=== PATIENT | female | born 1945 | race Caucasian/White ===

== ENCOUNTER → 2018-07-04 14:00 | Outpatient (CLI) | payer MEDICARE, OTHER, SELFPAY | PROVIDERS: PCP General Practice; Visit Provider Urology | DX: N20.0 Calculus of kidney (principal); N13.30 Unspecified hydronephrosis | CPT/HCPCS: 99213 ==

== ENCOUNTER → 2018-07-09 00:58 | Outpatient (CLI) | payer MEDICARE, OTHER, SELFPAY ==
--- NOTE | 2018-07-09 08:26 | DI.RPTCT_ITS ---
SYMPTOM/DIAGNOSIS: BILAT KIDNEY STONES, N20.0, HYDRO ON US, ? STONE OR URETERAL STRICTURE RENAL COLIC CT: The study was carried out according to the usual protocol without contrast enhancement. There is severe left hydronephrosis and hydroureter down to the level of the distal ureter where a 5.4 mm. calculus is identified. The bladder is decompressed but contains a large irregular bladder calculus. Non obstructing right renal calculi are demonstrated. There is no evidence of right ureteral calculi or ureterectasis. SUMMARY: Severe left hydronephrosis and left hydroureter is demonstrated. A 5.4 mm. calculus is noted in the distal left ureter. Also there is a sizable irregular bladder stone. Non obstructing right nephrolithiasis is identified.
== END ==
PROVIDERS: PCP General Practice; Visit Provider Urology
DX: N20.0 Calculus of kidney (principal); N13.39 Other hydronephrosis; N13.4 Hydroureter; N21.0 Calculus in bladder
CPT/HCPCS: 74176

== ENCOUNTER → 2018-07-10 10:00 | Outpatient (CLI) | payer MEDICARE, OTHER, SELFPAY | PROVIDERS: PCP General Practice; Visit Provider Urology | DX: N21.0 Calculus in bladder (principal); N20.1 Calculus of ureter | CPT/HCPCS: 99213 ==

== ENCOUNTER 2018-07-15 22:05 | Emergency (ER) | payer MEDICARE, OTHER, SELFPAY ==
[2018-07-15 22:09] VITALS: BP 213/87; PULSE 125; RESP 22; TEMP 36.2; O2SAT 98
--- NOTE | 2018-07-15 22:42 | ED.GENADUL ---
Disposition Clinical Impression: Urinary retention Disposition: HOME Condition: Good Instructions: Acute Urinary Retention in Women (ED), Urinary Leg Bag (GEN) Additional Instructions: Please take your home tramadol and Cipro as directed. Please maintain your leg Crane bag as directed. Please empty it and the ways that we have shown you here in the emergency department. Please follow-up with Dr. San on . If you notice any significant blood in your urine, worsening pain, fever chills, please return immediately. If you notice any worsening of your symptoms, or any new symptoms such as vomiting, diarrhea, fever, chills, shortness of breath, chest pain, numbness, weakness, or fainting , please return immediately to the emergency department for reevaluation. As always, it was a pleasure participating in your medical care today. Referrals: Kevin San MD [ [facility] STAFF PHYSICIAN] - Medical Decision Making - Lab Data Laboratory Tests 07/15/18 07/15/18 22:26 22:26 WBC Cancelled RBC Cancelled Hgb Cancelled Hct Cancelled MCV Cancelled MCH Cancelled MCHC Cancelled RDW Cancelled Plt Count Cancelled MPV Cancelled Abs Immat Gran (auto) Cancelled Immature Gran % Cancelled Neutrophils % Cancelled Lymphocytes % Cancelled Monocytes % Cancelled Eosinophils % Cancelled Basophils % Cancelled Absolute Neutrophils Cancelled Band Neutrophils Cancelled Absolute Lymphocytes Cancelled Absolute Monocytes Cancelled Absolute Eosinophils Cancelled Absolute Basophils Cancelled Metamyelocytes Cancelled Myelocytes Cancelled Promyelocytes Cancelled Nucleated RBCs Cancelled Differential Comment Cancelled Atypical Lymphocytes Cancelled Other Cell Type Cancelled RBC Morphology Cancelled Polychromasia Cancelled Hypochromasia Cancelled Poikilocytosis Cancelled Basophilic Stippling Cancelled Anisocytosis Cancelled Microcytosis Cancelled Macrocytosis Cancelled Spherocytes Cancelled Target Cells Cancelled Tear Drop Cells Cancelled Ovalocytes Cancelled Stomatocytes Cancelled Stephens-[place] Tak Bodies Cancelled William Cells Cancelled Acanthocytes (Spur) Cancelled Schistocytes Cancelled Sodium Cancelled Potassium Cancelled Chloride Cancelled Carbon Dioxide Cancelled Anion Gap Cancelled BUN Cancelled Creatinine Cancelled Estimated GFR/1.73 m2 Cancelled Glucose Cancelled Calcium Cancelled Total Bilirubin Cancelled AST Cancelled ALT Cancelled Alkaline Phosphatase Cancelled Total Protein Cancelled Albumin Cancelled Lipase Cancelled - Medical Decision Making This is a 72-year-old female who had a bladder stone today, which was surgically washed out and obliterated by Dr. San. She was doing well after the procedure, however this evening she began to develop some urinary retention, and a sensation of bladder pressure and was unable to urinate a notable amount. The patient came to the ER for evaluation. Bladder scan revealed 300 cc, however she was only able to urinate roughly 5-7 cc. Because of this we did place a Crane catheter, the patient's heart rate went from 122 to 70, and her pain went from 10 out of 10 to a 2 out of 10. She is feeling much better. I did contact Dr. San, and discussed the case with him, he feels that she may have some particulate matter still in there causing the bladder spasm, and the retention. He recommends leaving in the Crane catheter with a leg bag the next 48 hours and having her follow-up on which is in 48 hours. Urinalysis shows no signs of severe infection. With the patient significant improvement of her symptoms, we will recommend continued Cipro, as well as her continued home tramadol and Tylenol and Motrin as needed. We discussed red flags which to return the patient understands. I have extensively reviewed the treatment plan and discharge instructions with the patient. I have addressed all patient concerns at this time. The patient was made aware of what symptoms to monitor for that would warrant a return to the emergency department. Discussed the plan with the patient, they demonstrate verbal understanding and agreement with our assessment and plan at this time. History of Present Illness - General Chief complaint: Urinary Stated complaint: PAIN,NAUSEA Time Seen by Provider: 07/15/18 22:26 - History of Present Illness Initial comments: 2-year-old female with a past medical history of a bladder stone who presents today for evaluation of pelvic pain. Today Dr. San performed a notable washout on her bladder and obliterated a large bladder stone, after prolonged washout she was having continued clear urine with no abnormalities. She is discharged home with no complications and was feeling very well, however this evening she began to have notable suprapubic pressure, and a feeling of urinary frequency. She is unable to get out a significant amount at home, and came in for evaluation. She denies any radiation of the pain, any hematuria, vomiting, diarrhea, chest pain shortness of breath. She has been taking Cipro at home as directed from Dr. San. She denies any other complaints at this time. She states that this does feel differently than her previous kidney stones. She denies any pertinent family history. She denies any recent pertinent surgical history. She has no other complaints at this time - Related Data Aspirin [Aspir 81] 81 mg PO DAILY tab-cap 03/21/15 Calcium Carbonate/Vitamin D3 [Caltrate 600 + D Soft Chew Tab] 1 each PO DIRECTED tab.chew 03/21/15 Glucosamine/Chond 2 tab PO DAILY 03/21/15 Multivitamin [Multi-Vitamin Daily] 1 each PO DAILY 03/21/15 Vitamin C 500 tab.chew PO DAILY 03/21/15 Cholecalciferol (Vitamin D3) [Vitamin D3] 1,000 unit PO DAILY 12/25/17 Triamcinolone Acetonide 15 gm TP BID 07/11/18 Ciprofloxacin [Cipro] 500 mg PO BID #6 tab 07/15/18 TraMADol [Ultram] 50 mg PO Q6H PRN PRN tab 07/15/18 Allergies Allergy/AdvReac Type Severity Reaction Status Date / Time Sulfa (Sulfonamide Allergy Unknown unknown Unverified 07/14/18 12:57 Antibiotics) lisinopril Allergy skin Unverified 07/14/18 12:58 reactions amoxicillin [From Augmentin] AdvReac Intermediate diarrhea/severe Unverified 07/14/18 12:58 muscle spasms clavulanic acid AdvReac Intermediate diarrhea/severe Unverified 07/14/18 12:58 [From Augmentin] muscle spasms alendronate sodium AdvReac Mild muscle Unverified 07/14/18 12:58 [From Fosamax] spasms hydrochlorothiazide AdvReac Mild nausea Unverified 07/14/18 12:58 Review of Systems Other: 10 point review of systems was performed, pertinent positives and negatives are noted in the history of present illness. Past Medical History - Past Medical History Medical history: hypertension kidney stones, osteopenia, frequent UTIs Surgical history: hysterectomy - Social History Alcohol use: none Drug use: none General Exam - Other Other exam information: 1.Const: Well-nourished, Well-developed, appearing stated age 2.Eyes: PERRL, no conjunctival injection, and symmetrical lids. 3.ENT: Atraumatic external nose and ears. Moist MM. Neck: Symmetric, trachea midline, No thyromegaly. 4.CVS: +S1/S2, No murmurs or gallops. Peripheral pulses 2+ and equal in all extremities. Brisk capillary refill in all extremities. 5.RESP: Unlabored respiratory effort. Clear to auscultation bilaterally. No wheezes rales or rhonchi 6.GI: Soft, Nontender/Nondistended, No hepatosplenomegaly. No guarding or rebound. Mild suprapubic pressure. No CVA or flank tenderness. 7.MSK: Normocephalic/Atraumatic, Extremities w/o deformity or ttp No cyanosis or clubbing, Normal movement of all extremities 8.Skin: Warm, Dry. No rashes or lesions. 9.Neuro: adapted physical education aide II-XII grossly intact. Sensation grossly intact, no focal neurologic deficits. 10.Psych: (AAO) x3. Appropriate mood and affect Course Vital Signs - 24 hr 07/15/18 22:09 Temperature 36.2 C L Pulse 125 H Respiratory 22 Rate Blood Pressure 213/87 Pulse Oximetry 98
[2018-07-15 22:45] LABS: Bilirubin Negative (Negative); Blood Large (Negative); Clarity Clear; Glucose Negative (Negative); Ketones Negative (Negative); Leukocyte Esterase Moderate (Negative); Nitrite Negative (Negative); Specific Gravity 1.025 (1.005-1.025); Urobilinogen 0.2 EU/dL (Up TO 0.2); pH 6.5 (5-8)
--- NOTE | 2018-07-15 22:45 | ED.GENADUL_ITS ---
Disposition Clinical Impression: Urinary retention Disposition: HOME Condition: Good Instructions: Acute Urinary Retention in Women (ED), Urinary Leg Bag (GEN) Additional Instructions: Please take your home tramadol and Cipro as directed. Please maintain your leg Crane bag as directed. Please empty it and the ways that we have shown you here in the emergency department. Please follow-up with Dr. San on . If you notice any significant blood in your urine, worsening pain, fever chills, please return immediately. If you notice any worsening of your symptoms , or any new symptoms such as vomiting, diarrhea, fever, chills, shortness of breath, chest pain, numbness, weakness, or fainting , please return immediately to the emergency department for reevaluation. As always, it was a pleasure participating in your medical care today. Referrals: Kevin San MD [ [facility] STAFF PHYSICIAN] - Medical Decision Making - Lab Data Laboratory Tests 07/15/18 07/15/18 22:26 22:26 WBC Cancelled RBC Cancelled Hgb Cancelled Hct Cancelled MCV Cancelled MCH Cancelled MCHC Cancelled RDW Cancelled Plt Count Cancelled MPV Cancelled Abs Immat Gran (auto) Cancelled Immature Gran % Cancelled Neutrophils % Cancelled Lymphocytes % Cancelled Monocytes % Cancelled Eosinophils % Cancelled Basophils % Cancelled Absolute Neutrophils Cancelled Band Neutrophils Cancelled Absolute Lymphocytes Cancelled Absolute Monocytes Cancelled Absolute Eosinophils Cancelled Absolute Basophils Cancelled Metamyelocytes Cancelled Myelocytes Cancelled Promyelocytes Cancelled Nucleated RBCs Cancelled Differential Comment Cancelled Atypical Lymphocytes Cancelled Other Cell Type Cancelled RBC Morphology Cancelled Polychromasia Cancelled Hypochromasia Cancelled Poikilocytosis Cancelled Basophilic Stippling Cancelled Anisocytosis Cancelled Microcytosis Cancelled Macrocytosis Cancelled Spherocytes Cancelled Target Cells Cancelled Tear Drop Cells Cancelled Ovalocytes Cancelled Stomatocytes Cancelled [place] Bodies Cancelled [place]enton Cells Cancelled Acanthocytes (Spur) Cancelled Schistocytes Cancelled Sodium Cancelled Potassium Cancelled Chloride Cancelled Carbon Dioxide Cancelled Anion Gap Cancelled BUN Cancelled Creatinine Cancelled Estimated GFR/1.73 m2 Cancelled Glucose Cancelled Calcium Cancelled Total Bilirubin Cancelled AST Cancelled ALT Cancelled Alkaline Phosphatase Cancelled Total Protein Cancelled Albumin Cancelled Lipase Cancelled - Medical Decision Making This is a 72-year-old female who had a bladder stone today, which was surgically washed out and obliterated by Dr. San. She was doing well after the procedure, however this evening she began to develop some urinary retention , and a sensation of bladder pressure and was unable to urinate a notable amount. The patient came to the ER for evaluation. Bladder scan revealed 300 cc, however she was only able to urinate roughly 5-7 cc. Because of this we did place a Crane catheter, the patient's heart rate went from 122 to 70, and her pain went from 10 out of 10 to a 2 out of 10. She is feeling much better. I did contact Dr. San, and discussed the case with him, he feels that she may have some particulate matter still in there causing the bladder spasm, and the retention. He recommends leaving in the Crane catheter with a leg bag the next 48 hours and having her follow-up on which is in 48 hours. Urinalysis shows no signs of severe infection. With the patient significant improvement of her symptoms, we will recommend continued Cipro, as well as her continued home tramadol and Tylenol and Motrin as needed. We discussed red flags which to return the patient understands. I have extensively reviewed the treatment plan and discharge instructions with the patient. I have addressed all patient concerns at this time. The patient was made aware of what symptoms to monitor for that would warrant a return to the emergency department. Discussed the plan with the patient, they demonstrate verbal understanding and agreement with our assessment and plan at this time. History of Present Illness - General Chief complaint: Urinary Stated complaint: PAIN,NAUSEA Time Seen by Provider: 07/15/18 22:26 - History of Present Illness Initial comments: 2-year-old female with a past medical history of a bladder stone who presents today for evaluation of pelvic pain. Today Dr. San performed a notable washout on her bladder and obliterated a large bladder stone, after prolonged washout she was having continued clear urine with no abnormalities. She is discharged home with no complications and was feeling very well, however this evening she began to have notable suprapubic pressure, and a feeling of urinary frequency. She is unable to get out a significant amount at home, and came in for evaluation. She denies any radiation of the pain, any hematuria, vomiting, diarrhea, chest pain shortness of breath. She has been taking Cipro at home as directed from Dr. San. She denies any other complaints at this time. She states that this does feel differently than her previous kidney stones. She denies any pertinent family history. She denies any recent pertinent surgical history. She has no other complaints at this time - Related Data Aspirin [Aspir 81] 81 mg PO DAILY tab-cap 03/21/15 Calcium Carbonate/Vitamin D3 [Caltrate 600 + D Soft Chew Tab] 1 each PO DIRECTED tab.chew 03/21/15 Glucosamine/Chond 2 tab PO DAILY 03/21/15 Multivitamin [Multi-Vitamin Daily] 1 each PO DAILY 03/21/15 Vitamin C 500 tab.chew PO DAILY 03/21/15 Cholecalciferol (Vitamin D3) [Vitamin D3] 1,000 unit PO DAILY 12/25/17 Triamcinolone Acetonide 15 gm TP BID 07/11/18 Ciprofloxacin [Cipro] 500 mg PO BID #6 tab 07/15/18 TraMADol [Ultram] 50 mg PO Q6H PRN PRN tab 07/15/18 Allergies Allergy/AdvReac Type Severity Reaction Status Date / Time Sulfa (Sulfonamide Allergy Unknown unknown Unverified 07/14/18 12:57 Antibiotics) lisinopril Allergy skin Unverified 07/14/18 12:58 reactions amoxicillin [From Augmentin] AdvReac Intermediate diarrhea/severe Unverified 12:58 muscle spasms clavulanic acid AdvReac Intermediate diarrhea/severe Unverified 07/14/18 12:58 [From Augmentin] muscle spasms alendronate sodium AdvReac Mild muscle Unverified 07/14/18 12:58 [From Fosamax] spasms hydrochlorothiazide AdvReac Mild nausea Unverified 07/14/18 12:58 Review of Systems Other: 10 point review of systems was performed, pertinent positives and negatives are noted in the history of present illness. Past Medical History - Past Medical History Medical history: hypertension kidney stones, osteopenia, frequent UTIs Surgical history: hysterectomy - Social History Alcohol use: none Drug use: none General Exam - Other Other exam information: 1.Const: Well-nourished, Well-developed, appearing stated age 2.Eyes: PERRL, no conjunctival injection, and symmetrical lids. 3.ENT: Atraumatic external nose and ears. Moist MM. Neck: Symmetric, trachea midline, No thyromegaly. 4.CVS: +S1/S2, No murmurs or gallops. Peripheral pulses 2+ and equal in all extremities. Brisk capillary refill in all extremities. 5.RESP: Unlabored respiratory effort. Clear to auscultation bilaterally. No wheezes rales or rhonchi 6.GI: Soft, Nontender/Nondistended, No hepatosplenomegaly. No guarding or rebound. Mild suprapubic pressure. No CVA or flank tenderness. 7.MSK: Normocephalic/Atraumatic, Extremities w/o deformity or ttp No cyanosis or clubbing, Normal movement of all extremities 8.Skin: Warm, Dry. No rashes or lesions. 9.Neuro: records management director II-XII grossly intact. Sensation grossly intact, no focal neurologic deficits. 10.Psych: (AAO) x3. Appropriate mood and affect Course Vital Signs - 24 hr 07/15/18 22:09 Temperature 36.2 C L Pulse 125 H Respiratory 22 Rate Blood Pressure 213/87 Pulse Oximetry 98
[2018-07-15 22:50] VITALS: BP 162/76; PULSE 78; RESP 16; TEMP 36.6; O2SAT 93
[2018-07-15 22:55] LABS: C & S Indicated? C&S Done As Ordered; RBC >50 (0-2)
[2018-07-15] MEDS: Acetaminophen 500 MG TAB 1000 MG PO (23:04)
--- NOTE | 2018-07-16 08:06 | PDOC.ERCMPRO ---
Care Management Progress Note 07/16-Dr. Medley requested assistance with a urology f/u in 48 hours (, 07/17) for post op retention, indwelling ramsey catheter. Referral faxed to Urology this am.
--- NOTE | 2018-07-16 08:07 | CMPROGNOTE_ITS ---
Care Management Progress Note 07/16-Dr. Medley requested assistance with a urology f/u in 48 hours (, ) for post op retention, indwelling ramsey catheter. Referral faxed to Urology this am.
== END 2018-07-15 23:16 | disposition home or self-care (01) ==
PROVIDERS: Emergency Provider Student in an Organized Health Care Education/Training Program; PCP General Practice
DX: R33.9 Retention of urine, unspecified (principal); N99.89 Other postprocedural complications and disorders of genitourinary system; Y84.8 Other medical procedures as the cause of abnormal reaction of the patient, or of later complication, without mention of misadventure at the time of the procedure; I10 Essential (primary) hypertension; Z87.442 Personal history of urinary calculi; Z87.440 Personal history of urinary (tract) infections
CPT/HCPCS: 51702 ×2; 99283 ×2; 80053; 83690; 81003; 81015; 85025; 87086

== ENCOUNTER → 2018-07-17 08:30 | Outpatient (CLI) | payer MEDICARE, OTHER, SELFPAY | PROVIDERS: PCP General Practice; Visit Provider Nurse Practitioner Gerontology | DX: N99.89 Other postprocedural complications and disorders of genitourinary system (principal); R33.8 Other retention of urine | CPT/HCPCS: 52001; 99213 ==

== ENCOUNTER → 2018-07-22 01:42 | Outpatient (CLI) | payer MEDICARE, OTHER, SELFPAY ==
--- NOTE | 2018-07-22 10:14 | DI.REPORT_ITS ---
SYMPTOM/DIAGNOSIS: CHECK RENAL FUNCTION LT KIDNEY, N13.30, LT HYDRONEPHROSIS DUE TO STRICTURE DTPA RENOGRAM WITH LASIX: 11.5 millicuries of Technetium 99 M DTPA were administered IV. The split function is 22% on the left and 78% on the right. There is some prominence of the right renal pelvis and mildly delayed excretion before Lasix administration. IMPRESSION: Poorly functioning left kidney with split function of 22%.
[2018-07-22] MEDS: Furosemide 20 MG/2 ML VIAL 19 MG IVP (11:15)
== END ==
PROVIDERS: PCP General Practice; Visit Provider Urology
DX: N13.30 Unspecified hydronephrosis (principal); N28.89 Other specified disorders of kidney and ureter
CPT/HCPCS: 78708; J1940; 78707; J1941

== ENCOUNTER → 2018-07-29 10:08 | Outpatient (CLI) | payer MEDICARE, OTHER, SELFPAY | PROVIDERS: PCP General Practice; Visit Provider Surgery | DX: K80.20 Calculus of gallbladder without cholecystitis without obstruction (principal); N20.0 Calculus of kidney | CPT/HCPCS: 99214 ==

== ENCOUNTER → 2018-08-01 09:30 | Outpatient (BNVA) | payer MEDICARE, OTHER, SELFPAY | PROVIDERS: Visit Provider Urology | DX: Z48.89 Encounter for other specified surgical aftercare (principal); N20.0 Calculus of kidney | CPT/HCPCS: 99212 ==

== ENCOUNTER 2018-08-11 09:06 | Outpatient (CLI) | payer MEDICARE, OTHER, SELFPAY ==
--- NOTE | 2018-08-11 10:00 | SATEXT_ITS ---
Assessment: Ms. Peterson presents for nutritional counseling for unintentional weight loss. She has been having trouble with gallstones and pancreatitis since October of 2018. She has lost 43 lbs. She is currently 59 and 104 lbs/ 47.2 kg. Her BMI is 21.9 kg/m2 which is WNL. However, she has sustained a 29% weight loss and on appearance, she has loss of subcutaneous fat and also muscle wasting. Her dietary recall shows that she eats cereal with milk, fruit, occasional toast in the morning. Soup and half a sandwich or a salad at lunch. She has some type of meat and vegetables for supper. She may snack on gram crackers and peanut butter. She drinks water, cranberry juice. Every other day , she has an 8 oz. protein shake. Estimated energy needs are 1400 kcal/day (30 kcal/kg/day) to help regain some lean body mass. Estimated protein needs are 70g/day (1.5g/kg/day) Nutritional Diagnosis: Moderate malnutrition in the setting of chronic illness as evidenced by 29% weight loss in a 6 month period and muscle and fat loss. Intervention: Acknowledged that Ms. Peterson eats healthfully. Suggested that in order to improve her nutritional status and restore her lean body mass, she will need to increase her calorie intake especially in the form of good sources of proteins. We reviewed what her eating pattern would look like based on how she already eats. Provided some recipes for high calorie, high protein homemade supplements. Suggested that drink 2% or whole milk if she can tolerate the fat the content. Ms. Peterson verbalized an excellent understanding of the information. Monitoring and Evaluation: Ms. Peterson will self monitor her progress on her action plans which include increasing calories and protein in her diet. She will evaluate her nutrition care plan and check in with me as needed for adjustments. Thank you for the referral.
== END 2018-08-11 09:26 ==
PROVIDERS: PCP General Practice; Visit Provider Dietitian, Registered
DX: R63.4 Abnormal weight loss (principal); Z71.3 Dietary counseling and surveillance; K85.90 Acute pancreatitis without necrosis or infection, unspecified
CPT/HCPCS: 97802

== ENCOUNTER → 2018-10-31 09:48 | Outpatient (BNVA) | payer MEDICARE, OTHER, SELFPAY | PROVIDERS: PCP General Practice; Visit Provider Urology | DX: N20.0 Calculus of kidney (principal) | CPT/HCPCS: 81003; 99213 ==

== ENCOUNTER → 2019-03-06 09:49 | Outpatient (BNVA) | payer MEDICARE, OTHER, SELFPAY | PROVIDERS: PCP General Practice; Visit Provider Urology | DX: N20.0 Calculus of kidney (principal); N13.30 Unspecified hydronephrosis | CPT/HCPCS: 99213 ==

== ENCOUNTER 2019-04-06 01:22 | Outpatient (RCR) | payer MEDICARE, OTHER, SELFPAY ==
[2019-04-06] MEDS: Denosumab 60 MG/ML SYR SC (10:19)
== END 2019-05-01 23:59 | disposition home or self-care (01) ==
LOC: INF 01:22
PROVIDERS: PCP General Practice; Visit Provider Internal Medicine
DX: M81.0 Age-related osteoporosis without current pathological fracture (principal)
CPT/HCPCS: 96372; J0897

== ENCOUNTER 2019-05-06 07:20 | Outpatient (CLI) | payer MEDICARE, OTHER, SELFPAY ==
[2019-05-06 09:41] LABS: Calculated LDL 119; Cholesterol 201 mg/dL (50-200); Glucose 86 mg/dL (70-100); HDL Cholesterol 67 mg/dL (40-60); Triglyceride 79 mg/dL (30-150)
== END 2019-05-06 07:40 ==
PROVIDERS: PCP General Practice; Visit Provider General Practice
DX: I10 Essential (primary) hypertension (principal); R63.4 Abnormal weight loss; Z13.6 Encounter for screening for cardiovascular disorders; Z13.1 Encounter for screening for diabetes mellitus
CPT/HCPCS: 36415; 80061; 82947; 83721

== ENCOUNTER 2019-09-01 16:56 | Outpatient (CLI) | payer MEDICARE, OTHER, SELFPAY ==
[2019-09-01 18:22] LABS: BUN 35 mg/dL (7-18); CREATININE 1.33 mg/dL (0.55-1.02); Estimated GFR 39.22 (mL/min/1.73m2)
== END 2019-09-01 17:16 ==
PROVIDERS: PCP General Practice; Visit Provider Urology
DX: N13.30 Unspecified hydronephrosis (principal)
CPT/HCPCS: 36415; 84520; 82565

== ENCOUNTER → 2019-09-08 12:45 | Outpatient (BNVA) | payer MEDICARE, OTHER, SELFPAY | PROVIDERS: PCP General Practice; Referring Provider General Practice; Visit Provider Urology | DX: N13.30 Unspecified hydronephrosis (principal); Z87.442 Personal history of urinary calculi | CPT/HCPCS: 99213 ==

== ENCOUNTER 2019-10-07 02:20 | Outpatient (RCR) | payer MEDICARE, OTHER, SELFPAY ==
[2019-10-07] MEDS: Denosumab 60 MG/ML SYR SC (09:58)
== END 2019-10-31 23:59 | disposition home or self-care (01) ==
LOC: INF 02:20
PROVIDERS: PCP Nurse Practitioner Family; Visit Provider Internal Medicine
DX: M81.0 Age-related osteoporosis without current pathological fracture (principal)
CPT/HCPCS: 96372; J0897

== ENCOUNTER 2020-04-06 01:35 | Outpatient (RCR) | payer MEDICARE, OTHER, SELFPAY ==
[2020-04-06] MEDS: Denosumab 60 MG/ML SYR SC (10:11)
== END 2020-05-01 23:59 | disposition home or self-care (01) ==
LOC: INF 01:35
PROVIDERS: PCP Nurse Practitioner Family; Visit Provider Internal Medicine
DX: M81.8 Other osteoporosis without current pathological fracture (principal)
CPT/HCPCS: 96372; J0897

== ENCOUNTER 2020-04-18 02:26 | Outpatient (CLI) | payer MEDICARE, OTHER, SELFPAY ==
[2020-04-18 16:27] LABS: BUN 42 mg/dL (7-18); CREATININE 1.29 mg/dL (0.55-1.02); Estimated GFR 40.51 (mL/min/1.73m2)
== END 2020-04-18 02:46 ==
PROVIDERS: PCP Nurse Practitioner Family; Visit Provider Urology
DX: N13.30 Unspecified hydronephrosis (principal)
CPT/HCPCS: 36415; 84520; 82565

== ENCOUNTER → 2020-04-26 15:53 | Outpatient (BNVA) | payer MEDICARE, OTHER, SELFPAY | PROVIDERS: PCP Nurse Practitioner Family; Referring Provider General Practice; Visit Provider Urology | DX: N13.30 Unspecified hydronephrosis (principal) | CPT/HCPCS: 99213; 99442 ==

== ENCOUNTER 2020-10-05 01:34 | Outpatient (RCR) | payer MEDICARE, OTHER, SELFPAY ==
[2020-10-05] MEDS: Denosumab 60 MG/ML SYR SC (10:28)
== END 2020-10-31 23:59 | disposition home or self-care (01) ==
LOC: INF 01:34
PROVIDERS: PCP Nurse Practitioner Family; Visit Provider Internal Medicine
DX: M81.0 Age-related osteoporosis without current pathological fracture (principal)
CPT/HCPCS: 96372; J0897

== ENCOUNTER 2020-10-31 03:50 | Outpatient (CLI) | payer MEDICARE, OTHER, SELFPAY ==
[2020-10-31 16:53] LABS: BUN 34 mg/dL (7-18); CREATININE 1.27 mg/dL (0.55-1.02); Estimated GFR 41.25 (mL/min/1.73m2)
== END 2020-10-31 04:10 ==
PROVIDERS: PCP Nurse Practitioner Family; Visit Provider Urology
DX: N13.30 Unspecified hydronephrosis (principal)
CPT/HCPCS: 36415; 84520; 82565

== ENCOUNTER 2020-11-01 12:13 | Outpatient (RCR) | payer MEDICARE, OTHER, SELFPAY | END 2020-12-01 23:59 | disposition home or self-care (01) | LOC: INF 12:13 | PROVIDERS: PCP Nurse Practitioner Family; Visit Provider Internal Medicine | DX: N13.30 Unspecified hydronephrosis (principal); Z98.890 Other specified postprocedural states | CPT/HCPCS: 99213 ==

== ENCOUNTER 2021-04-05 02:50 | Outpatient (RCR) | payer MEDICARE, OTHER, SELFPAY ==
[2021-04-05] MEDS: Denosumab 60 MG/ML SYR SC (10:04)
== END 2021-05-01 23:59 | disposition home or self-care (01) ==
LOC: INF 02:50
PROVIDERS: PCP Nurse Practitioner Family; Visit Provider Internal Medicine
DX: M81.6 Localized osteoporosis [Lequesne] (principal)
CPT/HCPCS: 96372; J0897

== ENCOUNTER 2021-04-13 14:21 | Outpatient (REF) | payer MEDICARE, OTHER, SELFPAY ==
--- NOTE | 2021-04-13 13:55 | SKI_PTH ---
PATIENT: Sarah Peterson LOC: [facility] U#:[id number] AGE/SX: 75/F ROOM: RE04/13/[address]: Warren Ho MD : [id number] BED: DIS: 04/13/2021 SPEC #: [id number] RECD: 04/13/21 17:46 STATUS: LEONOR REKaroline #: [id number] SEEAM: 04/13/21 13:[address]: Warren Ho DEPT: Surgical Specimen RECD BY: Phuong Galindo ENTERED: 04/13/21 17:47 SP TYPE: HARPAL SNYDER DR: Lorena Meneses Tissues: 1 - SKIN BIOPSY(SHAVE/PUNCH) Procedures: GROSS AND MICRO LEVEL 3 Comments: [id number]
== END 2021-04-13 14:22 | disposition home or self-care (01) ==
LOC: LBN 14:21
PROVIDERS: PCP Nurse Practitioner Family; Visit Provider Otolaryngology
DX: D23.4 Other benign neoplasm of skin of scalp and neck (principal)
CPT/HCPCS: 88304; 88305

== ENCOUNTER 2021-05-04 03:13 | Outpatient (CLI) | payer MEDICARE, OTHER, SELFPAY ==
[2021-05-04 16:25] LABS: BUN 29 mg/dL (7-18); CREATININE 1.1 mg/dL (0.55-1.02); Estimated GFR 48.55 (mL/min/1.73m2)
== END 2021-05-04 03:14 | disposition home or self-care (01) ==
LOC: LBO 03:14
PROVIDERS: PCP Nurse Practitioner Family; Visit Provider Urology
DX: N13.30 Unspecified hydronephrosis (principal)
CPT/HCPCS: 36415; 84520; 82565

== ENCOUNTER → 2021-05-08 14:21 | Outpatient (BNVA) | payer MEDICARE, OTHER, SELFPAY | PROVIDERS: PCP Nurse Practitioner Family; Referring Provider Nurse Practitioner Family; Visit Provider Nurse Practitioner Gerontology | DX: N13.30 Unspecified hydronephrosis (principal) | CPT/HCPCS: 99213 ==

== ENCOUNTER 2021-10-05 02:29 | Outpatient (RCR) | payer MEDICARE, SELFPAY ==
[2021-10-05] MEDS: Denosumab 60 MG/ML SYR SC (09:58)
== END 2021-10-31 23:59 | disposition home or self-care (01) ==
LOC: INF 02:29
PROVIDERS: PCP Nurse Practitioner Family; Visit Provider Internal Medicine
DX: M81.8 Other osteoporosis without current pathological fracture (principal)
CPT/HCPCS: 96372; J0897

== ENCOUNTER 2021-11-06 03:05 | Outpatient (CLI) | payer MEDICARE, OTHER, SELFPAY ==
[2021-11-06 09:46] LABS: BUN 28 mg/dL (7-18); CREATININE 1.1 mg/dL (0.55-1.02); Estimated GFR 48.55 (mL/min/1.73m2)
== END 2021-11-06 03:06 | disposition home or self-care (01) ==
PROVIDERS: PCP Nurse Practitioner Family; Visit Provider Nurse Practitioner Gerontology
DX: N13.39 Other hydronephrosis (principal)
CPT/HCPCS: 84520; 82565

== ENCOUNTER → 2021-11-08 15:30 | Outpatient (BNVA) | payer MEDICARE, OTHER, SELFPAY | PROVIDERS: PCP Nurse Practitioner Family; Referring Provider Nurse Practitioner Family; Visit Provider Nurse Practitioner Gerontology | DX: N13.30 Unspecified hydronephrosis (principal) | CPT/HCPCS: 99213 ==

== ENCOUNTER 2022-04-04 01:05 | Outpatient (RCR) | payer MEDICARE, SELFPAY ==
[2022-04-04] MEDS: Denosumab 60 MG/ML SYR SC (09:54)
== END 2022-05-01 23:59 | disposition home or self-care (01) ==
LOC: INF 01:05
PROVIDERS: PCP Nurse Practitioner Family; Visit Provider Nurse Practitioner Family
DX: M81.6 Localized osteoporosis [Lequesne] (principal)
CPT/HCPCS: 96372; J0897

== ENCOUNTER 2022-05-02 04:06 | Outpatient (CLI) | payer MEDICARE, SELFPAY ==
[2022-05-02 12:03] LABS: BUN 21 mg/dL (7-18); Estimated GFR 54.05 (mL/min/1.73m2)
== END 2022-05-02 04:07 | disposition home or self-care (01) ==
LOC: LBO 04:07
PROVIDERS: PCP Nurse Practitioner Family; Visit Provider Nurse Practitioner Gerontology
DX: N13.30 Unspecified hydronephrosis (principal)
CPT/HCPCS: 36415; 84520; 82565

== ENCOUNTER → 2022-05-21 15:14 | Outpatient (BNVA) | payer MEDICARE, SELFPAY | PROVIDERS: PCP Nurse Practitioner Family; Referring Provider Nurse Practitioner Family; Visit Provider Nurse Practitioner Gerontology | DX: N13.30 Unspecified hydronephrosis (principal) | CPT/HCPCS: 99213 ==

== ENCOUNTER 2022-10-18 12:14 | Outpatient (REF) | payer MEDICARE, SELFPAY ==
[2022-10-19 10:25] LABS: Calcium Urine 27.9 mg/dL (See Note); Calcium Urine 24 hr 209 mg/24hrs (100-300); Timed Urine Volume 750 mL
== END 2022-10-18 12:15 | disposition home or self-care (01) ==
LOC: LBN 12:14
PROVIDERS: PCP Nurse Practitioner Family; Visit Provider Internal Medicine Endocrinology, Diabetes & Metabolism
DX: M81.0 Age-related osteoporosis without current pathological fracture (principal)
CPT/HCPCS: 81050; 82340

== ENCOUNTER → 2022-11-07 02:27 | Outpatient (CLI) | payer MEDICARE, SELFPAY ==
--- NOTE | 2022-11-07 | DI.DEXA_ITS ---
Exam(s) XR DEXA BONE DENSITY W/WO ANTONY EXAM: XR DEXA BONE DENSITY W/WO ANTONY CLINICAL HISTORY: F/U POSTMENOPAUSAL OSTEOPOROSIS, M81.0 TECHNIQUE: COMPARISON: No exams were available for comparison FINDINGS: DEXA scan was performed according to the usual protocol. Please see the accompanying data sheets. Findings for left hip scanning are T-score -2.1 with left femoral neck T-score -2.2. Findings for lumbar spine scanning are T-score -1.1. IMPRESSION: The measurements are consistent with osteopenia according to the WHO criteria. The lateral vertebral scanogram shows compression fractures of what appear to be T12 and L1 vertebral bodies. RADIATION DOSE DELIVERED: Total DLP
== END ==
PROVIDERS: PCP Nurse Practitioner Family; Visit Provider Internal Medicine Endocrinology, Diabetes & Metabolism
DX: M85.88 Other specified disorders of bone density and structure, other site (principal); M48.55XD Collapsed vertebra, not elsewhere classified, thoracolumbar region, subsequent encounter for fracture with routine healing; Z78.0 Asymptomatic menopausal state
CPT/HCPCS: 77080

== ENCOUNTER 2022-11-12 03:16 | Outpatient (CLI) | payer MEDICARE, SELFPAY ==
[2022-11-12 16:20] LABS: BUN 31 mg/dL (7-18); CREATININE 1.3 mg/dL (0.55-1.02); Estimated GFR 42.88 (mL/min/1.73m2)
== END 2022-11-12 03:17 | disposition home or self-care (01) ==
LOC: LBO 03:16
PROVIDERS: PCP Nurse Practitioner Family; Visit Provider Nurse Practitioner Gerontology
DX: N13.30 Unspecified hydronephrosis (principal)
CPT/HCPCS: 36415; 84520; 82565

== ENCOUNTER → 2022-11-20 15:12 | Outpatient (BNVA) | payer MEDICARE, SELFPAY | PROVIDERS: PCP Nurse Practitioner Family; Referring Provider Nurse Practitioner Family; Visit Provider Nurse Practitioner Gerontology | DX: Z87.442 Personal history of urinary calculi (principal); N13.30 Unspecified hydronephrosis | CPT/HCPCS: 99213 ==

== ENCOUNTER 2022-11-23 00:50 | Outpatient (RCR) | payer MEDICARE, SELFPAY ==
[2022-11-23] MEDS: Denosumab 60 MG/ML SYR SC (09:46)
== END 2022-12-01 23:59 | disposition home or self-care (01) ==
LOC: INF 00:50
PROVIDERS: PCP Nurse Practitioner Family; Visit Provider Nurse Practitioner Acute Care
DX: M81.6 Localized osteoporosis [Lequesne] (principal)
CPT/HCPCS: 96372; J0897

== ENCOUNTER 2022-12-11 16:32 | Outpatient (REF) | payer MEDICARE, SELFPAY ==
[2022-12-11 18:02] LABS: HCT 41.1 % (36.0-46.0); HGB 13.3 g/dL (11.2-15.7); MCH 30.9 pg (27.0-33.0); MCHC 32.4 % (32.0-36.0); MCV 96 fL (80-95); MPV 9.3 fL (8.0-11.0); Platelet Count 296 10^3/uL (130-400); RDW 12.7 % (11.7-14.6); RDW-SD 44.5 fL; WBC 4.88 10^3/uL (4.4-10.8)
[2022-12-11 18:14] LABS: ALT 18 U/L (14-59); AST 21 U/L (15-37); Albumin 4.6 g/dL (3.4-5.0); Alkaline Phosphatase 76 U/L (46-116); BUN 27 mg/dL (7-18); Bilirubin, Total 1.2 mg/dL (0.2-1.0); CREATININE 1.2 mg/dL (0.55-1.02); Calcium 9.9 mg/dL (8.5-10.1); Chloride 102 mmol/L (98-107); Estimated GFR 47.21 (mL/min/1.73m2); Glucose 105 mg/dL (74-106); Sodium 139 mmol/L (136-145); TSH (W/Ref FT4) 0.86 uIU/mL (0.36-3.74); Total Protein 8.1 g/dL (6.4-8.2)
== END 2022-12-11 16:33 | disposition home or self-care (01) ==
LOC: NCHCN 16:32
PROVIDERS: PCP Nurse Practitioner Family; Visit Provider Nurse Practitioner Family
DX: I10 Essential (primary) hypertension (principal); M81.0 Age-related osteoporosis without current pathological fracture; R63.4 Abnormal weight loss; Z00.00 Encounter for general adult medical examination without abnormal findings
CPT/HCPCS: 80053; 85027; 84443

== ENCOUNTER 2023-02-13 02:26 | Outpatient (CLI) | payer MEDICARE, SELFPAY ==
[2023-02-13 10:18] LABS: BUN 33 mg/dL (7-18); CREATININE 1.2 mg/dL (0.55-1.02); Estimated GFR 46.91 (mL/min/1.73m2)
== END 2023-02-13 02:27 | disposition home or self-care (01) ==
LOC: LBO 02:26
PROVIDERS: PCP Nurse Practitioner Family; Visit Provider Nurse Practitioner Gerontology
DX: N13.30 Unspecified hydronephrosis (principal); Z87.442 Personal history of urinary calculi
CPT/HCPCS: 36415; 84520; 82565

== ENCOUNTER → 2023-02-20 09:56 | Outpatient (BNVA) | payer MEDICARE, SELFPAY | PROVIDERS: PCP Nurse Practitioner Family; Referring Provider Nurse Practitioner Family; Visit Provider Nurse Practitioner Gerontology | DX: N13.30 Unspecified hydronephrosis (principal) | CPT/HCPCS: 99213 ==

== ENCOUNTER 2023-03-22 00:37 | Outpatient (CLI) | payer MEDICARE, SELFPAY ==
--- NOTE | 2023-03-22 08:00 | DI.US_ITS ---
Exam(s) US RENAL EXAM: US RENAL CLINICAL HISTORY: monitoring lt hydro and rise in renal functions,n13.30 TECHNIQUE: Ultrasound of both kidneys performed using standard protocol. COMPARISON: US ABDOMEN ULTRASOUND (P) from 06/27/2018 CT RENAL COLIC WO CONTRAST from 07/09/2018 FINDINGS: KIDNEYS: Both kidneys measure approximately 8.5 cm length. There is severe hydronephrosis of the lef t kidney (as seen on CT scan July 2018) and mild hydronephrosis the right kidney. There are small echogenic foci in the right kidney measuring up to 3 millimeters, probably calculi. There are no solid renal masses. No significant cysts. URINARY BLADDER: Prevoid volume is 111 cc Postvoid volume is 4 cc No evidence of bladder mass nor diverticuli. Ureterovesical jets: Right ureterovesical jet was identified. The left was not identified. IMPRESSION: 1. Severe hydronephrosis of the left kidney and absence of left ureterovesical jet. These findings are consistent with probable obstructing calculus or lesion on the left side. Left hydronephrosis bl ood is evident on CT scan of 2018. 2. Small intrarenal calculi in the right kidney. Mild right-sided hydronephrosis. Right ureteroves ical jet identified. 3. No obvious mass in the urinary bladder DATA REPOSITORY:
== END 2023-03-22 00:57 ==
LOC: DI 00:37
PROVIDERS: PCP Nurse Practitioner Family; Visit Provider Nurse Practitioner Gerontology
DX: N13.30 Unspecified hydronephrosis (principal)
CPT/HCPCS: 76770

== ENCOUNTER → 2023-04-08 07:51 | Outpatient (BNVA) | payer MEDICARE, SELFPAY | PROVIDERS: PCP Nurse Practitioner Family; Referring Provider Nurse Practitioner Family; Visit Provider Nurse Practitioner Gerontology | DX: N13.30 Unspecified hydronephrosis (principal); N20.0 Calculus of kidney | CPT/HCPCS: 99442 ==

== ENCOUNTER 2023-06-12 02:27 | Outpatient (RCR) | payer MEDICARE, SELFPAY ==
[2023-06-12] MEDS: Denosumab 60 MG/ML SYR SC (10:13)
== END 2023-07-01 23:59 | disposition home or self-care (01) ==
LOC: INF 02:27
PROVIDERS: PCP Nurse Practitioner Family; Visit Provider Nurse Practitioner Acute Care
DX: M81.0 Age-related osteoporosis without current pathological fracture (principal)
CPT/HCPCS: 96372; J0897

== ENCOUNTER 2023-08-16 14:13 | Outpatient (REF) | payer MEDICARE, SELFPAY ==
[2023-08-16 15:05] LABS: Anion Gap 6.4 mmol/L (3-11); BUN 21 mg/dL (7-18); CO2 29.6 mmol/L (21.0-32.0); CREATININE 1.2 mg/dL (0.55-1.02); Chloride 103 mmol/L (98-107); Estimated GFR 46.91 (mL/min/1.73m2); Glucose 102 mg/dL (74-106); Potassium 4.3 mmol/L (3.5-5.1); Sodium 139 mmol/L (136-145)
== END 2023-08-16 14:14 | disposition home or self-care (01) ==
LOC: NCHCN 14:13
PROVIDERS: PCP Nurse Practitioner Family; Visit Provider Nurse Practitioner Family
DX: I10 Essential (primary) hypertension (principal); N18.31 Chronic kidney disease, stage 3a
CPT/HCPCS: 80048

== ENCOUNTER 2023-10-08 00:59 | Outpatient (CLI) | payer MEDICARE, SELFPAY ==
[2023-10-08 11:08] LABS: BUN 22 mg/dL (7-18); CREATININE 1.1 mg/dL (0.55-1.02); Estimated GFR 52.08 (mL/min/1.73m2)
== END 2023-10-08 01:00 | disposition home or self-care (01) ==
PROVIDERS: PCP Nurse Practitioner Family; Visit Provider Nurse Practitioner Gerontology
DX: N13.30 Unspecified hydronephrosis (principal)
CPT/HCPCS: 36415; 84520; 82565

== ENCOUNTER → 2023-10-16 01:26 | Outpatient (CLI) | payer MEDICARE, SELFPAY ==
--- NOTE | 2023-10-16 07:45 | DI.US_ITS ---
Exam(s) US RENAL EXAM: US RENAL CLINICAL HISTORY: monitoring hydronephrosis, lt, n13.30. TECHNIQUE: Brandon scale, color and spectral Doppler were used. COMPARISON: CT RENAL COLIC WO CONTRAST from 07/09/2018 US US RENAL from 03/22/2023 FINDINGS: Renal size in cm: Right: 9.6 left: 10.6 Echogenicity: Normal Hydronephrosis: Stable mild right hydronephrosis. Stable severe left hydronephrosis. Cyst or mass: No Nephrolithiasis: 4 millimeter stone lower pole right kidney. 3 millimeter stone mid right kidney. Bladder: Empty IMPRESSION: Stable severe left hydronephrosis. Stable mild right hydronephrosis. DATA REPOSITORY:
== END ==
PROVIDERS: PCP Nurse Practitioner Family; Visit Provider Nurse Practitioner Gerontology
DX: N13.30 Unspecified hydronephrosis (principal)
CPT/HCPCS: 76770

== ENCOUNTER → 2023-10-23 13:54 | Outpatient (BNVA) | payer MEDICARE, SELFPAY | PROVIDERS: PCP Nurse Practitioner Family; Referring Provider Nurse Practitioner Family; Visit Provider Nurse Practitioner Gerontology | DX: N20.1 Calculus of ureter (principal) | CPT/HCPCS: 99213 ==

== ENCOUNTER 2023-12-16 04:56 | Outpatient (RCR) | payer MEDICARE, SELFPAY ==
[2023-12-16] MEDS: Denosumab 60 MG/ML SYR SC (10:22)
== END 2024-01-01 23:59 | disposition home or self-care (01) ==
LOC: INF 04:56
PROVIDERS: PCP Nurse Practitioner Family; Visit Provider Nurse Practitioner Acute Care
DX: M81.0 Age-related osteoporosis without current pathological fracture
CPT/HCPCS: 96372; J0897

== ENCOUNTER 2024-01-27 12:09 | Inpatient (IN) | payer MEDICARE, SELFPAY ==
[2024-01-27] VITALS (17 sets, daily range): BP systolic 143–188; BP diastolic 56–85; PULSE 58–84; RESP 9–28; TEMP 36.3–37.2; O2SAT 92–99
--- NOTE | 2024-01-27 13:15 | RT.EKG_ITS ---
APPROVED REPORT Exam: Resting ECG Reason for Exam: weakness Patient Location: E HR:73 bpm ECG Measurements Heart Rate 73 AXIS NH 154 P 62 QRSd 73 QRS 1 QT 395 T 48 QTc 436 Conclusion Sinus rhythm 73 normal axis no stemi
[2024-01-27 13:37] LABS: Abs Immature Grans 0.03 10^3/uL (0.0-0.06); Absolute Basophil Count 0.09 10^3/uL (0.0-0.2); Absolute Eosinophil Count 0.13 10^3/uL (0.0-0.7); Absolute Lymphocyte Count 1.01 10^3/uL (1.2-3.4); Absolute Monocyte Count 0.58 10^3/uL (0.1-0.8); Absolute Neutrophil Count 6.65 10^3/uL (1.2-6.7); Basophils % 1.1; Eosinophils % 1.5; HCT 41.6 % (36.0-46.0); HGB 13.6 g/dL (11.2-15.7); Immature Grans % 0.4; Lymphocytes % 11.9; MCH 30.7 pg (27.0-33.0); MCHC 32.7 % (32.0-36.0); MCV 94 fL (80-95); MPV 8.5 fL (8.0-11.0); Monocytes % 6.8; Neutrophils % 78.3; Platelet Count 302 10^3/uL (130-400); RBC 4.43 10^6/uL (3.93-5.22); RDW 13.4 % (11.7-14.6); RDW-SD 45.9 fL; WBC 8.49 10^3/uL (4.4-10.8)
[2024-01-27 13:50] LABS: Bilirubin Negative (Negative); Blood Negative (Negative); Clarity Clear (Clear); Glucose Negative (Negative); Ketones Negative (Negative); Leukocyte Esterase Small (Negative); Nitrite Negative (Negative); Specific Gravity 1.015 (1.005-1.025); Urobilinogen 0.2 mg/dL (Up to 0.2); pH 5.5 (5-8)
[2024-01-27 13:51] LABS: ALT 25 U/L (14-59); AST 26 U/L (15-37); Albumin 4.4 g/dL (3.4-5.0); Alkaline Phosphatase 80 U/L (46-116); Anion Gap 9.4 mmol/L (3-11); BUN 24 mg/dL (7-18); Bilirubin, Total 0.7 mg/dL (0.2-1.0); CO2 29.6 mmol/L (21.0-32.0); CREATININE 1.1 mg/dL (0.55-1.02); Chloride 102 mmol/L (98-107); Estimated GFR 51.75 (mL/min/1.73m2); Glucose 114 mg/dL (74-106); Sodium 141 mmol/L (136-145); Total Protein 8.2 g/dL (6.4-8.2)
[2024-01-27 13:56] LABS: Bacteria Few HPF (Negative); C & S Indicated? Yes; Casts Negative LPF (Negative); Crystals Negative HPF (Negative); Epithelial Cells Few HPF (Negative); Mucus Negative (Negative); RBC 0-2 HPF (0-2)
--- NOTE | 2024-01-27 15:30 | DI.MRI_ITS ---
Exam(s) MR BRAIN WO EXAM: MR BRAIN WO CLINICAL HISTORY: subacute stroke TECHNIQUE: Multiplanar multisequence MRI of the brain was performed. COMPARISON: No exams were available for comparison FINDINGS: CEREBRAL PARENCHYMA: There is no evidence of intracranial hemorrhage, mass effect, or shift of midline structures. There are no extra-axial fluid collections. Ventricles are not enlarged or shifted. There is no significant focal signal abnormality in the cerebellar hemispheres nor within the ambrose, m idbrain, and thalami. There are multiple FLAIR bright foci of Clarke and supra ventricular signal abnormality consistent with chronic small vessel disease. However, there is also an area exhibiting significant restricted diff usion in the upper right basal ganglia/right periventricular white matter consistent with acute nonhe morrhagic infarct. PITUITARY GLAND: No mass nor parasellar abnormality. No obvious abnormality in the cavernous sinuses. FLOW VOIDS: The expected flow void are noted. No evidence of obvious aneurysm nor obvious vascular ma lformation. PARANASAL SINUSES: No past maxillary sinus. Milder circumferential mucosal thickening is noted in th e right maxillary sinus without a fluid level. There is also opacification of both frontal sinuses a s well as ethmoidal air cells. Sphenoid sinuses are clear. ORBITS: No obvious findings. IMPRESSION: Findings are consistent with acute nonhemorrhagic infarct in the upper right basal ganglia/right clarke ventricular white matter. The above finding is superimposed upon abundant bilateral periventricular signal abnormality consiste nt with chronic small vessel disease. Complete opacification of left maxillary sinus and frontal sinuses/diffuse sinusitis. Called by myself to ER physician. DATA REPOSITORY:
--- NOTE | 2024-01-27 15:30 | DI.CT_ITS ---
Exam(s) CT BRAIN NECK CTA EXAM: CT BRAIN NECK CTA CLINICAL HISTORY: STROKE. TECHNIQUE: Imaging Protocol: Axial CT angiography was performed with multi-slice acquisition and mu lti-planar and MIP reconstructions. CONTRAST MATERIAL: Intravenous: Omnipaque 350 Contrast volume:100 ml COMPARISON: CT RENAL COLIC WO CONTRAST from 07/09/2018 MR MR BRAIN WO from 01/27/2024 FINDINGS: CT Head W/O and W contrast: Ventricles and Extra axial spaces: Normal in size and morphology for the patient's age. Hemorrhage: None. Cerebral parenchyma: Area of low attenuation in the white matter adjacent to the right lateral ventri poornima consistent with the area of restricted diffusion on MRI. Midline shift: None. Brainstem/Cerebellum: No acute findings.. Calvarium: Normal. Visualized Paranasal sinuses/Mastoids: Opacification of the left maxillary sinus, multiple ethmoid si nuses as well as left frontal sinus. Soft Tissues: Unremarkable. Enhancement: Normal. CTA Brain W: Internal Carotid Arteries: Petrous: Normal. Cavernous: Mild calcification. No significant stenosis. Cerebral: Normal. Middle Cerebral Arteries: Right: No aneurysm, occlusion or significant stenosis. Left: No aneurysm, occlusion or significant stenosis. Anterior Cerebral Arteries: Right: No aneurysm, occlusion or significant stenosis. Left: No aneurysm, occlusion or significant stenosis. Posterior cerebral Arteries: Right: No aneurysm, occlusion or significant stenosis. Left: No aneurysm, occlusion or significant stenosis. Vertebral Arteries: Right: No aneurysm, occlusion or significant stenosis. Left: No aneurysm, occlusion or significant stenosis. Basilar Artery: No aneurysm, occlusion or significant stenosis. CTA Neck W: Common Carotid: Right: Calcific plaque at the bulb. No dissection, occlusion or significant stenosis. Left: Plaque at the bulb. No dissection, occlusion or significant stenosis. External Carotid: Right: No dissection, occlusion or significant stenosis. Left: No dissection, occlusion or significant stenosis. Internal Carotid: Right: Calcific plaque, less than 50 percent stenosis. No dissection.. Left: Calcific plaque, less than 50 percent stenosis. No dissection, occlusion or significant stenos is. Vertebral Artery: Right: No dissection, occlusion or significant stenosis. Left: No dissection, occlusion or significant stenosis. Lung Apices: Normal. Bones: No acute abnormality. Soft Tissues: Normal. IMPRESSION: 1. CTA brain: No evidence of significant vascular stenosis or occlusion. 2. Head CT: Small area of low attenuation adjacent to the right lateral ventricle consistent with an acute to subacute lacunar infarct which was seen on MRI performed earlier. 3. CTA neck: Calcific plaque at the proximal internal carotid arteries and common carotid bulbs witho ut significant stenosis. RADIATION DOSE DELIVERED: 1,691.61mGy.cm Total DLP DATA REPOSITORY: All CT scans at this facility are submitted to the National Radiology Data Registry (NRDR) Dose Index Registry (DIR) with the [employer] ([employer]). RADIATION OPTIMIZATION: All CT scans at this facility use at least one of these dose optimization te chniques: automated exposure control; mA and/or kV adjustment per patient size (includes targeted exa ms where dose is matched to clinical indication); or iterative reconstruction.
--- NOTE | 2024-01-27 15:43 | ED.GENADUL_ITS ---
Discharge Plan Discharge Details Chief Complaint: CVA/TIA Primary Care Provider: MYCHAL BEE ED Provider: Iliana Hoff Home Meds and New Rx's Prescriptions: No Action amlodipine 2.5 mg tablet 2.5 mg PO DAILY losartan 25 mg tablet 25 mg PO DAILY Prolia 60 mg/mL syringe 60 mg subcut [id number] mometasone 0.1 % cream 1 applic topical DAILY 10 Days Qty: 15 2RF metoprolol succinate 25 mg tablet extended release 24 hr 25 mg PO DAILY multivitamin [Daily Multi-Vitamin] 1 EACH tablet 1 ea PO DAILY Caltrate 600 plus D 1 EACH tablet,chewable 1 ea PO DIRECTED glucosamine/chond 2 tab PO DAILY vitamin C 500 tab.chew PO DAILY cholecalciferol (vitamin D3) [Vitamin D3] 1,000 UNIT capsule 1,000 unit PO DAILY triamcinolone acetonide 15 GM cream 15 gm Topical BID HPI General Date/Time Provider Initiated Documentation: 01/27/24 13:17 . Limitations to Documentation: no limitations . Information obtained by: patient . HPI Narrative: 78-year-old female with past medical history of hypertension presents for evaluation of left-sided weakness. She reports that symptoms started 2 days ago, they significantly worsened yesterday. She just felt generally unwell and foggy. She states that she she felt some difficulty with speech. She had some difficulty walking because her left leg felt weak. She states that she saw her primary care provider today who sent her to the emergency department for evaluation. Related Data Home Medications Medication Instructions Recorded Confirmed Glucosamine/Chond 2 tab PO DAILY 03/21/15 01/27/24 Vitamin C 500 tab.chew PO DAILY 03/21/15 01/27/24 calcium carbonate 600 mg-vitamin 1 ea PO DIRECTED 03/21/15 01/27/24 D3 20 mcg (800 unit) chewable tablet (Caltrate 600 plus D) multivitamin (Daily Multi-Vitamin 1 ea PO DAILY 03/21/15 01/27/24 tablet) cholecalciferol (vitamin D3) 25 1,000 unit PO DAILY 12/25/17 01/27/24 mcg (1,000 unit) capsule (Vitamin D3) triamcinolone acetonide 0.1 % 15 gm topical BID 07/11/18 01/27/24 topical cream amlodipine 2.5 mg tablet 2.5 mg PO DAILY 03/06/19 01/27/24 denosumab 60 mg/mL subcutaneous 60 mg subcut [id number] 11/01/20 01/27/24 syringe (LoftyVistasia) mometasone 0.1 % topical cream 1 applic topical DAILY 10 days #15 10/02/21 01/27/24 grams metoprolol succinate 25 mg 25 mg PO DAILY 02/20/23 01/27/24 tablet,extended release 24 hr losartan 25 mg tablet 25 mg PO DAILY 10/23/23 01/27/24 Previous Rx's Medication Instructions Recorded mometasone 0.1 % topical cream 1 applic topical DAILY 10 days #15 10/02/21 grams Allergies Allergy/AdvReac Type Severity Reaction Status Date / Time Sulfa (Sulfonamide Allergy Unknown unknown Verified 01/27/24 13:39 Antibiotics) lisinopril Allergy skin Verified 01/27/24 13:39 reactions amoxicillin [From Augmentin] AdvReac Intermediate diarrhea/severe Verified 01/27/24 13:39 muscle spasms clavulanic acid AdvReac Intermediate diarrhea/severe Verified 01/27/24 13:39 [From Augmentin] muscle spasms alendronate sodium AdvReac Mild muscle Verified 01/27/24 13:39 [From Fosamax] spasms hydrochlorothiazide AdvReac Mild nausea Verified 01/27/24 13:39 General Stated Complaint: CVA/TIA ARDEN: 3 Exam Narrative Exam Narrative: Review of Systems: All systems reviewed & are unremarkable except as noted in HPI and below Well-developed, no acute distress NCAT PERRL, normal conjunctiva RRR, no murmur Unlabored respiratory effort, clear to auscultation bilaterally Nondistended abdomen, nontender Extremities w/o deformity, no cyanosis, no edema No rashes or lesions. + left sided facial droop, mild left upper extremity weakness, no pronator drift, 3+ left lower extremity weakness, sensation grossly intact Appropriate mood and affect Course Vital Signs Vital signs: Vital Signs Temperature 37.2 C 01/27/24 12:17 Pulse 84 01/27/24 12:17 Respiratory Rate 18 01/27/24 12:17 Blood Pressure 188/59 H 01/27/24 12:17 Pulse Oximetry 99 01/27/24 12:17 Temperature 37.2 C 01/27/24 12:17 Temperature Source Tympanic 01/27/24 12:17 Pulse 84 01/27/24 12:17 Respiratory Rate 18 01/27/24 13:21 Respiratory Effort Normal, Non-Labored 01/27/24 13:21 Respiratory Depth Normal 01/27/24 13:21 Blood Pressure 188/59 H 01/27/24 12:17 Blood Pressure Position Sitting 01/27/24 12:17 Pulse Oximetry 99 01/27/24 12:17 Oxygen Delivery Method Room Air 01/27/24 12:17 Oxygen Flow Rate 0 01/27/24 12:17 Lab/Test Results Lab/Test Results: 01/27/24 13:40 Urine - Reflex from Ua Urine Culture - Pending Laboratory Tests Range/Units 01/27/24 01/27/24 13:25 13:40 WBC (4.4-10.8) 10^3/uL 8.49 RBC (3.93-5.22) 10^6/uL 4.43 Hgb (11.2-15.7) g/dL 13.6 Hct (36.0-46.0) % 41.6 MCV (80-95) fL 94 MCH (27.0-33.0) pg 30.7 MCHC (32.0-36.0) % 32.7 RDW (11.7-14.6) % 13.4 Plt Count (130-400) 10^3/uL 302 MPV (8.0-11.0) fL 8.5 Immature Gran % 0.4 Neutrophils % 78.3 Lymphocytes % 11.9 Monocytes % 6.8 Eosinophils % 1.5 Basophils % 1.1 Nucleated RBC % (0.0-0.3) % 0.0 Absolute Neutrophils (1.2-6.7) 10^3/uL 6.65 Absolute Lymphocytes (1.2-3.4) 10^3/uL 1.01 L Absolute Monocytes (0.1-0.8) 10^3/uL 0.58 Absolute Eosinophils (0.0-0.7) 10^3/uL 0.13 Absolute Basophils (0.0-0.2) 10^3/uL 0.09 Sodium (136-145) mmol/L 141 Potassium (3.5-5.1) mmol/L 4.0 Chloride (98-107) mmol/L 102 Carbon Dioxide (21.0-32.0) mmol/L 29.6 Anion Gap (3-11) mmol/L 9.4 BUN (7-18) mg/dL 24 H Creatinine (0.55-1.02) mg/dL 1.1 H Est GFR (CKD-EPI 2020) (mL/min/1.73m2) 51.75 Glucose (74-106) mg/dL 114 H Calcium (8.5-10.1) mg/dL 10.0 Total Bilirubin (0.2-1.0) mg/dL 0.7 AST (15-37) U/L 26 ALT (14-59) U/L 25 Alkaline Phosphatase (46-116) U/L 80 Total Protein (6.4-8.2) g/dL 8.2 Albumin (3.4-5.0) g/dL 4.4 Urine Color (Yellow) Yellow Urine Clarity (Clear) Clear Urine pH (5-8) 5.5 Ur Specific [place] (1.005-1.025) 1.015 Urine Protein (Neg-Trace) mg/dL Trace Urine Ketones (Negative) mg/dL Negative Urine Blood (Negative) Negative Urine Nitrite (Negative) Negative Urine Bilirubin (Negative) Negative Urine Urobilinogen (Up to 0.2) mg/dL 0.2 Ur Leukocyte Esterase (Negative) Small H Urine RBC (0-2) HPF 0-2 Urine WBC (0-5) HPF 5-10 Ur Epithelial Cells (Negative) HPF Few Urine Crystals (Negative) HPF Negative Urine Bacteria (Negative) HPF Few Urine Casts (Negative) LPF Negative Urine Mucus (Negative) Negative Ur Culture Indicated? Yes Urine Glucose (Negative) mg/dL Negative Medical Decision Making Emergent evaluation of left-sided weakness. Symptoms have been ongoing for 2 days and patient is therefore out of the window for acute stroke code or acute stroke treatment. I have high suspicion for stroke based on the patient's neurologic deficits. No evidence of trauma. Plan for labs, urinalysis to evaluate for other etiologies as well as getting an MRI of the brain. Lab work without significant abnormalities discussed MRI findings with radiologist, patient has an acute basal ganglia stroke. She is outside the window for acute treatment. Discussed with hospitalist who requests a full dose aspirin as well as a CTA head and neck. The patient will be admitted to their service for further management and stroke workup. Medical Records Medical records reviewed: Yes I reviewed the patient's medical records. Lab Data Lab results reviewed: Yes I reviewed the patient's lab results. Quality:SDOH Health Related Social Needs: No Data to Display PFSH All Active Problems Anterior epistaxis (Acute) Impacted cerumen, bilateral (Acute) Impacted cerumen, right ear (Acute) Eczema (Acute) 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 (Acute) Neck mass (Acute) Pelvic floor dysfunction (Acute 04/29/18) Conductive hearing loss, external ear (Acute 09/08/15) Chronic otitis externa (Acute 03/11/14) Chronic eczematous otitis externa (Acute 09/08/15) Bilateral ureteral calculi (Acute 12/24/17) Bilateral kidney stones (Acute 12/24/17) Hydronephrosis, left (Acute) Bladder stone (Acute) Medical History Conductive hearing loss Hydronephrosis, left with stricture Gallstones Bilateral ureteral calculi Bladder stone Chronic otitis externa of both ears Pelvic floor dysfunction Surgical History Ureteroscopy, EHL, or Laser Lithotripsy Lithotripsy Hysterectomy, Total Abdominal BSO w/ George Social History Smoking/Tobacco Use Status: Never Smoking risk assessment performed?: Yes Drug use: Never Housing: house Do you feel safe at home: Yes Do you feel safe in your relationship?: Yes Additional Social history: lives with , daughter and grandchildren. Feels like it is a very stressful situation. CHRISTIN,RN 01/27/24
--- NOTE | 2024-01-27 15:53 | W.PM.HP.N ---
Date of service: 01/27/24 Time of Service: 15:53 Assessment and Plan Assessment and plan (1) Non-hemorrhagic cerebrovascular accident (CVA): Status: Acute Assessment and plan: MRI: indings are consistent with acute nonhemorrhagic infarct in the upper right basal ganglia/right periventricular white matter. The above finding is superimposed upon abundant bilateral periventricular signal abnormality consistent with chronic small vessel disease. Complete opacification of left maxillary sinus and frontal sinuses/diffuse sinusitis. Neuro consult at [facility] CTA vessel neck and brain ASA Lipitor A1C Lipid panel echo w bubble permissive HTN Acetaminophen PRN for headache (2) Sinusitis: Status: Acute Assessment and plan: As per MRI results Saline spray QID flonase Daily (3) NIURKA (acute kidney injury): Status: Acute Assessment and plan: IVF then reevaluate in AM (4) Hypertension: Status: Chronic Assessment and plan: Permissive hypertension as per [facility] neuro consult in HPI hold BP meds and minitor (5) On deep vein thrombosis (DVT) prophylaxis: Status: Acute Assessment and plan: Lovenox (6) Discharge planning issues: Status: Acute Assessment and plan: Care management to follow-up on increased needs at discharge: Rehab versus home health services discussed with History of Present Illness History of Present Illness Chief Complaint: left sided weakness, headache Narrative: This 78-year-old female patient with a past medical history of hypertension, hydronephrosis, presented today in the ED at [facility] for evaluation of left-sided leg starting 2 days ago. Patient reported that symptoms worsened significantly today. She also reports feeling generally unwell and [place] and stating feeling some difficulty with speech. Patient reported difficulty walking as her left leg feels weak. She reporting seeing her primary care provider today at [facility] where she was sent to the emergency room for evaluation. The patient MRI revealed an acute nonhemorrhagic infarct in the right upper right basal ganglia right periventricular white matter other findings were abundant bilateral periventricular signal on multiple abnormal ETT consistent with chronic small vessel disease and complete opacification of the left maxillary sinus and frontal sinuses with diffuse sinusitis. Labs in the ED were unremarkable except for a BUN of 24 and a creatinine of 1.1.The hospitalist was consulted and admitted the patient for further evaluation and management of stroke and sinusitis. During the discussion with Dr. Boykin, the hospitalist recommended the administration of aspirin, a CTA of the brain and of the neck and mentioned that we will pursue neuroconsultation with [facility] neurology. The patient was accepted to the medical surgical floor with telemetry. Stroke workup was completed with hemoglobin A1c, lipid panel, echo with bubble study, orders.[facility] neurology was consulted regarding further management such as the use of Plavix and statin. Dr. Carrillo from [facility] neurology recommended not to start Plavix, but to initiate Lipitor 40 daily. Permissive hypertension was discussed and recommendation was made for systolic around 160 to be decreased to 140 over the next 48 to 72 hours further recommendation include 2 to 4 weeks surgical aide outpatient with discharge as well as endarterectomy or stenting depending on the degree of occlusion of the blood vessel of the neck. The patient denies dizziness, lightheadedness, change in vision, chills, fever, cough, shortness of breath, chest pain, vomiting diarrhea, abdominal pain, and dysuria. Review of Systems Constitutional Constitutional: Reports as per HPI, Denies chills, Denies daytime sleepiness and Reports headache(s) Eyes Eyes: Denies blurry vision, Reports exophthalmos and Denies loss of vision ENT Ears, Nose, Mouth, and Throat: Reports system reviewed and no additional complaints, except as documented, Denies change in voice, Denies dysphagia, Denies vertigo, Denies dizziness and Reports headache(s) Cardiovascular Cardiovascular: Reports as per HPI, Reports system reviewed and no additional complaints, except as documented, Denies chest pain at rest, Denies syncope and Denies irregular heart rhythm Respiratory Respiratory: Reports system reviewed and no additional complaints, except as documented, Denies cough and Denies hemoptysis Gastrointestinal Gastrointestinal: Denies dysphagia and Denies vomiting Musculoskeletal Musculoskeletal: Reports abnormal gait Neurologic Neurologic: Reports as per HPI, Denies abnormal speech, Reports abnormal gait, Denies behavioral changes, Denies confusion, Denies vertigo, Denies dizziness, Denies syncope, Reports headache(s), Reports lack of coordination, Reports localized weakness and Denies loss of vision Psychiatric Psychiatric: Denies behavioral changes and Denies confusion Endocrine Endocrine: Reports as per HPI Hematologic/Lymphatic Hematologic/Lymphatic: Reports system reviewed and no additional complaints, except as documented Allergic/Immunologic Allergic/Immunologic: Reports system reviewed and no additional complaints, except as documented PFSH All Active Problems Discharge planning issues (Acute) On deep vein thrombosis (DVT) prophylaxis (Acute) Hypertension (Chronic) NIURKA (acute kidney injury) (Acute) Sinusitis (Acute) Non-hemorrhagic cerebrovascular accident (CVA) (Acute) Anterior epistaxis (Acute) Impacted cerumen, bilateral (Acute) Impacted cerumen, right ear (Acute) Eczema (Acute) 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 (Acute) Neck mass (Acute) Pelvic floor dysfunction (Acute 04/29/18) Conductive hearing loss, external ear (Acute 09/08/15) Chronic otitis externa (Acute 03/11/14) Chronic eczematous otitis externa (Acute 09/08/15) Bilateral ureteral calculi (Acute 12/24/17) Bilateral kidney stones (Acute 12/24/17) Hydronephrosis, left (Acute) Bladder stone (Acute) Medical History Conductive hearing loss Hydronephrosis, left with stricture Gallstones Bilateral ureteral calculi Bladder stone Chronic otitis externa of both ears Pelvic floor dysfunction Surgical History Ureteroscopy, EHL, or Laser Lithotripsy Lithotripsy Hysterectomy, Total Abdominal BSO w/ George Family History (Updated 01/27/24 @ 19:46 by Joanne Juan APRN) Mother Stroke Social History Smoking/Tobacco Use Status: Never Smoking risk assessment performed?: Yes Drug use: Never Housing: house Do you feel safe at home: Yes Do you feel safe in your relationship?: Yes Additional Social history: lives with , daughter and grandchildren. Feels like it is a very stressful situation. CHRISTIN,RN 01/27/24 Meds Allergies and Home Medications Allergies Allergy/AdvReac Type Severity Reaction Status Date / Time Sulfa (Sulfonamide Allergy Unknown unknown Verified 01/27/24 13:39 Antibiotics) lisinopril Allergy skin Verified 01/27/24 13:39 reactions amoxicillin [From Augmentin] AdvReac Intermediate diarrhea/severe Verified 01/27/24 13:39 muscle spasms clavulanic acid AdvReac Intermediate diarrhea/severe Verified 01/27/24 13:39 [From Augmentin] muscle spasms alendronate sodium AdvReac Mild muscle Verified 01/27/24 13:39 [From Fosamax] spasms hydrochlorothiazide AdvReac Mild nausea Verified 01/27/24 13:39 Home Medications Medication Instructions Recorded Confirmed Type Glucosamine/Chond 2 tab PO DAILY 03/21/15 01/27/24 History Vitamin C 500 tab.chew PO DAILY 03/21/15 01/27/24 History calcium carbonate 600 mg-vitamin 1 ea PO DIRECTED 03/21/15 01/27/24 History D3 20 mcg (800 unit) chewable tablet (Caltrate 600 plus D) multivitamin (Daily Multi-Vitamin 1 ea PO DAILY 03/21/15 01/27/24 History tablet) cholecalciferol (vitamin D3) 25 1,000 unit PO DAILY 12/25/17 01/27/24 History mcg (1,000 unit) capsule (Vitamin D3) triamcinolone acetonide 0.1 % 15 gm topical BID 07/11/18 01/27/24 History topical cream amlodipine 2.5 mg tablet 2.5 mg PO DAILY 03/06/19 01/27/24 History denosumab 60 mg/mL subcutaneous 60 mg subcut [id number] 11/01/20 01/27/24 History syringe (Prolia) mometasone 0.1 % topical cream 1 applic topical DAILY 10 days #15 10/02/21 01/27/24 Rx grams metoprolol succinate 25 mg 25 mg PO DAILY 02/20/23 01/27/24 History tablet,extended release 24 hr losartan 25 mg tablet 25 mg PO DAILY 10/23/23 01/27/24 History Exam Narrative Exam Narrative: Constitutional The patient is sitting in bed comfortable and cooperative during the interview, ambulating with slight drag of left leg but ok with walker The patient is well groomed without acute, distress appears frail HENMT: Head is atraumatic, normocephalic, no lymphadenopathy. Facial structures with normal appearance Eyes: Well aligned, intact ROM Neck: Normal ROM, no meningeal signs Neuro:alert and oriented to self, person, place time and situation. No neurological focal deficit, PERRLA Chest:Chest is symmetrical and normal appearance Resp: Normal respiratory pattern, speaks in full sentences, unlabored breathing, clear lung bilaterally Cardio: regular rhythm, S1, S2, no murmur, capillary refill<3 sec., bilateral radial and dorsalis pedis pulses are positive, palpable GI: Abdomen is not distended, soft and non tender, bowel sounds are present : Negative Costovertebral angle tenderness, no bladder distension Back/spine/Pelvis: No back tenderness, normal alignment Integumentary: No skin lesions or rash Extremities: strength 5/5 to bilateral lower and upper extremities Psych: RASS 0, congruent mood and normal affect. Results Labs 01/27/24 13:25 01/27/24 13:25 Labs: Laboratory Results - last 24 hr 01/27/24 01/27/24 13:25 13:40 WBC 8.49 RBC 4.43 Hgb 13.6 Hct 41.6 MCV 94 MCH 30.7 MCHC 32.7 RDW 13.4 Plt Count 302 MPV 8.5 Immature Gran % 0.4 Neutrophils % 78.3 Lymphocytes % 11.9 Monocytes % 6.8 Eosinophils % 1.5 Basophils % 1.1 Nucleated RBC % 0.0 Absolute Neutrophils 6.65 Absolute Lymphocytes 1.01 L Absolute Monocytes 0.58 Absolute Eosinophils 0.13 Absolute Basophils 0.09 Sodium 141 Potassium 4.0 Chloride 102 Carbon Dioxide 29.6 Anion Gap 9.4 BUN 24 H Creatinine 1.1 H Est GFR (CKD-EPI 2020) 51.75 Glucose 114 H Calcium 10.0 Total Bilirubin 0.7 AST 26 ALT 25 Alkaline Phosphatase 80 Total Protein 8.2 Albumin 4.4 Urine Color Yellow Urine Clarity Clear Urine pH 5.5 Ur Specific [place] 1.015 Urine Protein Trace Urine Ketones Negative Urine Blood Negative Urine Nitrite Negative Urine Bilirubin Negative Urine Urobilinogen 0.2 Ur Leukocyte Esterase Small H Urine RBC 0-2 Urine WBC 5-10 Ur Epithelial Cells Few Urine Crystals Negative Urine Bacteria Few Urine Casts Negative Urine Mucus Negative Ur Culture Indicated? Yes Urine Glucose Negative Last Vital Signs Temp 37.2 C 01/27/24 12:17 Pulse 84 01/27/24 12:17 Resp 18 01/27/24 13:21 BP 188/59 H 01/27/24 12:17 Pulse Ox 99 01/27/24 12:17 Time Spent Time spent with Patient: >75 minutes Time was spent: preparing to see the patient(eg.review tests), obtaining and/or reviewing separately otained hiistory, ordering medications,tests, procedures, referring, communicating with other health neurocritical care physician, indepentently interpreting results, counseling the patient and care coordination
[2024-01-27] MEDS: Aspirin 325 MG TAB PO (15:59)
[2024-01-27] MEDS: Normal Saline - Diluent 50 ML VIAL IJ (16:04)
[2024-01-27] MEDS: Omnipaque 350 MG/ML 100 ML BTL IJ (16:05)
[2024-01-27 17:03] LABS: Prothrombin Time 10.1 sec (9.1-11.1)
[2024-01-27] MEDS: Normal Saline Flush 10 ML SYR IVP (17:38)
[2024-01-27] MEDS: Enoxaparin 40 MG/0.4 ML SYR SC (17:38)
[2024-01-27] MEDS: Lactated Ringers 1,000 ML 75 ML IV (17:45)
[2024-01-27] MEDS: Acetaminophen 325 MG TAB PO (19:24)
[2024-01-27] MEDS: Atorvastatin 40 MG TAB PO (20:41)
[2024-01-28 00:52] LABS: Calculated LDL 98 mg/dL (<100); Cholesterol 169 mg/dL (<200); HDL Cholesterol 56 mg/dL (40-60); Triglyceride 76 mg/dL (<150)
[2024-01-28 00:54] LABS: Hemoglobin A1C 5.7 % (<5.7)
[2024-01-28 03:40] VITALS: BP 150/66; PULSE 53; RESP 17; TEMP 36; O2SAT 98
[2024-01-28] MEDS: Lactated Ringers 1,000 ML 75 ML IV (06:46)
[2024-01-28 07:15] LABS: Abs Immature Grans 0.01 10^3/uL (0.0-0.06); Absolute Basophil Count 0.08 10^3/uL (0.0-0.2); Absolute Eosinophil Count 0.23 10^3/uL (0.0-0.7); Absolute Lymphocyte Count 0.71 10^3/uL (1.2-3.4); Absolute Monocyte Count 0.38 10^3/uL (0.1-0.8); Absolute Neutrophil Count 3.54 10^3/uL (1.2-6.7); Basophils % 1.6; Eosinophils % 4.6; HCT 36.1 % (36.0-46.0); HGB 12.1 g/dL (11.2-15.7); Immature Grans % 0.2; Lymphocytes % 14.3; MCH 31.3 pg (27.0-33.0); MCHC 33.5 % (32.0-36.0); MCV 94 fL (80-95); MPV 8.8 fL (8.0-11.0); Monocytes % 7.7; Neutrophils % 71.6; Platelet Count 234 10^3/uL (130-400); RBC 3.86 10^6/uL (3.93-5.22); RDW 13.3 % (11.7-14.6); RDW-SD 45.3 fL; WBC 4.95 10^3/uL (4.4-10.8)
[2024-01-28 07:33] LABS: BUN 15 mg/dL (7-18); CO2 27.3 mmol/L (21.0-32.0); CREATININE 0.9 mg/dL (0.55-1.02); Calcium 8.5 mg/dL (8.5-10.1); Chloride 104 mmol/L (98-107); Estimated GFR 65.84 (mL/min/1.73m2); Glucose 94 mg/dL (74-106); Potassium 4.1 mmol/L (3.5-5.1); Sodium 139 mmol/L (136-145)
[2024-01-28 07:34] LABS: Anion Gap 7.7 mmol/L (3-11)
[2024-01-28 07:36] VITALS: BP 158/65; PULSE 55; RESP 18; TEMP 36.4; O2SAT 96
--- NOTE | 2024-01-28 08:00 | DI.US_ITS ---
APPROVED REPORT EXAM: Comprehensive 2D, Doppler, and color-flow Echocardiogram Patient Location: In-Patient Room/Bed: [address] Proofreader: Mallory Rai RDCS (AE) Indications: Stroke, HTN Echo Enhancing Agent Indication: Rule out Shunt Agent(s) / Amount(s) Used: Agitated Saline 30.0 cc Comments: Contrast study was performed with 3 IV injections of 10ccs of agitated normal saline, at [facility], with cough and post valsalva maneuver. Negative contrast study for shunt flow. Other Information Study Quality: Good Conclusion Normal left ventricular wall thickness and chamber size. Ejection fraction is 5 9%. Wall motion is normal. Diastolic function is normal for age Normal right ventricular size and function Left atrium is mildly dilated. Right atrial size is normal No intracardiac shunting is identified with injection of agitated saline There is no structural or hemodynamically significant valvular disease Wall motion Left Ventricle The left ventricle is normal size. The left ventricular systolic function is normal. The left ventric ular ejection fraction is within the normal range. There is normal left ventricular wall thickness. T here is normal LV segmental wall motion. There is no ventricular septal defect visualized. LVEF is 59 %. Right Ventricle The right ventricle is normal size. The right ventricular systolic function is normal. Atria Left atrium is mildly dilated. Right atrium is normal The interatrial septum is intact with no eviden ce for an atrial septal defect. Saline bubble contrast intravenous injection does not demonstrate PFO . Aortic Valve Aortic valve is trileaflet. There is no aortic valvular stenosis. No aortic regurgitation is present. Mitral Valve The mitral valve is normal in structure. No evidence of mitral valve stenosis. Trace mitral regurgita tion. Tricuspid Valve The tricuspid valve is normal in structure. There is no tricuspid valve stenosis. Trace tricuspid reg urgitation. The RVSP is 18.9 mmHg. Pulmonic Valve The pulmonary valve is normal in structure. There is no pulmonic valvular stenosis. Trace pulmonic re gurgitation. Great Vessels The aortic root is normal in size. Ascending aorta is not well visualized. Aortic arch is normal in c aliber. IVC is normal in size and collapses >50% with inspiration. Pericardium There is no pericardial effusion. 2D Dimensions IVSD d PLAX 0.80 cm F: 0.6-1.0 Ao Root d 2.62 cm F: 2.7 - 3.3 LVPW d PLAX 0.84 cm F: 0.6 - 1.0 LVID d PLAX 4.00 cm F: 3.8 - 5.2 LVDs 2.66 cm F: 2.2 - 3.5 LV EF Teichholz 61.9 % FS 32.83 % LV EDV (Teich) 68.2 mL LV ESV (Teich) 26.0 mL M-Mode TAPSE 2.00 cm (M/F) >1.7 Auto EF LV EDV A4C 70.9 mL LV EDV A2C 81.5 mL LV EDV BP 76.7 mL LV ESV A4C 30.0 mL LV ESV A2C 34.3 mL LV ESV BP 31.4 mL LVEF(%) A4C 57.7 % LVEF(%) A2C 58.0 % LVEF(%) BP 59.0 % LV SV A4C 40.9 ml LV SV A2C 47.2 ml LV SV BP 45.2 ml LV CO A4C 2.3 L/min LV CO A2C 2.7 L/min LV CO BP 2.5 L/min HR A4C 55.56 BPM HR A2C 56.43 BPM LV EDV Index (BP) LV Strain Long Pk Overal Avg (s) 18.21 LA Volume LA Length A4C 4.6 cm LA Length A2C 4.5 cm LA Area A4C s 14.51 cm2 LA Area A2C s 12.62 cm2 LA Vol A4C A-L 38.85 mL LA Vol A2C A-L 30.07 mL LA Vol Biplane A-L 34.6 mL LA Vol/BSA A4C A-L LA Vol/BSA A2C A-L LA Vol/BSA BP A-L 47.4 mL/m2 LA Vol A4C MOD 35.4 mL LA Vol A2C MOD 27.9 mL LA Vol BP MOD 31.5 mL RA Volume RA Area A4C 9.9 cm2 RA ESV A4C (A-L) 21.2mL RA Vol/BSA A4C A-L RA Length A4C 4.0 cm RA ESV A4C (MOD) 20.1mL LV Diastology MV E' medial 0.061 (>0.07 m/s) MV E Vmax 0.69 (0.4-1.3 m/s) MV E/E' MED 11.29 (<14) MV A Vmax 0.95 (0.4-1.3 m/s) MV E' lateral 0.103 (>0.1 m/s) E/A Ratio 0.7 MV E/E' LAT 6.73 (<14) MV E' Average 0.082 m/s MV E/E'(average) 8.43 Aortic Valve AoV Vmax 1.31 m/s LVOT Vmax 1.17 m/s AoV Peak Grad 6.9 mmHg LVOT Peak Grad 5.5 mmHg AoV Area (Vmax) 2.78 cm2 LVOT VTI 0.276 m AoV VTI 0.315 m LVOT Mean Grad 2.7 mmHg AoV Mean Orestes. 0.88 m/s LVOT SV 85.86 mL AoV Mean Grad 3.6 mmHg LVOT Diam s 1.95 cm AoV Area (VTI) 2.73 cm2 Velocity Ratio 0.89 Mitral Valve MV DT 271 (160-240 msec) MV Vmax TIPS 0.87 m/s MV Mean Grad 1.1 (<2mmHg) MV VTI 0.369 m Pulmonary Valve PV Vmax 0.88 (0.5-1.5 m/s) RVOT Vmax 0.75 m/s PV Peak Grad 3.1 mmHg RVOT Peak Gr. 2.2 mmHg PV Mean Orestes 0.65 m/s RVOT VTI 0.163 m PV Mean Grad 1.9 mmHg RVOT Mean Gr. 1.3 mmHg Tricuspid Valve RA Pressure 3.00 mmHg TR Vmax 1.99 m/s TV S' 0.15 m/s TR Peak Grad 15.9 mmHg RVSP (TR) 18.9 mmHg
[2024-01-28] MEDS: Multivitamin TAB 1 TAB PO (08:20)
[2024-01-28] MEDS: Calcium 600mg/Vit D 200U TAB 1 TAB PO (08:20)
[2024-01-28] MEDS: Cholecalciferol (Vitamin D3) 1,000 UNIT TAB 1000 UNITS PO (08:21)
[2024-01-28] MEDS: Aspirin E.C. 81 MG TABEC PO (08:21)
[2024-01-28] MEDS: Ascorbic Acid 500 MG TAB PO (08:21)
--- NOTE | 2024-01-28 09:15 | W.SPSTE ---
Date of service: 01/28/24 Time of Service: 09:15 Subjective Clinical (Bedside) Cognitive-Communication Evaluation - Inpatient Speech Language Pathology Referred by: Joanne Juan Start time: :15 End time: :45 Total patient contact: 30 m Referral Type: Routine Cogn/Comm Consult Precautions: Fall, Standard, Full Code Reason for Referral/HPI: Marisa is a 78 y/o F who presented 01/27 to [facility] ED at the prompting of her PCP seen earlier that date. She had had several days of L-sided weakness, difficulty with speech and unsafe walking. Found with non-hemorrhagic CVA of R upper basal ganglia and periventricular white matter and diffuse sinusitis, NIURKA, and HTN. MRI also noting pre-existing small-vessel disease. DONOR RELATIONS ASSOCIATE IMPRESSIONS & RECOMMENDATIONS: Marisa presents with WFL speech and language this date without evidence of dysarthria, apraxia of speech, or aphasia on exam. Brief swallow screen also indicated low concern for dysphagia resulting from CVA. Provided education to Marisa and her regarding role of CVA, s/sx to watch for regarding speech/langauge and swallowing, and reasons to request referral as needed in the future. FURTHER INPATIENT DONOR RELATIONS ASSOCIATE SERVICES: No further DONOR RELATIONS ASSOCIATE services indicated at this time. DISCHARGE RECOMMENDATIONS: No further DONOR RELATIONS ASSOCIATE services indicated/Please re-refer as needed D/C per PT/OT needs. SUBJECTIVE: Patient received: alert/awake. Agreeable to evaluation. Pain Reported n/a Report of function: Patient and her report some mild speech changes over the weekend when stroke symptoms first presented, but since admit she feels much better. She also reports improving LLE strength/movement. She denies any dysphagia symptoms or word-finding difficulties, difficulty understanding questions, etc. OBJECTIVE Oral Mechanism Examination: Dentition: Natural dentition Good condition Oral mucosa: WFL ? Cranial Nerve Assessment: CN V ? Trigeminal Facial Sensation WNL Jaw Strength/ROM WNL ?WNL CN VII- Facial WNL labial ROM, strength, coordination. WNL lingual sensation WNL CN IX ? Glossopharyngeal WNL palatal elevation with phonation. No evidence of nasal emissions WNL CN X ? Vagus WNL Vocal quality and volume. Strong/sharp volitional cough WNL CX XII ? Hypoglossal WNL lingual ROM, strength, coordination WNL ? 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 Speech: WFL in conversation, 100% intelligible without over signs of discoordination or imprecise speech sound production Diadochokinesis: Speech AMR's WFL for precision, rate, rhythm, coordination Speech SMR's WFL for precision, rate, rhythm, coordination Language: WAB-R Bedside The Bedside Western Aphasia Battery-Revised?(Bedside Record Form), a shortened version of the Western Aphasia Battery Revised (WAB-R), was administered to sample overall language abilities; it is designed to evaluate a patient's language function following stroke, dementia, or other acquired neurological disorder. (Bonilla, 2006). WAB-R Bedside?Subtest Scores?are indicated below: Subtest?? Score SPONTANEOUS SPEECH ? Information Content ?10 Fluency / Grammatical Competence / Paraphasias ?10 Total? ?20 AUDITORY VERBAL COMPREHENSION ? Yes/No Questions ?10 Sequential Commands ?10 Total? ?20 REPETITION ? Total? ?10 NAMING & WORD FINDING ? Object Naming ?10 Total? ?10 READING ?DNT WRITING ?DNT APRAXIA ?DNT Bedside Aphasia Score: 100 (WNL) Education Provided to: Patient Family Topics Addressed: definition and impacts of aphasia, dysarthria impact of current diagnoses on swallow & communication function role of DONOR RELATIONS ASSOCIATE in management of speech and swallow disorders overt s/sx to monitor re: potential aspiration of food / liquids or word-finding or comprehension changes PLAN: No further DONOR RELATIONS ASSOCIATE services indicated at this time. Please re-refer as needed. DONOR RELATIONS ASSOCIATE CPT Code: 90302?Evaluation of speech sound production with evaluation of language comprehension and expression
--- NOTE | 2024-01-28 09:27 | PDOC.CMIN ---
Date of service: 01/28/24 Time of Service: 09:27 Care Management Initial Assmt Initial Assessment REASON FOR HOSPITALIZATION:: CVA PREVIOUS FUNCTIONAL STATUS/SOCIAL/FAMILY SUPPORTS:: Marisa lives in a single family home in [place] with her Yahir, their daughter Padmini and her 3 children. She is independent at baseline and does not receive any community services. CURRENT FUNCTIONAL STATUS:: Marisa was sitting up in bed visiting with her Yahir when CM met with her. She engaged easily with CM and was agreeable to conversation. Marisa has had a CVA with some residual left sided weakness, primarily in her LLE. Pat underwent a physical therapy evaluation today and it was recommended that she consider going to an acute rehab facility such as [facility]. After a bit of discussion, Marisa stated that she would prefer to go home and have outpatient PT. No referrals have been sent. ADVANCE DIRECTIVES:: Marisa does not have Advanced directives. provided with 2 copies at her request. Has patient been provided with info about the portal/API?: Yes Did the patient sign up for the portal?: Yes CODE STATUS:: Full Code INSURANCE COVERAGE / FINANCIAL ISSUES:: Medicare [facility] Medicare replacement CURRENT HOME/COMMUNITY SERVICES/EQUIPMENT:: none PRIMARY CARE PHYSICIAN:: Marry Cronin POTENTIAL DISCHARGE NEEDS:: possible SNF bed for rehab if indicated PATIENT/FAMILY EDUCATION NEEDS:: Review of discharge instructions, activity, limitations, follow up plan, discuss Ask Me Three TRANSPORTATION:: via private vehicle with PLAN:: Anticipate Marisa will be discharged home with no new services. She will follow up with Neurology, her PCP and plan of care and transport with her . Marisa would like to attend outpatient PT when she goes home, if appropriate. CM will follow and support discharge needs. PFSH All Active Problems Discharge planning issues (Acute) On deep vein thrombosis (DVT) prophylaxis (Acute) Hypertension (Chronic) NIURKA (acute kidney injury) (Acute) Sinusitis (Acute) Non-hemorrhagic cerebrovascular accident (CVA) (Acute) Anterior epistaxis (Acute) Impacted cerumen, bilateral (Acute) Impacted cerumen, right ear (Acute) Eczema (Acute) 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 (Acute) Neck mass (Acute) Pelvic floor dysfunction (Acute 04/29/18) Conductive hearing loss, external ear (Acute 09/08/15) Chronic otitis externa (Acute 03/11/14) Chronic eczematous otitis externa (Acute 09/08/15) Bilateral ureteral calculi (Acute 12/24/17) Bilateral kidney stones (Acute 12/24/17) Hydronephrosis, left (Acute) Bladder stone (Acute) Medical History Conductive hearing loss Hydronephrosis, left with stricture Gallstones Bilateral ureteral calculi Bladder stone Chronic otitis externa of both ears Pelvic floor dysfunction Surgical History Ureteroscopy, EHL, or Laser Lithotripsy Lithotripsy Hysterectomy, Total Abdominal BSO w/ George Family History (Updated 01/27/24 @ 19:46 by Joanne Juan APRN) Mother Stroke Social History Smoking/Tobacco Use Status: Never Smoking risk assessment performed?: Yes Drug use: Never Housing: house Do you feel safe at home: Yes Do you feel safe in your relationship?: Yes Additional Social history: lives with , daughter and grandchildren. Feels like it is a very stressful situation. CHRISTINRN 01/27/24 SDOH(Care Management) Screening Will the Patient Participate in the Screening?: Yes Do you worry about having a steady place to live?: no In the past 12 months, have you had to go without electric, gas, oil or water in your home?: no Have you or anyone in your house had to go without enough food to eat?: no Has lack of transportation kept you from medical appointments or from doing things needed for daily living?: no Has anyone in your support network made you feel unsafe for any reason?: no
--- NOTE | 2024-01-28 09:49 | PGE_ITS ---
Date of Service Date of service: 01/28/24 Time of Service: 09:49 Assessment and Plan Assessment and plan (1) Non-hemorrhagic cerebrovascular accident (CVA): Status: Acute Assessment and plan: MRI: Findings are consistent with acute nonhemorrhagic infarct in the upper right basal ganglia/right periventricular white matter. Complete opacification of left maxillary sinus and frontal sinuses/diffuse sinusitis. [place] consult [place] [facility] [place], see HPI, reconsult PRN CTA vessel neck and brain:Remarkable for 50% Continue ASA, Lipitor A1C is 5.7:Lifestyle modification and f/u with PCP Lipid panel: results not out of range Echo w bubble: LVEF 59%, no wall motion abnormality,no valve abnormality except for trace of triscupid regurgitation , RSVP 18.9 Continue permissive HTN until 01/29/24 then reintroduce meds as needed Acetaminophen PRN for headache (2) Sinusitis: Status: Acute Assessment and plan: As per MRI results, remains afebrile Continue Saline spray QID Continue flonase Daily (3) NIURKA (acute kidney injury): Status: Acute Assessment and plan: IVF stopped; resolving (4) Hypertension: Status: Chronic Assessment and plan: Permissive hypertension as per [facility] [place] in HPI Amlodipine for SBP> 160 hold other BP meds, monitor and might have to be manage as per PCP (5) On deep vein thrombosis (DVT) prophylaxis: Status: Acute Assessment and plan: Continue Lovenox (6) Discharge planning issues: Status: Acute Assessment and plan: Care management to follow-up on increased needs at discharge: Rehab refused would like home with OPT PT discussed with Subjective Subjective Patient reports: no new complaints, pain is less, tolerating liquids well, tolerating a regular diet, voiding w/o difficulty and flatus; denies diarrhea, nausea, vomiting, shortness of breath or fever Exam Narrative Exam Narrative: Constitutional The patient is without acute distress HENMT: Facial structures with normal appearance, minimal left facial droop. Eyes: Well aligned, intact ROM Neuro:alert and oriented to self, person, place, time and situation. left sided weakness toupper and lower ext, PERRLA on ambient light Resp: Normal respiratory pattern, speaks in full sentences, unlabored breathing, clear lung bilaterally Cardio: regular rhythm, S1, S2, no murmur, bilateral radial and dorsalis pedis pulses are positive GI: Abdomen is not distended, soft and non tender, bowel sounds are present : Negative Costovertebral angle tenderness, no bladder distension Back/spine/Pelvis: No back tenderness, normal alignment Integumentary: No skin lesions or rash Extremities: strength 4/5 to left ext.5/5 to right ext. Psych: RASS 0, congruent mood and normal affect. Objective Last Vital Signs Temp 36.4 C L 01/28/24 07:36 Pulse 55 L 01/28/24 07:36 Resp 18 01/28/24 07:36 BP 158/65 H 01/28/24 07:36 Pulse Ox 96 01/28/24 07:36 Laboratory Results - last 24 hr 01/27/24 01/27/24 01/27/24 13:25 13:40 16:40 WBC 8.49 RBC 4.43 Hgb 13.6 Hct 41.6 MCV 94 MCH 30.7 MCHC 32.7 RDW 13.4 Plt Count 302 MPV 8.5 Immature Gran % 0.4 Neutrophils % 78.3 Lymphocytes % 11.9 Monocytes % 6.8 Eosinophils % 1.5 Basophils % 1.1 Nucleated RBC % 0.0 Absolute Neutrophils 6.65 Absolute Lymphocytes 1.01 L Absolute Monocytes 0.58 Absolute Eosinophils 0.13 Absolute Basophils 0.09 PT 10.1 INR 1.0 Sodium 141 Potassium 4.0 Chloride 102 Carbon Dioxide 29.6 Anion Gap 9.4 BUN 24 H Creatinine 1.1 H Est GFR (CKD-EPI 2020) 51.75 Glucose 114 H Hemoglobin A1c Calcium 10.0 Total Bilirubin 0.7 AST 26 ALT 25 Alkaline Phosphatase 80 Total Protein 8.2 Albumin 4.4 Triglycerides Total Cholesterol LDL Cholesterol, Calc HDL Cholesterol Urine Color Yellow Urine Clarity Clear Urine pH 5.5 Ur Specific Keller 1.015 Urine Protein Trace Urine Ketones Negative Urine Blood Negative Urine Nitrite Negative Urine Bilirubin Negative Urine Urobilinogen 0.2 Ur Leukocyte Esterase Small H Urine RBC 0-2 Urine WBC 5-10 Ur Epithelial Cells Few Urine Crystals Negative Urine Bacteria Few Urine Casts Negative Urine Mucus Negative Ur Culture Indicated? Yes Urine Glucose Negative 01/28/24 01/28/24 00:20 06:53 WBC 4.95 RBC 3.86 L Hgb 12.1 Hct 36.1 MCV 94 MCH 31.3 MCHC 33.5 RDW 13.3 Plt Count 234 MPV 8.8 Immature Gran % 0.2 Neutrophils % 71.6 Lymphocytes % 14.3 Monocytes % 7.7 Eosinophils % 4.6 Basophils % 1.6 Nucleated RBC % 0.0 Absolute Neutrophils 3.54 Absolute Lymphocytes 0.71 L Absolute Monocytes 0.38 Absolute Eosinophils 0.23 Absolute Basophils 0.08 PT INR Sodium Cancelled 139 Potassium Cancelled 4.1 Chloride Cancelled 104 Carbon Dioxide Cancelled 27.3 Anion Gap Cancelled 7.7 BUN Cancelled 15 Creatinine Cancelled 0.9 Est GFR (CKD-EPI 2020) Cancelled 65.84 Glucose Cancelled 94 Hemoglobin A1c 5.7 Calcium Cancelled 8.5 Total Bilirubin AST ALT Alkaline Phosphatase Total Protein Albumin Triglycerides 76 Total Cholesterol 169 LDL Cholesterol, Calc 98 HDL Cholesterol 56 Urine Color Urine Clarity Urine pH Ur Specific Keller Urine Protein Urine Ketones Urine Blood Urine Nitrite Urine Bilirubin Urine Urobilinogen Ur Leukocyte Esterase Urine RBC Urine WBC Ur Epithelial Cells Urine Crystals Urine Bacteria Urine Casts Urine Mucus Ur Culture Indicated? Urine Glucose Time Spent with Patient Time Spent with Patient: >50 minutes Time was spent: preparing to see the patient(eg.review tests), obtaining and/or reviewing separately otained hiistory, ordering medications,tests, procedures, referring, communicating with other health primary care physician, indepentently interpreting results, counseling the patient and care coordination
--- NOTE | 2024-01-28 10:50 | IN_ITS ---
PT Notes Visit Reasons: Stroke Physical Therapy Inpatient Initial Evaluation Date: 01/28/2024 Referring Doctor: Joanne Juan NP PT Orders: PT CONSULT: Fall safety assessment Precautions: Fall. Standard. Activity as tolerated. Patient Profile/Admitting Diagnosis: Patient is a 78-year-old R hand-dominant female who presented to the ED on 01/27/2024 for L-sided weakness, difficulty with speech, and unsafe walking. Patient is admitted for management of non-hemorrhagic CVA, diffuse sinusitis, NIURKA, and HTN. MRI revealed non-hemorrhagic CVA in the upper R basal ganglia and periventricular white matter over pre-existent small vessel disease. PMHX: All Active Problems Discharge planning issues (Acute) On deep vein thrombosis (DVT) prophylaxis (Acute) Hypertension (Chronic) NIURKA (acute kidney injury) (Acute) Sinusitis (Acute) Non-hemorrhagic cerebrovascular accident (CVA) (Acute) Anterior epistaxis (Acute) Impacted cerumen, bilateral (Acute) Impacted cerumen, right ear (Acute) Eczema (Acute) 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 (Acute) Neck mass (Acute) Pelvic floor dysfunction (Acute 04/29/18) Conductive hearing loss, external ear (Acute 09/08/15) Chronic otitis externa (Acute 03/11/14) Chronic eczematous otitis externa (Acute 09/08/15) Bilateral ureteral calculi (Acute 12/24/17) Bilateral kidney stones (Acute 12/24/17) Hydronephrosis, left (Acute) Bladder stone (Acute) Medical History Conductive hearing loss Hydronephrosis, left with strictureGallstones Bilateral ureteral calculi Bladder stone Chronic otitis externa of both ears Pelvic floor dysfunction Physical Therapy Inpatient Discharge Summary Surgical History or status Ureteroscopy, EHL, or Laser Lithotripsy Lithotripsy Hysterectomy, Total Abdominal BSO w/ George Social History/Home Situation: Patient lives with in a private home with three steps to enter and rails on B sides. Independent with all aspects of ADLs prior to admission. Did not use an AD although stated that patient has been having issues with her L knee from arthritis. Equipment Owned/DME: None Subjective: Patient does not feel as heavy and stiff as she was yesterday in her L arm and leg. Denied headache, chest pain, and lightheadedness throughout session. Considering acute rehab placement. Objective: General Observation: Resting in bed. Some swelling in the L leg and foot. Telemetry monitoring in place. Mental Status: Alert and oriented as to person, place, time, and purpose. Able to pay attention, focus, and respond appropriately. Pain: None reported Vital Signs: Closely monitored by nursing staff, permissive HTN on ROM: Right Upper Extremity: Shoulder Flexion WFL. Shoulder abduction WFL. Elbow flexion WFL. Wrist flexion WFL. Functional opening and closing of hand WFL. Left Upper Extremity: Shoulder Flexion lacks the last 50% of AROM. Shoulder abduction lacks the last 50% of AROM. Elbow flexion WFL. Wrist flexion WFL. Functional opening and closing of hand WFL. Right Lower Extremity: Hip flexion WFL. Hip abduction WFL. Knee flexion WFL. Ankle dorsiflexion WFL. Ankle plantarflexion WFL. Left Lower Extremity: Hip flexion lacks the last 25% of AROM. Hip abduction WFL. Knee flexion 30 degrees to 90 degrees. Knee extension -30 degrees ankle dorsiflexion WFL. Ankle plantarflexion WFL. Strength: Right Upper Extremity: Shoulder flexors 4/5. Shoulder abductors 4/5. Elbow flexors 5/5. Elbow extensors 5/5. Mill Operator Helper strong. Left Upper Extremity: Shoulder flexors 3-/5. Shoulder abductors 3-/5. Elbow flexors 4-/5. Elbow extensors 4-/5. Mill Operator Helper weak but functional. Right Lower Extremity: Hip flexors 4/5. Hip abductors 4/5. Knee flexors 4/5. Knee extensors 4-/5. Ankle dorsiflexors 4-/5. Ankle plantarflexors 4-/5. Left Lower Extremity: Hip flexors 3-/5. Hip abductors 3-/5. Knee flexors 4-/5. Knee extensors 3-/5. Ankle dorsiflexors 4-/5. Ankle plantarflexors 4-/5. Bed Mobility/Transfers: Minimal cueing provided for use of B hands as needed for support, movement sequence, AD management, and posture to reduce fall risk and minimize pain report Supine to sit contact guard assist with HOB at 30 degrees Sit to stand minimal assist with FWW Stand to sit contact guard assist with FWW Bed to reclining contact guard assist with FWW Gait: Facilitated safe and correct performance of level surface ambulation covering a distance of 75 feet +100 feet using front-wheeled walker with contact-guard assist and minimal verbal cueing for AD management, posture, increased step height and length on the left LE to reduce fall risk. Knee flexion decreased during stance phase. Balance: Static Sitting: Normal Dynamic Sitting: Good Static Standing: Fair Dynamic Standing: Fair Special Tests: Mobility Limitations Standardized Measure [facility] AM-PAC 6 clicks Basic Mobility Inpatient Short Form: Raw Score: 19 CMS Score: 42% deficit Pronator Drift: Positive on L Romberg Sign: Positive 4-Stage Balance Test: Unable to maintain all 4 posisitons for 10 seconds indincating a fall risk and need for use of an AD. Rapid Alternating movement: Impaired on the L UE and LE Muscle tone: Mild hypotonia on the L UE/LE Informed Consent/Education: Patient was instructed in purpose of PT consult and plan of care. Agreeable to proceed with established PT POC to achieve personal goals. Assessment: L-sided hemiparesis limiting ability to efficiently use L UE as well as safely performing mobility ADL performance. Patient presents with clinical signs and symptoms consistent with current/admitting diagnoses that have resulted to mobility limitations, gait instability, generalized weakness, and overall ADL decline as demonstrated by the following impairment level findings: 1. Decreased strength to L UE/LE major muscle groups 2. Impaired sitting/standing balance 3. Impaired activity tolerance 4. Limitation of joint range of motion in L shoulder and L hip/knee 5. Swelling in L leg Impairments are contributing to the following functional limitations: 1. Decline in bed mobility skills 2. Decline in transfer skills 3. Difficulty with ambulation without assistive device and physical assistance 4. Increased completion time for mobility ADL performance 5. Increased risk for falls 6. Difficulty with managing steps alone safely Patient is assessed as a [id number] moderate complexity based on the following: History: 78-year-old female with past medical history as indicated above Examination: Demonstrable impairment in strength, balance, and mobility level with underlying impairments and functional limitations as exhibited above as well as deficit score of 42% utilizing the [facility] Mobility Inpatient Short Form Presentation: Evolving Decision Makin moderate complexity Goals: Goals X1 week 1. Supine-Sit independent 2. Sit-Supine independent 3. Sit-Stand independent 4. Stand-Sit independent with FWW 5. Bed-Chair independent with FWW 6. Chair-Bed independent with FWW 7. Independent gait on level surface with use of FWW for at least 300 feet without report of pain nor dyspnea 8. Independent stair negotiation while holding onto B rails for at least 3 steps without report of pain nor dyspnea 9. Good static and dynamic standing balance/tolerance Plan of Care/Treatment Plan: 1-2x/day, 7 days/week x 1 week. Plan of care has been reviewed with the CHILD PROTECTIVE INVESTIGATOR providing the service under Physical Therapy direction. Initiate Physical Therapy intervention for pain management as needed, neuromuscular re-education, strengthening, bed mobility, transfers, gait, stairs, balance training, and use of assistive device. DISCHARGE RECOMMENDATIONS: [] Home with no services [] [] Home with services [specify] [] Home with outpatient PT [] [] SNF for continued rehabilitation [] [] [employer] [] [] SNF versus LTC based on ability to participate and progress [] [X] Acute stroke rehab facility to facilitate L UE/LE motor recovery TREATMENT CODE/TIME: 89066 x 20 minutes for 1 unit, 19413 x 11 minutes for 1 unit (10:50-11:21). Thank you for the opportunity to participate in the care of this patient. Melody Fermin PT, DPT, CLT [facility] [place], [place]
[2024-01-28 11:15] VITALS: BP 161/67; PULSE 66; RESP 18; TEMP 36.6; O2SAT 97
[2024-01-28] MEDS: Sodium Chloride-Nasal SPRAY-ADULT 44 ML BTL NS ×3 (12:20→20:14)
[2024-01-28] MEDS: Normal Saline Flush 10 ML SYR IVP (12:26)
[2024-01-28 16:04] VITALS: BP 156/65; PULSE 61; RESP 18; TEMP 36.2; O2SAT 95
--- NOTE | 2024-01-28 16:32 | PT.INTREAT ---
Date of service: 01/28/24 Time of Service: 16:11 PT Notes Visit Reasons: Stroke Inpatient Physical Therapy Treatment Note [facility] Date: 01/28/24 PRECAUTIONS: Fall, standard, activity as tolerated SUBJECTIVE: Patient reports that she is feeling better. States that she typically takes 4 glucosamine/chondroitin tablets and a calcium or bone health chew, wonders aloud whether that may be why her knees feel stiff. S/o observes that patient is very active at home, rarely sits down, and likely it is the inactivity that is contributing to the stiffness. OBJECTIVE: sitting up in bedside chair. Agreeable to therapy. Stutsman alarm in place. S/o present in room. ? PAIN: stiff, sore knees. VITALS: monitored by nursing staff ? Sit-stand: SBA ? Stand-sit: SBA ? Therapeutic Exercises ([id number]): Direct one-on-one instruction in therapeutic exercises to develop strength, endurance, range of motion and flexibility. Ambulation ? Assistive Device: youth size FWW ? Weight bearing: full Assist: CGA? Distance:? 325 feet? Deviation: narrow hollie, short step length, decreased step height, knees lack full extension. ? Provided skilled instruction in proper exercise performance Provided skilled manual cues to facilitate proper muscle recruitment and/or form. ASSESSMENT:? Patient tolerates therapy well, states that youth walker does seem to fit better than the walker she was using previously. PLAN: Continue global strengthening per plan of care until patient is medically cleared for discharge. TREATMENT CODE/TIME: 20 minutes beginning at 16:11
[2024-01-28] MEDS: Enoxaparin 40 MG/0.4 ML SYR SC (17:15)
[2024-01-28 19:40] VITALS: BP 156/65; PULSE 68; RESP 20; TEMP 36.3; O2SAT 95
[2024-01-28] MEDS: Atorvastatin 40 MG TAB PO (20:12)
[2024-01-28] MEDS: Fluticasone NASAL SPRAY 16 GM BTL NS (20:13)
[2024-01-28] MEDS: Triamcinolone 0.1% CR 15 GM TUBE TP (20:14)
[2024-01-28 22:54] VITALS: BP 161/59; PULSE 61; RESP 20; TEMP 36.8; O2SAT 94
[2024-01-29 03:35] VITALS: BP 171/72; PULSE 61; RESP 19; TEMP 36.7; O2SAT 94
[2024-01-29 06:54] LABS: Abs Immature Grans 0.01 10^3/uL (0.0-0.06); Absolute Basophil Count 0.07 10^3/uL (0.0-0.2); Absolute Eosinophil Count 0.31 10^3/uL (0.0-0.7); Absolute Lymphocyte Count 0.77 10^3/uL (1.2-3.4); Absolute Monocyte Count 0.48 10^3/uL (0.1-0.8); Absolute Neutrophil Count 3.75 10^3/uL (1.2-6.7); Basophils % 1.3; Eosinophils % 5.8; HGB 12.6 g/dL (11.2-15.7); Immature Grans % 0.2; Lymphocytes % 14.3; MCH 30.8 pg (27.0-33.0); MCHC 33.2 % (32.0-36.0); MCV 93 fL (80-95); MPV 8.9 fL (8.0-11.0); Monocytes % 8.9; Neutrophils % 69.5; Platelet Count 251 10^3/uL (130-400); RBC 4.09 10^6/uL (3.93-5.22); RDW 13.2 % (11.7-14.6); RDW-SD 45.1 fL; WBC 5.39 10^3/uL (4.4-10.8)
[2024-01-29 07:06] LABS: Anion Gap 10.9 mmol/L (3-11); BUN 19 mg/dL (7-18); CO2 27.1 mmol/L (21.0-32.0); CREATININE 1.1 mg/dL (0.55-1.02); Calcium 8.8 mg/dL (8.5-10.1); Chloride 103 mmol/L (98-107); Estimated GFR 51.75 (mL/min/1.73m2); Glucose 102 mg/dL (74-106); Potassium 3.9 mmol/L (3.5-5.1); Sodium 141 mmol/L (136-145)
[2024-01-29] MEDS: Cholecalciferol (Vitamin D3) 1,000 UNIT TAB 1000 UNITS PO (08:33)
[2024-01-29] MEDS: Sodium Chloride-Nasal SPRAY-ADULT 44 ML BTL NS ×2 (08:33→12:01)
[2024-01-29] MEDS: Fluticasone NASAL SPRAY 16 GM BTL NS (08:33)
[2024-01-29] MEDS: Ascorbic Acid 500 MG TAB PO (08:33)
[2024-01-29] MEDS: Calcium 600mg/Vit D 200U TAB 1 TAB PO (08:33)
[2024-01-29] MEDS: Aspirin E.C. 81 MG TABEC PO (08:34)
[2024-01-29] MEDS: amLODIPine 2.5 MG TAB PO (08:34)
[2024-01-29] MEDS: Multivitamin TAB 1 TAB PO (08:34)
[2024-01-29] MEDS: Triamcinolone 0.1% CR 15 GM TUBE TP (08:35)
[2024-01-29 08:58] VITALS: BP 159/75; PULSE 60; RESP 16; TEMP 36.8; O2SAT 95
--- NOTE | 2024-01-29 09:04 | CMPROGNOTE_ITS ---
Date of service: 01/29/24 Time of Service: 09:04 Care Management Progress Note Progress Note Text Progress Note Text: S/O:Marisa was sitting up in bed visiting with her . Yesterday they had requested blank copies of the [place] forms. Today they asked that CM assist with their completion. CM facilitated the completion of advanced directives with both Marisa and Yahir. The documents were appropriately witnessed and faxed to [employer] as well as to the [facility] AD Registry. Each green party was provided with an original and 4 copies. Marisa informed CM that she is doing well. She had some concerns when she woke up this morning and felt like her left hand weakness had gotten worse, however the symptoms soon cleared. She worked with PT and still plans to follow up with outpatient PT at discharge. The plan will be to discharge her later today. A: Marisa is a 78 year old woman admitted onn 01/27/24 with a CVA P:Anticipate Marisa will be discharged home with no new services. She will follow up with Neurology, her PCP and plan of care and transport with her . Marisa would like to attend outpatient PT when she goes home, if appropriate. CM will follow and support discharge needs. SDOH(Care Management) Screening Will the Patient Participate in the Screening?: Yes Do you worry about having a steady place to live?: no In the past 12 months, have you had to go without electric, gas, oil or water in your home?: no Have you or anyone in your house had to go without enough food to eat?: no Has lack of transportation kept you from medical appointments or from doing things needed for daily living?: no Has anyone in your support network made you feel unsafe for any reason?: no
--- NOTE | 2024-01-29 10:41 | CHAPLAIN ---
Marisa was resting in bed when I visited. Her Yahir was with her. I explained my role and offered support.
--- NOTE | 2024-01-29 10:45 | PTTR_ITS ---
PT Notes Visit Reasons: Stroke Physical Therapy Inpatient Treatment Note Date: 01/29/2024 Precautions: Fall. Standard. Activity as tolerated. Subjective: Complained of headache early this morning, now resolved. Reported increased numbness in her L hand. Denied headache, chest pain, and lightheadedness. Objective: General Observation: Resting in bed. Some swelling in the L leg and foot. Telemetry monitoring in place. Mental Status: Alert and oriented as to person, place, time, and purpose. Able to pay attention, focus, and respond appropriately. Pain: None reported Vital Signs: Closely monitored by nursing staff, permissive HTN on Bed Mobility/Transfers: Minimal cueing provided for use of B hands as needed for support, movement sequence, AD management, and posture to reduce fall risk and minimize pain report Supine to sit stand by assist with HOB at 30 degrees Sit to stand stand by assist with FWW Stand to sit stand by assist with FWW Bed to reclining contact guard assist with FWW Gait: Facilitated safe and correct performance of level surface ambulation covering a distance of 150 feet + 200 feet using front-wheeled walker with contact-guard assist and minimal verbal cueing for AD management, posture, increased step height and length on the left LE to reduce fall risk. Knee flexion decreased during stance phase. Drags L foot with fatigue but able to correct with cueing. L lateral sway increased, no LOB. L UE iron handler on walker handle diminished. THERA EX: Facilitated safe and correct execution of exercises below. HEP provided. Access Code: [email or web address] URL: [email or web address] Date: 01/29/2024 Prepared by: Melody Fermin Exercises - Seated January - 1 x daily - 7 x weekly - 1 sets - 10 reps - 5 hold - Seated Long Arc Quad - 1 x daily - 7 x weekly - 1 sets - 10 reps - 5 hold - Seated Toe Raise - 1 x daily - 7 x weekly - 1 sets - 10 reps - 5 hold - Seated Heel Raise - 1 x daily - 7 x weekly - 1 sets - 10 reps - 5 hold - Heel raises - 1 x daily - 7 x weekly - 1 sets - 10 reps - 5 hold - Partial knee bends - 1 x daily - 7 x weekly - 1 sets - 10 reps Balance: Static Sitting: Normal Dynamic Sitting: Good Static Standing: Fair Dynamic Standing: Fair Assessment: L hemineglect noted this morning. Tone on L hand decreased. L-sided hemipa resis limiting ability to efficiently use L UE as well as safely performing mobility ADL performance. Patient presents with clinical signs and symptoms consistent with current/admitting diagnoses that have resulted to mobility limitations, gait instability, generalized weakness, and overall ADL decline as demonstrated by the following impairment level findings: 1. Decreased strength to L UE/LE major muscle groups 2. Impaired sitting/standing balance 3. Impaired activity tolerance 4. Limitation of joint range of motion in L shoulder and L hip/knee 5. Swelling in L leg Impairments are contributing to the following functional limitations: 1. Decline in bed mobility skills 2. Decline in transfer skills 3. Difficulty with ambulation without assistive device and physical assistance 4. Increased completion time for mobility ADL performance 5. Increased risk for falls 6. Difficulty with managing steps alone safely Plan of Care/Treatment Plan: 1-2x/day, 7 days/week x 1 week. Plan of care has been reviewed with the PROC TECH providing the service under Physical Therapy direction. Initiate Physical Therapy intervention for pain management as needed, neuromuscular re-education, strengthening, bed mobility, transfers, gait, stairs, balance training, and use of assistive device. DISCHARGE RECOMMENDATIONS: [] Home with no services [] [] Home with services [specify] [] Home with outpatient PT [] [] SNF for continued rehabilitation [] [] Custodial Care [] [] SNF versus LTC based on ability to participate and progress [] [X] Acute stroke rehab facility to facilitate L UE/LE motor recovery TREATMENT CODE/TIME: 87340 x 25 minutes for 2 units, 42719 x 14 minutes for 1 unit (10:45-11:44).
--- NOTE | 2024-01-29 13:55 | PHA.REVIEW2 ---
Pharmacy Admission Review Admission Clinical Review Admission Pharmacy Review: Discharge planning issues (Acute) On deep vein thrombosis (DVT) prophylaxis (Acute) NIURKA (acute kidney injury) (Acute) Sinusitis (Acute) Non-hemorrhagic cerebrovascular accident (CVA) (Acute) Sulfa (Sulfonamide Antibiotics) Allergy (Unknown, Verified 01/27/24 13:39) unknown lisinopril Allergy (Verified 01/27/24 13:39) skin reactions amoxicillin [From Augmentin] Adverse Reaction (Intermediate, Verified 01/27/24 13:39) diarrhea/severe muscle spasms clavulanic acid [From Augmentin] Adverse Reaction (Intermediate, Verified 01/27/24 13:39) diarrhea/severe muscle spasms alendronate sodium [From Fosamax] Adverse Reaction (Mild, Verified 01/27/24 13:39) muscle spasms hydrochlorothiazide Adverse Reaction (Mild, Verified 01/27/24 13:39) nausea Resuscitation Status Full Code Height 5 ft 1 in Weight 47.174 kg Pharmacy Admission Review Renal Dosing Renal Dosing: BUN 19 mg/dL (7-18) H 01/29/24 06:07 Creatinine 1.1 mg/dL (0.55-1.02) H 01/29/24 06:07 Medications needing adjustments: Reviewed (CrCl 31.9 mL/min) List of meds needing interventions: Current medications okay, watch enoxaparin if kidney function worsens Anticoagulation Anticoagulation: Hgb 12.6 g/dL (11.2-15.7) 01/29/24 06:07 Hct 38.0 % (36.0-46.0) 01/29/24 06:07 Plt Count 251 10^3/uL (130-400) 01/29/24 06:07 INR 1.0 (0.9-1.1) 01/27/24 16:40 Creatinine 1.1 mg/dL (0.55-1.02) H 01/29/24 06:07 DVT Prophylaxis: Reviewed Medications: Enoxaparin (40mg q24h) Relevant Labs Relevant Labs: Sodium 141 mmol/L (136-145) 01/29/24 06:07 Potassium 3.9 mmol/L (3.5-5.1) 01/29/24 06:07 Chloride 103 mmol/L (98-107) 01/29/24 06:07 Electrolytes, C-Reactive P, ESR: Reviewed (BUN decreased from 24 to 19, glucose 125 at 1128, A1C 5.7 on 01/28) Cardiac Review Cardiac Review: Blood Pressure 159/75 0858 Blood Pressure 171/72 0335 BP, HR, EF%: Reviewed (BP 159/75, HR WNL) QTc Review QTc: Reviewed (436 from 01/27/24) IV to PO Switch IV Medications: Reviewed Home Meds Home Med List reviewed: Intervened Relevent Home Meds Not ordered & why?: Prolia (every 6 month infusion) and mometasone Most recent amlodipine was filled on 12/25/23 for 10mg daily, it is listed as 2.5mg daily on home med list and current order is for 2.5mg daily. Called nursing to confirm with patient what dose she takes at home. Waiting semiconductor bonder back Current Meds Current Medication Order Review: Reviewed
--- NOTE | 2024-01-29 15:04 | PT.INTREAT ---
Date of service: 01/29/24 Time of Service: 14:30 PT Notes Visit Reasons: Stroke Inpatient Physical Therapy Treatment Note [facility] Date: 01/29/24 PRECAUTIONS: Fall, standard, activity as tolerated. SUBJECTIVE: Kaden reports feeling stronger, reports left leg moves more easily, easier to lift. Reports that the hospital gown she is wearing is too long, catches on her socks and shoes and feels detrimental to her balance. Replaced with youth gown, telemetry satchel. OBJECTIVE: Patient sitting up in bedside chair, Santos alarm in place. Agreeable to therapy. Noticeably manipulates objects in right hand, tends to ignore left hand (i.e. passes telemetry satchel waist tie to clinician with right hand, does not locate the other tie with the left hand. Delay in grasping walker with left hand.)? PAIN: none reported VITALS: monitored by nursing via telemetry. ? BED MOBILITY/TRANSFERS? Rolling L/R: not assessed Supine-sit: not assessed ? Sit-supine: not assessed ? Sit-stand: SBA ? Stand-sit: SBA ? Gait Training ([id number]): Direct one-on-one instruction and skilled instruction in: [x] employing an assistive device [] modified weight-bearing status [x] movement sequencing [x] turning and movement with proper form [x] Provided verbal cues for equipment management and technique [x] Provided instruction in gait pattern [] Patient education regarding pacing and breathing techniques to maximize activity tolerance? GAIT? Assistive Device: FWW ? Weight bearing: full Assist: SBA? Distance:? 200 feet, rest, 200 feet ? Deviation: reduced step length, reduced step height, tendency to step left foot to right foot rather than swing through, tendency to drag / scuff left foot. Able to correct gait pattern when prompted, but lapses after ~15-20 feet. ? ASSESSMENT:? Patient reports feeling better, stronger. Reports hoping to go home tomorrow. This clinician feels that her left-sided deficits are more pronounced today than yesterday. PLAN: Continue global strengthening per plan of care until patient is medically cleared for discharge. Ideally, patient would attend an acute stroke rehab to maximize return of function and minimize residual deficits. TREATMENT CODE/TIME: 26 minutes beginning at 14:30 (Seen in the a.m. by another clinician for 39 minutes: 65 minutes total for today.)
[2024-01-29 15:24] VITALS: BP 162/79; PULSE 63; RESP 18; TEMP 37; O2SAT 97
--- NOTE | 2024-01-29 15:34 | DSE_ITS ---
Date of service: 01/29/24 Time of Service: 15:34 DS: Diagnosis Discharge Diagnosis (1) Non-hemorrhagic cerebrovascular accident (CVA): Status: Acute (2) Sinusitis: Status: Acute (3) NIURKA (acute kidney injury): Status: Acute (4) Hypertension: Status: Chronic (5) On deep vein thrombosis (DVT) prophylaxis: Status: Acute (6) Discharge planning issues: Status: Acute Discharge Plan Disposition Patient Disposition: Home Condition: Improving Discharge Details Reason For Visit: Stroke Admit Date/Time: 01/27/24 16:25 Admit Provider: Serjio Rincon Attending Provider: Serjio Rincon Primary Care Provider: MYCHAL BEE Hospital Course Hospital Course: This 78-year-old female patient with a past medical history of hypertension and hydronephrosis, was seen at her PCP office and they sent her to the [facility] ED on 01/27/24 for evaluation of left-sided leg weakness for 2 days. MRI in the ED revealed an acute nonhemorrhagic infarct in the right upper right basal ganglia right periventricular white matter other findings were abundant bilateral periventricular signal on multiple abnormal ETT consistent with chronic small vessel disease and complete opacification of the left maxillary sinus and frontal sinuses with diffuse sinusitis. Labs in the ED were unremarkable except for a BUN of 24 and a creatinine of 1.1. Stroke workup was completed with hemoglobin A1c, lipid panel, echo with bubble study, orders.[facility] neurology was consulted - Dr. Carrillo from [facility] neurology recommended Lipitor 40 mg daily to be started and aspirin 81 mg daily. Permissive hypertension was discussed and recommendation was made for systolic around 160 to be decreased to 140 over the next 48 to 72 hours further recommendation include 2 to 4 weeks gambling monitor outpatient with discharge as well as endarterectomy or stenting depending on the degree of occlusion of the blood vessel of the neck. The patient denied dizziness, lightheadedness, change in vision, chills, fever, cough, shortness of breath, chest pain, vomiting diarrhea, abdominal pain, and dysuria. The patient was seen by PT. She does not want rehab or home health PT. Orders for PT in [place] (Patient request) were sent. Patient was discharged with a 30 day gambling monitor, to home with . Follow up with Neurology and PCP. Home Meds and New Rx's Prescriptions: New aspirin 81 mg Tablet,Delayed Release (Dr/Ec) 81 mg PO DAILY Qty: 30 0RF atorvastatin 40 mg Tablet 40 mg PO QPM Qty: 30 0RF Continued losartan 25 mg tablet 25 mg PO DAILY Prolia 60 mg/mL syringe 60 mg subcut [id number] mometasone 0.1 % cream 1 applic topical DAILY 10 Days Qty: 15 2RF metoprolol succinate 25 mg tablet extended release 24 hr 25 mg PO DAILY multivitamin [Daily Multi-Vitamin] 1 EACH tablet 1 ea PO DAILY Caltrate 600 plus D 1 EACH tablet,chewable 1 ea PO DIRECTED glucosamine/chond 2 tab PO DAILY vitamin C 500 tab.chew PO DAILY cholecalciferol (vitamin D3) [Vitamin D3] 1,000 UNIT capsule 1,000 unit PO DAILY amlodipine 10 mg tablet 10 mg PO DAILY Patient Comments: TAKE ONE TABLET BY MOUTH EVERY DAY triamcinolone acetonide 15 GM cream 15 gm Topical BID Discharge Instructions Instructions: Aspirin (By mouth), Atorvastatin (By mouth), Ischemic Stroke (DC), Holter Monitor (GEN) Additional Instructions: Start aspirin and atorvastatin Follow up with neurology and PCP. A referral has been sent to [facility] You have a cardiac event monitor that you will wear for 30 days. Stand Alone Forms: Nursing Discharge Form Referrals: [facility] [Provider Group] (Office will call you to make a follow up appointment if you do not hear from them tomorrow please call them. Left upper and lower extremity strengthening s/p CVA) MYCHAL BEE NP [Primary Care Provider] - 02/13/24 2:00 pm () Anaid Matos MD [ [facility] STAFF PHYSICIAN] - 03/19/24 9:15 am Activity:: Activity as Tolerated Equipment/Supplies:: Walker Diet:: heart healthy Discharge Orders Discharge Orders: Discharge Order (Routine); Ordered 01/29/24 Ordered By: Amelia Burton Other Ambulatory Orders: Cardiac Event Recorder (Routine) Timeframe: 20240129 Facility: [facility] - Location: Respiratory Therapy Ordered By: Amelia Burton Discharge Data Discharge Date/Time-TO BE ENTERED AT DEPARTURE: 01/29/24 17:47 DS: Summary Time Spent with Patient providing and/or coordinating discharge services: Greater than 30 minutes Status at Discharge Functional status at discharge: uses cane/walker Overall status at discharge: patient is progressing back to baseline Mental Status: mental status grossly normal Speech and Movement: speech and movement normal Mood: congruent mood Affect: normal affect Quality:SDOH Health Related Social Needs: No Data to Display Exam Narrative Exam Narrative: Constitutional The patient is without acute distress HENMT: Facial structures with normal appearance, minimal left facial droop. Eyes: Well aligned, intact ROM Neuro:alert and oriented to self, person, place, time and situation. left sided weakness to upper and lower ext, PERRLA Resp: Normal respiratory pattern, speaks in full sentences, unlabored breathing, clear lung bilaterally Cardio: regular rhythm, S1, S2, no murmur, bilateral radial and dorsalis pedis pulses are positive GI: Abdomen is not distended, soft and non tender, bowel sounds are present : Negative Costovertebral angle tenderness, no bladder distension Back/spine/Pelvis: No back tenderness, normal alignment Integumentary: No skin lesions or rash Extremities: strength 4/5 to left ext.5/5 to right ext. Psych: congruent mood and normal affect. Psych Mental Status: mental status grossly normal Speech and Movement: speech and movement normal Mood: congruent mood Affect: normal affect DS: Data Vitals/I&O Vitals and I&O: Vital Signs Temperature 37.0 C 01/29/24 15:24 Temperature Source Tympanic 01/29/24 15:24 Pulse 63 01/29/24 15:24 Pulse Rhythm Regular 01/29/24 08:30 Pulse 70 01/27/24 17:01 Respiratory Rate 18 01/29/24 15:24 Respiratory Effort Normal 01/29/24 08:30 Respiratory Depth Normal 01/29/24 08:30 Respiratory Pattern Normal 01/29/24 08:30 Blood Pressure 162/79 H 01/29/24 15:24 Blood Pressure Mean 111 01/27/24 17:01 Blood Pressure Position Sitting 01/27/24 12:17 Pulse Oximetry 97 01/29/24 15:24 Oxygen Delivery Method Room Air 01/29/24 15:24 Oxygen Flow Rate 0 01/29/24 15:24 Pain Level 0 01/29/24 15:24 Intake & Output 01/28/24 01/29/24 01/29/24 23:59 11:59 23:59 Intake Total 653.75 / 1640.00 250 / 250 Output Total 400 / 400 75 / 75 Balance 253.75 / 1240.00 175 / 175 Intake: IV 453.75 / 1440.00 10 Oral 200 / 200 240 / 240 Output: Urine 400 / 400 75 / 75 Other: Urine Color Yellow Pale Pale Yellow Urine Appearance Clear Clear Clear Urine Odor Normal None Comment unmeasured in toilet Voiding Methods Bedside Commode Diaper Incontinent Data Completed and Pending Labs on day of discharge: Labs from last 24 hours 01/29/24 06:07 WBC 5.39 RBC 4.09 Hgb 12.6 Hct 38.0 MCV 93 MCH 30.8 MCHC 33.2 RDW 13.2 Plt Count 251 MPV 8.9 Immature Gran % 0.2 Neutrophils % 69.5 Lymphocytes % 14.3 Monocytes % 8.9 Eosinophils % 5.8 Basophils % 1.3 Nucleated RBC % 0.0 Absolute Neutrophils 3.75 Absolute Lymphocytes 0.77 L Absolute Monocytes 0.48 Absolute Eosinophils 0.31 Absolute Basophils 0.07 Sodium 141 Potassium 3.9 Chloride 103 Carbon Dioxide 27.1 Anion Gap 10.9 BUN 19 H Creatinine 1.1 H Est GFR (CKD-EPI 2020) 51.75 Glucose 102 Calcium 8.8 PFSH All Active Problems (Updated 01/29/24 @ 16:00 by Amelia Burton NP) CVA (cerebral vascular accident) (Chronic) Discharge planning issues (Acute) On deep vein thrombosis (DVT) prophylaxis (Acute) Hypertension (Chronic) NIURKA (acute kidney injury) (Acute) Sinusitis (Acute) Non-hemorrhagic cerebrovascular accident (CVA) (Acute) Anterior epistaxis (Acute) Impacted cerumen, bilateral (Acute) Impacted cerumen, right ear (Acute) Eczema (Acute) 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 (Acute) Neck mass (Acute) Pelvic floor dysfunction (Acute 04/29/18) Conductive hearing loss, external ear (Acute 09/08/15) Chronic otitis externa (Acute 03/11/14) Chronic eczematous otitis externa (Acute 09/08/15) Bilateral ureteral calculi (Acute 12/24/17) Bilateral kidney stones (Acute 12/24/17) Hydronephrosis, left (Acute) Bladder stone (Acute) Medical History Conductive hearing loss Hydronephrosis, left with stricture Gallstones Bilateral ureteral calculi Bladder stone Chronic otitis externa of both ears Pelvic floor dysfunction Surgical History Ureteroscopy, EHL, or Laser Lithotripsy Lithotripsy Hysterectomy, Total Abdominal BSO w/ George Family History (Updated 01/27/24 @ 19:46 by Joanne Juan APRN) Mother Stroke Social History Smoking/Tobacco Use Status: Never Smoking risk assessment performed?: Yes Drug use: Never Housing: house Do you feel safe at home: Yes Do you feel safe in your relationship?: Yes Additional Social history: lives with , daughter and grandchildren. Feels like it is a very stressful situation. CHRISTINRN 01/27/24 Time Spent with Patient Time Spent with Patient: 45-69 minutes Time was spent: preparing to see the patient(eg.review tests), ordering medications,tests, procedures, referring, communicating with other health career technical supervisor, indepentently interpreting results, counseling the patient and care coordination
--- NOTE | 2024-01-29 17:04 | PDOC.CMDIS ---
Date of service: 01/29/24 Time of Service: 17:04 LACE Index Scoring Tool Questions: Length of Stay (in days): 2 Was the patient admitted via the E.D.?: Yes Comorbidities: Cerebrovascular Disease E.D. Visits: 1 Answers: Total Score: 7 Risk of Readmission: Low Risk Care Management Discharge Plan Reason for Hospitalization: CVA Discharge Plan: Marisa will be discharged home with no new services. She will follow up with Neurology, her PCP and plan of care and transport with her . Marisa would like to attend outpatient PT when she goes home, which will be ordered. Patient/Family Education Needs: Review of discharge instructions, activity, limitations, follow up plan, discuss Ask Me Three Services Needed at Discharge: Physical Therapy SDOH Health Related Social Needs: No Data to Display
--- NOTE | 2024-01-30 07:00 | OTIE_ITS ---
Occupational Therapy Notes Inpatient Occupational Therapy Evaluation Date: 01/30/24 Referring Doctor: Joanne Juan OT Orders: Urgent Precautions: Flal, Standard, Full PATIENT PROFILE/ADMITTING DIAGNOSIS: Pt is a 78 year old female who was admitted to [facility] with the dx of Hypertension, NIURKA, non-hemorrhagix CVA, anterior epistaxis. Past Medical History: All Active Problems Discharge planning issues (Acute) On deep vein thrombosis (DVT) prophylaxis (Acute) Hypertension (Chronic) NIURKA (acute kidney injury) (Acute) Sinusitis (Acute) Non-hemorrhagic cerebrovascular accident (CVA) (Acute) Anterior epistaxis (Acute) Impacted cerumen, bilateral (Acute) Impacted cerumen, right ear (Acute) Eczema (Acute) 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 (Acute) Neck mass (Acute) Pelvic floor dysfunction (Acute 04/29/18) Conductive hearing loss, external ear (Acute 09/08/15) Chronic otitis externa (Acute 03/11/14) Chronic eczematous otitis externa (Acute 09/08/15) Bilateral ureteral calculi (Acute 12/24/17) Bilateral kidney stones (Acute 12/24/17) Hydronephrosis, left (Acute) Bladder stone (Acute) Medical History Conductive hearing loss Hydronephrosis, left with strictureGallstones Bilateral ureteral calculi Bladder stone Chronic otitis externa of both ears Pelvic floor dysfunction Surgical History Ureteroscopy, EHL, or Laser Lithotripsy Lithotripsy Hysterectomy, Total Abdominal BSO w/ George Social History/Home Situation: Patient lives with in a private home with three steps to enter and rails on B sides. Independent with all aspects of ADLs prior to admission. Equipment owned/DME: FWW, grab bars SUBJECTIVE: Pt was sitting on side of bed when OT arrived. She is receptive to initial evaluation OBJECTIVE: General Observation: Pleasant, (R) UE IV Mental Status: A&Ox3 ROM: Right Upper Extremity: Shoulder Flexion WFL, elbow flexion/extension WFL. Wrist flexion WFL. Functional opening and closing of hand WFL. Left Upper Extremity: Shoulder Flexion lacks the last 50% of AROM with no pain but limited, Shoulder abduction lacks the last 50% of AROM. Elbow flexion WFL. Wrist flexion WFL. Functional opening and closing of hand WFL. STRENGTH: RUE 5/5 throughout LUE 4-/5 throughout FUNCTIONAL MOBILITY/ADLS: BATHING NT at todays session Bathing UE However AROM of (B) UE WFL pt will be able to perform with min (A) Bathing LE However AROM of (B) UE WFL pt will be able to perform with min-mod (A ) DRESSING seated on side of bed Dressing UE NT but AROM WFL for (i) Dressing LE Min (A) don and doffing (B) socks GROOMING AROM WFL for oral hygiene TOILETING NT EATING seated on side of bed (I) with hand to mouth with (R) UE, slight difficulty with (L) UE BALANCE: Static sitting Good Dynamic Sitting Good SPECIAL TESTS: Daily Activity Limitations Standardized Measure [facility] AM -PAC ?6 clicks? Daily Activity Inpatient Short Form: Raw score: 19 INFORMED CONSENT/EDUCATION: Pt instructed in purpose of OT Consult and plan of care. ASSESSMENT: Patient is a 78-year-old female referred to occupational therapy services with diagnosis of Non- hemorrhagic cerebrovascular accident (CVA). Patient presents with clinical signs and symptoms consistent with dx, as demonstrated by the following impairment level findings/functional limitations: Impairments in ADL/ IADL and leisure activities, Decreased strength in (L) UE, decreased functional activity tolerance, Decreased functional use of (L) UE, impairments in gross and fine motor control. AMPA score 19 Patient is assessed as a Moderate 68063 complexity based on the following: History:see above Examination: see functional limitations as noted Presentation: evolving Decision Making: Moderate complexity GOALS Goals x1 week 1. Transfers (S) 2. Dressing seated (I) UE/LE 3. Bathing standing at sink (I) UE, min (A) LE 4. Toileting (I) 5. Eating (I) PLAN OF CARE/TREATMENT PLAN: 1x/day, 5 days/ week x 1week Initiate Occupational Therapy Services for bathing, dressing, grooming, toileting, eating, transfer training. DISCHARGE RECOMMENDATIONS [facility]/stroke rehabilitation when medically cleared per MD. TREATMENT TIME/MINUTES/CODES [id number], 20 minutes [place], OTR/L [facility] [place], [place]
== END 2024-01-29 17:47 | disposition home or self-care (01) | DRG 65 ==
LOC: ER 16:56 → MS 17:18
PROVIDERS: Nurse Practitioner Acute Care; Admitting Provider Internal Medicine; Emergency Provider Emergency Medicine; PCP Nurse Practitioner Family; Visit Provider Internal Medicine
DX: I63.9 Cerebral infarction, unspecified (principal); G81.94 Hemiplegia, unspecified affecting left nondominant side; N17.9 Acute kidney failure, unspecified; I10 Essential (primary) hypertension; Z79.899 Other long term (current) drug therapy; I67.89 Other cerebrovascular disease; J01.80 Other acute sinusitis; L30.9 Dermatitis, unspecified; Z87.442 Personal history of urinary calculi; H60.63 Unspecified chronic otitis externa, bilateral
CPT/HCPCS: 00123; 36415; 70496; 70498; 80048; 80053; 80061; 93005; 93306; 97110; 97116; 97162; 97530; 99285; J1650; 70551; 81003; 81015; 83036; 85025; 85610; 87086; 92523; 93010; 99223; 99233; 99239; J3490

== ENCOUNTER 2024-01-27 12:40 | Outpatient (REF) | payer MEDICARE, SELFPAY ==
[2024-01-27 16:18] LABS: Bilirubin Negative (Negative); Blood Negative (Negative); Clarity Clear (Clear); Glucose Negative (Negative); Ketones Trace mg/dL (Negative); Leukocyte Esterase Trace (Negative); Nitrite Negative (Negative); Urobilinogen 0.2 mg/dL (Up to 0.2); pH 6.5 (5-8)
[2024-01-27 16:34] LABS: Bacteria Few HPF (Negative); C & S Indicated? Yes; Casts Negative LPF (Negative); Crystals Mod Calcium Oxalate HPF (Negative); Epithelial Cells Few HPF (Negative); Mucus Negative (Negative); RBC 0-2 HPF (0-2)
== END 2024-01-27 12:41 | disposition home or self-care (01) ==
LOC: NCHCN 12:40
PROVIDERS: PCP Nurse Practitioner Family; Visit Provider Nurse Practitioner Family
DX: R35.0 Frequency of micturition (principal); R82.998 Other abnormal findings in urine
CPT/HCPCS: 81003; 81015; 87086

== ENCOUNTER → 2024-01-30 15:00 | Outpatient (BNVA) | payer MEDICARE, SELFPAY | PROVIDERS: PCP Nurse Practitioner Family; Referring Provider Nurse Practitioner Family; Visit Provider Urology | DX: R32 Unspecified urinary incontinence (principal); I63.9 Cerebral infarction, unspecified | CPT/HCPCS: 51798; 99214 ==

== ENCOUNTER → 2024-02-24 10:03 | Outpatient (BNVA) | payer MEDICARE, SELFPAY | PROVIDERS: PCP Nurse Practitioner Family; Referring Provider Nurse Practitioner Family; Visit Provider Nurse Practitioner Gerontology | DX: R32 Unspecified urinary incontinence (principal) | CPT/HCPCS: 99442 ==

== ENCOUNTER → 2024-02-26 17:29 | Outpatient (CLI) | payer MEDICARE, SELFPAY ==
--- NOTE | 2024-02-26 11:27 | DI.RAD_ITS ---
Exam(s) XR KNEE LT 3V AP,LAT,MANAN EXAM: XR KNEE LT 3V AP,LAT,MANAN CLINICAL HISTORY: PAIN LT KNEE JOINT, M25.562. TECHNIQUE: 2D digital imaging was performed. Three views. COMPARISON: CR RIGHT KNEE COMPLETE from 07/06/2008 FINDINGS: BONES: No acute fracture is present. No bony destructive lesion is seen. JOINTS: There is severe narrowing of the medial femoral tibial joint space, with a [id number] appea rachelle. This causes some varus angulation. There is periarticular spurring. The lateral femoral tib ial joint space shows mild compensatory widening. There is mild spurring at the articular aspect of the patella. A small joint effusion is seen. SOFT TISSUE: Mild vascular calcifications. 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 DATA REPOSITORY: RADIATION DOSE DELIVERED:
== END ==
PROVIDERS: PCP Nurse Practitioner Family; Visit Provider Nurse Practitioner Family
DX: M25.562 Pain in left knee (principal); M25.462 Effusion, left knee; M17.12 Unilateral primary osteoarthritis, left knee
CPT/HCPCS: 73562

== ENCOUNTER 2024-03-01 16:14 | Emergency (ER) | payer MEDICARE, SELFPAY ==
--- NOTE | 2024-03-01 16:00 | RT.EKG_ITS ---
APPROVED REPORT Exam: Resting ECG Reason for Exam: [facility] Patient Location: E HR:68 bpm ECG Measurements Heart Rate 68 AXIS NV 135 P 61 QRSd 71 QRS 15 QT 388 T 61 QTc 413 Conclusion Sinus rhythm...normal P axis, V-rate 60- 99 Narrow complex normal sinus rhythm at a rate of 70. Normal axis. Intervals within normal limits. N o ST segment abnormalities. T wave inversions V2 and V3. No acute injury pattern. No prior for [employer].
[2024-03-01 16:11] VITALS: BP 188/52; PULSE 75; RESP 14; TEMP 37.9; O2SAT 98
[2024-03-01 16:40] LABS: Lactate 0.7 mmol/L (0.6-1.4)
[2024-03-01 16:41] LABS: Abs Immature Grans 0.02 10^3/uL (0.0-0.06); Absolute Basophil Count 0.07 10^3/uL (0.0-0.2); Absolute Eosinophil Count 0.26 10^3/uL (0.0-0.7); Absolute Lymphocyte Count 0.63 10^3/uL (1.2-3.4); Absolute Monocyte Count 0.64 10^3/uL (0.1-0.8); Absolute Neutrophil Count 5.42 10^3/uL (1.2-6.7); Eosinophils % 3.7; HGB 12.6 g/dL (11.2-15.7); Immature Grans % 0.3; Lymphocytes % 8.9; MCH 31.1 pg (27.0-33.0); MCHC 32.3 % (32.0-36.0); MCV 96 fL (80-95); MPV 8.3 fL (8.0-11.0); Monocytes % 9.1; Platelet Count 265 10^3/uL (130-400); RBC 4.05 10^6/uL (3.93-5.22); RDW 13.2 % (11.7-14.6); RDW-SD 47.3 fL; WBC 7.04 10^3/uL (4.4-10.8)
[2024-03-01] MEDS: Acetaminophen 500 MG TAB 1000 MG PO (16:44)
--- NOTE | 2024-03-01 16:53 | ED.GENADUL_ITS ---
Discharge Plan Disposition Patient Disposition: Home Condition: Stable Discharge Details Clinical Impression: Acute UTI, Fever Primary Care Provider: MYCHAL BEE ED Provider: Iliana Hoff Home Meds and New Rx's Prescriptions: New cephalexin 500 mg capsule 500 mg PO BID 5 Days Qty: 10 0RF No Action losartan 25 mg tablet 25 mg PO DAILY Prolia 60 mg/mL syringe 60 mg subcut [id number] mometasone 0.1 % cream 1 applic topical DAILY 10 Days Qty: 15 2RF metoprolol succinate 25 mg tablet extended release 24 hr 25 mg PO DAILY multivitamin [Daily Multi-Vitamin] 1 EACH tablet 1 ea PO DAILY Caltrate 600 plus D 1 EACH tablet,chewable 1 ea PO DIRECTED glucosamine/chond 2 tab PO DAILY vitamin C 500 tab.chew PO DAILY cholecalciferol (vitamin D3) [Vitamin D3] 1,000 UNIT capsule 1,000 unit PO DAILY amlodipine 10 mg tablet 10 mg PO DAILY Patient Comments: TAKE ONE TABLET BY MOUTH EVERY DAY aspirin 81 mg Tablet,Delayed Release (Dr/Ec) 81 mg PO DAILY Qty: 30 0RF atorvastatin 40 mg Tablet 40 mg PO QPM Qty: 30 0RF triamcinolone acetonide 15 GM cream 15 gm Topical BID Discharge Instructions Instructions: Urinary Tract Infection in Women (ED) Additional Instructions: please follow up with your PCP to address dementia concerns Keep appointment with neurology HPI General Date/Time Provider Initiated Documentation: 03/01/24 16:18 . Limitations to Documentation: no limitations . Information obtained by: patient, family and EMS . HPI Narrative: 74-year-old female with past medical history of CVA, presents for evaluation of confusion and weakness for the last week. She had a stroke a month ago with left-sided deficit. reports that the last week she has been having some worsening symptoms. Patient reports that she has been having some lightheadedness and feeling disoriented. Some of the other symptoms that the patient's reports like repetitive behaviors, constantly moving her shoes, getting up out of bed and opening and closing the door several times seem to be more likely dementia related. Related Data Home Medications Medication Instructions Recorded Confirmed Glucosamine/Chond 2 tab PO DAILY 03/21/15 03/01/24 Vitamin C 500 tab.chew PO DAILY 03/21/15 03/01/24 calcium carbonate 600 mg-vitamin 1 ea PO DIRECTED 03/21/15 03/01/24 D3 20 mcg (800 unit) chewable tablet (Caltrate 600 plus D) multivitamin (Daily Multi-Vitamin 1 ea PO DAILY 03/21/15 03/01/24 tablet) cholecalciferol (vitamin D3) 25 1,000 unit PO DAILY 12/25/17 03/01/24 mcg (1,000 unit) capsule (Vitamin D3) triamcinolone acetonide 0.1 % 15 gm topical BID 07/11/18 03/01/24 topical cream denosumab 60 mg/mL subcutaneous 60 mg subcut [id number] 11/01/20 03/01/24 syringe (Prolia) mometasone 0.1 % topical cream 1 applic topical DAILY 10 days #15 10/02/21 03/01/24 grams metoprolol succinate 25 mg 25 mg PO DAILY 02/20/23 03/01/24 tablet,extended release 24 hr losartan 25 mg tablet 25 mg PO DAILY 10/23/23 03/01/24 amlodipine 10 mg tablet 10 mg PO DAILY 01/29/24 03/01/24 aspirin 81 mg tablet,delayed 81 mg PO DAILY #30 tabs 01/29/24 03/01/24 release atorvastatin 40 mg tablet 40 mg PO QPM #30 tabs 01/29/24 03/01/24 cephalexin 500 mg capsule 500 mg PO BID 5 days #10 caps 03/01/24 Previous Rx's Medication Instructions Recorded mometasone 0.1 % topical cream 1 applic topical DAILY 10 days #15 10/02/21 grams aspirin 81 mg tablet,delayed 81 mg PO DAILY #30 tabs 01/29/24 release atorvastatin 40 mg tablet 40 mg PO QPM #30 tabs 01/29/24 cephalexin 500 mg capsule 500 mg PO BID 5 days #10 caps 03/01/24 Allergies Allergy/AdvReac Type Severity Reaction Status Date / Time Sulfa (Sulfonamide Allergy Unknown unknown Verified 03/01/24 17:29 Antibiotics) lisinopril Allergy skin Verified 03/01/24 17:29 reactions amoxicillin [From Augmentin] AdvReac Intermediate diarrhea/severe Verified 03/01/24 17:29 muscle spasms clavulanic acid AdvReac Intermediate diarrhea/severe Verified 03/01/24 17:29 [From Augmentin] muscle spasms alendronate sodium AdvReac Mild muscle Verified 01/27/24 13:39 [From Fosamax] spasms hydrochlorothiazide AdvReac Mild nausea Verified 03/01/24 17:29 mirabegron [From Myrbetriq] AdvReac blurred Verified 03/01/24 17:29 vision General Stated Complaint: AMS/LOC ARDEN: 3 Exam Narrative Exam Narrative: Review of Systems: All systems reviewed & are unremarkable except as noted in HPI and below Well-developed, no acute distress NCAT PERRL, normal conjunctiva Moist mucous membranes RRR, no murmur Unlabored respiratory effort, clear bilaterally Nondistended abdomen , nontender Extremities w/o deformity, no cyanosis, no edema No rashes or lesions. no focal neurologic deficits, alert and oriented x 3, full range of motion in all extremities, strength grossly equal Appropriate mood and affect Course Vital Signs Vital signs: Vital Signs Temperature 37.9 C H 03/01/24 16:11 Pulse 75 03/01/24 16:11 Respiratory Rate 14 03/01/24 16:11 Blood Pressure 188/52 H 03/01/24 16:11 Pulse Oximetry 98 03/01/24 16:11 Temperature 37.9 C H 03/01/24 16:11 Temperature Source Skin 03/01/24 16:11 Pulse 75 03/01/24 16:11 Respiratory Rate 14 03/01/24 16:11 Blood Pressure 188/52 H 03/01/24 16:11 Pulse Oximetry 98 03/01/24 16:11 Oxygen Delivery Method Room Air 03/01/24 16:11 Oxygen Flow Rate 0 03/01/24 16:11 Pain Level 2 03/01/24 16:11 Lab/Test Results Lab/Test Results: Laboratory Tests Range/Units 03/01/24 16:30 WBC (4.4-10.8) 10^3/uL 7.04 RBC (3.93-5.22) 10^6/uL 4.05 Hgb (11.2-15.7) g/dL 12.6 Hct (36.0-46.0) % 39.0 MCV (80-95) fL 96 H MCH (27.0-33.0) pg 31.1 MCHC (32.0-36.0) % 32.3 RDW (11.7-14.6) % 13.2 Plt Count (130-400) 10^3/uL 265 MPV (8.0-11.0) fL 8.3 Immature Gran % 0.3 Neutrophils % 77.0 Lymphocytes % 8.9 Monocytes % 9.1 Eosinophils % 3.7 Basophils % 1.0 Nucleated RBC % (0.0-0.3) % 0.0 Absolute Neutrophils (1.2-6.7) 10^3/uL 5.42 Absolute Lymphocytes (1.2-3.4) 10^3/uL 0.63 L Absolute Monocytes (0.1-0.8) 10^3/uL 0.64 Absolute Eosinophils (0.0-0.7) 10^3/uL 0.26 Absolute Basophils (0.0-0.2) 10^3/uL 0.07 VBG Lactate (0.6-1.4) mmol/L 0.7 Medical Decision Making Emergent evaluation of confusion and disorientation. Initial differential includes dementia, infection, no evidence of acute neurologic deficit. Patient presented with a slight fever increasing my suspicion for an infectious etiology. Lab work is obtained. Normal white blood cell count. No significant anemia. Her creatinine is at baseline. Slight elevation in LFTs though not significantly elevated. Urinalysis does have some signs of infection. A dose of Rocephin has been given. Culture sent. Discussed plan with . His concerns about some of the behavioral issues are likely related to her stroke and some developing dementia. They have been ongoing since her stroke and do not seem to be related to an acute urinary tract infection. He is worried that there may be some medication component they were started on a medicine from urology to help with urinary incontinence but they have stopped it after 2 weeks. The patient has not yet followed up with neurology though she does have an upcoming appointment. I have messaged via care management to go see earlier if possible. At that time they can discuss medications to help with sleep or behavioral issues. Given her general stability and no significant deficits from the urinary tract infection, I feel that she would be appropriate for outpatient treatment. Will discharge with Keflex to start tomorrow. Discussed return precautions with the and close follow-up with her PCP and neurology team. Medical Records Medical records reviewed: Yes I reviewed the patient's medical records. Lab Data Lab results reviewed: Yes I reviewed the patient's lab results. Quality:SDOH Health Related Social Needs: No Data to Display PFSH All Active Problems Fever (Acute) Acute UTI (Acute) Urinary incontinence (Acute) CVA (cerebral vascular accident) (Chronic) Hypertension (Chronic) Sinusitis (Acute) Non-hemorrhagic cerebrovascular accident (CVA) (Acute) Anterior epistaxis (Acute) Impacted cerumen, bilateral (Acute) Impacted cerumen, right ear (Acute) Eczema (Acute) 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 (Acute) Neck mass (Acute) Pelvic floor dysfunction (Acute 04/29/18) Conductive hearing loss, external ear (Acute 09/08/15) Chronic otitis externa (Acute 03/11/14) Chronic eczematous otitis externa (Acute 09/08/15) Bilateral ureteral calculi (Acute 12/24/17) Bilateral kidney stones (Acute 12/24/17) Hydronephrosis, left (Acute) Bladder stone (Acute) Medical History NIURKA (acute kidney injury) Conductive hearing loss Hydronephrosis, left with stricture Gallstones Bilateral ureteral calculi Bladder stone Chronic otitis externa of both ears Pelvic floor dysfunction Surgical History Ureteroscopy, EHL, or Laser Lithotripsy Lithotripsy Hysterectomy, Total Abdominal BSO w/ George Family History Mother Stroke Social History Smoking/Tobacco Use Status: Never Smoking risk assessment performed?: Yes Drug use: Never Housing: house Do you feel safe at home: Yes Do you feel safe in your relationship?: Yes Additional Social history: lives with , daughter and grandchildren. Feels like it is a very stressful situation. CHRISTIN,RN 01/27/24
[2024-03-01 16:56] LABS: ALT 67 U/L (14-59); AST 43 U/L (15-37); Albumin 3.7 g/dL (3.4-5.0); Alkaline Phosphatase 135 U/L (46-116); BUN 31 mg/dL (7-18); Bilirubin, Total 0.9 mg/dL (0.2-1.0); CREATININE 1.4 mg/dL (0.55-1.02); Calcium 9.7 mg/dL (8.5-10.1); Chloride 103 mmol/L (98-107); Estimated GFR 38.75 (mL/min/1.73m2); Glucose 124 mg/dL (74-106); Potassium 3.8 mmol/L (3.5-5.1); Sodium 142 mmol/L (136-145); Total Protein 7.1 g/dL (6.4-8.2)
[2024-03-01 17:07] LABS: TSH (W/Ref FT4) 0.63 uIU/mL (0.36-3.74)
[2024-03-01 17:25] LABS: COVID-19 PCR Negative (Negative); Influenza A PCR Negative (Negative); Influenza B PCR Negative (Negative); RSV PCR Negative (Negative)
[2024-03-01 17:26] LABS: Source Nasopharynx
[2024-03-01] MEDS: Normal Saline 1,000 ML 1000 ML IV (17:26)
[2024-03-01 17:56] LABS: Bilirubin Negative (Negative); Blood Trace-intact (Negative); Clarity Clear (Clear); Glucose Negative (Negative); Ketones Negative (Negative); Leukocyte Esterase Trace (Negative); Nitrite Negative (Negative); Specific Gravity 1.025 (1.005-1.025); Urobilinogen 0.2 mg/dL (Up to 0.2); pH 5.5 (5-8)
[2024-03-01 18:08] LABS: Bacteria Moderate HPF (Negative); C & S Indicated? Yes; Casts Negative LPF (Negative); Crystals Negative HPF (Negative); Epithelial Cells Few HPF (Negative); Mucus Negative (Negative); RBC 0-2 HPF (0-2)
[2024-03-01] MEDS: cefTRIAXone 1,000 MG in Normal Saline 50 ML 100 MG IVPB (18:33)
--- NOTE | 2024-03-01 18:33 | NUR.NOTE ---
Referral faxed to Neurology for a stroke follow up as soon as possible.
[2024-03-01 19:16] VITALS: BP 154/60; PULSE 76; RESP 14; TEMP 36.6; O2SAT 97
--- NOTE | 2024-03-08 14:25 | NUR.NOTE ---
in chart to check the status of the ekg Nursing Note:
--- NOTE | 2024-03-10 07:19 | NUR.NOTE ---
Accessed pt chart to reconcile EKG orders to EKG's in [facility]. Duplicate order cancelled. Nursing Note:
== END 2024-03-01 19:59 | disposition home or self-care (01) ==
PROVIDERS: Emergency Provider Emergency Medicine; PCP Nurse Practitioner Family
DX: N39.0 Urinary tract infection, site not specified (principal); R41.0 Disorientation, unspecified; I69.354 Hemiplegia and hemiparesis following cerebral infarction affecting left non-dominant side; I10 Essential (primary) hypertension; Z11.52 Encounter for screening for COVID-19; Z79.82 Long term (current) use of aspirin
CPT/HCPCS: 80053; 82962; 87637; 93005; 96361; 96365; 99284; 81003; 81015; 83605; 84443; 85025; 87086; 93010; J0696

== ENCOUNTER 2024-03-05 07:36 | Outpatient (CLI) | payer MEDICARE, SELFPAY ==
--- NOTE | 2024-03-05 12:48 | W.CARDEVENT ---
Date of service: 03/05/24 Time of Service: 12:48 Cardiac Event Recorder Referring Provider:: Marry Cronin Indications:: Cerebral infarction Cardiac Event Note: This is a cardiac event monitor. Patient was monitored for 28 days and 16 hours Rhythm throughout was sinus. Average heart rate overall was 74. Minimum was 56, maximum 137 There were rare ventricular ectopic beats There were rare atrial premature beats There was no atrial fibrillation, no high-grade AV block, no pauses greater than 3 seconds Episode labeled atrial fibrillation was sinus with baseline artifact
== END 2024-03-05 07:37 | disposition home or self-care (01) ==
LOC: CARDOPNVT 07:36
PROVIDERS: PCP Nurse Practitioner Family; Visit Provider Internal Medicine Cardiovascular Disease
DX: I63.9 Cerebral infarction, unspecified (principal)
CPT/HCPCS: 93270; 93272

== ENCOUNTER → 2024-03-19 09:10 | Outpatient (BNVA) | payer MEDICARE, SELFPAY | PROVIDERS: PCP Nurse Practitioner Family; Referring Provider Nurse Practitioner Family; Visit Provider Psychiatry & Neurology Neurology | DX: I63.9 Cerebral infarction, unspecified (principal); F41.8 Other specified anxiety disorders | CPT/HCPCS: 99215 ==

== ENCOUNTER → 2024-03-26 11:00 | Outpatient (BNVA) | payer MEDICARE, SELFPAY | PROVIDERS: PCP Nurse Practitioner Family; Visit Provider Urology | DX: R32 Unspecified urinary incontinence (principal) | CPT/HCPCS: 99213 ==

== ENCOUNTER → 2024-04-09 | Outpatient (CLI) | payer MEDICARE, SELFPAY ==
--- NOTE | 2024-04-09 12:47 | DI.US_ITS ---
Exam(s) US RENAL EXAM: US RENAL CLINICAL HISTORY: monitoring calculi and hydronephrosis,lt,n13.30,n20.1. TECHNIQUE: Brandon scale, color and spectral Doppler were used. COMPARISON: CT RENAL COLIC WO CONTRAST from 07/09/2018 US US RENAL from 10/16/2023 FINDINGS: Renal size in cm: Right: 9.2. Left: 9.2. Echogenicity: Normal. Hydronephrosis: There is now moderate hydronephrosis on the right kidney which has progressed. There is again seen marked hydronephrosis of the left kidney and renal cortical atrophy. Cyst or mass: No. Nephrolithiasis: There are 3 echogenic foci seen in the right kidney. The largest measures 3 mm and is located in the lower pole. Other findings: None. Bladder:The urinary bladder was not visualized. Renal color flow: Color flow seen to the right kidney. Poor vascularity is seen in the left kidney. IMPRESSION: 1. There is now moderate hydronephrosis of the right kidney which has progressed since the prior exam ination. 2. Right nephrolithiasis. 3. Persistent marked hydronephrosis of the left kidney and renal cortical atrophy. There is poor vas cularity seen to the left kidney. 4. Nuclear medicine renal scan may be considered to assess renal function and hydronephrosis. DATA REPOSITORY:
== END ==
PROVIDERS: PCP Nurse Practitioner Family; Visit Provider Nurse Practitioner Gerontology
DX: N20.0 Calculus of kidney (principal)
CPT/HCPCS: 76770

== ENCOUNTER 2024-04-15 04:58 | Outpatient (CLI) | payer MEDICARE, SELFPAY ==
[2024-04-15 10:40] LABS: BUN 29 mg/dL (7-18); CREATININE 1.1 mg/dL (0.55-1.02); Estimated GFR 51.75 (mL/min/1.73m2)
== END 2024-04-15 04:59 | disposition home or self-care (01) ==
LOC: LBO 04:58
PROVIDERS: PCP Nurse Practitioner Family; Visit Provider Nurse Practitioner Gerontology
DX: N13.30 Unspecified hydronephrosis
CPT/HCPCS: 36415; 84520; 82565

== ENCOUNTER → 2024-05-12 11:16 | Outpatient (BNVA) | payer MEDICARE, SELFPAY | PROVIDERS: PCP Nurse Practitioner Family; Visit Provider Urology | DX: R32 Unspecified urinary incontinence (principal) | CPT/HCPCS: 99213 ==

== ENCOUNTER → 2024-05-20 02:40 | Outpatient (CLI) | payer MEDICARE, SELFPAY ==
--- NOTE | 2024-05-20 08:00 | DI.NM_ITS ---
Exam(s) NM MAG 3 RENOGRAM W LASIX CLINICAL HISTORY: r/o obstruction, HYDRONEPHROSIS, N13.30. COMPARISON: US US RENAL from 04/09/2024 EXAMINATION: Dose: 9.8 mCi Tc-99m MAG3 Images: Immediately for 1 minute followed by dynamic for 45 minutes. Fourteenmg Lasix was administere d after peak uptake in the renal cortex at approximately 12 min. FINDINGS: Time to peak: Right: 3 min (< 5 min normal) Left: Barely appreciable activity. Curve Appearance: Right: Normal Left: Barely appreciable activity. The time activity curve reveals no delay in the washout of the right collecting system. (< 10 min normal, 10-15 min Low grade obstruction, 15-20 min moderate,. 20 min high grade) Split renal function: Right: 96 % Left: 4 % IMPRESSION: 1. Mildly dilated, non-obstructed right collecting system. 2. Barely perceptible activity in the left kidney. Split function 4 percent.
[2024-05-20] MEDS: Furosemide 40 MG/4 ML VIAL 14 MG IVP (10:25)
== END ==
PROVIDERS: PCP Nurse Practitioner Family; Visit Provider Urology
DX: N13.39 Other hydronephrosis (principal)
CPT/HCPCS: 78708; A9540; J1940

== ENCOUNTER → 2024-06-01 12:58 | Outpatient (BNVA) | payer MEDICARE, SELFPAY | PROVIDERS: PCP Nurse Practitioner Family; Referring Provider Nurse Practitioner Family; Visit Provider Urology | DX: N20.0 Calculus of kidney (principal); N13.30 Unspecified hydronephrosis | CPT/HCPCS: 99213 ==

== ENCOUNTER 2024-06-21 07:43 | Inpatient (IN) | payer MEDICARE, SELFPAY ==
[2024-06-21] VITALS (45 sets, daily range): BP systolic 126–195; BP diastolic 48–70; PULSE 52–70; RESP 9–33; TEMP 36.2–37; O2SAT 94–99
--- NOTE | 2024-06-21 07:45 | RT.EKG_ITS ---
APPROVED REPORT Exam: Resting ECG Reason for Exam: Chest pain Patient Location: E HR:63 bpm ECG Measurements Heart Rate 63 AXIS GA 152 P 58 QRSd 76 QRS 15 QT 400 T 48 QTc 410 Conclusion Sinus rhythm...normal P axis, V-rate 60- 99 Anterior infarct, old...Q >40mS, abnormal ST-T, V2-V5 sinus rhtyhm normal axis, normal intervals, non ischemic
--- NOTE | 2024-06-21 07:45 | DI.RAD_ITS ---
Exam(s) XR CHEST 2V PA LATERAL EXAM: XR CHEST 2V PA LATERAL CLINICAL HISTORY: chest pain, htn. TECHNIQUE: 2D digital imaging was performed. COMPARISON: CT RENAL COLIC WO CONTRAST from 12/21/2017 CT RENAL COLIC WO CONTRAST from 07/09/2018 FINDINGS: 2 views: Heart size is normal. The mediastinum is not widened. Lungs are clear. No infiltrates nor pleural effusions. Compression fracture of L1 noted, previously evident on abdominal CT scan of July 2018. Also compression fracture of T12 and T11 which are also chronic and unchanged from CT scan of December 2017 IMPRESSION: No acute pulmonary findings. Chronic compression fractures of T11, T12, and L1 DATA REPOSITORY: RADIATION DOSE DELIVERED:
--- NOTE | 2024-06-21 07:56 | W.ED.GENAD ---
Discharge Plan Disposition Patient Disposition: Admit to [facility] Condition: Stable Discharge Details Chief Complaint: Chest Pain Clinical Impression: Elevated bilirubin, Elevated liver enzymes, Biliary obstruction Primary Care Provider: MYCHAL BEE ED Provider: Brady Bazan Home Meds and New Rx's Prescriptions: No Action losartan 25 mg tablet 50 mg PO DAILY Prolia 60 mg/mL syringe 60 mg subcut [id number] metoprolol succinate 25 mg tablet extended release 24 hr 25 mg PO DAILY clopidogrel 75 mg tablet 75 mg PO DAILY Qty: 90 3RF mirtazapine 7.5 mg tablet 7.5 mg PO QHS Qty: 30 5RF multivitamin [Daily Multi-Vitamin] 1 EACH tablet 1 ea PO DAILY Caltrate 600 plus D 1 EACH tablet,chewable 1 ea PO DIRECTED glucosamine/chond 2 tab PO DAILY vitamin C 500 tab.chew PO DAILY mometasone 0.1 % cream 1 applic topical DAILY 10 Days Qty: 15 2RF cholecalciferol (vitamin D3) [Vitamin D3] 1,000 UNIT capsule 1,000 unit PO DAILY amlodipine 10 mg tablet 10 mg PO DAILY Patient Comments: TAKE ONE TABLET BY MOUTH EVERY DAY aspirin 81 mg Tablet,Delayed Release (Dr/Ec) 81 mg PO DAILY Qty: 30 0RF atorvastatin 40 mg Tablet 40 mg PO QPM Qty: 30 0RF triamcinolone acetonide 15 GM cream 15 gm Topical BID HPI General Date/Time Provider Initiated Documentation: 06/21/24 07:46. HPI Narrative: 78-year-old female presents with resolved chest pain that began last night around 9:30 PM nonradiating anterior nature, no associated shortness of breath nausea vomiting or diaphoresis, denies history of coronary disease stenting or open heart surgery denies history of thromboembolic disease; currently asymptomatic however noted her blood pressure was high this morning. Related Data Home Medications ?Medication ?Instructions ?Recorded ?Confirmed Glucosamine/Chond 2 tab PO DAILY 03/21/15 06/21/24 Vitamin C 500 tab.chew PO DAILY 03/21/15 06/21/24 calcium carbonate 600 mg-vitamin 1 ea PO DIRECTED 03/21/15 06/21/24 D3 20 mcg (800 unit) chewable tablet (Caltrate 600 plus D) multivitamin (Daily Multi-Vitamin 1 ea PO DAILY 03/21/15 06/21/24 tablet) cholecalciferol (vitamin D3) 25 1,000 unit PO DAILY 12/25/17 06/21/24 mcg (1,000 unit) capsule (Vitamin D3) triamcinolone acetonide 0.1 % 15 gm topical BID 07/11/18 06/21/24 topical cream denosumab 60 mg/mL subcutaneous 60 mg subcut [id number] 11/01/20 06/21/24 syringe (Prolia) metoprolol succinate 25 mg 25 mg PO DAILY 02/20/23 06/21/24 tablet,extended release 24 hr losartan 25 mg tablet 50 mg PO DAILY 10/23/23 06/21/24 amlodipine 10 mg tablet 10 mg PO DAILY 01/29/24 06/21/24 aspirin 81 mg tablet,delayed 81 mg PO DAILY #30 tabs 01/29/24 06/21/24 release atorvastatin 40 mg tablet 40 mg PO QPM #30 tabs 01/29/24 06/21/24 clopidogrel 75 mg tablet 75 mg PO DAILY #90 tabs 03/19/24 06/21/24 mirtazapine 7.5 mg tablet 7.5 mg PO QHS #30 tabs 03/19/24 06/21/24 mometasone 0.1 % topical cream 1 applic topical DAILY 10 days #15 04/14/24 06/21/24 grams Previous Rx's ?Medication ?Instructions ?Recorded aspirin 81 mg tablet,delayed 81 mg PO DAILY #30 tabs 01/29/24 release atorvastatin 40 mg tablet 40 mg PO QPM #30 tabs 01/29/24 clopidogrel 75 mg tablet 75 mg PO DAILY #90 tabs 03/19/24 mirtazapine 7.5 mg tablet 7.5 mg PO QHS #30 tabs 03/19/24 mometasone 0.1 % topical cream 1 applic topical DAILY 10 days #15 04/14/24 grams Allergies Allergy/AdvReac Type Severity Reaction Status Date / Time Sulfa (Sulfonamide Allergy Unknown unknown Verified 06/21/24 08:07 Antibiotics) lisinopril Allergy skin Verified 06/21/24 08:07 reactions amoxicillin (From Augmentin) AdvReac Intermediate diarrhea/severe Verified 06/21/24 08:07 muscle spasms clavulanic acid (From AdvReac Intermediate diarrhea/severe Verified 06/21/24 08:07 Augmentin) muscle spasms alendronate sodium (From AdvReac Mild muscle Verified 06/21/24 08:07 Fosamax) spasms hydrochlorothiazide AdvReac Mild nausea Verified 06/21/24 08:07 mirabegron (From Myrbetriq) AdvReac blurred Verified 06/21/24 08:07 vision General Stated Complaint: Chest Pain ARDEN: 2 Exam Narrative Exam Narrative: Alert interactive resting comfortably no acute distress Heart sounds normal no murmurs rubs or gallops appreciated, normal rate strong radial pulses Lungs clear bilaterally no wheezing rales or rhonchi Mild peripheral edema to bilateral ankles Alert oriented moving all extremities following commands normal speech no cranial nerve deficits or weakness Course Vital Signs Vital signs: Vital Signs Temperature 37.0 C 06/21/24 07:47 Pulse 67 06/21/24 07:47 Respiratory Rate 16 06/21/24 07:47 Blood Pressure 190/57 H 06/21/24 07:47 Temperature 37.0 C 06/21/24 07:47 Temperature Source Skin 06/21/24 07:47 Pulse 67 06/21/24 07:47 Respiratory Rate 16 06/21/24 07:47 Blood Pressure 190/57 H 06/21/24 07:47 Blood Pressure Position Sitting 06/21/24 07:47 Oxygen Delivery Method Room Air 06/21/24 07:47 Oxygen Flow Rate 0 06/21/24 07:47 Pain Level 4 06/21/24 07:47 Medical Decision Making 78-year-old female history of hypertension presents after having resolved chest pain last night around 930, nonradiating no shortness of breath no nausea vomiting or diaphoresis, no active chest pain or trouble breathing, denies history of coronary disease with thromboembolic disease, patient alert oriented interactive afebrile nontoxic speaking full sentences lungs clear bilaterally normal sinus rhythm and EKG nonischemic, patient has mild peripheral edema to bilateral lower extremities, no rales or rhonchi appreciated on auscultation of the lungs, moderate hypertension on arrival, patient endorses increased stress at home but feels safe. Denies orthopnea or exertional dyspnea. Must consider ACS versus symptomatic hypertension lower suspicion for PE or aortic pathology lower suspicion for pneumonia or pneumothorax, no evidence of infectious process, will load with aspirin 324 chewable, will obtain basic labs coags chest x-ray will reassess blood pressure after patient is settled. Disposition pending results and imaging 10: 15 elevated AST ALT and alk phos, markedly dilated gallbladder as well as dilated intra and extrahepatic biliary system concerning for obstructive process in common bile duct consider choledocholithiasis versus obstructing lesion. Patient has no nausea vomiting patient is nonperitoneal no current discomfort. MRCP would be beneficial however we have no availability of MRI today, have reached out to GI team for consultation at [facility] to consider ERCP versus admitting patient here for MRCP and close follow-up with [facility] team pending results. Awaiting to hear back from GI 11: 30 patient resting comfortably chest pain-free; discussed case with GI team at [facility] who recommends proceeding with admission here and very age for MRCP and call back to GI team in the morning pending results to consider intervention with ERCP. Recommending holding aspirin and Plavix tonight and tomorrow in case intervention is needed in the morning. Quality:SDOH Health Related Social Needs: No Data to Display PFSH All Active Problems (Updated 06/21/24 @ 11:31 by Brady Bazan MD) Biliary obstruction (Acute) Elevated liver enzymes (Acute) Elevated bilirubin (Acute) Depression with anxiety (Acute) Urinary incontinence (Acute) CVA (cerebral vascular accident) (Chronic) Hypertension (Chronic) Sinusitis (Acute) Anterior epistaxis (Acute) Impacted cerumen, bilateral (Acute) Impacted cerumen, right ear (Acute) Eczema (Acute) 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 (Acute) Neck mass (Acute) Pelvic floor dysfunction (Acute 04/29/18) Conductive hearing loss, external ear (Acute 09/08/15) Chronic otitis externa (Acute 03/11/14) Chronic eczematous otitis externa (Acute 09/08/15) Bilateral ureteral calculi (Acute 12/24/17) Bilateral kidney stones (Acute 12/24/17) Hydronephrosis, left (Acute) Bladder stone (Acute) Medical History (Updated 06/21/24 @ 11:31 by Brady Bazan MD) Osteoporosis NIURKA (acute kidney injury) Conductive hearing loss Hydronephrosis, left with stricture Gallstones Bilateral ureteral calculi Bladder stone Chronic otitis externa of both ears Pelvic floor dysfunction Surgical History Ureteroscopy, EHL, or Laser Lithotripsy Lithotripsy Hysterectomy, Total Abdominal BSO w/ George Family History Mother Stroke Social History Smoking/Tobacco Use Status: Never Smoking risk assessment performed?: Yes Alcohol Intake: never Drug use: Never Substance use type: does not use Housing: house Do you feel safe at home: Yes Do you feel safe in your relationship?: Yes Additional Social history: lives with , daughter and grandchildren. Feels like it is a very stressful situation. CHRISTIN,RN 01/27/24
[2024-06-21] MEDS: Aspirin 81 MG CHEW 324 MG CH (08:01)
[2024-06-21 08:05] LABS: Abs Immature Grans 0.03 10^3/uL (0.0-0.06); Absolute Basophil Count 0.06 10^3/uL (0.0-0.2); Absolute Eosinophil Count 0.16 10^3/uL (0.0-0.7); Absolute Lymphocyte Count 0.68 10^3/uL (1.2-3.4); Absolute Monocyte Count 0.47 10^3/uL (0.1-0.8); Absolute Neutrophil Count 5.54 10^3/uL (1.2-6.7); Basophils % 0.9 %; Eosinophils % 2.3 %; HGB 13.3 g/dL (11.2-15.7); Immature Grans % 0.4 %; Lymphocytes % 9.8 %; MCH 32.1 pg (27.0-33.0); MCHC 33.3 % (32.0-36.0); MCV 97 fL (80-95); MPV 8.8 fL (8.0-11.0); Monocytes % 6.8 %; Neutrophils % 79.8 %; Platelet Count 217 10^3/uL (130-400); RBC 4.14 10^6/uL (3.93-5.22); RDW-SD 46.5 fL; WBC 6.94 10^3/uL (4.4-10.8)
[2024-06-21 08:17] LABS: PTT Activated 23.6 sec (23.6-32.8); Prothrombin Time 9.8 sec (9.1-11.1)
[2024-06-21 08:25] LABS: ALT 94 U/L (14-59); AST 100 U/L (15-37); Albumin 4.2 g/dL (3.4-5.0); Alkaline Phosphatase 220 U/L (46-116); Anion Gap 9.8 mmol/L (3-11); BUN 25 mg/dL (7-18); CO2 29.2 mmol/L (21.0-32.0); CREATININE 1.2 mg/dL (0.55-1.02); Calcium 9.2 mg/dL (8.5-10.1); Chloride 101 mmol/L (98-107); Estimated GFR 46.62 (mL/min/1.73m2); Glucose 162 mg/dL (74-106); Magnesium 1.9 mg/dL (1.8-2.4); NT-proBNP 145 pg/mL (<300); Potassium 3.7 mmol/L (3.5-5.1); Sodium 140 mmol/L (136-145); Total Protein 7.3 g/dL (6.4-8.2); Troponin I < 50 ng/L (< or =60)
--- NOTE | 2024-06-21 08:30 | DI.CT_ITS ---
Exam(s) CT ABDOMEN PELVIS W EXAM: CT ABDOMEN PELVIS W CLINICAL HISTORY: chest pain, elevated hepatobiliary lab values. TECHNIQUE: Imaging Protocol: Axial computed tomography images with coronal and sagittal reformatted images were created and reviewed CONTRAST MATERIAL: Intravenous: Omnipaque-350 100cc Oral: None COMPARISON: CT RENAL COLIC WO CONTRAST from 07/09/[address] BRAIN NECK CTA from 01/27/2024 FINDINGS: VISUALIZED LUNG BASES: No nodules nor pleural effusions evident. ABDOMEN: There is no ascites. LIVER: There are no ominous focal hepatic lesions evident. However, there are slightly dilated intra hepatic ducts evident. GALLBLADDER/BILIARY: The gallbladder is grossly distended as is the cystic duct. Gallbladder measure s approximately 9 cm length by 4 cm by 4.5 cm. Does not appear to contain obvious calculi nor promin ent gallbladder wall edema nor pericholecystic fluid. The CBD diameter is only minimally prominent ( 7 mm). There is no obvious radiopaque calculus in the CBD. No obvious pancreatic head mass. PANCREAS: . No obvious dilatation of pancreatic duct. No peripancreatic fluid collections. SPLEEN: Spleen is not enlarged. No obvious intrasplenic lesions. Splenic and portal veins are paten t. ADRENALS: There are no significant adrenal masses. KIDNEYS:Right kidney unremarkable. There is, however, severe chronic-type hydronephrosis of the left kidney with severe 10 UA estrada of the cortical thickness the left kidney related to chronic hydroneph rosis, this having progressed from the 2018 study. There are no calculi seen within the left kidney. However, there appears to be a 4 millimeter calculus in the distal left ureter. No calculi evident in within the urinary bladder at this time. Previously present large bladder calculus no longer see n. ABDOMINAL AORTA: Abdominal aorta is calcified but not significantly enlarged. Common iliac arteries calcified but not significantly enlarged. LYMPH NODES:There is no retroperitoneal nor paraaortic adenopathy. ABDOMINAL WALL: No evidence of significant anterior abdominal wall nor inguinal hernia. GI: There is no evidence of bowel obstruction, free air, nor abscess. PELVIS: GI: No evidence of appendicitis.No evidence of sigmoid diverticulitis. LYMPH NODES: There is no intrapelvic nor inguinal adenopathy. REPRODUCTIVE: Uterus atrophic or surgically absent. No abnormal adnexal masses. URINARY BLADDER: The previously present large intravesicular calculi are no longer seen. OSSEOUS: L1 compression fracture unchanged from 2018. Also compression fracture of superior endplate of T12 noted, probably chronic; not included in the field of view of the prior study. IMPRESSION: 1. There is a markedly dilated gallbladder without evidence of gallbladder wall edema nor obvious gal lstones within the gallbladder lumen on CT scan. The cystic duct is also dilated. The is CBD diamet er is minimally prominent and there is also minimal prominence of intrahepatic ducts. Recommend laron elation with appropriate blood work and MRCP examination. The paucity of retroperitoneal fat makes e valuation of the pancreas difficult but there does not appear to be an obvious pancreatic head mass. 2. There is chronic severe left hydronephrosis due to a chronically obstructing 4 millimeter calculus in the distal left ureter. There is severe attenuation of the entire cortex of the left kidney whic h has significantly progressed when compared to prior CT scan of July 2018. 3. The previously present prominent calculus/calculi within the urinary bladder are no longer seen. No obvious abnormality in the urinary bladder on the present study. RADIATION DOSE DELIVERED: Total DLP DATA REPOSITORY: All CT scans at this facility are submitted to the National Radiology Data Registry (NRDR) Dose Index Registry (DIR) with the [employer] (ACR). RADIATION OPTIMIZATION: All CT scans at this facility use at least one of these dose optimization te chniques: automated exposure control; mA and/or kV adjustment per patient size (includes targeted exa ms where dose is matched to clinical indication); or iterative reconstruction.
[2024-06-21] MEDS: Normal Saline - Diluent 50 ML VIAL IJ (08:57)
[2024-06-21] MEDS: Omnipaque 350 MG/ML 100 ML BTL IJ (09:05)
--- NOTE | 2024-06-21 09:12 | DI.VRAD_ITS ---
PROCEDURE INFORMATION: Exam: XR Chest Exam date and time: 06/21/2024 8:24 AM Age: 78 years old Clinical indication: Other: Chest pain TECHNIQUE: Imaging protocol: Radiologic exam of the chest. Views: 2 views. COMPARISON: NM WHOLE BODY BONE SCAN GRP 11/12/2017 2:28 PM FINDINGS: Lungs: The lungs are clear and well aerated bilaterally. There is no consolidation or pulmonary edema. The pulmonary vasculature is normal in caliber. Pleural spaces: No pleural effusion or pneumothorax. Heart/Mediastinum: Heart size is normal. The thoracic aorta is tortuous. The chana are not enlarged. Bones/joints: Degenerative changes. Mild dextroscoliosis of the lower thoracic and lumbar spine. Chronic-appearing compression deformities in the lower thoracic and upper lumbar spine. No acute osseous abnormality. IMPRESSION: No acute cardiopulmonary abnormality. Dictated and Authenticated by: Divina Pelaez MD. Ordering:ASHLEY Abreu MD
--- NOTE | 2024-06-21 09:41 | DI.VRAD_ITS ---
PROCEDURE INFORMATION: Exam: CT Abdomen And Pelvis With Contrast Exam date and time: 06/21/2024 9:01 AM Age: 78 years old Clinical indication: Other: Chest pain, elevated hepatobiliary labs TECHNIQUE: Imaging protocol: Computed tomography of the abdomen and pelvis with contrast. Contrast material: OMNIPAQUE 350; Contrast volume: 100 ml; Contrast route: INTRAVENOUS (IV); COMPARISON: CT RENAL COLIC WO CONTRAST 07/09/2018 8:47 AM FINDINGS: Lungs: Visualized lung bases are clear. No pleural effusions. Liver: Unremarkable. Gallbladder and biliary ducts: The gallbladder is markedly distended, measuring greater than 10 cm in length. No radiopaque calculi are identified. The common bile duct is mildly dilated, measuring up to 9 mm in diameter. There is mild intrahepatic biliary ductal dilatation. Pancreas: Unremarkable. Spleen: Unremarkable. The spleen is normal in size. Adrenal glands: Unremarkable. Kidneys and ureters: The right kidney is malrotated. The right renal collecting system and right ureter are normal in caliber. There is chronic severe left hydronephrosis and chronic left hydroureter secondary to an obstructing 4 mm calculus in the distal left ureter (series 9, image 476). There has been progressive cortical atrophy in the left kidney since the 07/09/2018 CT. Stomach and bowel: Unremarkable. The stomach is nondilated. The small and large bowel are normal in caliber. There is a large amount of retained stool in the rectum. Otherwise, the colonic stool burden does not appear abnormally increased. Appendix: A nondilated retrocecal appendix is identified. Intraperitoneal space: Unremarkable. No ascites, fluid collection, or pneumoperitoneum. Retroperitoneal space: Unremarkable. No retroperitoneal collection or mass. Vasculature: Normal caliber abdominal aorta with moderate atherosclerotic mural calcification. Scattered mild atherosclerotic calcifications in the arterial branch vessels. Lymph nodes: No pathologically enlarged lymph nodes. Urinary bladder: Unremarkable. Reproductive: The uterus is again not identified. Bones/joints: Diffuse osseous demineralization. Degenerative changes. Chronic biconcave compression deformity at L1 with moderate loss of vertebral body height, not significantly changed. Superior endplate compression deformities at T11 and T12 also appear chronic though were not included in the field of view on prior imaging. There is mild dextroscoliosis of the lower thoracic and lumbar spine. Soft tissues: Unremarkable. IMPRESSION: 1. Mild intrahepatic and extrahepatic biliary ductal dilatation with a markedly dilated gallbladder. No radiopaque calculi. MRCP is suggested for further evaluation. 2. Chronic severe left hydroureteronephrosis with a chronically obstructing 4 mm distal ureteral calculus. There is marked cortical atrophy in the left kidney which has progressed since 07/09/2018. 3. Additional incidental/nonemergent findings are discussed in the body of the report. Dictated and Authenticated by: Divina Pelaez MD. Ordering:ASHLEY Abreu MD
--- NOTE | 2024-06-21 09:55 | NUR.NOTE ---
Nursing Note: report and transfer of care given to this RN at this time
[2024-06-21 10:25] LABS: Lipase 37 U/L (16-77)
[2024-06-21 11:23] LABS: Troponin I < 50 ng/L (< or =60)
--- NOTE | 2024-06-21 12:42 | W.PC.ACHO ---
Registration Status: Primary Language: Preferred Language: ED Information & Data Chief Complaint Chest Pain 06/21/24 08:01 Chief Complaint Chest Pain 06/21/24 07:59 Triage Note sternal cp started at approx 06/21/24 07:47 2130 yesterday, is slightly better now, but bp is elevated/ no hx. no nausea/ sob/diaphoresis/radiation per pt. Medical / Surgical History (Last Updated 03/19/24 @ 09:27 by Anaid Matos MD) Osteoporosis NIURKA (acute kidney injury) Conductive hearing loss Hydronephrosis, left Gallstones Bilateral ureteral calculi Bladder stone Chronic otitis externa of both ears Pelvic floor dysfunction (Last Reviewed 03/01/24 @ 19:55 by Iliana Hoff MD) Ureteroscopy, EHL, or Laser Lithotripsy Lithotripsy Hysterectomy, Total Abdominal BSO w/ George Most Recent Vital Signs Temperature 36.6 C 06/21/24 12:02 Temperature Source Skin 06/21/24 12:02 Pulse 61 06/21/24 12:02 Pulse 65 06/21/24 11:40 Respiratory Rate 18 06/21/24 12:02 Respiratory Effort Normal, Non-Labored 06/21/24 08:01 Respiratory Depth Normal 06/21/24 08:01 Respiratory Pattern Normal 06/21/24 08:01 Blood Pressure 171/61 H 06/21/24 12:02 Blood Pressure Mean 97 06/21/24 12:02 Blood Pressure Position Sitting 06/21/24 07:47 Pulse Oximetry 97 06/21/24 12:02 Oxygen Delivery Method Room Air 06/21/24 12:02 Oxygen Flow Rate 0 06/21/24 12:02 Pain Level 4 06/21/24 07:47 Allergies Sulfa (Sulfonamide Antibiotics) Allergy (Unknown, Verified 06/21/24 08:07) unknown lisinopril Allergy (Verified 06/21/24 08:07) skin reactions amoxicillin (From Augmentin) Adverse Reaction (Intermediate, Verified 06/21/24 08:07) diarrhea/severe muscle spasms clavulanic acid (From Augmentin) Adverse Reaction (Intermediate, Verified 06/21/24 08:07) diarrhea/severe muscle spasms alendronate sodium (From Fosamax) Adverse Reaction (Mild, Verified 06/21/24 08:07) muscle spasms hydrochlorothiazide Adverse Reaction (Mild, Verified 06/21/24 08:07) nausea mirabegron (From Myrbetriq) Adverse Reaction (Verified 06/21/24 08:07) blurred vision Precautions Isolation Standard precaution 06/21/24 08:01 Active Medications Generic Name Dose Route Start Last Admin Trade Name Donnie PRN Reason Stop Dose Admin Iohexol 100 ml 06/21/24 09:15 06/21/24 09:05 Omnipaque 350 Mg/Ml 100 Ml Btl IJ 07/21/24 23:59 100 ml DIRECTED LIANA Administration Sodium Chloride 50 ml 06/21/24 09:00 06/21/24 08:57 Normal Saline - Diluent 50 Ml Vial IJ 50 ml .FOR DI USE LIANA Administration IV IV Catheter Type [Right Saline Lock Antecubital] IV Catheter Gauge [Right 20 Antecubital] Diagnostics 06/21/24 06/21/24 Range/Units 10:51 07:55 WBC 6.94 (4.4-10.8) 10^3/uL RBC 4.14 (3.93-5.22) 10^6/uL Hgb 13.3 (11.2-15.7) g/dL Hct 40.0 (36.0-46.0) % MCV 97 H (80-95) fL MCH 32.1 (27.0-33.0) pg MCHC 33.3 (32.0-36.0) % RDW 13.0 (11.7-14.6) % Plt Count 217 (130-400) 10^3/uL MPV 8.8 (8.0-11.0) fL Immature Gran % 0.4 % Neutrophils % 79.8 % Lymphocytes % 9.8 % Monocytes % 6.8 % Eosinophils % 2.3 % Basophils % 0.9 % Nucleated RBC % 0.0 (0.0-0.3) % Absolute Neutrophils 5.54 (1.2-6.7) 10^3/uL Absolute Lymphocytes 0.68 L (1.2-3.4) 10^3/uL Absolute Monocytes 0.47 (0.1-0.8) 10^3/uL Absolute Eosinophils 0.16 (0.0-0.7) 10^3/uL Absolute Basophils 0.06 (0.0-0.2) 10^3/uL PT 9.8 (9.1-11.1) sec INR 1.0 (0.9-1.1) APTT 23.6 (23.6-32.8) sec Sodium 140 (136-145) mmol/L Potassium 3.7 (3.5-5.1) mmol/L Chloride 101 (98-107) mmol/L Carbon Dioxide 29.2 (21.0-32.0) mmol/L Anion Gap 9.8 (3-11) mmol/L BUN 25 H (7-18) mg/dL Creatinine 1.2 H (0.55-1.02) mg/dL Est GFR (CKD-EPI 2020) 46.62 (mL/min/1.73m2) Glucose 162 H (74-106) mg/dL Calcium 9.2 (8.5-10.1) mg/dL Magnesium 1.9 (1.8-2.4) mg/dL Total Bilirubin 1.50 H (0.2-1.0) mg/dL AST 100 H (15-37) U/L ALT 94 H (14-59) U/L Alkaline Phosphatase 220 H (46-116) U/L Troponin I < 50 < 50 (< or =60) ng/L NT-Pro-B Natriuret Pep 145 (<300) pg/mL Total Protein 7.3 (6.4-8.2) g/dL Albumin 4.2 (3.4-5.0) g/dL Lipase 37 (16-77) U/L Intake and Output - 24 Hour Total 06/21/24 07:43 thru 06/21/24 07:58 Intake Total 10 Balance 10 Weight 44.452 kg Intake: IV 10 Falls Risk Assessment History of Falls No History 06/21/24 08:01 Contributing Factors Impairments 06/21/24 08:01 Ambulatory Aids Uses ambulatory device 06/21/24 08:01 Tubes/Lines With any additional score 06/21/24 08:01 Gait Evaluation W/any additional score 06/21/24 08:01 Cognition No cognitive impairment 06/21/24 08:01 Fall Total Score 58 06/21/24 08:01 Level of Risk High Risk 06/21/24 08:01 Problems (Last Updated 03/19/24 @ 09:27 by Anaid Matos MD) Biliary obstruction (Acute) Elevated liver enzymes (Acute) Elevated bilirubin (Acute) Notes 06/21/24 09:55 Nursing Notes by Keren Morris Nursing Note: report and transfer of care given to this RN at this time Initialized on 06/21/24 09:55 - END OF NOTE v v v v v v v v v Sending and/or Receiving Nurses: Please use comment section below to note any information pertinent to the patient hand-off not included above. Information / Comments: Report received from:Keren Morris, RN
[2024-06-21] MEDS: Losartan 25 MG TAB 50 MG PO (13:23)
[2024-06-21] MEDS: Metoprolol CR 25 MG TABCR PO (13:23)
[2024-06-21] MEDS: amLODIPine 10 MG TAB PO (13:23)
--- NOTE | 2024-06-21 14:25 | HPE_ITS ---
Date of service: 06/21/24 Time of Service: 14:25 Assessment and Plan Assessment and plan (1) Biliary obstruction: Status: Acute Assessment and plan: This is the cause of her pain and liver enzyme abnormalities. She does not appear to have an acute infection. Case reviewed with [facility], will plan MRCP when available tomorrow. Transfer or down/back for ERCP pending results of the MRCP and trend of enzymes. Can eat low fat diet now, NPO at midnight (2) Hypertension: Status: Chronic Assessment and plan: Continue outpatint antihypertensives Qualifiers: Hypertension type: primary hypertension Qualified Code(s): I10 - Essential (primary) hypertension (3) Hydronephrosis, left: Status: Acute Assessment and plan: This is chronic. Some concern for progression on CT but that left side is basically non-functional on uptake scan in May so I don't think hydronephrosis progression is clinically relevant at this point. (4) CVA (cerebral vascular accident): Status: Chronic Assessment and plan: With mild residual left sided hemeparesis. On DAPT per neurology recommendations, though I wonder if this was meant to be for longer than 21 days. Holding both for now per GI request pending need for ERCP. Continue high intensity statin. Qualifiers: CVA mechanism: thrombosis Laterality of affected vessel: left (5) DVT prophylaxis: Status: Acute Assessment and plan: SCDs for now pending possible need for procedure tomorrow. History of Present Illness History of Present Illness Chief Complaint: epigastric pain Narrative: 78 yo F with history of HTN and ischemic CVA in January 2024 who presented with epigasric pain starting the evening prior to admission. Pain came on at 9pm after last eating a normal dinner at 5pm. Pain has been constant, crampy, and band-like across the epigastrum. No radiation to side or back. She took tums which seemed to help relieve gas pressure a little bit but did not resolve pain. She did eat some food this morning but has been eating and drinking less. No nausea, vomiting, or diarrhea. Had last normal BM yesterday prior to onset of pain, no note of change in stool color or characteristics. No change or pain with urination, she does have chronic incontinence since her CVA. She has not had fever or chills. No jaundice or other skin changes. She has no history of biliary disease, only abdominal surgery was remote hysterectomy for bleeding after miscarriage. No history of similar pain. Review of Systems All systems reviewed & are unremarkable except as noted in HPI and below Cardiovascular Cardiovascular: Denies chest pain with activity, Reports leg edema (ankles, not new), Denies palpitations and Denies dyspnea Respiratory Respiratory: Denies cough and Denies dyspnea Musculoskeletal Musculoskeletal: Denies myalgias and Reports arthralgias (left knee, not new) Integumentary/Breasts Skin/Breast: Denies rash and Denies skin ulcer Endocrine Endocrine: Denies palpitations PFSH All Active Problems (Updated 06/21/24 @ 14:45 by Robert Garcia) DVT prophylaxis (Acute) Biliary obstruction (Acute) Elevated liver enzymes (Acute) Elevated bilirubin (Acute) Depression with anxiety (Acute) Urinary incontinence (Acute) CVA (cerebral vascular accident) (Chronic) Hypertension (Chronic) Sinusitis (Acute) Anterior epistaxis (Acute) Impacted cerumen, bilateral (Acute) Impacted cerumen, right ear (Acute) Eczema (Acute) 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 (Acute) Neck mass (Acute) Pelvic floor dysfunction (Acute 04/29/18) Conductive hearing loss, external ear (Acute 09/08/15) Chronic otitis externa (Acute 03/11/14) Chronic eczematous otitis externa (Acute 09/08/15) Bilateral ureteral calculi (Acute 12/24/17) Bilateral kidney stones (Acute 12/24/17) Bladder stone (Acute) Hydronephrosis, left (Acute) Medical History Osteoporosis NIURKA (acute kidney injury) Conductive hearing loss Hydronephrosis, left with stricture Gallstones Bilateral ureteral calculi Bladder stone Chronic otitis externa of both ears Pelvic floor dysfunction Surgical History Ureteroscopy, EHL, or Laser Lithotripsy Lithotripsy Hysterectomy, Total Abdominal BSO w/ George Family History Mother Stroke Social History Smoking/Tobacco Use Status: Never Smoking risk assessment performed?: Yes Alcohol Intake: never Drug use: Never Substance use type: does not use Housing: house Do you feel safe at home: Yes Do you feel safe in your relationship?: Yes Additional Social history: lives with , daughter and grandchildren. Feels like it is a very stressful situation. CHRISTINRN 01/27/24 Meds Allergies and Home Medications Allergies Allergy/AdvReac Type Severity Reaction Status Date / Time Sulfa (Sulfonamide Allergy Unknown unknown Verified 06/21/24 08:07 Antibiotics) lisinopril Allergy skin Verified 06/21/24 08:07 reactions amoxicillin (From Augmentin) AdvReac Intermediate diarrhea/severe Verified 06/21/24 08:07 muscle spasms clavulanic acid (From AdvReac Intermediate diarrhea/severe Verified 06/21/24 08:07 Augmentin) muscle spasms alendronate sodium (From AdvReac Mild muscle Verified 06/21/24 08:07 Fosamax) spasms hydrochlorothiazide AdvReac Mild nausea Verified 06/21/24 08:07 mirabegron (From Myrbetriq) AdvReac blurred Verified 06/21/24 08:07 vision Home Medications ?Medication ?Instructions ?Recorded ?Confirmed ?Type Glucosamine/Chond 2 tab PO DAILY 03/21/15 06/21/24 History Vitamin C 500 tab.chew PO DAILY 03/21/15 06/21/24 History calcium carbonate 600 mg-vitamin 1 ea PO DIRECTED 03/21/15 06/21/24 History D3 20 mcg (800 unit) chewable tablet (Caltrate 600 plus D) multivitamin (Daily Multi-Vitamin 1 ea PO DAILY 03/21/15 06/21/24 History tablet) cholecalciferol (vitamin D3) 25 1,000 unit PO DAILY 12/25/17 06/21/24 History mcg (1,000 unit) capsule (Vitamin D3) triamcinolone acetonide 0.1 % 15 gm topical BID 07/11/18 06/21/24 History topical cream denosumab 60 mg/mL subcutaneous 60 mg subcut [id number] 11/01/20 06/21/24 History syringe (Prolia) metoprolol succinate 25 mg 25 mg PO DAILY 02/20/23 06/21/24 History tablet,extended release 24 hr losartan 25 mg tablet 50 mg PO DAILY 10/23/23 06/21/24 History amlodipine 10 mg tablet 10 mg PO DAILY 02/28/24 07/21/24 History aspirin 81 mg tablet,delayed 81 mg PO DAILY #30 tabs 01/29/24 06/21/24 Rx release atorvastatin 40 mg tablet 40 mg PO QPM #30 tabs 01/29/24 06/21/24 Rx clopidogrel 75 mg tablet 75 mg PO DAILY #90 tabs 03/19/24 06/21/24 Rx mirtazapine 7.5 mg tablet 7.5 mg PO QHS #30 tabs 03/19/24 06/21/24 Rx mometasone 0.1 % topical cream 1 applic topical DAILY 10 days #15 04/14/24 06/21/24 Rx grams Exam Narrative Exam Narrative: GEN: Alert and oriented x 4, pleasant and cooperative older female, gives linear history. No acute distress at rest. HEENT: Head atraumatic. Conjunctiva clear, no icterus. PEERL, EOMI. no rhinorrhea. MMM, OP benign. Neck is supple with no masses or lymphadenopathy, trachea midline LUNGS: CTAB with normal effort CV: RRR with no murmurs, gallops, or rubs. ABD: active bowel sounds, soft and nondistended. Mild to moderate tender to palpation in epigastrum to RUQ. No masses or HSM. EXT: no cyanosis, clubbing. 1+ pitting edema to ankles gilmar MSK: No joint redness or swelling NEURO: CN 2-12 grossly intact. Normal movement of 4 extremities, but strength on CB slightly less thant RUE. Normal speech and coordination. No tremor SKIN: No rashes or open wounds. Few bruises on back of left hand, left medial knee PSYCH: normal mood and affect, normal thought process. Results Imaging Chest x-ray: report reviewed (no acute cardiopulmonary pathology) and image reviewed Abdomen CT scan report/results: report reviewed (see below) E KG: report reviewed and image reviewed (NSR, nl axis, intervals. No ischemic ST-T changes ) Imaging Studies: CT A/P: 1. Mild intrahepatic and extrahepatic biliary ductal dilatation with a markedly dilated gallbladder. No radiopaque calculi. MRCP is suggested for further evaluation. 2. Chronic severe left hydroureteronephrosis with a chronically obstructing 4 mm distal ureteral calculus. There is marked cortical atrophy in the left kidney which has progressed since 07/09/2018. 3. Additional incidental/nonemergent findings are discussed in the body of the report. Labs 06/21/24 07:55 06/21/24 07:55 Labs: Laboratory Results - last 24 hr 06/21/24 06/21/24 07:55 10:51 WBC 6.94 RBC 4.14 Hgb 13.3 Hct 40.0 MCV 97 H MCH 32.1 MCHC 33.3 RDW 13.0 Plt Count 217 MPV 8.8 Immature Gran % 0.4 Neutrophils % 79.8 Lymphocytes % 9.8 Monocytes % 6.8 Eosinophils % 2.3 Basophils % 0.9 Nucleated RBC % 0.0 Absolute Neutrophils 5.54 Absolute Lymphocytes 0.68 L Absolute Monocytes 0.47 Absolute Eosinophils 0.16 Absolute Basophils 0.06 PT 9.8 INR 1.0 APTT 23.6 Sodium 140 Potassium 3.7 Chloride 101 Carbon Dioxide 29.2 Anion Gap 9.8 BUN 25 H Creatinine 1.2 H Est GFR (CKD-EPI 2020) 46.62 Glucose 162 H Calcium 9.2 Magnesium 1.9 Total Bilirubin 1.50 H AST 100 H ALT 94 H Alkaline Phosphatase 220 H Troponin I < 50 < 50 NT-Pro-B Natriuret Pep 145 Total Protein 7.3 Albumin 4.2 Lipase 37 Last Vital Signs Temp 36.7 C 06/21/24 12:51 Pulse 59 L 06/21/24 12:51 Resp 17 06/21/24 12:51 BP 175/68 H 06/21/24 12:51 Pulse Ox 98 06/21/24 12:51 Time Spent Time spent with Patient: 55-74 minutes Time was spent: preparing to see the patient(eg.review tests), obtaining and/or reviewing separately otained hiistory, ordering medications,tests, procedures, referring, communicating with other health acute care certified nursing assistant, indepentently interpreting results, counseling the patient and care coordination
--- NOTE | 2024-06-21 15:29 | PDOC.CMIN ---
Date of service: 06/21/24 Time of Service: 15:29 Care Management Initial Assmt Initial Assessment Reason for Hospitalization: Biliary obstruction Functional Status/Living Situation Patient Presentation: Marisa was sitting up in bed when CM met with her. She was pleasant and engaged well with CM, known to her form a previous admission. Pat stated that she is really uncomfortable with epigastric distress. She was admitted with a biliary obstruction and will likely go to [facility] for an MRCP, possibly tomorrow. Marisa had a stroke earlier this year. She shared that she has made good progress and is now only requiring the use of a cane. She is no longer receiving home health services and she is independent with her care. Her daughter and grandchildren live with her and her and are helpful and supportive. Town of Residence: [place] Resides with: Spouse (Yahir) Significant Other/Family: Local Natural Supports: daughter and grandchildren live with her Employment Status: Retired Instrumental Activities of Daily Living (ADLs): Independent Medications Medication Management: No Issues/Barriers identified Advance Directives Advance Directives: Do you have an Advance Directive: Y 03/21/24 19:19 AD On File at [facility]: Y 03/21/24 19:19 Date Asked 06/21/24 06/21/24 07:54 AD Date Reviewed 03/01/24 03/21/24 19:19 COLST On File at [facility] COLST Date Scanned Code Status Resuscitation Status Full Code Insurance Coverage/Financial Issues Insurance: [facility] medicare replacement Care Team Visit Care Team Role Provider Type MYCHAL BEE NP Primary Care Provider MD [facility] STAFF PHYSICIAN Brady Bazan MD Emergency Provider [facility] STAFF PHYSICIAN Robert Garcia Admit Provider [facility] STAFF PHYSICIAN Attending Provider Discharge Potential Discharge Needs: Imaging/labs and Surgical F/U Appt Anticipated Barriers to Discharge: Bed availability Patient/Family Education Needs: Review discharge instructions, discuss Ask Me Three Transportation: Private vehicle Plan: Anticipate Marisa will be transferred to [facility] for an MRCP either as a down and backor full transfer. She will follow up with her PCP and possibly surgery and transport with family. CM will follow and continue to assess for discharge needs. PFSH All Active Problems (Updated 06/21/24 @ 14:45 by Robert Garcia) DVT prophylaxis (Acute) Biliary obstruction (Acute) Elevated liver enzymes (Acute) Elevated bilirubin (Acute) Depression with anxiety (Acute) Urinary incontinence (Acute) CVA (cerebral vascular accident) (Chronic) Hypertension (Chronic) Sinusitis (Acute) Anterior epistaxis (Acute) Impacted cerumen, bilateral (Acute) Impacted cerumen, right ear (Acute) Eczema (Acute) 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 (Acute) Neck mass (Acute) Pelvic floor dysfunction (Acute 04/29/18) Conductive hearing loss, external ear (Acute 09/08/15) Chronic otitis externa (Acute 03/11/14) Chronic eczematous otitis externa (Acute 09/08/15) Bilateral ureteral calculi (Acute 12/24/17) Bilateral kidney stones (Acute 12/24/17) Hydronephrosis, left (Acute) Bladder stone (Acute) Medical History Osteoporosis NIURKA (acute kidney injury) Conductive hearing loss Hydronephrosis, left with stricture Gallstones Bilateral ureteral calculi Bladder stone Chronic otitis externa of both ears Pelvic floor dysfunction Surgical History Ureteroscopy, EHL, or Laser Lithotripsy Lithotripsy Hysterectomy, Total Abdominal BSO w/ George Family History Mother Stroke Social History Smoking/Tobacco Use Status: Never Smoking risk assessment performed?: Yes Alcohol Intake: never Drug use: Never Substance use type: does not use Housing: house Do you feel safe at home: Yes Do you feel safe in your relationship?: Yes Additional Social history: lives with , daughter and grandchildren. Feels like it is a very stressful situation. CHRISTIN,RN 01/27/24 SDPR(Care Management) Screening Will the Patient Participate in the Screening?: Unable to obtain Do you worry about having a steady place to live?: no Problems where you live: no known problems In the past 12 months, have you had to go without electric, gas, oil or water in your home?: no Have you or anyone in your house had to go without enough food to eat?: no Has lack of transportation kept you from medical appointments or from doing things needed for daily living?: no Has anyone in your support network made you feel unsafe for any reason?: no
[2024-06-21] MEDS: Mirtazapine 15 MG TAB 7.5 MG PO (20:16)
[2024-06-21] MEDS: Atorvastatin 40 MG TAB PO (20:16)
[2024-06-22 07:36] VITALS: BP 141/64; PULSE 59; RESP 18; TEMP 36.3; O2SAT 97
[2024-06-22] MEDS: Metoprolol CR 25 MG TABCR PO (08:31)
[2024-06-22] MEDS: Losartan 25 MG TAB 50 MG PO (08:31)
[2024-06-22] MEDS: amLODIPine 10 MG TAB PO (08:31)
--- NOTE | 2024-06-22 10:06 | NUR.NOTE ---
Nursing Note: Left leg from hip to toe swollen/edematous, multiple ecchymotic area. Ice packs around knee
--- NOTE | 2024-06-22 10:19 | NUR.NOTE ---
Nursing Note: Patient had a scheduled 10a appt in the infusion center. Infusion center notified she was an inpatient. Infusion ctr RN will notify the physician. Medication is every 6 months so she just needs to reschedule once discharge. Pt and her spouse understand information provided.
--- NOTE | 2024-06-22 11:28 | DI.MRI_ITS ---
Exam(s) MR ABDOMEN WO EXAM: MR ABDOMEN WO CLINICAL HISTORY: elevated bili AST ALT alk phos, dilated GB TECHNIQUE: Multiplanar multisequence MRI of the Abdomen was performed. COMPARISON: CT RENAL COLIC WO CONTRAST from 07/09/[address] ABDOMEN PELVIS W from 06/21/2024 FINDINGS: Lung bases: Unremarkable. Liver: No suspicious hepatic masses. Cysts cyst seen in the left lobe of the liver. Pancreas: No evidence of a pancreatic mass is seen on this noncontrast examination. No pancreatic du ct dilatation. Gallbladder and Bile Ducts: Gallstones are present. The common duct measures up to 8 mm. No choledo cholithiasis is identified. There is no gallbladder wall thickening or pericholecystic fluid. The ga llbladder is distended. Adrenals: Unremarkable. Kidneys: There is marked atrophy again seen of the left kidney with dilatation of the collecting syst em. This is unchanged. The degree of left renal atrophy has significantly progressed since 07/09/2018 . The right kidney is grossly unremarkable. Spleen: Unremarkable. Bowel: The visualized bowel is unremarkable. Aorta: Unremarkable. No evidence of an aneurysm. Soft Tissues: Unremarkable. Bone: There is a right convex thoracolumbar scoliosis. Lymph Nodes: Unremarkable. IMPRESSION: 1. There is a distended gallbladder with stones seen near the region of the neck of the gallbladder. No gallbladder wall thickening, choledocholithiasis or pericholecystic fluid. 2. The common duct measures up to 8 mm. No choledocholithiasis. 3. Marked progression of the atrophy of the left kidney with persistent dilatation of the collecting system since 07/09/2018. 4. No definite evidence of a pancreatic mass on this noncontrast examination. If there is continued c oncern postcontrast MRI should be obtained. DATA REPOSITORY:
[2024-06-22 12:31] LABS: Abs Immature Grans 0.02 10^3/uL (0.0-0.06); Absolute Basophil Count 0.05 10^3/uL (0.0-0.2); Absolute Eosinophil Count 0.21 10^3/uL (0.0-0.7); Absolute Lymphocyte Count 0.78 10^3/uL (1.2-3.4); Absolute Monocyte Count 0.46 10^3/uL (0.1-0.8); Absolute Neutrophil Count 4.32 10^3/uL (1.2-6.7); Basophils % 0.9 %; Eosinophils % 3.6 %; HCT 40.6 % (36.0-46.0); HGB 13.4 g/dL (11.2-15.7); Immature Grans % 0.3 %; Lymphocytes % 13.4 %; MCH 32.3 pg (27.0-33.0); MCV 98 fL (80-95); MPV 9.1 fL (8.0-11.0); Monocytes % 7.9 %; Neutrophils % 73.9 %; Platelet Count 193 10^3/uL (130-400); RBC 4.15 10^6/uL (3.93-5.22); RDW 13.1 % (11.7-14.6); RDW-SD 46.4 fL; WBC 5.84 10^3/uL (4.4-10.8)
[2024-06-22 13:08] LABS: ALT 334 U/L (14-59); AST 240 U/L (15-37); Albumin 3.8 g/dL (3.4-5.0); Alkaline Phosphatase 288 U/L (46-116); Anion Gap 9.4 mmol/L (3-11); BUN 26 mg/dL (7-18); Bilirubin, Total 2.24 mg/dL (0.2-1.0); CO2 28.6 mmol/L (21.0-32.0); CREATININE 1.2 mg/dL (0.55-1.02); Calcium 9.1 mg/dL (8.5-10.1); Chloride 104 mmol/L (98-107); Estimated GFR 46.62 (mL/min/1.73m2); Glucose 74 mg/dL (74-106); Potassium 4.1 mmol/L (3.5-5.1); Sodium 142 mmol/L (136-145); Total Protein 7.1 g/dL (6.4-8.2)
--- NOTE | 2024-06-22 14:55 | CMPROGNOTE_ITS ---
Date of service: 06/22/24 Time of Service: 14:55 Care Management Progress Note Progress Note Text Progress Note Text: Marisa was lying in bed with her eyes closed when CM met with her. She is accompanied by her . Marisa is awaiting the results of the abdominal MRI done this morning. Pat denies concerns at this time. CM will continue to follow. Discharge Anticipated Barriers to Discharge: None Identified Patient/Family Education Needs: Review discharge instructions, discuss Ask Me Three Transportation: Private vehicle Plan: Marisa had an MRI of her abdomen today, results are pending. Marisa may require transfer to [facility] for an MRCP either as a down and backor full transfer. She will follow up with her PCP and possibly surgery and transport with family. CM will follow and continue to assess for discharge needs. SDOH(Care Management) Screening Will the Patient Participate in the Screening?: Unable to obtain Do you worry about having a steady place to live?: no Problems where you live: no known problems In the past 12 months, have you had to go without electric, gas, oil or water in your home?: no Have you or anyone in your house had to go without enough food to eat?: no Has lack of transportation kept you from medical appointments or from doing things needed for daily living?: no Has anyone in your support network made you feel unsafe for any reason?: no
[2024-06-22 15:35] VITALS: BP 113/57; PULSE 52; RESP 18; TEMP 36.4; O2SAT 95
--- NOTE | 2024-06-22 17:54 | W.PM.PROGNOT ---
Date of Service Date of service: 06/22/24 Time of Service: 17:54 Assessment and Plan Assessment and plan (1) Biliary obstruction: Status: Acute Assessment and plan: This is the cause of her pain and liver enzyme abnormalities. She does not appear to have an acute infection such as cholangitis, but LFTs worse since yesterday. MRCP did not reveal a stone. D/w [facility] GI fellow again. Thinks she will need a procedure but will d/w advanced endoscopy team. Plan to call after 8am to update plan. Can eat low fat diet now, again NPO at midnight (2) Hypertension: Status: Chronic Assessment and plan: Continue outpatint antihypertensives Qualifiers: Hypertension type: primary hypertension Qualified Code(s): I10 - Essential (primary) hypertension (3) Hydronephrosis, left: Status: Acute Assessment and plan: This is chronic. Some concern for progression on CT but that left side is basically non-functional on uptake scan in May so I don't think hydronephrosis progression is clinically relevant at this point. (4) CVA (cerebral vascular accident): Status: Chronic Assessment and plan: With mild residual left sided hemeparesis. On DAPT per neurology recommendations, though I wonder if this was meant to be for longer than 21 days. Still holding both for now per GI request pending need for ERCP. Holding statin for now with jump in LFTs. Qualifiers: CVA mechanism: thrombosis Laterality of affected vessel: left Precerebral and cerebral artery: middle cerebral artery Qualified Code(s): I63.312 - Cerebral infarction due to thrombosis of left middle cerebral artery (5) DVT prophylaxis: Status: Acute Assessment and plan: SCDs for now pending possible need for procedure. Subjective Subjective Patient reports: no new complaints; denies voiding w/o difficulty, nausea, vomiting, shortness of breath or fever Interval history since last seen: still some epigastric pain, but not severe. She is hungry after skipping breakfast. Exam Narrative Exam Narrative: GEN: Alert and oriented x 4, No acute distress at rest. HEENT: Conjunctiva clear, no icterus. LUNGS: CTAB with normal effort CV: RRR with no murmurs, gallops, or rubs. ABD: active bowel sounds, soft and nondistended. Mild tenderness to palpation in epigastrum to RUQ. No masses or HSM. EXT: no cyanosis, clubbing. trace to 1+ pitting edema to ankles gilmar SKIN: No rashes or open wounds. Few bruises on back of left hand, left medial knee, no jaundice Objective Last Vital Signs Temp 36.4 C L 06/22/24 15:35 Pulse 52 L 06/22/24 15:35 Resp 18 06/22/24 15:35 BP 113/57 L 06/22/24 15:35 Pulse Ox 95 06/22/24 15:35 Laboratory Results - last 24 hr 06/22/24 12:19 WBC 5.84 RBC 4.15 Hgb 13.4 Hct 40.6 MCV 98 H MCH 32.3 MCHC 33.0 RDW 13.1 Plt Count 193 MPV 9.1 Immature Gran % 0.3 Neutrophils % 73.9 Lymphocytes % 13.4 Monocytes % 7.9 Eosinophils % 3.6 Basophils % 0.9 Nucleated RBC % 0.0 Absolute Neutrophils 4.32 Absolute Lymphocytes 0.78 L Absolute Monocytes 0.46 Absolute Eosinophils 0.21 Absolute Basophils 0.05 Sodium 142 Potassium 4.1 Chloride 104 Carbon Dioxide 28.6 Anion Gap 9.4 BUN 26 H Creatinine 1.2 H Est GFR (CKD-EPI 2020) 46.62 Glucose 74 Calcium 9.1 Total Bilirubin 2.24 H AST 240 H ALT 334 H Alkaline Phosphatase 288 H Total Protein 7.1 Albumin 3.8 Time Spent with Patient Time Spent with Patient: 35-49 minutes Time was spent: preparing to see the patient(eg.review tests), obtaining and/or reviewing separately otained hiistory, ordering medications,tests, procedures, referring, communicating with other health memory care program resident, indepentently interpreting results, counseling the patient and care coordination
[2024-06-22] MEDS: Mirtazapine 15 MG TAB 7.5 MG PO (21:29)
[2024-06-22 23:09] VITALS: BP 127/53; PULSE 51; RESP 16; TEMP 36.2; O2SAT 92
[2024-06-23 06:54] LABS: Abs Immature Grans 0.02 10^3/uL (0.0-0.06); Absolute Basophil Count 0.05 10^3/uL (0.0-0.2); Absolute Eosinophil Count 0.26 10^3/uL (0.0-0.7); Absolute Lymphocyte Count 0.75 10^3/uL (1.2-3.4); Absolute Monocyte Count 0.51 10^3/uL (0.1-0.8); Absolute Neutrophil Count 4.29 10^3/uL (1.2-6.7); Basophils % 0.9 %; Eosinophils % 4.4 %; HCT 40.8 % (36.0-46.0); HGB 13.5 g/dL (11.2-15.7); Immature Grans % 0.3 %; Lymphocytes % 12.8 %; MCH 32.3 pg (27.0-33.0); MCHC 33.1 % (32.0-36.0); MCV 98 fL (80-95); MPV 9.2 fL (8.0-11.0); Monocytes % 8.7 %; Neutrophils % 72.9 %; Platelet Count 199 10^3/uL (130-400); RBC 4.18 10^6/uL (3.93-5.22); RDW 12.9 % (11.7-14.6); WBC 5.88 10^3/uL (4.4-10.8)
[2024-06-23 07:17] LABS: ALT 244 U/L (14-59); AST 129 U/L (15-37); Albumin 3.8 g/dL (3.4-5.0); Alkaline Phosphatase 277 U/L (46-116); Anion Gap 8.3 mmol/L (3-11); BUN 33 mg/dL (7-18); Bilirubin, Total 1.25 mg/dL (0.2-1.0); CO2 28.7 mmol/L (21.0-32.0); CREATININE 1.1 mg/dL (0.55-1.02); Calcium 8.8 mg/dL (8.5-10.1); Chloride 104 mmol/L (98-107); Estimated GFR 51.75 (mL/min/1.73m2); Glucose 89 mg/dL (74-106); Potassium 4.2 mmol/L (3.5-5.1); Sodium 141 mmol/L (136-145); Total Protein 6.9 g/dL (6.4-8.2)
[2024-06-23] MEDS: Losartan 25 MG TAB 50 MG PO (07:52)
[2024-06-23] MEDS: amLODIPine 10 MG TAB PO (07:53)
[2024-06-23] MEDS: Metoprolol CR 25 MG TABCR PO (07:53)
[2024-06-23 07:56] VITALS: BP 131/60; PULSE 57; RESP 17; TEMP 36.8; O2SAT 97
--- NOTE | 2024-06-23 11:51 | PDOC.CMDIS ---
Date of service: 06/23/24 Time of Service: 11:51 LACE Index Scoring Tool Questions: Length of Stay (in days): 2 Was the patient admitted via the E.D.?: Yes Comorbidities: Cerebrovascular Disease (HX CVA) E.D. Visits: 3 Answers: Total Score: 9 Risk of Readmission: Low Risk Care Management Discharge Plan Reason for Hospitalization: Biliary Obstruction Discharge Plan: Pat is discharged home with a plan for outpatient work [place] [facility] [place]. Pat will follow up with community providers and her discharge plan of care as discussed with Dr. Garcia. No VNA services are ordered at the time of this discharge. Patient/Family Education Needs: Review discharge instructions, limitations, medications and plan for outpatient follow up. Discuss ask me three. SDOH Health Related Social Needs: No Data to Display
--- NOTE | 2024-06-23 12:27 | DSE_ITS ---
Date of service: 06/23/24 Time of Service: 12:27 DS: Diagnosis Discharge Diagnosis (1) Biliary obstruction: Status: Acute (2) Hypertension: Status: Chronic (3) Hydronephrosis, left: Status: Acute (4) CVA (cerebral vascular accident): Status: Chronic (5) DVT prophylaxis: Status: Acute Discharge Plan Disposition Patient Disposition: Home Condition: Fair Discharge Details Reason For Visit: Epigastric Pain, Biliary Obstruction Admit Date/Time: 06/21/24 11:42 Admit Provider: Robert Garcia Attending Provider: Robert Garcia Primary Care Provider: MYCHAL BEE Hospital Course Hospital Course: 78 yo F with history of ischemic CVA in January 2024 on ASA/clopidogrel, HTN who presented with epigastric pain. Cardiac evaluation negative. Labs con cerning for biliary obstruction with elevation of bilirubin, alkaline phosphatase, and AST/ALT. CT A/P on admission showed markedly dilated gallbladder without wall edema, cystic duct dilated, CBC mildly dilated. MRCP again showed distended gallbladder with stones near the neck region, but no choledocholithiasis or gallbladder thickening, CBD of 8mm maximal dilation. ASA and clopidogrel were held pending need for possible ERCP per [facility] advance endoscopy GI team. Bilirubin went up from 1.5 to 2.24, then down to 1.25. AST and ALT likewise went up from 100/94 to 240/334 to 129/244. Alkaline phosphatase started at 220 to 288 to 277. She never had vomiting and tolerated a low fat diet well throughout her hospitalization. Given MRCP results, no obstructing stone, plan made to discharge home and outpatient endoscopic ultrasound +/- ERCP on Friday 06/[address] Esparza at [facility] per GI fellow Dr. Flowers. She is to hold the clopidogrel but may resume ASA for secondary stroke prevention. Statin was held when liver enzymes increased, but resumed on discharge. Of note, she had some mild elevations of her AST/ALT and alk phos going back to January, even December in the case of her bilirubin. Progression of known left kidney atrophy was noted on her CT and MRI. Her renal function was stable in CKD3a range We did discuss she may not need to resume her clopidogrel even after the procedure. She will discuss this with her neurologist at her appointment 06/24. Home Meds and New Rx's Prescriptions: Continued losartan 25 mg tablet 50 mg PO DAILY Prolia 60 mg/mL syringe 60 mg subcut [id number] metoprolol succinate 25 mg tablet extended release 24 hr 25 mg PO DAILY mirtazapine 7.5 mg tablet 7.5 mg PO QHS Qty: 30 5RF multivitamin [Daily Multi-Vitamin] 1 EACH tablet 1 ea PO DAILY Caltrate 600 plus D 1 EACH tablet,chewable 1 ea PO DIRECTED glucosamine/chond 2 tab PO DAILY vitamin C 500 tab.chew PO DAILY mometasone 0.1 % cream 1 applic topical DAILY 10 Days Qty: 15 2RF cholecalciferol (vitamin D3) [Vitamin D3] 1,000 UNIT capsule 1,000 unit PO DAILY amlodipine 10 mg tablet 10 mg PO DAILY Patient Comments: TAKE ONE TABLET BY MOUTH EVERY DAY aspirin 81 mg Tablet,Delayed Release (Dr/Ec) 81 mg PO DAILY Qty: 30 0RF atorvastatin 40 mg Tablet 40 mg PO QPM Qty: 30 0RF triamcinolone acetonide 15 GM cream 15 gm Topical BID Discontinued clopidogrel 75 mg tablet 75 mg PO DAILY Qty: 90 3RF Discharge Instructions Instructions: Gallstones (DC) Additional Instructions: Do not take the clopidogrel. You may be able to stop this permanently if the neurologist agrees. [facility] will reach out this week to schedule you for a procedure on Friday 06/29. Activity:: Activity as Tolerated Equipment/Supplies:: No Equipment Needed Diet:: low fat Discharge Orders Discharge Orders: Discharge Order (Routine); Ordered 06/23/24 Ordered By: Robert Garcia DS: Summary Time Spent with Patient providing and/or coordinating discharge services: Greater than 30 minutes Status at Discharge Functional status at discharge: independent ambulation Overall status at discharge: patient is progressing back to baseline Mental Status: mental status grossly normal Speech and Movement: speech and movement normal Mood: congruent mood Affect: normal affect Quality:SDOH Health Related Social Needs: No Data to Display Exam Narrative Exam Narrative: GEN: Alert and oriented x 4, No acute distress at rest. HEENT: Conjunctiva clear, no icterus. LUNGS: CTAB with normal effort CV: RRR with no murmurs, gallops, or rubs. ABD: active bowel sounds, soft and nondistended. Mild tenderness to palpation in epigastrum to RUQ. No masses or HSM. EXT: no cyanosis, clubbing. trace pitting edema to ankles gilmar SKIN: No rashes or open wounds. Few bruises on back of left hand, left medial knee, no jaundice Psych Mental Status: mental status grossly normal Speech and Movement: speech and movement normal Mood: congruent mood Affect: normal affect DS: Data Vitals/I&O Vitals and I&O: Vital Signs Temperature 36.8 C 06/23/24 07:56 Temperature Source Tympanic 06/23/24 07:56 Pulse 57 L 06/23/24 07:56 Pulse Rhythm Regular 06/23/24 09:31 Pulse 59 L 06/21/24 12:40 Respiratory Rate 17 06/23/24 07:56 Respiratory Effort Normal 06/23/24 09:31 Respiratory Depth Normal 06/23/24 09:31 Respiratory Pattern Irregular 06/23/24 09:31 Blood Pressure 131/60 06/23/24 07:56 Blood Pressure Mean 99 06/21/24 12:30 Blood Pressure Position Sitting 06/21/24 07:47 Pulse Oximetry 97 06/23/24 07:56 Oxygen Delivery Method Room Air 06/23/24 07:56 Oxygen Flow Rate 0 06/23/24 07:56 Pain Level 0 06/23/24 07:56 Intake & Output 06/22/24 06/23/24 06/23/24 23:59 11:59 23:59 Intake Total 440 / 440 Balance 440 / -60 Weight 43 kg Intake: Oral 440 / 440 Other: Urine Color Yellow Yellow Urine Appearance Clear Clear Urine Odor Normal Normal Comment patient voided independently in the toilet Voiding Methods Toilet Toilet Data Completed and Pending Labs on day of discharge: Labs from last 24 hours 06/23/24 06/22/24 06:30 12:19 WBC 5.88 5.84 RBC 4.18 4.15 Hgb 13.5 13.4 Hct 40.8 40.6 MCV 98 H 98 H MCH 32.3 32.3 MCHC 33.1 33.0 RDW 12.9 13.1 Plt Count 199 193 MPV 9.2 9.1 Immature Gran % 0.3 0.3 Neutrophils % 72.9 73.9 Lymphocytes % 12.8 13.4 Monocytes % 8.7 7.9 Eosinophils % 4.4 3.6 Basophils % 0.9 0.9 Nucleated RBC % 0.0 0.0 Absolute Neutrophils 4.29 4.32 Absolute Lymphocytes 0.75 L 0.78 L Absolute Monocytes 0.51 0.46 Absolute Eosinophils 0.26 0.21 Absolute Basophils 0.05 0.05 Sodium 141 142 Potassium 4.2 4.1 Chloride 104 104 Carbon Dioxide 28.7 28.6 Anion Gap 8.3 9.4 BUN 33 H 26 H Creatinine 1.1 H 1.2 H Est GFR (CKD-EPI 2020) 51.75 46.62 Glucose 89 74 Calcium 8.8 9.1 Total Bilirubin 1.25 H 2.24 H AST 129 H 240 H ALT 244 H 334 H Alkaline Phosphatase 277 H 288 H Total Protein 6.9 7.1 Albumin 3.8 3.8 PFSH All Active Problems (Updated 06/22/24 @ 18:01 by Robert Garcia) DVT prophylaxis (Acute) Biliary obstruction (Acute) Elevated liver enzymes (Acute) Elevated bilirubin (Acute) Depression with anxiety (Acute) Urinary incontinence (Acute) CVA (cerebral vascular accident) (Chronic) Hypertension (Chronic) Sinusitis (Acute) Anterior epistaxis (Acute) Impacted cerumen, bilateral (Acute) Impacted cerumen, right ear (Acute) Eczema (Acute) 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 (Acute) Neck mass (Acute) Pelvic floor dysfunction (Acute 04/29/18) Conductive hearing loss, external ear (Acute 09/08/15) Chronic otitis externa (Acute 03/11/14) Chronic eczematous otitis externa (Acute 09/08/15) Bilateral ureteral calculi (Acute 12/24/17) Bilateral kidney stones (Acute 12/24/17) Bladder stone (Acute) Hydronephrosis, left (Acute) Medical History Osteoporosis NIURKA (acute kidney injury) Conductive hearing loss Hydronephrosis, left with stricture Gallstones Bilateral ureteral calculi Bladder stone Chronic otitis externa of both ears Pelvic floor dysfunction Surgical History Ureteroscopy, EHL, or Laser Lithotripsy Lithotripsy Hysterectomy, Total Abdominal BSO w/ George Family History Mother Stroke Social History Smoking/Tobacco Use Status: Never Smoking risk assessment performed?: Yes Alcohol Intake: never Drug use: Never Substance use type: does not use Housing: house Do you feel safe at home: Yes Do you feel safe in your relationship?: Yes Additional Social history: lives with , daughter and grandchildren. Feels like it is a very stressful situation. CHRISTIN,RN 01/27/24 Time Spent with Patient Time Spent with Patient: 45-69 minutes Time was spent: preparing to see the patient(eg.review tests), obtaining and/or reviewing separately [facility], ordering medications,tests, procedures, referring, communicating with other health care transition manager (including case review with [facility]), indepentently interpreting results, counseling the patient and care coordination
== END 2024-06-23 13:34 | disposition home or self-care (01) | DRG 445 ==
LOC: ER 11:52 → MS 12:47
PROVIDERS: Admitting Provider Family Medicine; Emergency Provider Emergency Medicine; PCP Nurse Practitioner Family; Visit Provider Family Medicine
DX: K80.21 Calculus of gallbladder without cholecystitis with obstruction (principal); I69.354 Hemiplegia and hemiparesis following cerebral infarction affecting left non-dominant side; N13.2 Hydronephrosis with renal and ureteral calculous obstruction; I10 Essential (primary) hypertension; F41.8 Other specified anxiety disorders
CPT/HCPCS: 00123; 36415; 80053; 83690; 93005; 99285; 71046; 74177; 74181; 83735; 83880; 84484; 85025; 85610; 85730; 93010; 99222; 99232; 99239; J3490

== ENCOUNTER → 2024-06-24 09:52 | Outpatient (BNVA) | payer MEDICARE, SELFPAY | PROVIDERS: PCP Nurse Practitioner Family; Referring Provider Nurse Practitioner Family; Visit Provider Psychiatry & Neurology Neurology | DX: I63.312 Cerebral infarction due to thrombosis of left middle cerebral artery (principal); F41.8 Other specified anxiety disorders | CPT/HCPCS: 99213 ==

== ENCOUNTER 2024-06-30 03:14 | Outpatient (RCR) | payer MEDICARE, SELFPAY ==
[2024-06-30] MEDS: Denosumab 60 MG/ML SYR SC (11:58)
== END 2024-07-01 23:59 | disposition home or self-care (01) ==
LOC: INF 03:14
PROVIDERS: PCP Nurse Practitioner Family; Visit Provider Internal Medicine
DX: M81.0 Age-related osteoporosis without current pathological fracture (principal)
CPT/HCPCS: 96372; J0897

== ENCOUNTER 2024-07-06 16:11 | Outpatient (REF) | payer MEDICARE, SELFPAY ==
[2024-07-06 18:42] LABS: Abs Immature Grans 0.01 10^3/uL (0.0-0.06); Absolute Basophil Count 0.07 10^3/uL (0.0-0.2); Absolute Eosinophil Count 0.16 10^3/uL (0.0-0.7); Absolute Lymphocyte Count 0.85 10^3/uL (1.2-3.4); Absolute Monocyte Count 0.45 10^3/uL (0.1-0.8); Absolute Neutrophil Count 4.29 10^3/uL (1.2-6.7); Basophils % 1.2 %; Eosinophils % 2.7 %; HCT 37.5 % (36.0-46.0); HGB 12.5 g/dL (11.2-15.7); Immature Grans % 0.2 %; Lymphocytes % 14.6 %; MCH 32.1 pg (27.0-33.0); MCHC 33.3 % (32.0-36.0); MCV 96 fL (80-95); MPV 9.4 fL (8.0-11.0); Monocytes % 7.7 %; Neutrophils % 73.6 %; Platelet Count 272 10^3/uL (130-400); RDW 12.7 % (11.7-14.6); RDW-SD 44.7 fL; WBC 5.83 10^3/uL (4.4-10.8)
[2024-07-06 19:59] LABS: ALT 55 U/L (14-59); AST 36 U/L (15-37); Albumin 4.4 g/dL (3.4-5.0); Alkaline Phosphatase 184 U/L (46-116); Anion Gap 12.6 mmol/L (3-11); BUN 36 mg/dL (7-18); Bilirubin, Total 0.78 mg/dL (0.2-1.0); CO2 24.4 mmol/L (21.0-32.0); CREATININE 1.1 mg/dL (0.55-1.02); Calcium 9.7 mg/dL (8.5-10.1); Chloride 105 mmol/L (98-107); Estimated GFR 51.75 (mL/min/1.73m2); Glucose 115 mg/dL (74-106); Potassium 4.4 mmol/L (3.5-5.1); Sodium 142 mmol/L (136-145); Total Protein 7.5 g/dL (6.4-8.2)
== END 2024-07-06 16:12 | disposition home or self-care (01) ==
LOC: NCHCN 16:11
PROVIDERS: PCP Nurse Practitioner Family; Visit Provider Family Medicine
DX: K80.81 Other cholelithiasis with obstruction (principal); R79.89 Other specified abnormal findings of blood chemistry
CPT/HCPCS: 80053; 85025

== ENCOUNTER 2024-08-03 08:23 | Inpatient (IN) | payer MEDICARE, SELFPAY ==
[2024-08-03] VITALS (55 sets, daily range): BP systolic 125–203; BP diastolic 51–67; PULSE 48–60; RESP 10–25; TEMP 36.5–36.8; O2SAT 95–99
--- NOTE | 2024-08-03 08:15 | RT.EKG_ITS ---
APPROVED REPORT Exam: Resting ECG Reason for Exam: Epigastric pain Patient Location: E HR:55 bpm ECG Measurements Heart Rate 55 AXIS PA 156 P 69 QRSd 79 QRS 33 QT 451 T 56 QTc 433 Conclusion Sinus bradycardia...rate< 60 ST elevation, consider inferior injury...ST >0.08mV, II III aVF no stemi
[2024-08-03] MEDS: Normal Saline Flush 10 ML SYR IVP ×3 (08:38→20:07)
--- NOTE | 2024-08-03 08:38 | ED.GENADUL_ITS ---
Discharge Plan Disposition Patient Disposition: Admit to [facility] Condition: Stable Discharge Details Clinical Impression: Biliary colic Admit Date/Time: 08/03/24 14:09 Admit Provider: Linda Collins Attending Provider: Linda Collins Primary Care Provider: MYCHAL BEE ED Provider: Alessandra Wilkins General Mode of arrival: ambulatory . Date/Time Provider Initiated Documentation: 08/03/24 08:30 . Limitations to Documentation: no limitations . Information obtained by: patient, family, RN notes reviewed and old records reviewed . HPI Narrative: 78-year-old female presents to the ER with a chief complaint of midepigastric abdominal pain which began last night. She reports that it is intermittent. Denies any nausea vomiting diarrhea denies any shortness of breath or fever. 3 weeks ago she was at [facility] for an ERCP which showed an enlarged gallbladder with gallstones. Past medical history include acute kidney injury, hydronephrosis, kidney stones, hypertension, CVA. She is alert and oriented x 4. Related Data Home Medications ?Medication ?Instructions ?Recorded ?Confirmed Glucosamine/Chond 2 tab PO DAILY 03/21/15 08/03/24 Vitamin C 500 tab.chew PO DAILY 03/21/15 08/03/24 calcium carbonate 600 mg-vitamin 1 ea PO DIRECTED 03/21/15 08/03/24 D3 20 mcg (800 unit) chewable tablet (Caltrate 600 plus D) multivitamin (Daily Multi-Vitamin 1 ea PO DAILY 03/21/15 08/03/24 tablet) cholecalciferol (vitamin D3) 25 1,000 unit PO DAILY 12/25/17 08/03/24 mcg (1,000 unit) capsule (Vitamin D3) triamcinolone acetonide 0.1 % 15 gm topical BID 07/11/18 08/03/24 topical cream denosumab 60 mg/mL subcutaneous 60 mg subcut [id number] 11/01/20 08/03/24 syringe (Prolia) metoprolol succinate 25 mg 25 mg PO DAILY 02/20/23 08/03/24 tablet,extended release 24 hr losartan 25 mg tablet 50 mg PO DAILY 10/23/23 08/03/24 amlodipine 10 mg tablet 10 mg PO DAILY 01/29/24 08/03/24 atorvastatin 40 mg tablet 40 mg PO QPM #30 tabs 01/29/24 08/03/24 mometasone 0.1 % topical cream 1 applic topical DAILY 10 days #15 04/14/24 08/03/24 grams clopidogrel 75 mg tablet 75 mg PO DAILY #90 tabs 06/24/24 08/03/24 mirtazapine 7.5 mg tablet 7.5 mg PO QHS #90 tabs 06/24/24 08/03/24 Previous Rx's ?Medication ?Instructions ?Recorded atorvastatin 40 mg tablet 40 mg PO QPM #30 tabs 01/29/24 mometasone 0.1 % topical cream 1 applic topical DAILY 10 days #15 04/14/24 grams clopidogrel 75 mg tablet 75 mg PO DAILY #90 tabs 06/24/24 mirtazapine 7.5 mg tablet 7.5 mg PO QHS #90 tabs 06/24/24 Allergies Allergy/AdvReac Type Severity Reaction Status Date / Time Sulfa (Sulfonamide Allergy Unknown unknown Verified 08/03/24 08:30 Antibiotics) lisinopril Allergy skin Verified 08/03/24 08:30 reactions amoxicillin (From Augmentin) AdvReac Intermediate diarrhea/severe Verified 08/03/24 08:30 muscle spasms clavulanic acid (From AdvReac Intermediate diarrhea/severe Verified 08/03/24 08:30 Augmentin) muscle spasms alendronate sodium (From AdvReac Mild muscle Verified 08/03/24 08:30 Fosamax) spasms hydrochlorothiazide AdvReac Mild nausea Verified 08/03/24 08:30 mirabegron (From Myrbetriq) AdvReac blurred Verified 08/03/24 08:30 vision General Stated Complaint: Abd Prob ARDEN: 3 Review of Systems All systems reviewed & are unremarkable except as noted in HPI and below Cardiovascular Cardiovascular: Denies chest pain and Denies dyspnea Respiratory Respiratory: Denies cough and Denies dyspnea Gastrointestinal Gastrointestinal: Reports as per HPI, Reports abdominal pain, Denies diarrhea, Denies nausea and Denies vomiting Exam Narrative Exam Narrative: Constitutional: Alert and oriented x3. Appears stated age. Normal body habitus. Head: Normocephalic, no trauma. Eyes: Pupils PERRL, Red reflex noted, EOM's intact. Eyelids symmetrical without lesions, discharge, or swelling. Chest: RRR, Normal S1, S2, distal pulses intact. Resp: Lungs clear to auscultation bilaterally, no wheezes, rales, or rhonchi. Abdomen: Soft, non-distended, Normoactive bowel sounds all 4 quads. Musculoskeletal: Normal gait, Moves all 4 extremities without difficulty. Skin: No suspicious rashes or lesions. Capillary refill less than 2 sec. Neurologic: Cranial nerves II-XII intact. Alert and oriented x 3. Motor: No deficits noted. Sensory: Intact bilaterally all 4 extremities. Hematologic/Lymphatic: No ecchymosis, no lymphadenopathy. Course Vital Signs Vital signs: Vital Signs Pulse 60 08/03/24 08:28 Respiratory Rate 14 08/03/24 08:28 Blood Pressure 203/62 H 08/03/24 08:28 Pulse Oximetry 98 08/03/24 08:28 Temperature 36.5 C 08/03/24 08:32 Temperature Source Oral 08/03/24 08:32 Pulse 54 L 08/03/24 08:32 Respiratory Rate 20 08/03/24 08:32 Respiratory Effort Normal, Non-Labored 08/03/24 08:31 Blood Pressure 178/51 H 08/03/24 08:32 Blood Pressure Position Sitting 08/03/24 08:28 Pulse Oximetry 99 08/03/24 08:32 Oxygen Delivery Method Room Air 08/03/24 08:32 Oxygen Flow Rate 0 08/03/24 08:28 Pain Level 7 08/03/24 08:32 Medical Decision Making 78-year-old female presents to the ER with a chief complaint of midepigastric abdominal pain which began last night. She reports that it is intermittent. Denies any nausea vomiting diarrhea denies any shortness of breath or fever. 3 weeks ago she was at [facility] for an ERCP which showed an enlarged gallbladder with gallstones. Past medical history include acute kidney injury, hydronephrosis, kidney stones, hypertension, CVA. She is alert and oriented x 4. Workup ordered including CBC CMP lipase urinalysis EKG and troponin. Differential diagnosis includes not limited to CAD, leukoencephalitis, cholelithiasis, less likely AAA, obstruction diverticulitis GERD CBC shows no leukocytosis, CMP shows BUN 27 creatinine 1.1 GFR 51 bilirubin 1.45, AST 61 ALT 53 alk phos 148, initial troponin less than 50 lipase greater than 375, urinalysis shows moderate blood 20-[address] shows distended gallbladder with mild wall thickening and some pericholecystic fluid or wall edema. No stones visualized. We do not have ultrasound in the house at this time. Will page surgery. 1109: Surgery paged. 1116: Spoke with Dr. Collins regarding patient who agrees to accept patient for admission for cholecystitis. Patient admitted to floor care of general surgery. Remained hemodynamically stable throughout the remainder of her stay. This text was generated using [employer] system, please disregard any oddities of phrase or misspellings. Medical Records Medical records reviewed: Yes I reviewed the patient's medical records. Medical records narrative: Seen 06-21-24 here in ED Imaging Data Radiologic Study: Imaging: CT Scan Radiologist's impression: Spleen: Spleen unremarkable. Adrenal glands: Adrenals unremarkable. Kidneys and ureters: Dilation left renal collecting system, left renal pelvis, left ureter down to level of approximately 4 mm calcific stone projecting left hemipelvis, series 4, image 481, similar to 06/21/2024. Stable appearance right kidney. Stomach and bowel: Stomach appears mostly empty, contains small amount of gas, fluid. Mild wall thickening versus lack of distension mid to distal stomach. Bowel pattern appears nonobstructive. Possible bowel wall thickening portion of large or small bowel left lower quadrant abdomen, left hemipelvis. Moderate stool right side of colon. Appendix: No obvious acute appendicitis seen. Intraperitoneal space: No free intraperitoneal air and no free abdominal or pe lvic fluid collection seen. Vasculature: Atherosclerotic disease. Extensive atherosclerotic disease with areas of probable narrowing, stenosis of portions of branches of abdominal aorta. No aneurysm seen of abdominal aorta. Lymph nodes: No obvious new suspicious lymphadenopathy seen. Urinary bladder: Urinary bladder appears mostly empty. Reproductive: Uterus not identified. Bones/joints: Curvature, degenerative changes spine. Compression fractures L1, T12, T11 vertebral body similar to 06/21/2024. Prior left rib fractures. Soft tissues: Unremarkable. IMPRESSION: 1. Gallbladder appears distended. Mild wall thickening gallbladder. Suggestion of pericholecystic fluid and/or wall edema versus volume averaging. No calcific stone seen of gallbladder. Dilation common duct measured close to 10 mm. Mild dilation main, central intrahepatic bile ducts. No calcific stone seen visualized portions common duct. Correlation with MRI with MRCP, ultrasound scan recommended. 2. Dilation left renal collecting system, left renal pelvis, left ureter down to level of approximately 4 mm calcific stone projecting left hemipelvis, series 4, image 481, similar to 06/21/2024. 3. Possible tiny hiatal hernia. Suggestion of wall thickening distal esophagus near the esophagogastric junction. Mild wall thickening versus lack of distension mid to distal stomach. Possible bowel wall thickening portion of large or small bowel left lower quadrant abdomen, left hemipelvis. 4. Please see body of report for additional findings. Thank you for allowing us to participate in the care of your patient. Dictated and Authenticated by: Keon Hou MD Lab Data Lab results reviewed: Yes I reviewed the patient's lab results. Labs: Laboratory Tests Range/Units 08/03/24 08/03/24 08:47 08:55 WBC (4.4-10.8) 10^3/uL 9.79 RBC (3.93-5.22) 10^6/uL 4.18 Hgb (11.2-15.7) g/dL 13.4 Hct (36.0-46.0) % 40.8 MCV (80-95) fL 98 H MCH (27.0-33.0) pg 32.1 MCHC (32.0-36.0) % 32.8 RDW (11.7-14.6) % 12.4 Plt Count (130-400) 10^3/uL 207 MPV (8.0-11.0) fL 8.7 Immature Gran % % 0.3 Neutrophils % % 86.6 Lymphocytes % % 5.0 Monocytes % % 6.4 Eosinophils % % 1.2 Basophils % % 0.5 Nucleated RBC % (0.0-0.3) % 0.0 Absolute Neutrophils (1.2-6.7) 10^3/uL 8.47 H Absolute Lymphocytes (1.2-3.4) 10^3/uL 0.49 L Absolute Monocytes (0.1-0.8) 10^3/uL 0.63 Absolute Eosinophils (0.0-0.7) 10^3/uL 0.12 Absolute Basophils (0.0-0.2) 10^3/uL 0.05 Sodium (136-145) mmol/L 140 Potassium (3.5-5.1) mmol/L 3.7 Chloride (98-107) mmol/L 103 Carbon Dioxide (21.0-32.0) mmol/L 28.1 Anion Gap (3-11) mmol/L 8.9 BUN (7-18) mg/dL 27 H Creatinine (0.55-1.02) mg/dL 1.1 H Est GFR (CKD-EPI 2020) (mL/min/1.73m2) 51.75 Glucose (74-106) mg/dL 151 H Calcium (8.5-10.1) mg/dL 9.6 Magnesium (1.8-2.4) mg/dL 1.8 Total Bilirubin (0.2-1.0) mg/dL 1.45 H AST (15-37) U/L 61 H ALT (14-59) U/L 53 Alkaline Phosphatase (46-116) U/L 148 H Troponin I (< or =60) ng/L < 50 Total Protein (6.4-8.2) g/dL 7.3 Albumin (3.4-5.0) g/dL 4.3 Lipase (16-77) U/L > 375 H Urine Color (Yellow) Yellow Urine Clarity (Clear) Sl Cloudy Urine pH (5-8) 6.0 Ur Specific [place] (1.005-1.025) 1.025 Urine Protein (Neg-Trace) mg/dL 100 H Urine Ketones (Negative) mg/dL Negative Urine Blood (Negative) Moderate H Urine Nitrite (Negative) Negative Urine Bilirubin (Negative) Negative Urine Urobilinogen (Up to 0.2) mg/dL 0.2 Ur Leukocyte Esterase (Negative) Negative Urine RBC (0-2) HPF 20-50 H Urine WBC (0-5) HPF 0-2 Ur Epithelial Cells (Negative) HPF Few Urine Crystals (Negative) HPF Negative Urine Bacteria (Negative) HPF Rare Urine Mucus (Negative) Negative Ur Culture Indicated? No Urine Glucose (Negative) mg/dL Negative Quality:SDOH Health Related Social Needs: No Data to Display PFSH All Active Problems Gallstone pancreatitis (Acute) Cholelithiasis with acute on chronic cholecystitis (Acute) Biliary colic (Acute) Biliary obstruction (Acute) Elevated liver enzymes (Acute) Elevated bilirubin (Acute) Depression with anxiety (Acute) Urinary incontinence (Acute) CVA (cerebral vascular accident) (Chronic) Hypertension (Chronic) Sinusitis (Acute) Anterior epistaxis (Acute) Impacted cerumen, bilateral (Acute) Impacted cerumen, right ear (Acute) Eczema (Acute) 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 (Acute) Neck mass (Acute) Pelvic floor dysfunction (Acute 04/29/18) Conductive hearing loss, external ear (Acute 09/08/15) Chronic otitis externa (Acute 03/11/14) Chronic eczematous otitis externa (Acute 09/08/15) Bilateral ureteral calculi (Acute 12/24/17) Bilateral kidney stones (Acute 12/24/17) Hydronephrosis, left (Acute) Bladder stone (Acute) Medical History Osteoporosis NIURKA (acute kidney injury) Conductive hearing loss Hydronephrosis, left with stricture Gallstones Bilateral ureteral calculi Bladder stone Chronic otitis externa of both ears Pelvic floor dysfunction Surgical History Ureteroscopy, EHL, or Laser Lithotripsy Lithotripsy Hysterectomy, Total Abdominal BSO w/ George Family History Mother Stroke Social History Smoking/Tobacco Use Status: Never Smoking risk assessment performed?: Yes Alcohol Intake: never Drug use: Never Substance use type: does not use Housing: house Do you feel safe at home: Yes Do you feel safe in your relationship?: Yes Additional Social history: lives with , daughter and grandchildren. Feels like it is a very stressful situation. CHRISTIN,RN 01/27/24
[2024-08-03 08:53] LABS: Abs Immature Grans 0.03 10^3/uL (0.0-0.06); Absolute Basophil Count 0.05 10^3/uL (0.0-0.2); Absolute Eosinophil Count 0.12 10^3/uL (0.0-0.7); Absolute Lymphocyte Count 0.49 10^3/uL (1.2-3.4); Absolute Monocyte Count 0.63 10^3/uL (0.1-0.8); Absolute Neutrophil Count 8.47 10^3/uL (1.2-6.7); Basophils % 0.5 %; Eosinophils % 1.2 %; HCT 40.8 % (36.0-46.0); HGB 13.4 g/dL (11.2-15.7); Immature Grans % 0.3 %; MCH 32.1 pg (27.0-33.0); MCHC 32.8 % (32.0-36.0); MCV 98 fL (80-95); MPV 8.7 fL (8.0-11.0); Monocytes % 6.4 %; Neutrophils % 86.6 %; Platelet Count 207 10^3/uL (130-400); RBC 4.18 10^6/uL (3.93-5.22); RDW 12.4 % (11.7-14.6); RDW-SD 44.8 fL; WBC 9.79 10^3/uL (4.4-10.8)
--- NOTE | 2024-08-03 09:00 | DI.CT_ITS ---
Exam(s) CT ABDOMEN PELVIS W EXAM: CT ABDOMEN PELVIS W CLINICAL HISTORY: Mid epigastric pain. TECHNIQUE: Imaging Protocol: Axial computed tomography images with coronal and sagittal reformatted images were created and reviewed CONTRAST MATERIAL: Intravenous: Omnipaque-350 60cc Oral: None COMPARISON: CT CT ABDOMEN PELVIS W from 06/21/2024 FINDINGS: VISUALIZED LUNG BASES: No nodules nor pleural effusions evident. ABDOMEN: There is no ascites. LIVER: There are no focal hepatic lesions evident. There is mild prominence of central intrahepatic ducts noted. GALLBLADDER/BILIARY: The gallbladder is again noted to be significantly distended. Subtle density no geri in the gallbladder lumen on today's study may indicate presence of calculi. There is a tiny amou nt of pericholecystic fluid evident. The CBD diameter is maximum measurement 9 mm and with measureme nt of 6 mm at the pancreatic head level. There is no obvious mass nor radiopaque calculus within the CBD and no obvious mass in the pancreatic head. PANCREAS: Visualization of the pancreas is difficult because of the paucity of retroperitoneal and in traperitoneal fat. However, there is no obvious pancreatic mass nor dilatation pancreatic duct. No peripancreatic fluid collections. SPLEEN: Spleen is not enlarged. No obvious intrasplenic lesions. Splenic and portal veins are paten t. ADRENALS: There are no significant adrenal masses. KIDNEYS:Right kidney unremarkable. Again noted is severe hydronephrosis of the left kidney with adva nced attenuation of the cortical mantle, similar to previous study of 06/21/2024. This appears to be related to presence of a 4 millimeter calculus within the intrapelvic left ureter, similar in positi on to 06/21/2024. The ureter above this level is mildly dilated. The ureter below this level is col lapsed. There are no calculi within the nondistended urinary bladder. No solid renal masses evident .. ABDOMINAL AORTA: Abdominal aorta is not enlarged. LYMPH NODES:There is no retroperitoneal nor paraaortic adenopathy. ABDOMINAL WALL: No evidence of significant anterior abdominal wall nor inguinal hernia. GI: There is no evidence of bowel obstruction, free air, nor abscess. PELVIS: GI: No evidence of appendicitis.No evidence of sigmoid diverticulitis. LYMPH NODES: There is no intrapelvic nor inguinal adenopathy. REPRODUCTIVE: Uterus is atrophic or surgically absent. There are no abnormal adnexal masses nor free fluid in the pelvis. URINARY BLADDER: No calculi nor obvious masses evident OSSEOUS: Advanced compression fracture of L1 is unchanged. Compression fracture superior endplate T1 2 is unchanged. Mild compression fracture of T11 is unchanged. No new fractures. No listhesis. Ad vanced disc space narrowing L4-5 again noted. Degenerative scoliosis again noted. IMPRESSION: 1. Compared to the prior CT scan of 06/21/2024 the gallbladder is again noted be distended and there appears to be a small amount of pericholecystic fluid. On 1 image there is a suggestion of density i n the gallbladder, and indeed recent MRI of 06/22/2024 did reveal gallstones but no evidence of krystin docholithiasis. On today's study the CBD diameter is age-appropriate. 2. There is again noted severe hydronephrosis of the left kidney with significantly thinned cortical mantle and dilatation of the collecting system down to a 4-5 mm size calculus within the left pelvic ureter. This calculus appears unchanged in position from CT scan of 06/21/2024. 3. Stable appearing compression fractures of T11, T12, and L1. 4. Other findings as above. RADIATION DOSE DELIVERED: 177.2mGy.cm Total DLP DATA REPOSITORY: All CT scans at this facility are submitted to the National Radiology Data Registry (NRDR) Dose Index Registry (DIR) with the [employer] [place] [employer] (ACR). RADIATION OPTIMIZATION: All CT scans at this facility use at least one of these dose optimization te chniques: automated exposure control; mA and/or kV adjustment per patient size (includes targeted exa ms where dose is matched to clinical indication); or iterative reconstruction.
[2024-08-03 09:10] LABS: Bilirubin Negative (Negative); Blood Moderate (Negative); Clarity Sl Cloudy (Clear); Glucose Negative (Negative); Ketones Negative (Negative); Leukocyte Esterase Negative (Negative); Nitrite Negative (Negative); Specific Gravity 1.025 (1.005-1.025); Urobilinogen 0.2 mg/dL (Up to 0.2)
[2024-08-03 09:11] LABS: ALT 53 U/L (14-59); AST 61 U/L (15-37); Albumin 4.3 g/dL (3.4-5.0); Alkaline Phosphatase 148 U/L (46-116); Anion Gap 8.9 mmol/L (3-11); BUN 27 mg/dL (7-18); Bilirubin, Total 1.45 mg/dL (0.2-1.0); CO2 28.1 mmol/L (21.0-32.0); CREATININE 1.1 mg/dL (0.55-1.02); Calcium 9.6 mg/dL (8.5-10.1); Chloride 103 mmol/L (98-107); Estimated GFR 51.75 (mL/min/1.73m2); Glucose 151 mg/dL (74-106); Magnesium 1.8 mg/dL (1.8-2.4); Potassium 3.7 mmol/L (3.5-5.1); Sodium 140 mmol/L (136-145); Total Protein 7.3 g/dL (6.4-8.2); Troponin I < 50 ng/L (< or =60)
[2024-08-03 09:12] LABS: Lipase > 375 U/L (16-77)
[2024-08-03 09:24] LABS: Bacteria Rare HPF (Negative); C & S Indicated? No; Crystals Negative HPF (Negative); Epithelial Cells Few HPF (Negative); Mucus Negative (Negative); RBC 20-50 HPF (0-2); WBC 0-2 HPF (0-5)
[2024-08-03] MEDS: Normal Saline - Diluent 50 ML VIAL IJ (09:57)
[2024-08-03] MEDS: Omnipaque 350 MG/ML 100 ML BTL IJ (09:58)
--- NOTE | 2024-08-03 11:04 | DI.VRAD_ITS ---
PROCEDURE INFORMATION: Exam: CT Abdomen And Pelvis With Contrast Exam date and time: 08/03/2024 10:06 AM Age: 78 years old Clinical indication: Other: Mid epigastric pain TECHNIQUE: Imaging protocol: Computed tomography of the abdomen and pelvis with contrast. Radiation optimization: All CT scans at this facility use at least one of these dose optimization techniques: automated exposure control; mA and/or kV adjustment per patient size (includes targeted exams where dose is matched to clinical indication); or iterative reconstruction. Contrast material: OMNI 350; Contrast volume: 60 ml; Contrast route: INTRAVENOUS (IV); COMPARISON: MR ABDOMEN WO 06/22/2024 11:33 AM FINDINGS: Limitations: Paucity/lack of intra-abdominal fat limits visualization, evaluation. Lungs: Slight probable atelectasis and/or fibrosis lung bases bilaterally. Heart: Possible cardiac valve calcification. Coronary arteries: Coronary artery calcification. Diaphragm: Possible tiny hiatal hernia. Suggestion of wall thickening distal esophagus near the esophagogastric junction. Liver: Liver unremarkable. Gallbladder and biliary ducts: Gallbladder appears distended. Mild wall thickening gallbladder. Suggestion of pericholecystic fluid and/or wall edema versus volume averaging. No calcific stone seen of gallbladder. Dilation common duct measured close to 10 mm. Mild dilation main, central intrahepatic bile ducts. No calcific stone seen visualized portions common duct. Pancreas: Visualization, mild prominence portions of pancreatic. Pancreas appears tortuous, convoluted. Spleen: Spleen unremarkable. Adrenal glands: Adrenals unremarkable. Kidneys and ureters: Dilation left renal collecting system, left renal pelvis, left ureter down to level of approximately 4 mm calcific stone projecting left hemipelvis, series 4, image 481, similar to 06/21/2024. Stable appearance right kidney. Stomach and bowel: Stomach appears mostly empty, contains small amount of gas, fluid. Mild wall thickening versus lack of distension mid to distal stomach. Bowel pattern appears nonobstructive. Possible bowel wall thickening portion of large or small bowel left lower quadrant abdomen, left hemipelvis. Moderate stool right side of colon. Appendix: No obvious acute appendicitis seen. Intraperitoneal space: No free intraperitoneal air and no free abdominal or pelvic fluid collection seen. Vasculature: Atherosclerotic disease. Extensive atherosclerotic disease with areas of probable narrowing, stenosis of portions of branches of abdominal aorta. No aneurysm seen of abdominal aorta. Lymph nodes: No obvious new suspicious lymphadenopathy seen. Urinary bladder: Urinary bladder appears mostly empty. Reproductive: Uterus not identified. Bones/joints: Curvature, degenerative changes spine. Compression fractures L1, T12, T11 vertebral body similar to 06/21/2024. Prior left rib fractures. Soft tissues: Unremarkable. IMPRESSION: 1. Gallbladder appears distended. Mild wall thickening gallbladder. Suggestion of pericholecystic fluid and/or wall edema versus volume averaging. No calcific stone seen of gallbladder. Dilation common duct measured close to 10 mm. Mild dilation main, central intrahepatic bile ducts. No calcific stone seen visualized portions common duct. Correlation with MRI with MRCP, ultrasound scan recommended. 2. Dilation left renal collecting system, left renal pelvis, left ureter down to level of approximately 4 mm calcific stone projecting left hemipelvis, series 4, image 481, similar to 06/21/2024. 3. Possible tiny hiatal hernia. Suggestion of wall thickening distal esophagus near the esophagogastric junction. Mild wall thickening versus lack of distension mid to distal stomach. Possible bowel wall thickening portion of large or small bowel left lower quadrant abdomen, left hemipelvis. 4. Please see body of report for additional findings. Dictated and Authenticated by: Keon Hou MD. Ordering:JOEY Aparicio MD
[2024-08-03 12:52] LABS: Troponin I < 50 ng/L (< or =60)
--- NOTE | 2024-08-03 13:24 | HPE_ITS ---
Date of service: 08/03/24 Time of Service: 13:25 Assessment and Plan Assessment and plan (1) Cholelithiasis with acute on chronic cholecystitis: Status: Acute Assessment and plan: The alternatives to surgery, risks, complications, and the possible need to convert to open cholecystectomy were discussed. Also bleeding, infection, pneumonia, blood clots, complications of anesthesia, damage to bowel, bladder, blood vessels, or bile ducts, liver, need for blood transfusions. Also: chronic pain, chronic diarrhea/post-krystin syndrome, reoccurrence of signs and symptoms, port site hernias, adhesions .dragon 20 mins spent in direct pt care and 40 in non face to face time (2) Gallstone pancreatitis: Status: Acute Assessment and plan: Patient will be admitted for hydration/pain management and observation. We will see how her enzymes progress. She may require ERCP to extract the stone. She will eventually need her gallbladder out. We discussed surgery today and risks and benefits. We also do need to wait 5 days to allow her Plavix to wear off but she did take her Plavix this morning. I am going to start her on antibiotics as she has had multiple episodes of acute cholecystitis and has been in the hospital and there is signs of acute cholecystitis on CT Echo and CT are reviewed. I did discuss the case with anesthesia today CT GALLBLADDER/BILIARY: The gallbladder is again noted to be significantly distended. Subtle density noted in the gallbladder lumen on today's study may indicate presence of calculi. There is a tiny amount of pericholecystic fluid evident. The CBD diameter is maximum measurement 9 mm and with measurement of 6 mm at the pancreatic head level. There is no obvious mass nor radiopaque calculus within the CBD and no obvious mass in the pancreatic head. PANCREAS: Visualization of the pancreas is difficult because of the paucity of retroperitoneal and intraperitoneal fat. However, there is no obvious pancreatic mass nor dilatation pancreatic duct. No peripancreatic fluid collections. . There is again noted severe hydronephrosis of the left kidney with significantly thinned cortical mantle and dilatation of the collecting system down to a 4-5 mm size calculus within the left pelvic ureter. This calculus appears unchanged in position from CT scan of 06/21/2024. 3. Stable appearing compression fractures of T11, T12, and L1. (3) Depression with anxiety: Status: Acute (4) Hypertension: Status: Chronic Qualifiers: Hypertension type: primary hypertension Qualified Code(s): I10 - Essential (primary) hypertension (5) Urinary incontinence: Status: Acute (6) CVA (cerebral vascular accident): Status: Chronic Qualifiers: CVA mechanism: thrombosis Laterality of affected vessel: left P recerebral and cerebral artery: middle cerebral artery Qualified Code(s): I 63.312 - Cerebral infarction due to thrombosis of left middle cerebral artery (7) Osteoporosis: (8) Hydronephrosis, left: Status: Acute Assessment and plan: Functionally patient only has the right kidney. The left is nonfunctional anymore. Dr. San's plan was to repeat ultrasound on the right kidney in October and follow her function closely. There is not much that can be done for the left kidney at this time. (9) Vertebral compression fracture: Status: Acute History of Present Illness Narrative: Patient is well-known to the surgical service. She has had chronic cholecystitis/cholelithiasis for several months. She had a stroke on January 27 with which has left her with some residual numbness in left arm and leg. She does walk with a cane. She does not get any chest pain or shortness of breath when she walks. See echo in [place]. She is on aspirin and Plavix for her stroke. See Dr. Matos's consult in [facility]. She ate chili last night and had half of a sticky bun this morning and started having significant right upper quadrant pain. At the time I am seeing her in the ER she does not have very much pain anymore she has had no vomiting. She has no fever or white count. She does have a very elevated lipase and looks like she has passed or in the process of passing gallstone. Her bilirubin is 1.4 Patient states earlier this morning she was having severe abdominal. She says she has hardly any pain at this point. She would prefer to stay in the hospital today. We do need to wait for 5 days to allow the Plavix to wear off however we also want to wait for her pancreas to normalize as well I did review the case with anesthesia and they feel that she is safe to do her gallbladder at an [facility]. Review of Systems All systems reviewed & are unremarkable except as noted in HPI and below PFSH All Active Problems (Updated 08/03/24 @ 19:12 by Linda Collins DO) Vertebral compression fracture (Acute) T11, T12, L1 Gallstone pancreatitis (Acute) Cholelithiasis with acute on chronic cholecystitis (Acute) Biliary colic (Acute) Biliary obstruction (Acute) Elevated liver enzymes (Acute) Elevated bilirubin (Acute) Depression with anxiety (Acute) Urinary incontinence (Acute) CVA (cerebral vascular accident) (Chronic) Hypertension (Chronic) Sinusitis (Acute) Anterior epistaxis (Acute) Impacted cerumen, bilateral (Acute) Impacted cerumen, right ear (Acute) Eczema (Acute) 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 (Acute) Neck mass (Acute) Pelvic floor dysfunction (Acute 04/29/18) Conductive hearing loss, external ear (Acute 09/08/15) Chronic otitis externa (Acute 03/11/14) Chronic eczematous otitis externa (Acute 09/08/15) Bilateral ureteral calculi (Acute 12/24/17) Bilateral kidney stones (Acute 12/24/17) Hydronephrosis, left (Acute) Bladder stone (Acute) Medical History Osteoporosis NIURKA (acute kidney injury) Conductive hearing loss Hydronephrosis, left with stricture Gallstones Bilateral ureteral calculi Bladder stone Chronic otitis externa of both ears Pelvic floor dysfunction Surgical History Ureteroscopy, EHL, or Laser Lithotripsy Lithotripsy Hysterectomy, Total Abdominal BSO w/ George Family History Mother Stroke Social History Smoking/Tobacco Use Status: Never Smoking risk assessment performed?: Yes Alcohol Intake: never Drug use: Never Substance use type: does not use Housing: house Do you feel safe at home: Yes Do you feel safe in your relationship?: Yes Additional Social history: lives with , daughter and grandchildren. Feels like it is a very stressful situation. CHRISTINRN 01/27/24 Meds Allergies and Home Medications Allergies Allergy/AdvReac Type Severity Reaction Status Date / Time Sulfa (Sulfonamide Allergy Unknown unknown Verified 08/03/24 08:30 Antibiotics) lisinopril Allergy skin Verified 08/03/24 08:30 reactions amoxicillin (From Augmentin) AdvReac Intermediate diarrhea/severe Verified 08/03/24 08:30 muscle spasms clavulanic acid (From AdvReac Intermediate diarrhea/severe Verified 08/03/24 08:30 Augmentin) muscle spasms alendronate sodium (From AdvReac Mild muscle Verified 08/03/24 08:30 Fosamax) spasms hydrochlorothiazide AdvReac Mild nausea Verified 08/03/24 08:30 mirabegron (From Myrbetriq) AdvReac blurred Verified 08/03/24 08:30 vision Home Medications ?Medication ?Instructions ?Recorded ?Confirmed ?Type Glucosamine/Chond 2 tab PO DAILY 03/21/15 08/03/24 History Vitamin C 500 tab.chew PO DAILY 03/21/15 08/03/24 History calcium carbonate 600 mg-vitamin 1 ea PO DIRECTED 03/21/15 08/03/24 History D3 20 mcg (800 unit) chewable tablet (Caltrate 600 plus D) multivitamin (Daily Multi-Vitamin 1 ea PO DAILY 03/21/15 08/03/24 History tablet) cholecalciferol (vitamin D3) 25 1,000 unit PO DAILY 12/25/17 08/03/24 History mcg (1,000 unit) capsule (Vitamin D3) triamcinolone acetonide 0.1 % 15 gm topical BID 07/11/18 08/03/24 History topical cream denosumab 60 mg/mL subcutaneous 60 mg subcut [id number] 11/01/20 08/03/24 History syringe (Prolia) metoprolol succinate 25 mg 25 mg PO DAILY 02/20/23 08/03/24 History tablet,extended release 24 hr losartan 25 mg tablet 50 mg PO DAILY 10/23/23 08/03/24 History amlodipine 10 mg tablet 10 mg PO DAILY 01/29/24 08/03/24 History atorvastatin 40 mg tablet 40 mg PO QPM #30 tabs 01/29/24 08/03/24 Rx mometasone 0.1 % topical cream 1 applic topical DAILY 10 days #15 04/14/24 08/03/24 Rx grams clopidogrel 75 mg tablet 75 mg PO DAILY #90 tabs 06/24/24 08/03/24 Rx mirtazapine 7.5 mg tablet 7.5 mg PO QHS #90 tabs 06/24/24 08/03/24 Rx Exam Narrative Exam Narrative: PHYSICAL EXAM GENERAL APPEARANCE: Alert, healthy appearance, oriented, x 3,? in no acute distress HYDRATION: Well hydrated HEAD, EYES, EARS, NECK, THROAT: Head is normocephalic, pupils equal, round, reactive to light and accommodation, ocular movement intact, sclera clear and no jaundice. ?Dentition intact LUNGS: normal respiration/normal chest excursion. ?Clear to auscultation bilaterally. ?No wheeze. ?HEART: Regular rate and rhythm. no murmurs ABDOMEN: Minimal pain in the right upper quadrant or abdomen presently. Results Labs 08/03/24 08:47 08/03/24 08:47 Labs: Laboratory Results - last 24 hr 08/03/24 08/03/24 08/03/24 08:47 08:55 12:28 WBC 9.79 RBC 4.18 Hgb 13.4 Hct 40.8 MCV 98 H MCH 32.1 MCHC 32.8 RDW 12.4 Plt Count 207 MPV 8.7 Immature Gran % 0.3 Neutrophils % 86.6 Lymphocytes % 5.0 Monocytes % 6.4 Eosinophils % 1.2 Basophils % 0.5 Nucleated RBC % 0.0 Absolute Neutrophils 8.47 H Absolute Lymphocytes 0.49 L Absolute Monocytes 0.63 Absolute Eosinophils 0.12 Absolute Basophils 0.05 Sodium 140 Potassium 3.7 Chloride 103 Carbon Dioxide 28.1 Anion Gap 8.9 BUN 27 H Creatinine 1.1 H Est GFR (CKD-EPI 2020) 51.75 Glucose 151 H Calcium 9.6 Magnesium 1.8 Total Bilirubin 1.45 H AST 61 H ALT 53 Alkaline Phosphatase 148 H Troponin I < 50 < 50 Total Protein 7.3 Albumin 4.3 Lipase > 375 H Urine Color Yellow Urine Clarity Sl Cloudy Urine pH 6.0 Ur Specific [place] 1.025 Urine Protein 100 H Urine Ketones Negative Urine Blood Moderate H Urine Nitrite Negative Urine Bilirubin Negative Urine Urobilinogen 0.2 Ur Leukocyte Esterase Negative Urine RBC 20-50 H Urine WBC 0-2 Ur Epithelial Cells Few Urine Crystals Negative Urine Bacteria Rare Urine Mucus Negative Ur Culture Indicated? No Urine Glucose Negative Last Vital Signs Temp 36.5 C 08/03/24 08:32 Pulse 53 L 08/03/24 12:00 Resp 21 08/03/24 12:31 BP 152/53 H 08/03/24 12:00 Pulse Ox 97 09/02/24 12:31 Time Spent Time spent with Patient: 55-74 minutes Time was spent: preparing to see the patient(eg.review tests), obtaining and/or reviewing separately otained hiistory, ordering medications,tests, procedures, referring, communicating with other health critical care unit manager, indepentently interpreting results, counseling the patient, care coordination and other
[2024-08-03] MEDS: cefTRIAXone 1 GM/50 ML BAG IVPB (14:36)
[2024-08-03] MEDS: Famotidine 20 MG/2 ML VIAL IVP (14:36)
[2024-08-03] MEDS: Normal Saline 10 ML VIAL IJ (14:36)
[2024-08-03] MEDS: Pantoprazole 40 MG VIAL IVP (15:15)
[2024-08-03] MEDS: metroNIDAZOLE 500 MG/100 ML BAG 100 MG IVPB ×2 (15:21→22:23)
--- NOTE | 2024-08-03 15:27 | W.PC.ACHO ---
Registration Status: Primary Language: Preferred Language: ED Information & Data Chief Complaint Abd Prob 08/03/24 08:41 Triage Note Pt arrives to ED c/o 08/03/24 08:28 epigastric pain which started last night; keeping her awake. Pt denies N/V/D. Pt is concerned about her gallbladder Medical / Surgical History (Last Reviewed 08/03/24 @ 13:30 by Linda Collins DO) Osteoporosis NIURKA (acute kidney injury) Conductive hearing loss Hydronephrosis, left Gallstones Bilateral ureteral calculi Bladder stone Chronic otitis externa of both ears Pelvic floor dysfunction (Last Reviewed 08/03/24 @ 13:30 by Linda Collins DO) Ureteroscopy, EHL, or Laser Lithotripsy Lithotripsy Hysterectomy, Total Abdominal BSO w/ George Most Recent Vital Signs Temperature 36.5 C 08/03/24 14:50 Temperature Source Temporal Artery Scan 08/03/24 14:17 Pulse 57 L 08/03/24 14:50 Pulse Rhythm Regular 08/03/24 14:50 Respiratory Rate 18 08/03/24 14:50 Respiratory Effort Normal 08/03/24 14:50 Respiratory Depth Normal 08/03/24 14:50 Respiratory Pattern Normal 08/03/24 14:50 Blood Pressure 160/67 H 08/03/24 14:50 Blood Pressure Position Sitting 08/03/24 08:28 Pulse Oximetry 97 08/03/24 14:50 Oxygen Delivery Method Room Air 08/03/24 14:50 Oxygen Flow Rate 0 08/03/24 14:50 Pain Level 0 08/03/24 14:50 Allergies Sulfa (Sulfonamide Antibiotics) Allergy (Unknown, Verified 08/03/24 08:30) unknown lisinopril Allergy (Verified 08/03/24 08:30) skin reactions amoxicillin (From Augmentin) Adverse Reaction (Intermediate, Verified 08/03/24 08:30) diarrhea/severe muscle spasms clavulanic acid (From Augmentin) Adverse Reaction (Intermediate, Verified 08/03/24 08:30) diarrhea/severe muscle spasms alendronate sodium (From Fosamax) Adverse Reaction (Mild, Verified 08/03/24 08:30) muscle spasms hydrochlorothiazide Adverse Reaction (Mild, Verified 08/03/24 08:30) nausea mirabegron (From Myrbetriq) Adverse Reaction (Verified 08/03/24 08:30) blurred vision Precautions Isolation Standard precaution 08/03/24 08:31 Active Medications Generic Name Dose Route Start Last Admin Trade Name Donnie PRN Reason Stop Dose Admin Famotidine 20 mg 08/03/24 14:00 08/03/24 14:36 Famotidine 20 Mg/2 Ml Vial IVP 20 mg Q24H LIANA Administration Ceftriaxone Sodium/Dextrose 1 gm in 50 mls @ 100 mls/hr 08/03/24 14:00 08/03/24 15:21 Rocephin IVPB Infused Q12H LIANA Infusion Metronidazole 500 mg in 100 mls @ 100 mls/hr 08/03/24 14:00 08/03/24 15:21 Flagyl IVPB 100 mls/hr Q8H LIANA Administration Pantoprazole Sodium 40 mg 08/03/24 14:00 08/03/24 15:15 Pantoprazole 40 Mg Vial IVP 40 mg Q24H LIANA Administration Sodium Chloride 0 ml 08/03/24 13:11 08/03/24 14:37 Normal Saline Flush 10 Ml Syr IVP 10 ml PRN PRN Administration Sodium Chloride 0 ml 08/03/24 13:11 08/03/24 14:36 Normal Saline 10 Ml Vial IJ 10 ml DIRECTED PRN Administration IV IV Catheter Type [Right Saline Lock Forearm] IV Catheter Gauge [Right 20 Forearm] Diet Orders Category Date Time Status Fat Restricted [DIET] Nutrition 08/03/24 Dinner Active Diagnostics 08/03/24 08/03/24 08/03/24 Range/Units 12:28 08:55 08:47 WBC 9.79 (4.4-10.8) 10^3/uL RBC 4.18 (3.93-5.22) 10^6/uL Hgb 13.4 (11.2-15.7) g/dL Hct 40.8 (36.0-46.0) % MCV 98 H (80-95) fL MCH 32.1 (27.0-33.0) pg MCHC 32.8 (32.0-36.0) % RDW 12.4 (11.7-14.6) % Plt Count 207 (130-400) 10^3/uL MPV 8.7 (8.0-11.0) fL Immature Gran % 0.3 % Neutrophils % 86.6 % Lymphocytes % 5.0 % Monocytes % 6.4 % Eosinophils % 1.2 % Basophils % 0.5 % Nucleated RBC % 0.0 (0.0-0.3) % Absolute Neutrophils 8.47 H (1.2-6.7) 10^3/uL Absolute Lymphocytes 0.49 L (1.2-3.4) 10^3/uL Absolute Monocytes 0.63 (0.1-0.8) 10^3/uL Absolute Eosinophils 0.12 (0.0-0.7) 10^3/uL Absolute Basophils 0.05 (0.0-0.2) 10^3/uL Sodium 140 (136-145) mmol/L Potassium 3.7 (3.5-5.1) mmol/L Chloride 103 (98-107) mmol/L Carbon Dioxide 28.1 (21.0-32.0) mmol/L Anion Gap 8.9 (3-11) mmol/L BUN 27 H (7-18) mg/dL Creatinine 1.1 H (0.55-1.02) mg/dL Est GFR (CKD-EPI 2020) 51.75 (mL/min/1.73m2) Glucose 151 H (74-106) mg/dL Calcium 9.6 (8.5-10.1) mg/dL Magnesium 1.8 (1.8-2.4) mg/dL Total Bilirubin 1.45 H (0.2-1.0) mg/dL AST 61 H (15-37) U/L ALT 53 (14-59) U/L Alkaline Phosphatase 148 H (46-116) U/L Troponin I < 50 < 50 (< or =60) ng/L Total Protein 7.3 (6.4-8.2) g/dL Albumin 4.3 (3.4-5.0) g/dL Lipase > 375 H (16-77) U/L Urine Color Yellow (Yellow) Urine Clarity Sl Cloudy (Clear) Urine pH 6.0 (5-8) Ur Specific [place] 1.025 (1.005-1.025) Urine Protein 100 H (Neg-Trace) mg/dL Urine Ketones Negative (Negative) mg/dL Urine Blood Moderate H (Negative) Urine Nitrite Negative (Negative) Urine Bilirubin Negative (Negative) Urine Urobilinogen 0.2 (Up to 0.2) mg/dL Ur Leukocyte Esterase Negative (Negative) Urine RBC 20-50 H (0-2) HPF Urine WBC 0-2 (0-5) HPF Ur Epithelial Cells Few (Negative) HPF Urine Crystals Negative (Negative) HPF Urine Bacteria Rare (Negative) HPF Urine Mucus Negative (Negative) Ur Culture Indicated? No Urine Glucose Negative (Negative) mg/dL Intake and Output - 24 Hour Total 08/03/24 08:23 thru 08/03/24 15:21 Intake Total 50 Balance 50 Weight 43.998 kg Intake: IV 50 Other: Urine Appearance Clear Falls Risk Assessment History of Falls Previous History 08/03/24 14:50 Contributing Factors No Factors 08/03/24 14:50 Ambulatory Aids Uses ambulatory device + 08/03/24 14:50 Tubes/Lines With any additional score 08/03/24 14:50 Gait Evaluation No gait disturbance 08/03/24 14:50 Cognition No cognitive impairment 08/03/24 08:31 Fall Total Score 65 08/03/24 14:50 Level of Risk High Risk 08/03/24 14:50 Problems (Last Reviewed 08/03/24 @ 13:30 by Linda Collins, ) Gallstone pancreatitis (Acute) Cholelithiasis with acute on chronic cholecystitis (Acute) Depression with anxiety (Acute) Urinary incontinence (Acute) CVA (cerebral vascular accident) (Chronic) Hypertension (Chronic) v v v v v v v v v Sending and/or Receiving Nurses: Please use comment section below to note any information pertinent to the patient hand-off not included above. Information / Comments: A/O x4, C/O ABD pain, Vs WNL, uses cane for ambulation, steady gait, tolerating clear liquids. Report received from: KATHYA Trivedi
[2024-08-03] MEDS: Mirtazapine 15 MG TAB 7.5 MG PO (20:07)
[2024-08-04] MEDS: cefTRIAXone 1 GM/50 ML BAG IVPB ×2 (02:36→12:58)
[2024-08-04] MEDS: metroNIDAZOLE 500 MG/100 ML BAG 100 MG IVPB ×2 (06:13→14:21)
[2024-08-04 07:11] LABS: Abs Immature Grans 0.01 10^3/uL (0.0-0.06); Absolute Basophil Count 0.04 10^3/uL (0.0-0.2); Absolute Lymphocyte Count 0.72 10^3/uL (1.2-3.4); Absolute Monocyte Count 0.41 10^3/uL (0.1-0.8); Absolute Neutrophil Count 3.57 10^3/uL (1.2-6.7); Basophils % 0.8 %; HCT 37.1 % (36.0-46.0); HGB 12.1 g/dL (11.2-15.7); Immature Grans % 0.2 %; Lymphocytes % 14.5 %; MCH 32.4 pg (27.0-33.0); MCHC 32.6 % (32.0-36.0); MCV 99 fL (80-95); MPV 9.1 fL (8.0-11.0); Monocytes % 8.3 %; Neutrophils % 72.2 %; Platelet Count 185 10^3/uL (130-400); RBC 3.74 10^6/uL (3.93-5.22); RDW 12.6 % (11.7-14.6); RDW-SD 46.2 fL; WBC 4.95 10^3/uL (4.4-10.8)
[2024-08-04 07:30] LABS: ALT 136 U/L (14-59); AST 98 U/L (15-37); Albumin 3.4 g/dL (3.4-5.0); Alkaline Phosphatase 140 U/L (46-116); Anion Gap 5.7 mmol/L (3-11); BUN 17 mg/dL (7-18); CO2 30.3 mmol/L (21.0-32.0); CREATININE 1.1 mg/dL (0.55-1.02); Calcium 9.1 mg/dL (8.5-10.1); Chloride 107 mmol/L (98-107); Estimated GFR 51.75 (mL/min/1.73m2); Glucose 86 mg/dL (74-106); Potassium 3.7 mmol/L (3.5-5.1); Sodium 143 mmol/L (136-145); Total Protein 6.6 g/dL (6.4-8.2)
[2024-08-04 07:36] VITALS: BP 112/51; PULSE 46; RESP 15; TEMP 36.2; O2SAT 97
[2024-08-04 07:40] LABS: Lipase > 375 U/L (16-77)
[2024-08-04] MEDS: Heparin 5,000 UNITS/ML VIAL 5000 UNITS SC (08:21)
[2024-08-04] MEDS: Normal Saline Flush 10 ML SYR IVP (08:21)
--- NOTE | 2024-08-04 09:53 | W.PM.PROGNOT ---
Date of Service Date of service: 08/04/24 Time of Service: 09:53 Assessment and Plan Assessment and plan (1) Cholelithiasis with acute on chronic cholecystitis: Status: Acute (2) Gallstone pancreatitis: Status: Acute Assessment and plan: Continue with gentle IV hydration Pain management Plavix is currently on hold, needs to be held x 5 days prior to surgery. Echo and CT have been reviewed and case has been discussed with anesthesia, cleared to proceed. Encouraged sitting in the chair and ambulation throughout the day. Continue fat restricted diet. Anticipate laparoscopic cholecystectomy at the end of the week. (3) Depression with anxiety: Status: Acute (4) Hypertension: Status: Chronic Qualifiers: Hypertension type: primary hypertension Qualified Code(s): I10 - Essential (primary) hypertension (5) Urinary incontinence: Status: Acute (6) CVA (cerebral vascular accident): Status: Chronic Qualifiers: CVA mechanism: thrombosis Precerebral and cerebral artery: middle cerebral artery Laterality of affected vessel: left Qualified Code(s): I63.312 - Cerebral infarction due to thrombosis of left middle cerebral artery (7) Osteoporosis: (8) Hydronephrosis, left: Status: Acute Assessment and plan: Functionally patient only has the right kidney. The left is nonfunctional anymore. Dr. San's plan was to repeat ultrasound on the right kidney in October and follow her function closely. There is not much that can be done for the left kidney at this time. (9) Vertebral compression fracture: Status: Acute Subjective Subjective Interval history since last seen: Arrived with the patient resting comfortably in bed. She states she is feeling much better this morning. She denies any nausea, vomiting or abdominal pain at this time. Exam Const General: cooperative, healthy appearing and comfortable Orientation: alert and oriented x3 Resp Effort & Inspection: normal respiratory effort, no audible wheezes and no cough GI Inspection: normal to inspection Palpation: soft, no guarding and nontender Extrem Other: No LE edema noted on exam. Objective Last Vital Signs Temp 36.2 C L 08/04/24 07:36 Pulse 46 L 08/04/24 07:36 Resp 15 08/04/24 07:36 BP 112/51 L 08/04/24 07:36 Pulse Ox 97 08/04/24 07:36 Laboratory Results - last 24 hr 08/03/24 08/04/24 12:28 05:45 WBC 4.95 RBC 3.74 L Hgb 12.1 Hct 37.1 MCV 99 H MCH 32.4 MCHC 32.6 RDW 12.6 Plt Count 185 MPV 9.1 Immature Gran % 0.2 Neutrophils % 72.2 Lymphocytes % 14.5 Monocytes % 8.3 Eosinophils % 4.0 Basophils % 0.8 Nucleated RBC % 0.0 Absolute Neutrophils 3.57 Absolute Lymphocytes 0.72 L Absolute Monocytes 0.41 Absolute Eosinophils 0.20 Absolute Basophils 0.04 Sodium 143 Potassium 3.7 Chloride 107 Carbon Dioxide 30.3 Anion Gap 5.7 BUN 17 Creatinine 1.1 H Est GFR (CKD-EPI 2020) 51.75 Glucose 86 Calcium 9.1 Total Bilirubin 1.00 AST 98 H ALT 136 H Alkaline Phosphatase 140 H Troponin I < 50 Total Protein 6.6 Albumin 3.4 Lipase > 375 H Time Spent with Patient Time Spent with Patient: <25 minutes Time was spent: preparing to see the patient(eg.review tests) and counseling the patient
--- NOTE | 2024-08-04 10:13 | INITIAL_ITS ---
Date of service: 08/04/24 Time of Service: 10:13 Care Management Initial Assmt Initial Assessment Reason for Hospitalization: chronic cholecystitis Functional Status/Living Situation Patient Presentation: Pat was sitting up in a chair fully dressed when CM met with her. She was pleasant and engaged easily with CM, known to her from previous hospital visits. Pat informed CM that she is feeling very good. She denies pain, nausea or vomiting. She stated that she expects to be discharged home today and return later in the week for surgery to remove her gall baldder. Town of Residence: [place] Resides with: Spouse (Yahir Peterson) Significant Other/Family: Local Natural Supports: daughter and 2 grandchildren live in the home as well Employment Status: Retired Instrumental Activities of Daily Living (ADLs): Independent Medications Medication Management: No Issues/Barriers identified Physical Functioning/Mobility Assistive Device: uses a cane since her stroke Advance Directives Advance Directives: Do you have an Advance Directive: Y 03/21/24 19:19 AD On File at [facility]: Y 03/21/24 19:19 Date Asked 01/29/24 06/21/24 19:39 AD Date Reviewed 08/03/24 08/03/24 08:34 COLST On File at [facility] COLST Date Scanned Code Status Resuscitation Status Full Code Insurance Coverage/Financial Issues Insurance: [employer] Medicare Replacement Care Team Visit Care Team Role Provider Type MYCHAL BEE NP Primary Care Provider NON-[facility] STAFF PHYS ASHU Wilkins NP Emergency Provider NURSE PRACTITIONER Linda Collins DO Admit Provider OSTEOPATHIC DOCTOR Attending Provider Discharge Potential Discharge Needs: Surgical F/U Appt Anticipated Barriers to Discharge: None Identified Patient/Family Education Needs: Review discharge instructions, discuss Ask Me Three Transportation: Private vehicle Plan: Anticipate Pat will be discharged home later today and will return on or Saturday to have her gallbladder removed. She has been on Plavix and needs to be off the medication for 5 days before surgery. Pat will transport with her via private vehicle. CM will follow and continue to support discharge needs. PFSH All Active Problems (Updated 08/04/24 @ 18:43 by Linda Collins DO) Nonfunctioning kidney (Acute) left Vertebral compression fracture (Acute) T11, T12, L1 Gallstone pancreatitis (Acute) Cholelithiasis with acute on chronic cholecystitis (Acute) Biliary colic (Acute) Biliary obstruction (Acute) Elevated liver enzymes (Acute) Elevated bilirubin (Acute) Depression with anxiety (Acute) Urinary incontinence (Acute) CVA (cerebral vascular accident) (Chronic) Hypertension (Chronic) Sinusitis (Acute) Anterior epistaxis (Acute) Impacted cerumen, bilateral (Acute) Impacted cerumen, right ear (Acute) Eczema (Acute) 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 (Acute) Neck mass (Acute) Pelvic floor dysfunction (Acute 04/29/18) Conductive hearing loss, external ear (Acute 09/08/15) Chronic otitis externa (Acute 03/11/14) Chronic eczematous otitis externa (Acute 09/08/15) Bilateral ureteral calculi (Acute 12/24/17) Bilateral kidney stones (Acute 12/24/17) Hydronephrosis, left (Acute) Bladder stone (Acute) Medical History Osteoporosis NIURKA (acute kidney injury) Conductive hearing loss Hydronephrosis, left with stricture Gallstones Bilateral ureteral calculi Bladder stone Chronic otitis externa of both ears Pelvic floor dysfunction Surgical History Ureteroscopy, EHL, or Laser Lithotripsy Lithotripsy Hysterectomy, Total Abdominal BSO w/ George Family History Mother Stroke Social History Smoking/Tobacco Use Status: Never Smoking risk assessment performed?: Yes Alcohol Intake: never Drug use: Never Substance use type: does not use Housing: house Do you feel safe at home: Yes Do you feel safe in your relationship?: Yes Additional Social history: lives with , daughter and grandchildren. Feels like it is a very stressful situation. CHRISTINRN 01/27/24 [facility](Care Management) Screening Will the Patient Participate in the Screening?: Yes Do you worry about having a steady place to live?: no In the past 12 months, have you had to go without electric, gas, oil or water in your home?: no Have you or anyone in your house had to go without enough food to eat?: no Has lack of transportation kept you from medical appointments or from doing things needed for daily living?: no Has anyone in your support network made you feel unsafe for any reason?: no
[2024-08-04] MEDS: Pantoprazole 40 MG VIAL IVP (12:58)
[2024-08-04 15:15] VITALS: BP 154/59; PULSE 51; RESP 15; TEMP 36.7; O2SAT 95
--- NOTE | 2024-08-04 17:55 | DSE_ITS ---
Date of service: 08/04/24 Time of Service: 17:55 DS: Diagnosis Discharge Diagnosis (1) Cholelithiasis with acute on chronic cholecystitis: Status: Acute (2) Gallstone pancreatitis: Status: Acute (3) Depression with anxiety: Status: Acute (4) Hypertension: Status: Chronic (5) Urinary incontinence: Status: Acute (6) CVA (cerebral vascular accident): Status: Chronic (7) Osteoporosis: (8) Hydronephrosis, left: Status: Acute (9) Vertebral compression fracture: Status: Acute Discharge Plan Disposition Patient Disposition: Home Condition: Fair Discharge Details Reason For Visit: Biliary colic Admit Date/Time: 08/03/24 11:52 Admit Provider: Linda Collins Attending Provider: Linda Collins Primary Care Provider: MYCHAL BEE [facility] Course Hospital Course: see adeend Home Meds and New Rx's Prescriptions: New ondansetron 4 mg tablet,disintegrating 4 mg PO Q6H PRNQty: 10 0RF Continued losartan 25 mg tablet 50 mg PO DAILY mirtazapine 7.5 mg tablet 7.5 mg PO QHS Qty: 90 3RF Prolia 60 mg/mL syringe 60 mg subcut [id number] metoprolol succinate 25 mg tablet extended release 24 hr 25 mg PO DAILY multivitamin [Daily Multi-Vitamin] 1 EACH tablet 1 ea PO DAILY Caltrate 600 plus D 1 EACH tablet,chewable 1 ea PO DIRECTED mometasone 0.1 % cream 1 applic topical DAILY 10 Days Qty: 15 2RF amlodipine 10 mg tablet 10 mg PO DAILY Patient Comments: TAKE ONE TABLET BY MOUTH EVERY DAY atorvastatin 40 mg Tablet 40 mg PO QPM Qty: 30 0RF triamcinolone acetonide 15 GM cream 15 gm Topical BID Held clopidogrel 75 mg tablet 75 mg PO DAILY Qty: 90 3RF Hold Instructions: Resume on 08/18/24. glucosamine/chond 2 tab PO DAILY Hold Instructions: Resume on 08/18/24. cholecalciferol (vitamin D3) [Vitamin D3] 1,000 UNIT capsule 1,000 unit PO DAILY Hold Instructions: Resume on 09/01/24. Discontinued vitamin C 500 tab.chew PO DAILY Discharge Instructions Additional Instructions: -No driving for 24hrs or of you are having pain. -F/u in surgery clinic at 10am .. [facility] Surgery Clinic: [phone] -I do want you to go to the lab at 8:45am to have blood drawn -low fat diet: no pork or dairy nuts or nut butters Avoid fatty or greasy foods. High-fat foods include: ? Foods that are fried, like Italian fries and potato chips ? High-fat meats, such as stevenson, bologna, sausage, ground beef, and ribs, pork products ? High-fat dairy products, such as cheese, ice cream, cream, whole milk, and sour cream ? Pizza ? Foods made with lard or butter ? Creamy soups or sauces ? Meat gravies ? Chocolate ? Oils, such as palm and coconut oil ? Skin of chicken or turkey ? Nuts and nut butters ? Avocadoes -You may find that your appetite is smaller. Eat 3-6 small meals throughout the day. It is important to drink lots of water after being in the hospital, 6-10 glasses a day. -no straining to move bowels -if you do not move your bowels daily take a dose of OTC Miralax -Bathe as you normally would. -We do want you up walking, at least 5-6 times per day. This is very important to prevent pneumonia and blood clots. You can climb stairs, take them slowly. -You may find that you are very tired after hospitalization- this is normal. -DO NOT take aspirin/nsaids(advil/ibuprofen/aleve). Tylenol is ok. -DO NOT take plavix. -Do not take any supplements 5 days prior to anesthesia/surgery. May of these are blood thinners and /or can react w/ anesthesia. -I did prescribe zofran for nausea. -If you are having severe abdominal pain/uncontrolled nausea or vomiting/notice eyes turn yellow, please come back to the ER. Activity:: see above Equipment/Supplies:: No Equipment Needed Diet:: see above Discharge Orders Discharge Orders: Discharge Order (Routine); Ordered 08/04/24 Ordered By: Linda Collins DS: Summary Time Spent with Patient providing and/or coordinating discharge services: Greater than 30 minutes Status at Discharge Functional status at discharge: independent ambulation Overall status at discharge: patient is not back to baseline Mental Status: mental status grossly normal Speech and Movement: speech and movement normal Mood: congruent mood Affect: normal affect Quality:SDOH Health Related Social Needs: No Data to Display Exam Psych Mental Status: mental status grossly normal Speech and Movement: speech and movement normal Mood: congruent mood Affect: normal affect DS: Data Vitals/I&O Vitals and I&O: Vital Signs Temperature 36.7 C 08/04/24 15:15 Temperature Source Skin 08/04/24 15:15 Pulse 51 L 08/04/24 15:15 Pulse Rhythm Regular 08/03/24 23:40 Respiratory Rate 15 08/04/24 15:15 Respiratory Effort Normal, Non-Labored 08/03/24 23:40 Respiratory Depth Normal 08/03/24 23:40 Respiratory Pattern Normal 08/03/24 23:40 Blood Pressure 154/59 H 08/04/24 15:15 Blood Pressure Position Sitting 08/03/24 08:28 Pulse Oximetry 95 08/04/24 15:15 Oxygen Delivery Method Room Air 08/04/24 15:15 Oxygen Flow Rate 0 08/04/24 15:15 Pain Level 0 08/04/24 15:15 Intake & Output 08/03/24 08/04/24 08/04/24 23:59 11:59 23:59 Intake Total 250 / 250 150 / 790 640 / 790 Balance 250 / 250 150 / 790 640 / 790 Intake: IV 250 / 250 150 / 310 160 / 310 Oral 480 / 480 Other: Urine Color Yellow Yellow Urine Appearance Clear Clear Urine Odor Normal Comment Patient ambulating to bathroom independently; patient denies complaints or concerns pT was independent in the bathroom, says she has voided. Pt says she has voided between 10-16:00 Voiding Methods Toilet Toilet Toilet Data Completed and Pending Labs on day of discharge: Labs from last 24 hours 08/04/24 05:45 WBC 4.95 RBC 3.74 L Hgb 12.1 Hct 37.1 MCV 99 H MCH 32.4 MCHC 32.6 RDW 12.6 Plt Count 185 MPV 9.1 Immature Gran % 0.2 Neutrophils % 72.2 Lymphocytes % 14.5 Monocytes % 8.3 Eosinophils % 4.0 Basophils % 0.8 Nucleated RBC % 0.0 Absolute Neutrophils 3.57 Absolute Lymphocytes 0.72 L Absolute Monocytes 0.41 Absolute Eosinophils 0.20 Absolute Basophils 0.04 Sodium 143 Potassium 3.7 Chloride 107 Carbon Dioxide 30.3 Anion Gap 5.7 BUN 17 Creatinine 1.1 H Est GFR (CKD-EPI 2020) 51.75 Glucose 86 Calcium 9.1 Total Bilirubin 1.00 AST 98 H ALT 136 H Alkaline Phosphatase 140 H Total Protein 6.6 Albumin 3.4 Lipase > 375 H PFSH All Active Problems (Updated 08/03/24 @ 19:12 by Linda Collins DO) Vertebral compression fracture (Acute) T11, T12, L1 Gallstone pancreatitis (Acute) Cholelithiasis with acute on chronic cholecystitis (Acute) Biliary colic (Acute) Biliary obstruction (Acute) Elevated liver enzymes (Acute) Elevated bilirubin (Acute) Depression with anxiety (Acute) Urinary incontinence (Acute) CVA (cerebral vascular accident) (Chronic) Hypertension (Chronic) Sinusitis (Acute) Anterior epistaxis (Acute) Impacted cerumen, bilateral (Acute) Impacted cerumen, right ear (Acute) Eczema (Acute) 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 (Acute) Neck mass (Acute) Pelvic floor dysfunction (Acute 04/29/18) Conductive hearing loss, external ear (Acute 09/08/15) Chronic otitis externa (Acute 03/11/14) Chronic eczematous otitis externa (Acute 09/08/15) Bilateral ureteral calculi (Acute 12/24/17) Bilateral kidney stones (Acute 12/24/17) Hydronephrosis, left (Acute) Bladder stone (Acute) Medical History Osteoporosis NIURKA (acute kidney injury) Conductive hearing loss Hydronephrosis, left with stricture Gallstones Bilateral ureteral calculi Bladder stone Chronic otitis externa of both ears Pelvic floor dysfunction Surgical History Ureteroscopy, EHL, or Laser Lithotripsy Lithotripsy Hysterectomy, Total Abdominal BSO w/ George Family History Mother Stroke Social History Smoking/Tobacco Use Status: Never Smoking risk assessment performed?: Yes Alcohol Intake: never Drug use: Never Substance use type: does not use Housing: house Do you feel safe at home: Yes Do you feel safe in your relationship?: Yes Additional Social history: lives with , daughter and grandchildren. Feels like it is a very stressful situation. CHRISTIN,RN 01/27/24 Time Spent with Patient Time Spent with Patient: <45 minutes Time was spent: preparing to see the patient(eg.review tests), obtaining and/or reviewing separately otained hiistory, ordering medications,tests, procedures, referring, communicating with other health healthcare economics manager, indepentently interpreting results, counseling the patient, care coordination and other
--- NOTE | 2024-08-04 17:58 | CHAPLAIN ---
Sarah was sitting up in the chair when I visited. She said she is feeling better and will likely be discharged today and return on for surgery. Her family has been visiting and she expects in grandchildren to be in this afternoon.
--- NOTE | 2024-08-04 18:40 | W.PM.PROGNOT ---
Date of Service Date of service: 08/04/24 Time of Service: 16:30 Assessment and Plan Assessment and plan (1) Hypertension: Status: Chronic Qualifiers: Hypertension type: primary hypertension Qualified Code(s): I10 - Essential (primary) hypertension (2) Elevated liver enzymes: Status: Acute (3) Cholelithiasis with acute on chronic cholecystitis: Status: Acute (4) Gallstone pancreatitis: Status: Acute Assessment and plan: lipase is still elevated and LFT's are further elevated today pt has no pain and nausea and is tolerating clears. She did tolerate some soup and is pretty adamant we she go home. She has had no pain for the past 24hrs. We did discuss the importance of allowing her Plavix to wear off prior to surgery. Patient would rather do this at home and stay in the hospital. She feels significantly better since before she came into the hospital. We discussed the importance of staying with a low-fat diet and hydration. She does have a prescription for Zofran if she has any nausea or vomiting. I will see her in clinic on and we will repeat labs. If she has any abdominal pain or nausea and vomiting she should return to the ER. We will plan on scheduling her for surgery next Saturday. Resume all meds except for Plavix and her supplements Avoid aspirin and NSAIDs. Tylenol as I Activity as tolerated High-fiber diet All questions answered and stable for discharge. If she has any questions or concerns contact the clinic or go to the ER after hours. See discharge orders This document was created with voice activated software and may contain errors. 20 mins spent in direct pt care and 30 in non face to face time (5) Nonfunctioning kidney: Status: Acute (6) CVA (cerebral vascular accident): Status: Chronic Qualifiers: CVA mechanism: thrombosis Precerebral and cerebral artery: middle cerebral artery Laterality of affected vessel: left Qualified Code(s): I63.312 - Cerebral infarction due to thrombosis of left middle cerebral artery (7) Vertebral compression fracture: Status: Acute Subjective Subjective Interval history since last seen: Pt is doing well. no headaches. No CP or SOB. no productive cough. no dysuria. no leg pain or swelling. Pt denies any abdominal pain or nausea. She is tolerating clears. Exam Narrative Exam Narrative: L: cta b/l abdom: soft and nontender Objective Last Vital Signs Temp 36.7 C 08/04/24 15:15 Pulse 51 L 08/04/24 15:15 Resp 15 08/04/24 15:15 BP 154/59 H 08/04/24 15:15 Pulse Ox 95 08/04/24 15:15 Laboratory Results - last 24 hr 08/04/24 05:45 WBC 4.95 RBC 3.74 L Hgb 12.1 Hct 37.1 MCV 99 H MCH 32.4 MCHC 32.6 RDW 12.6 Plt Count 185 MPV 9.1 Immature Gran % 0.2 Neutrophils % 72.2 Lymphocytes % 14.5 Monocytes % 8.3 Eosinophils % 4.0 Basophils % 0.8 Nucleated RBC % 0.0 Absolute Neutrophils 3.57 Absolute Lymphocytes 0.72 L Absolute Monocytes 0.41 Absolute Eosinophils 0.20 Absolute Basophils 0.04 Sodium 143 Potassium 3.7 Chloride 107 Carbon Dioxide 30.3 Anion Gap 5.7 BUN 17 Creatinine 1.1 H Est GFR (CKD-EPI 2020) 51.75 Glucose 86 Calcium 9.1 Total Bilirubin 1.00 AST 98 H ALT 136 H Alkaline Phosphatase 140 H Total Protein 6.6 Albumin 3.4 Lipase > 375 H Time Spent with Patient Time Spent with Patient: <25 minutes Time was spent: preparing to see the patient(eg.review tests), obtaining and/or reviewing separately otained hiistory, ordering medications,tests, procedures, referring, communicating with other health patient care technician, indepentently interpreting results, counseling the patient, care coordination and other
== END 2024-08-04 18:45 | disposition home or self-care (01) | DRG 444 ==
LOC: ER 11:17 → MS 14:15
PROVIDERS: Admitting Provider Surgery; Emergency Provider Registered Nurse Emergency; PCP Nurse Practitioner Family; Visit Provider Surgery
DX: K80.12 Calculus of gallbladder with acute and chronic cholecystitis without obstruction (principal); K85.10 Biliary acute pancreatitis without necrosis or infection; N13.30 Unspecified hydronephrosis; F41.8 Other specified anxiety disorders; I10 Essential (primary) hypertension; R32 Unspecified urinary incontinence; Z86.73 Personal history of transient ischemic attack (TIA), and cerebral infarction without residual deficits; Z79.82 Long term (current) use of aspirin; Z79.01 Long term (current) use of anticoagulants
CPT/HCPCS: 36415; 80053; 83690; 93005; 99222; 99238; 99285; 74177; 81003; 81015; 83735; 84484; 85025; 93010; J0696; J1644; J1836; J2470; J3490

== ENCOUNTER 2024-08-06 08:34 | Outpatient (CLI) | payer MEDICARE, SELFPAY ==
[2024-08-06 08:57] LABS: Abs Immature Grans 0.02 10^3/uL (0.0-0.06); Absolute Basophil Count 0.04 10^3/uL (0.0-0.2); Absolute Lymphocyte Count 0.67 10^3/uL (1.2-3.4); Absolute Monocyte Count 0.37 10^3/uL (0.1-0.8); Absolute Neutrophil Count 3.95 10^3/uL (1.2-6.7); Basophils % 0.8 %; Eosinophils % 1.9 %; HCT 40.5 % (36.0-46.0); HGB 13.3 g/dL (11.2-15.7); Immature Grans % 0.4 %; MCH 32.1 pg (27.0-33.0); MCHC 32.8 % (32.0-36.0); MCV 98 fL (80-95); MPV 8.9 fL (8.0-11.0); Monocytes % 7.2 %; Neutrophils % 76.7 %; Platelet Count 211 10^3/uL (130-400); RBC 4.14 10^6/uL (3.93-5.22); RDW 12.3 % (11.7-14.6); RDW-SD 44.6 fL; WBC 5.15 10^3/uL (4.4-10.8)
[2024-08-06 09:28] LABS: ALT 82 U/L (14-59); AST 39 U/L (15-37); Albumin 4.2 g/dL (3.4-5.0); Alkaline Phosphatase 152 U/L (46-116); Anion Gap 7.9 mmol/L (3-11); BUN 16 mg/dL (7-18); Bilirubin, Total 1.46 mg/dL (0.2-1.0); CO2 29.1 mmol/L (21.0-32.0); CREATININE 1.1 mg/dL (0.55-1.02); Calcium 10.1 mg/dL (8.5-10.1); Chloride 100 mmol/L (98-107); Estimated GFR 51.75 (mL/min/1.73m2); Glucose 99 mg/dL (74-106); Potassium 4.1 mmol/L (3.5-5.1); Sodium 137 mmol/L (136-145); Total Protein 7.5 g/dL (6.4-8.2)
[2024-08-06 09:34] LABS: C-Reactive Protein < 0.50 mg/dL (<or=0.5); Lipase > 375 U/L (16-77)
== END 2024-08-06 08:35 | disposition home or self-care (01) ==
LOC: LBO 08:34
PROVIDERS: PCP Nurse Practitioner Family; Visit Provider Surgery
DX: K80.12 Calculus of gallbladder with acute and chronic cholecystitis without obstruction (principal)
CPT/HCPCS: 36415; 80053; 83690; 85025; 86140

== ENCOUNTER 2024-08-07 00:43 | Outpatient (CLI) | payer MEDICARE, SELFPAY ==
--- NOTE | 2024-08-07 07:30 | DI.MRI_ITS ---
Exam(s) MR ABDOMEN WO EXAM: MR ABDOMEN WO CLINICAL HISTORY: increasing bilirubin,elevated lft,biliary obstruction,gallstone pancreatiti TECHNIQUE: Multiplanar multisequence MRI of the Abdomen was performed. COMPARISON: MR MR ABDOMEN WO from 06/22/[address] ABDOMEN PELVIS W from 08/03/2024 FINDINGS: Lung bases: Unremarkable. Liver: There is again seen a simple cyst in the left lobe of the liver. No suspicious hepatic mass. Pancreas: Unremarkable. No peripancreatic fluid collection or pancreatic mass is seen. Gallbladder and Bile Ducts: Gallstones are present. The gallbladder is distended. The gallbladder w all is unremarkable. The extrahepatic bile duct measures 9.8 mm. No evidence of choledocholithiasis is seen. Adrenals: There is no evidence of an adrenal mass. Kidneys: The right kidney is unremarkable. There is again seen marked dilatation of the left renal c ollecting system and marked renal cortical atrophy. No renal mass is seen. Spleen: Unremarkable. Bowel: No evidence of bowel obstruction or bowel wall thickening. Aorta: Unremarkable. Soft Tissues: Unremarkable. Bone: Age-appropriate degenerative changes are seen. There is a right convex lower thoracic and lumb ar scoliosis. Thoracic and lumbar compression fractures are again seen. Lymph Nodes: Unremarkable. IMPRESSION: 1. Cholelithiasis. No gallbladder wall thickening or pericholecystic fluid. Common duct measures 9. 8 mm. No evidence of choledocholithiasis. 2. The pancreas is grossly unremarkable. No peripancreatic fluid collections are seen. DATA REPOSITORY:
== END 2024-08-07 01:03 ==
LOC: DI 00:44
PROVIDERS: PCP Nurse Practitioner Family; Visit Provider Surgery
DX: K80.12 Calculus of gallbladder with acute and chronic cholecystitis without obstruction; K85.10 Biliary acute pancreatitis without necrosis or infection
CPT/HCPCS: 74181

== ENCOUNTER 2024-08-11 10:44 | Inpatient (IN) | payer MEDICARE, SELFPAY ==
--- NOTE | 2024-08-10 12:55 | W.PM.DSUDISC ---
Discharge Plan Disposition Patient Disposition: Home Condition: Good Discharge Details Reason For Visit: gallbladder reoval Admit Provider: Linda Collins Attending Provider: Linda Collins Primary Care Provider: MYCHAL BEE Home Meds and New Rx's Prescriptions: New ondansetron 4 mg tablet,disintegrating 4 mg PO Q8H PRN4 Days Qty: 10 0RF tramadol 50 mg tablet 50 mg PO Q6H PRNQty: 14 0RF Continued losartan 25 mg tablet 50 mg PO DAILY mirtazapine 7.5 mg tablet 7.5 mg PO QHS Qty: 90 3RF clopidogrel 75 mg tablet 75 mg PO DAILY Qty: 90 3RF metoprolol succinate 25 mg tablet extended release 24 hr 25 mg PO BID lorazepam [Ativan] 0.5 mg tablet 0.5 mg PO .pre MRI PRN (Reason: anxiety) Qty: 1 0RF Rx Instructions: take 60 mins prior to MRI. 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 Prolia 60 mg/mL syringe 60 mg subcut [id number] Caltrate 600 plus D 1 EACH tablet,chewable 1 ea PO DIRECTED mometasone 0.1 % cream 1 applic topical DAILY 10 Days Qty: 15 2RF cholecalciferol (vitamin D3) [Vitamin D3] 1,000 UNIT capsule 1,000 unit PO DAILY amlodipine 10 mg tablet 10 mg PO DAILY Patient Comments: TAKE ONE TABLET BY MOUTH EVERY DAY atorvastatin 40 mg Tablet 40 mg PO QPM Qty: 30 0RF ondansetron 4 mg tablet,disintegrating 4 mg PO Q6H PRNQty: 10 0RF triamcinolone acetonide 15 GM cream 15 gm Topical BID Discharge Instructions Additional Instructions: Care after Gallbladder Surgery -Pain control: ?For the first 72 hours after surgery, take you pain meds continuously and not just when you have pain.?? Alternate Tylenol 1000mg by mouth every 8 hours, and Ibuprofen 600mg every 6 hours.? Make sure you take ibuprofen with food and not on an empty stomach.? ??Use the tramadol for breakthrough pain- pain that is greater than a 7. ?- Use ICE! Ice really helps to keep the swelling down, and swelling causes pain. ??Twenty minutes on, and then off, continuously for the first 72hours.? After the first 72hrs, you can just use the Tylenol, ibuprofen, and ice, when you have pain.?? If you are taking narcotic pain medication, follow the instructions on the label and do not drive. Pain medications can make you very constipated. Make sure you are moving your bowels daily. If not, take Miralax, - Anesthesia makes you very constipated.? Take a dose of milk of magnesia the morning after surgery. ? Use an ice bag for the first 72 hours. This helps to decrease swelling, which causes pain. It is normal to be more sore/painful and swollen towards the end of the day and first thing in the morning. ? Gallbladder surgery can make you very nauseated; use Zofran for nausea, for the first 24 hours. The nausea generally stops after 24 hours. ? Use Miralax ?to prevent constipation (this is a particular side effect of pain medication and anesthesia). Do not allow yourself to become constipated. ? Avoid fatty or greasy foods; introduce these slowly, with care, after about 1 month. High-fat foods include: ? Foods that are fried, like Georgian fries and potato chips ? High-fat meats, such as stevenson, bologna, sausage, ground beef, and ribs, pork products ? High-fat dairy products, such as cheese, ice cream, cream, whole milk, and sour cream ? Pizza ? Foods made with lard or butter ? Creamy soups or sauces ? Meat gravies ? Chocolate ? Oils, such as palm and coconut oil ? Skin of chicken or turkey ? Nuts and nut butters ? Avocadoes ? Start out eating very small, bland amounts of food. Do not take pain pills on an empty stomach. - You will notice purple discoloration around the incisions.? This is the ?skin glue?.? This will wear off on its own.? It is OK to shower after 24hrs.? You do not need to cover the incisions. -You should walk frequently, gradually, increasing the distance. You may climb stairs, just go slowly. ? Do not go swimming or sit in a hot tub for two weeks. ? There are no stitches to remove. ? Do not drive your car x72hrs and then only if you have no pain and can move freely. Do not drive if you are taking pain narcotic pain medications. ? You may resume sexual activity whenever pain and soreness subside, usually in 2 weeks. ? Do no lift anything over 5 lbs. for two weeks. ? You may return to work in one week, or when you feel able, provided you do not have to do any heavy lifting or prolonged standing. ? You should return to Dr. Collins?s office for a post-op appointment about two weeks after surgery. A follow-up should have been scheduled for you already.? If there is not, please call the [facility] at: [phone] to schedule an appointment. My Medications for pain and nausea are: Tylenol/ibuprofen ?and ultram- for severe pain ?and Zofran-nausea When to Call the Office: ? If the incision becomes red or swollen, or there is more than a little drainage from it. ? If you develop a temperature higher than 100.5 F. ? If your eyes turn yellow ? Vomiting and can?t keep fluids down Activity:: See above Diet:: See above Discharge Orders Discharge Orders: Discharge Order (Routine); Ordered 08/10/24 Ordered By: Linda Collins DS: Diagnosis Discharge Diagnosis (1) Hypertension: Status: Chronic (2) Conductive hearing loss, external ear: Status: Acute (3) Cholelithiasis with acute on chronic cholecystitis: Status: Acute (4) Gallstone pancreatitis: Status: Acute (5) CVA (cerebral vascular accident): Status: Chronic (6) Vertebral compression fracture: Status: Acute (7) Gallstones: Asessment and Plan: The patient is doing well post-op from their [] surgery.? They are having no nausea or vomiting. They are tolerating liquids and a snack. The pt is not having any chest pain or SOB.? Their pain is adequately controlled. They have been able to urinate.? ?HEENT:? no eye pain/drainage/redness/swelling. Mild sore throat ?Cardio- NSR, no chest pain, BP stable- see VS record ?Pulm: no sob or productive cough. No hemoptysis ?Incision- dressing is c/d/i w/ no excessive bleeding or drainage ?I discussed with the patient the findings at the time of surgery and the patient?s progress. ?We reviewed expectations at home; what the patient could expect for recovery time, and in the post-operative period.? We discussed the importance of walking to avoid blood clots and pneumonia.? We discussed and reviewed the patient's post-operative wound care and dressing needs.?? We reviewed their step-morejon pain management plan, Rx called to the pharmacy of their choice.? We reviewed activity and limitations-see discharge instructions. We reviewed warning signs, and when to seek medical attention- see d/c instructions.?? Patient was given a postoperative follow-up appointment. Patient verbalized understanding of their postoperative instructions, how do to take care of themselves and their incision, and the pain management plan. Please see discharge instructions.?
--- NOTE | 2024-08-10 12:59 | ROE_ITS ---
Date of service: 08/11/24 Time of Service: 11:30 Operative Note Operative Note DATE OF PROCEDURE: 08/11/24 PRE-OP DIAGNOSIS: Chronic cholecystitis cholelithiasis POST-OP DIAGNOSIS: same PROCEDURE: Attempted laparoscopic cholecystectomy converted to open cholecystectomy SURGEON: Linda Bolanos RESIDENT ASSISTANT: Yue Moreau ANESTHESIA TYPE: Local By Surgeon and General LMA/ETT Refer to Anesthesia Record ESTIMATED BLOOD LOSS: 50 PATHOLOGY: other Patient was transported to: PACU Patient's condition: stable Procedure Description: regarding acute on chronic cholecystitis, cholelithiasis. The pt has failed outpt conservative medical measures and is here today for laparoscopic cholecystectomy. Informed consent was obtained, explaining risks and benefits of the procedure including but not limited to bleeding, infection, pneumonia, blood clots, possible damage to bowel, bladder, blood vessels, bile ducts, possible open procedure, complications of general anesthesia and other unforetold complications. PROCEDURE: The patient agrees and is brought to the operative room suite and placed in supine position. Pt receives IV ICG preOp to aid w/ bile duct visualization.? Anesthesia was administered per the Department of Anesthesia. The patient did receive IV antibiotics. NG tube and Crane catheter are placed. The patient's gallbladder was palpable prior to surgery. The patient was prepped and draped in the usual sterile fashion using DuraPrep scrub solution. Pause for the cause was done. 20 mL of 1% buffered lidocaine was used for local anesthetization. Patient has had a previous vertical midline incision. A cutdown is performed in a standard fashion. A 5 mm port is placed. Insufflation is then began. The camera was inserted through the port and shows no damage to underlying structures. A 10 mm port was then placed in the epigastric position under direct visualization following creation of local field blocks as well as two 5 mm ports in the right upper quadrant. The camera was moved to one of the secondary ports so we could view the umbilical trocar site, and there is are no hernias or adhesions. The gallbladder is extremely dilated-and is approximately 8 inches in length. GBt wall is thickened and edematous. It is drained of approximately 70 cc of bile, clips were then placed across the defect. This is sent for culture. The gallbladder fundus was grasped and retracted towards the right shoulder. Infundibulum was grasped and retracted laterally. The hepat-duodenal ligament is entered. The cystic artery is dissected out, and. Endo Clips were placed across artery and these structures are divided. I am easily able to identify the common bile duct with the aid of the ICG. It is unclear as to where the fundus of the GB is vs the cystic duct with the distortion of the anatomy and the edema that is present. At this point it is decided to convert to an open procedure for patient's safety, and to prevent a bile leak.. All ports were removed and pneumoperitoneum is evacuated. The epigastric port and upper abdominal port sites are connected and a paramedian incision was made approximately 5 cm in length with a #15 blade scalpel. Next, hemostasis was obtained using electro Bovie cautery. Dissection was carried down transrectus in the midline to the posterior rectus fascia, and to extend the incision and the abdomen was entered. The gallbladder was taken Tatom down to the triangle of Calot. Using the open gallbladder fundus as a reference point, I am able to traced down to the cystic duct. Clips are placed across the duct.? The duct is ligated in between clips with a Metzenbaum scissors. . The hemostasis was obtained using the electro Bovie cautery and Surgicel. The gallbladder was then removed as specimen, sent to pathology.? The remainder of the fossa shows no active bleeding or bile leakage. The fossa was the irrigated w/ saline.? Sponge and needle counts are current.? Interceed is placed under the incision.?? The peritoneum as well as posterior rectus fascia was approximated with a running #0 Vicryl suture and then the anterior rectus fascia was closed in interrupted [id number] #0 Vicryl sutures. Skin corrie were used on the skin and sterile dressings were applied and the patient was transferred to recovery in stable condition. ??Port sites are irrigated and the skin is closed with 4-0 Monocryl in a running subcuticular fashion. Skin glue sterile dressings are applied. The patient tolerated the procedure well without complications, transferred to the recovery room in stable condition. LINDA BOLANOS, DO
[2024-08-11] VITALS (71 sets, daily range): BP systolic 98–143; BP diastolic 41–77; PULSE 48–78; RESP 7–27; TEMP 35.8–36.6; O2SAT 93–100; BMI 19.0
[2024-08-11] MEDS: Acetaminophen 500 MG TAB 1000 MG PO (06:59)
[2024-08-11] MEDS: Gabapentin 300 MG CAP 600 MG PO (06:59)
--- NOTE | 2024-08-11 07:01 | ANES.PREOP_ITS ---
General Info Date of Service Date Performed: 08/11/24 Height: 4 ft 10 in Weight: 41.2 kg Body Mass Index (BMI): 19.0 Surgical Procedure: Operation Date: 08/11/24 07:40 Proposed Procedure Side Surgeon p Cholecystectomy Laparoscopic, possible open Linda Collins, DO Meds Allergies and Home Medications Allergies Allergy/AdvReac Type Severity Reaction Status Date / Time Sulfa (Sulfonamide Allergy Unknown unknown Verified 08/11/24 06:31 Antibiotics) lisinopril Allergy skin Verified 08/11/24 06:31 reactions amoxicillin (From Augmentin) AdvReac Intermediate diarrhea/severe Verified 08/11/24 06:31 muscle spasms clavulanic acid (From AdvReac Intermediate diarrhea/severe Verified 08/11/24 06:31 Augmentin) muscle spasms alendronate sodium (From AdvReac Mild muscle Verified 08/11/24 06:31 Fosamax) spasms hydrochlorothiazide AdvReac Mild nausea Verified 08/11/24 06:31 mirabegron (From Myrbetriq) AdvReac blurred Verified 08/11/24 06:31 vision Home Medication ?Medication ?Instructions ?Recorded calcium carbonate 600 mg-vitamin 1 ea PO DIRECTED 03/21/15 D3 20 mcg (800 unit) chewable tablet (Caltrate 600 plus D) cholecalciferol (vitamin D3) 25 1,000 unit PO DAILY 12/25/17 mcg (1,000 unit) capsule (Vitamin D3) triamcinolone acetonide 0.1 % 15 gm topical BID 07/11/18 topical cream denosumab 60 mg/mL subcutaneous 60 mg subcut [id number] 11/01/20 syringe (Prolia) losartan 25 mg tablet 50 mg PO HS 10/23/23 amlodipine 10 mg tablet 10 mg PO DAILY 01/29/24 atorvastatin 40 mg tablet 40 mg PO QPM #30 tabs 01/29/24 mometasone 0.1 % topical cream 1 applic topical DAILY 10 days #15 04/14/24 grams clopidogrel 75 mg tablet 75 mg PO DAILY #90 tabs 06/24/24 mirtazapine 7.5 mg tablet 7.5 mg PO QHS #90 tabs 06/24/24 ondansetron 4 mg disintegrating 4 mg PO Q6H PRN #10 tabs 08/04/24 tablet lorazepam 0.5 mg tablet (Ativan) 0.5 mg PO .pre MRI PRN anxiety #1 08/06/24 tab metoprolol succinate 25 mg 25 mg PO BID 08/06/24 tablet,extended release 24 hr ondansetron 4 mg disintegrating 4 mg PO Q8H PRN 4 days #10 tabs 08/10/24 tablet tramadol 50 mg tablet 50 mg PO Q6H PRN #14 tabs 08/10/24 Current Visit Medications: Current Medications Generic Name Dose Route Start Last Admin Trade Name Donnie PRN Reason Stop Dose Admin Acetaminophen 1,000 mg 08/11/24 06:00 08/11/24 06:59 Acetaminophen 500 Mg Tab PO 08/11/24 23:59 1,000 mg PREOP LIANA Administration Gabapentin 600 mg 08/11/24 06:00 08/11/24 06:59 Gabapentin 300 Mg Cap PO 08/11/24 23:59 600 mg PREOP LIANA Administration Ceftriaxone Sodium/Dextrose 1 gm in 50 mls @ 100 mls/hr 08/11/24 06:00 Rocephin IVPB 08/11/24 23:59 PREOP LIANA Metronidazole 500 mg in 100 mls @ 100 mls/hr 08/11/24 06:00 Flagyl IVPB 08/11/24 23:59 PREOP LIANA Ondansetron HCl 4 mg/ Sodium 52 mls @ 200 mls/hr 08/10/24 12:32 Chloride IVPB Q6H PRN PRN Ringer's Solution 1,000 mls @ 80 mls/hr 08/11/24 06:00 IV 09/09/24 23:59 INFUSION LIANA IV Miscellaneous Supplies 1 each 08/11/24 06:00 Iv Access IV 09/09/24 23:59 DIRECTED LIANA Indocyanine Green 5 mg 08/11/24 06:00 Indocyanine Green 25 Mg Vial IVP 08/11/24 23:59 PREOP LIANA Morphine Sulfate 2 mg 08/10/24 12:32 Morphine 4 Mg/Ml Syr IVP Q1H PRN PRN Sodium Chloride 0 ml 08/11/24 06:00 Normal Saline Flush 10 Ml Syr IV 09/09/24 23:59 PRN PRN Sodium Chloride 0 ml 08/11/24 06:00 Normal Saline 10 Ml Vial IJ 09/09/24 23:59 DIRECTED PRN Sterile Water 0 ml 08/11/24 06:00 Water,Injection,Sterile 10 Ml Vial IJ 09/09/24 23:59 DIRECTED PRN Tramadol HCl 50 mg 08/10/24 12:32 Tramadol 50 Mg Tab PO Q6H PRN PRN Pain PFSH Active Problems Active Problems: Problem Status Onset Code Nonfunctioning kidney Acute N28.9 Vertebral compression fracture Acute M48.50XA Gallstone pancreatitis Acute K85.10 Cholelithiasis with acute on chronic cholecystitis Acute K80.12 Biliary colic Acute K80.50 Biliary obstruction Acute K83.1 Elevated liver enzymes Acute R74.8 Elevated bilirubin Acute R17 Depression with anxiety Acute F41.8 Urinary incontinence Acute R32 CVA (cerebral vascular accident) Chronic I63.9 Hypertension Chronic I10 Sinusitis Acute J32.9 Anterior epistaxis Acute R04.0 Impacted cerumen, bilateral Acute H61.23 Impacted cerumen, right ear Acute H61.21 Eczema Acute L30.9 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 Acute H60.8X1 Neck mass Acute R22.1 Pelvic floor dysfunction Acute 04/29/18 M62.89 Conductive hearing loss, external ear Acute 09/08/15 H90.2 Chronic otitis externa Acute 14 H60.60 Chronic eczematous otitis externa Acute 09/08/15 H60.8X9 Bilateral ureteral calculi Acute 12/24/17 N20.1 Bilateral kidney stones Acute 12/24/17 N20.0 Hydronephrosis, left Acute N13.30 Bladder stone Acute N21.0 Medical History Medical History Osteoporosis NIURKA (acute kidney injury) Conductive hearing loss Hydronephrosis, left with stricture Gallstones Bilateral ureteral calculi Bladder stone Chronic otitis externa of both ears Pelvic floor dysfunction Surgical History Surgical History Ureteroscopy, EHL, or Laser Lithotripsy Lithotripsy Hysterectomy, Total Abdominal BSO w/ George Tobacco Smoking/Tobacco Use Status: Never Alcohol Alcohol Intake: never Substance Use Substance use: Never Substance use type: does not use Vital Signs and Lab Results Vital Signs Most Recent Vital Signs in EMR: Most Recent Vital Signs Temp Pulse Resp BP Pulse Ox 36.3 C L 57 L 16 143/52 H 100 08/11/24 06:20 08/11/24 06:20 08/11/24 06:20 08/11/24 06:20 08/11/24 06:20 Lab Results Blood Type / Crossmatch: 2 No Data to Display Complete Blood Count: 2 White Blood Count 5.15 10^3/uL (4.4-10.8) 08/06/24 08:43 Red Blood Count 4.14 10^6/uL (3.93-5.22) 08/06/24 08:43 Hemoglobin 13.3 g/dL (11.2-15.7) 08/06/24 08:43 Hematocrit 40.5 % (36.0-46.0) 08/06/24 08:43 Platelet Count 211 10^3/uL (130-400) 08/06/24 08:43 Complete Metabolic Panel: 2 Sodium 137 mmol/L (136-145) 08/06/24 08:43 Potassium 4.1 mmol/L (3.5-5.1) 08/06/24 08:43 Chloride 100 mmol/L (98-107) 08/06/24 08:43 Carbon Dioxide 29.1 mmol/L (21.0-32.0) 08/06/24 08:43 BUN 16 mg/dL (7-18) 08/06/24 08:43 Creatinine 1.1 mg/dL (0.55-1.02) H 08/06/24 08:43 Est GFR (CKD-EPI 2020) 51.75 (mL/min/1.73m2) 08/06/24 08:43 Magnesium 1.8 mg/dL (1.8-2.4) 08/03/24 08:47 Calcium 10.1 mg/dL (8.5-10.1) 08/06/24 08:43 Albumin 4.2 g/dL (3.4-5.0) 08/06/24 08:43 Glucose 99 mg/dL (74-106) 08/06/24 08:43 C-Reactive Protein < 0.50 mg/dL (<or=0.5) 08/06/24 08:43 Liver Function Panel: 2 Alanine Aminotransferase (ALT/SGPT) 82 U/L (14-59) H 08/06/24 0 8:43 Aspartate Amino Transf (AST/SGOT) 39 U/L (15-37) H 08/06/24 08: 43 Coagulation Panel: 2 No Data to Display Cardiac Panel: 2 Troponin I < 50 ng/L (< or =60) 08/03/24 Arterial Blood Gas: 2 No Data to Display Venous Blood Gas: 2 No Data to Display Pancreas Panel: 2 Lipase > 375 U/L (16-77) H 08/06/24 08:43 Thyroid Panel: 2 No Data to Display Infectious Disease: 2 No Data to Display Blood Cultures: 2 No Data to Display Toxicology Panel: 2 No Data to Display Imaging and Studies Imaging and Studies Study information below may be from another EMR and interpreted by another provider. Please see original notes in EMR for more complete details. EKG Summary: EKG PATIENT NAME: Sarah Peterson UNIT #: [id number] ORDERING PROVIDER: Alessandra Wilkins NP PRIMARY CARE PROVIDER: MYCHAL BEE NP DATE/TIME OF SERVICE: 08/03/24832 : 1945 PERFORMING LOCATION: [place] APPROVED REPORT Exam: Resting ECG Reason for Exam: Epigastric pain Patient Location: E HR:55 bpm ECG Measurements Heart Rate 55 AXIS NH 156 P 69 QRSd 79 QRS 33 QT 451 T56 QTc 433 Conclusion Sinus bradycardia...rate< 60 ST elevation, consider inferior injury...ST >0.08mV, II III aVF no stemi - <Electronically signed by ZAHEER JOHNSON MD in [place]> E-Sign Date: 08/03/24 E-Sign Time: 0839 ADDENDUM APPROVED REPORT Exam: Resting ECG Reason for Exam: Epigastric pain Patient Location: E HR:55 bpm ECG Measurements Heart Rate 55 AXIS NH 156 P 69 QRSd 79 QRS 33 QT 451 T56 QTc 433 Conclusion Sinus bradycardia...rate< 60 ST elevation, consider inferior injury...ST >0.08mV, II III aVF no stemi I have reviewed and I agree with the emergency room physician's ECG interpretation. Electronically signed by: <Electronically signed by Evonne Gorman M.D. in [place]> 08/04/24 0814 Cosigned by: Echocardiogram Summary: Patient Name: Sarah Peterson Unit #: [id number] Loc: [place] Ordering Provider: Joanne Juan APRN Status: ADM IN Primary Care Provider: MYCHAL BEE NP Date of Exam: 01/28/24 Sex: F Admission Date: 01/27/24 : 1945 Age: 78 APPROVED REPORT EXAM: Comprehensive 2D, Doppler, and color-flow Echocardiogram Patient Location: In-Patient Room/Bed: [facility] [employer] Manager: Mallory Rai RDCS (AE) Indications: Stroke, HTN Echo Enhancing Agent Indication: Rule out Shunt Agent(s) / Amount(s) Used: Agitated Saline 30.0 cc Comments: Contrast study was performed with 3 IV injections of 10ccs of agitated normal saline, at rest, with cough and post valsalva maneuver. Negative contrast study for shunt flow. Other Information Study Quality: Good Conclusion Normal left ventricular wall thickness and chamber size. Ejection fraction is 5 9%. Wall motion is normal. Diastolic function is normal for age Normal right ventricular size and function Left atrium is mildly dilated. Right atrial size is normal No intracardiac shunting is identified with injection of agitated saline There is no structural or hemodynamically significant valvular disease Wall motion Left Ventricle The left ventricle is normal size. The left ventricular systolic function is normal. The left ventricular ejection fraction is within the normal range. There is normal left ventricular wall thickness. There is normal LV segmental wall motion. There is no ventricular septal defect visualized. LVEF is 59%. Right Ventricle The right ventricle is normal size. The right ventricular systolic function is normal. Atria Left atrium is mildly dilated. Right atrium is normal The interatrial septum is intact with no evidence for an atrial septal defect. Saline bubble contrast intravenous injection does not demonstrate PFO. Aortic Valve Aortic valve is trileaflet. There is no aortic valvular stenosis. No aortic regurgitation is present. Mitral Valve The mitral valve is normal in structure. No evidence of mitral valve stenosis. Trace mitral regurgitation. Tricuspid Valve The tricuspid valve is normal in structure. There is no tricuspid valve stenosis. Trace tricuspid regurgitation. The RVSP is 18.9 mmHg. Pulmonic Valve The pulmonary valve is normal in structure. There is no pulmonic valvular stenosis. Trace pulmonic regurgitation. Great Vessels The aortic root is normal in size. Ascending aorta is not well visualized. Aortic arch is normal in caliber. IVC is normal in size and collapses >50% with inspiration. Pericardium There is no pericardial effusion. 2D Dimensions IVSD d PLAX 0.80 cm F: 0.6-1.0Ao Root d 2.62 cm F: 2.7 - 3.3 LVPW d PLAX 0.84 cm F: 0.6 - 1.0 LVID d PLAX 4.00 cm F: 3.8 - 5.2 LVDs 2.66 cm F: 2.2 - 3.5 LV EF Teichholz 61.9 % FS32.83 % LV EDV (Teich)68.2 mL LV ESV (Teich)26.0 mL M-Mode TAPSE 2.00 cm (M/F) >1.7 Auto EF LV EDV A4C70.9 mLLV EDV A2C81.5 mLLV EDV BP76.7 mL LV ESV A4C30.0 mLLV ESV A2C34.3 mLLV ESV BP31.4 mL LVEF(%) A4C57.7 %LVEF(%) A2C58.0 %LVEF(%) BP59.0 % LV SV A4C40.9 mlLV SV A2C47.2 mlLV SV BP45.2 ml LV CO A4C2.3 L/minLV CO A2C2.7 L/minLV CO BP2.5 L/min HR A4C55.56 BPMHR A2C56.43 BPMLV EDV Index (BP) LV Strain Long Pk Overal Avg (s) 18.21 LA Volume LA Length A4C4.6 cmLA Length A2C4.5 cm LA Area A4C s 14.51 cm2LA Area A2C s 12.62 cm2 LA Vol A4C A-L38.85 mLLA Vol A2C A-L30.07 mLLA Vol Biplane A-L34.6 mL LA Vol/BSA A4C A-LLA Vol/BSA A2C A-LLA Vol/BSA BP A-L 47.4 mL/m2 LA Vol A4C MOD35.4 mLLA Vol A2C MOD27.9 mLLA Vol BP MOD31.5 mL RA Volume RA Area A4C9.9 cm2RA ESV A4C (A-L)21.2mLRA Vol/BSA A4C A-L RA Length A4C4.0 cmRA ESV A4C (MOD)20.1mL LV Diastology MV E' medial0.061 (>0.07 m/s)MV E Vmax 0.69 (0.4-1.3 m/s) MV E/E' MED11.29 (<14)MV A Vmax 0.95 (0.4-1.3 m/s) MV E' lateral0.103 (>0.1 m/s)E/A Ratio 0.7 MV E/E' LAT6.73 (<14) MV E' Average0.082 m/s MV E/E'(average)8.43 Aortic Valve AoV Vmax1.31 m/sLVOT Vmax 1.17 m/s AoV Peak Grad6.9 mmHgLVOT Peak Grad 5.5 mmHg AoV Area (Vmax)2.78 [id number] VTI0.276 m AoV VTI0.315 mLVOT Mean Grad 2.7 mmHg AoV Mean Orestes.0.88 m/sLVOT SV 85.86 mL AoV Mean Grad3.6 mmHgLVOT Diam s 1.95 cm AoV Area (VTI)2.73 cm2 Velocity Ratio 0.89 Mitral Valve MV DT 271 (160-240 msec) MV Vmax TIPS 0.87 m/s MV Mean Grad 1.1 (<2mmHg) MV VTI 0.369 m Pulmonary Valve PV Vmax 0.88 (0.5-1.5 m/s)RVOT Vmax 0.75 m/s PV Peak Grad 3.1 mmHgRVOT Peak Gr.2.2 mmHg PV Mean Vel0.65 m/sRVOT VTI0.163 m PV Mean Grad 1.9 mmHgRVOT Mean Gr.1.3 mmHg Tricuspid Valve RA Pressure 3.00 mmHgTR Vmax 1.99 m/s TV S'0.15 m/sTR Peak Grad 15.9 mmHg RVSP (TR) 18.9 mmHg Ordered By: Joanne Juan APRN CC: Dictated By: Evonne Gorman M.D. 01/28/24 1117 <Electronically signed by Evonne Gorman M.D. in [place]> 01/28/24 1157 Transcribed By: Evonne Gorman MD 01/28/241116 This is privileged, confidential information intended only for the provider named. Any use or distribution by any person other than this provider is strictly prohibited. If you receive this report in error, please notify us immediately at [phone] and return the original report to us at the address above. Thank-you. Anesthesia Assessment and Plan Anesthesia History Personal History: No History of Anesthesia Complications Family History: No Family History of Anesthesia Complications Exercise Tolerance Exercise Tolerance: Metabolic Equivalents>4 Pertinent Negatives Pertinent Negatives: No Symptoms of GERD and No Major Pulmonary Symptoms or Complaints Cardiac & Pulmonary Exam Cardiac Exam: Normal S1/S2 Heart Sounds Pulmonary Exam: Clear Bilateral Breath Sounds Implantable Cardiac Device Does patient have a Pacemaker or an ICD?: No Airway Exam Known Difficult Airway: No Mallampati Class: 2 Mouth Opening: Normal (> 3cm) Thyromental Distance: Greater than 3 cm Neck Range of Motion: Full ROM Neck Circumference: Normal Teeth Condition: Normal Dentition Tooth Numberin 1. indicates one broken tooth in this region ASA Classification ASA Score: ASA 3 Emergency Case?: No NPO Status NPO Status: NPO Clears >2 hours, Solids >8 hours Anesthesia Plan Resuscitation Status: Full Code Anesthesia Technique: General Anesthesia Airway Planned: Endotracheal Tube Monitors Used: Standard Monitors Preoperative Comments:: Discussed higher, but tolerable, risk due to CVA this year. Patient aware and wishes to proceed. Discussed possible needs to escalate care such as arterial line. Patient is a full code status.
[2024-08-11] MEDS: Lactated Ringers 1,000 ML 80 ML IV (07:10)
[2024-08-11] MEDS: metroNIDAZOLE 500 MG/100 ML BAG 100 MG IVPB ×3 (07:13→23:16)
[2024-08-11] MEDS: Indocyanine green 25 MG VIAL 5 MG IVP (07:23)
[2024-08-11] MEDS: cefTRIAXone 1 GM/50 ML BAG IVPB (08:05)
--- NOTE | 2024-08-11 09:30 | GB_PTH ---
PATIENT: Sarah Peterson LOC: U#:[id number] AGE/SX: 78/F ROOM: RE08/11/[address]: Linda Collins : 1945 BED: A DIS: 08/13/2024 SPEC #: [id number] RECD: 08/11/24 12:51 STATUS: LEONOR REQ #: [id number] SEEMA: 08/11/24 09:[address]: Linda Collins DEPT: Surgical Specimen RECD BY: Phuong Galindo ENTERED: 08/11/24 12:52 SP TYPE: GB OTHR DR: MYCHAL BEE, BERNARDINO [facility] Tissues: 1 - GALLBLADDER Procedures: GROSS AND MICRO LEVEL 3 Comments: [id number]
[2024-08-11] MEDS: Bupivacaine 0.25% Pres-Free W/EPI 30 ML VIAL (09:53)
[2024-08-11] MEDS: Cellulose,Oxidized 4X8 1 PACKET MC (09:53)
--- NOTE | 2024-08-11 11:00 | W.BRIEF ---
Date of service: 08/11/24 Time of Service: 11:00 Brief Operative Note Procedure/Pre & Post Op Diagnoses/Regulator Tester: Operation Date: 08/11/24 07:40 Actual Procedures p Cholecystectomy Laparoscopic converted to Open(Not Applicable) - Linda Collins DO Pre-Op Diagnosis: Gallstones Post-Op Diagnosis: Gallstones Case Staff Physician Regulator Tester: Yue Moreau Anesthesia Anesthesia Type: Local By Surgeon and General LMA/ETT Estimated Blood Loss Output, Estimated Blood Loss 50 Amount Specimen/Culture Specimen(s): Gallbladder Culture(s): Gallbladder Bile for cultures Complications Complications: None Additional Procedure Notes Note: IV fluid was 400 crystalloid NG tube 10 cc Urine is 100 cc EBL is 50 cc
[2024-08-11] MEDS: ePHEDrine 25 MG/5 ML Syringe IVP ×3 (11:08→11:42)
--- NOTE | 2024-08-11 12:16 | W.ANESPOSTOP ---
Postoperative Evaluation Date, Time and Location Date Performed: 08/11/24 Time Performed: 12:16 Patient Location: PACU Vital Signs Most Recent Imported Vital Signs: Most Recent Vital Signs Temp Pulse Resp BP Pulse Ox 36.5 C 57 L 17 119/56 L 99 08/11/24 12:10 08/11/24 12:11 08/11/24 12:11 08/11/24 12:11 08/11/24 12:11 Pain Score Most Recent Pain Score: Most Recent Pain Score Pain Level 0 08/11/24 12:10 Assessment Mental Status: Arousable with meaningful communication Airway and Respiratory Function: Patent airway with normal (patient baseline) respiratory exam Cardiovascular Function: Hemodynamically Stable Hydration Status: Adequately Hydrated Nausea & Vomiting: No Nausea or Vomiting Pain: Pt. Denies Any Pain Peripheral Nerve Block: Patient did not receive a nerve block
--- NOTE | 2024-08-11 13:07 | PGE_ITS ---
Date of Service Date of service: 08/11/24 Time of Service: 13:08 Assessment and Plan Assessment and plan (1) S/P cholecystectomy: Assessment and plan: The patient is doing well post-op. Their pain is well controlled. They are having no nausea or vomiting. The pt is not having any chest pain or SOB, productive cough; no calf pain or swelling. The pt is making good urine. The pt pain is adequately controlled. The case was discussed with nursing and patient?s progress reviewed. All of the pt's home medications were addressed and adjusted accordingly for their oral intact status. HEENT: no jaundice. no eye pain/drainage/redness/swelling. Mild sore throat Cardio- NSR no chest pain, BP stable. Pulm: no sob or productive cough. no hemoptysis Incision- clean/dry. Dressing intact no excessive bleeding or drainage I discussed with the patient and/or there family about the findings in surgery and the pt's progress. We reviewed expectations for progress in the hospital; what the pt could expect for recovery time and length of stay. We discussed the importance of walking and pulmonary toilet to avoid blood clots and pneumonia. Continue current plans for pulmonary toilet, GI and DVT prophylaxis. We shall continue the current plan for pain management as it is at an appropriate level, and working well for the pt. Appropriate measures will be taken for constipation prevention, and this was also reviewed with the pt. The wound care plan was reviewed with nursing as well. Systolic is 115. Stable but probably a little low for her. I discussed with ICU nurses if it remains this low we should probably hold her evening blood pressure medications. see orders (2) Cholelithiasis with acute on chronic cholecystitis: Status: Acute (3) Gallstone pancreatitis: Status: Acute (4) Nonfunctioning kidney: Status: Acute (5) Pelvic floor dysfunction: Status: Acute (6) CVA (cerebral vascular accident): Status: Chronic Qualifiers: CVA mechanism: thrombosis Laterality of affected vessel: left Precerebral and cerebral artery: middle cerebral artery Qualified Code(s): I63.312 - Cerebral infarction due to thrombosis of left middle cerebral artery (7) Vertebral compression fracture: Status: Acute (8) Hypertension: Status: Chronic Qualifiers: Hypertension type: primary hypertension Qualified Code(s): I10 - Essential (primary) hypertension (9) Depression with anxiety: Status: Acute (10) Osteoporosis: Objective Last Vital Signs Temp 36.5 C 08/11/24 12:10 Pulse 57 L 08/11/24 12:11 Resp 17 08/11/24 12:11 BP 119/56 L 08/11/24 12:11 Pulse Ox 99 08/11/24 12:11 Time Spent with Patient Time Spent with Patient: <25 minutes Time was spent: preparing to see the patient(eg.review tests), obtaining and/or reviewing separately otained hiistory, ordering medications,tests, procedures, referring, communicating with other health adult care provider, indepentently interpreting results, counseling the patient, care coordination and other
--- NOTE | 2024-08-11 13:15 | PHACLINREV_ITS ---
Pharmacy Admission Review Admission Clinical Review Admission Pharmacy Review: Nonfunctioning kidney (Acute) Vertebral compression fracture (Acute) Gallstone pancreatitis (Acute) Cholelithiasis with acute on chronic cholecystitis (Acute) Depression with anxiety (Acute) Pelvic floor dysfunction (Acute 04/29/18) Sulfa (Sulfonamide Antibiotics) Allergy (Unknown, Verified 08/11/24 06:31) unknown lisinopril Allergy (Verified 08/11/24 06:31) skin reactions amoxicillin (From Augmentin) Adverse Reaction (Intermediate, Verified 08/11/24 06:31) diarrhea/severe muscle spasms clavulanic acid (From Augmentin) Adverse Reaction (Intermediate, Verified 08/11/24 06:31) diarrhea/severe muscle spasms alendronate sodium (From Fosamax) Adverse Reaction (Mild, Verified 08/11/24 06:31) muscle spasms hydrochlorothiazide Adverse Reaction (Mild, Verified 08/11/24 06:31) nausea mirabegron (From Myrbetriq) Adverse Reaction (Verified 08/11/24 06:31) blurred vision Resuscitation Status Full Code Height 4 ft 10 in Weight 41.2 kg Comments Comments/Follow Ups: Follow up with nursing regarding home meds if they do not get back today Pharmacy Admission Review Renal Dosing Medications needing adjustments: Reviewed (CrCl 27.2 mL/min) List of meds needing interventions: Current medications are okay Anticoagulation DVT Prophylaxis: Reviewed Medications: Heparin (q8h) Opiate Usage Evaluate Pain Scale/Pains Meds: Reviewed (PRN morphine - no doses given so far) Scheduled Bowel Reg ordered if on Opiates?: No Relevant Labs Electrolytes, C-Reactive P, ESR: Reviewed Cardiac Review Cardiac Review: Blood Pressure 119/56 1211 Blood Pressure 118/54 1206 Blood Pressure 126/47 1201 Blood Pressure 118/44 1156 Blood Pressure 140/48 1151 Blood Pressure 119/53 1146 Blood Pressure 116/47 1142 Blood Pressure 116/41 1141 Blood Pressure 125/49 1136 BP, HR, EF%: Reviewed (HR 57) List meds needing interventions: Patient is on amlodipine 10mg daily, losartan 50mg daily, and metoprolol 25mg XL BID QTc Review QTc: Reviewed (433 from 08/03/24) IV to PO Switch IV Medications: Reviewed (acetaminophen, ceftriaxone, metronidazole, o ndansetron) Home Meds Home Med List reviewed: Intervened Relevent Home Meds Not ordered & why?: atorvastatin, calcium carbonate, vitamin D3, clopidogrel, Prolia (every 6 months) and mirtazapine Reached out to provider regarding: atorvastatin, clopidogrel and mirtazapine. Per provider these are being held for now. On home med list it says patient takes losartan 50mg HS but prescription is written as 25mg BID. It also says that patient takes 25mg XL BID but prescription is written as 25mg XL once daily. Called nursing to see if these could be verified with the patient. Waiting fish conservationist back. Current Meds Current Medication Order Review: Intervened Comments: Discontinued preop orders that were completed Discontinued duplicate order for tramadol Pharmacy Antibiotic Review Relevant Labs: Temperature 36.0 C Temperature 36.5 C Temperature 36.5 C Temperature 36.5 C Temperature 36.5 C Temperature 36.5 C Temperature 36.5 C Temperature 36.5 C Temperature 36.5 C Pharmacy Antibiotic Activity: Reviewed, no change Comments: Patient is POD #0 on ceftriaxone and metronidazole. Cultures from gallbladder bile is pending. Comments Comments/Follow Ups: Follow up with nursing regarding home meds if they do not get back today
[2024-08-11] MEDS: ACETAMINOPHEN 1,000 MG/100 ML BTL 400 MG IVPB ×2 (13:36→22:57)
--- NOTE | 2024-08-11 14:29 | W.ANESPOSTOP ---
Postoperative Evaluation Date, Time and Location Date Performed: 08/11/24 Time Performed: 11:26 Patient Location: PACU Vital Signs Most Recent Imported Vital Signs: Most Recent Vital Signs Temp Pulse Resp BP Pulse Ox 36.0 C L 60 8 L 115/62 97 08/11/24 13:07 08/11/24 13:07 08/11/24 13:07 08/11/24 13:07 08/11/24 13:07 Most Recent Vital Signs Temp Pulse Resp BP Pulse Ox 36.5 C 57 L 17 119/56 L 99 08/11/24 12:10 08/11/24 12:11 08/11/24 12:11 08/11/24 12:11 08/11/24 12:11 Reviewed 1126 VS and stable Pain Score Most Recent Pain Score: Most Recent Pain Score Pain Level 0 08/11/24 13:07 Assessment Mental Status: Arousable with meaningful communication Airway and Respiratory Function: Patent airway with normal (patient baseline) respiratory exam Cardiovascular Function: Hemodynamically Stable Hydration Status: Adequately Hydrated Nausea & Vomiting: No Nausea or Vomiting Pain: Pt. Denies Any Pain Peripheral Nerve Block: Patient did not receive a nerve block
[2024-08-11] MEDS: DEXTROSE 5%-0.45% SALINE 1,000 ML 75 ML IV (16:35)
--- NOTE | 2024-08-11 17:58 | IN_ITS ---
PT Notes Visit Reasons: S/P [facility] Therapy Evaluation Date: 08/11/2024 Referring Doctor: Dr. Collins PT Orders: PT CONSULT: PT evaluation and treat Precautions: Standard, fall risk KARLOS drain right abdomen, Crane catheter, telemetry, IV right hand Patient Profile/Admitting Diagnosis: Patient is 78-year-old female admitted for open cholecystectomy due to gallstone pancreatitis, Cholelistiasis with acute on chronic cholecystitis. Patient transferred to ICU for continued monitoring and medical management PT consult placed. PMHX: CVA, Vertebral compression fracture, depression with anxiety, urinary incontinence, sinusitis, anterior epistaxis, eczema, neck mass, pelvic floor dysfunction, conductive hearing loss, bilateral kidney stones, left hydronephrosis, bladder stone. Social History/Home Situation: Patient resides with no stairs to enter 1 level home. Patient independent ambulation with single-point cane. Patient independent cooking ADLs, med management and light housekeeping. Equipment Owned/DME: Single-point cane Subjective: Patient reports feeling groggy from surgery but wanting to try to walk. Objective: [] General Observation: Side-lying in bed with IV infusing, telemetry in place Crane catheter to bedside drainage. Patient agreeable to participate in evaluation. Patient with slight dysarthria. Mental Status: Alert and oriented x 3 Pain: Denies Vital Signs: Monitored by telemetry ROM: Right Upper Extremity: Within normal limits Left Upper Extremity: [] Within normal limits Right Lower Extremity: Within normal limits Left Lower Extremity: Within normal limits Strength: Right Upper Extremity: 5/5 Left Upper Extremity: 5/5 Right Lower Extremity: Hip 3 -/5, knee extension 3/5, knee flexion 3 -/5, ankle 3/5 Left Lower Extremity: Hip 3 -/5 knee 3 -/5 ankle 3 -/5 dorsiflexion Sensation: Intact denies numbness and tingling Bed Mobility/Transfers: Supine?sit min assist Sit?supine min assist lower extremities Sit to stand min assist with single-point cane to steady Stand to sit CGA with verbal and tactile cues for hand placement Bed to chair with single-point cane min assist Chair to bed with single-point cane min assist Gait: Ambulates with single-point cane mod assist 17 feet demonstrating the following gait deviations decreased step length increased forward flexion of trunk, decreased step height left greater than right, excessive trunk sway, Balance: [] Static Sitting: Fair Dynamic Sitting: Fair minus Static Standing: Fair minus Dynamic Standin+ Special Tests: Mobility Limitations Standardized Measure [facility] 6 clicks Basic Mobility Inpatient Short Form: Raw Score: 13 CMS Score: 64.91% disability Informed Consent/Education: Patient instructed in purpose of PT consult and plan of care. Assessment: Patient is a 78year old female referred to physical therapy services with the diagnosis of gallstone pancreatitis and cholecystitis. Patient presents with clinical signs and symptoms consistent with admitting diagnosis , as demonstrated by the following impairment level findings: 1. Decreased strength bilateral upper and lower extremity major muscle groups 2. Decreased balance in standing 3. Decreased activity tolerance in standing and sitting 4. Excessive trunk flexion in standing Impairments are contributing to the following functional limitations: 1. AMPAC score. 2. Decline in bed mobility skills 3. Declining transfer skills 4. Difficulty with ambulation without assistive device and physical assistance 5. Increased completion time for mobility/ADL performance 6. Increased risk for falls 7. Difficulty with managing steps alone safely Patient is assessed as a Moderate 17053 complexity based on the following: History: Patient is 78-year-old female presenting with complex past medical history and comorbidities including CVA and vertebral fractures Examination: Demonstrates impairments in strength balance and mobility level with underlying impairments and functional limitations as stated above as well as deficits score of 64.91% utilizing the [facility] mobility inpatient Short form. Presentation: Evolving Decision Making: Moderate Goals: Goals X1 week 1. Supine-Sit independent 2. Sit-Supine independent 3. Sit-Stand [] independent 4. Stand-Sit independent 5. Bed-Chair independent with single-point cane 6. Chair-Bed independent with single-point cane 7. independent with single-point cane <200 feet 9. Independent with home exercise program [] Plan of Care/Treatment Plan: Patient will benefit from skilled PT services including functional mobility training bed mobility transfer training, gait and balance training therapeutic exercise therapeutic activity, caregiver family education and training 1-2x/day, 7 days/week x 1 week. Plan of care has been reviewed with the FACTORY CLERK providing the service under Physical Therapy direction. Initiate Physical Therapy intervention for strengthening, bed mobility, transfers, gait, stairs, balance training, use of assistive device. DISCHARGE RECOMMENDATIONS: [] [] Home with no services [] [X] Home with services HH PT versus short-term SNF depending on progress [] Home with outpatient PT [] [] SNF for continued rehabilitation [] [] Penitentiary Care [] [] SNF versus LTC based on ability to participate and progress [] TREATMENT CODE/TIME: 29391, [id number] Please sign an return this page within 30 days if you agree with the above POC. Thank you! Physician Signature Date [facility]
[2024-08-12] VITALS (26 sets, daily range): BP systolic 95–122; BP diastolic 44–60; PULSE 46–64; RESP 9–26; TEMP 36.4–36.9; O2SAT 95–98
[2024-08-12 05:16] LABS: Abs Immature Grans 0.03 10^3/uL (0.0-0.06); Absolute Basophil Count 0.01 10^3/uL (0.0-0.2); Absolute Lymphocyte Count 0.32 10^3/uL (1.2-3.4); Absolute Monocyte Count 0.72 10^3/uL (0.1-0.8); Absolute Neutrophil Count 9.22 10^3/uL (1.2-6.7); Basophils % 0.1 %; HCT 33.4 % (36.0-46.0); HGB 11.5 g/dL (11.2-15.7); Immature Grans % 0.3 %; Lymphocytes % 3.1 %; MCH 32.3 pg (27.0-33.0); MCHC 34.4 % (32.0-36.0); MCV 94 fL (80-95); MPV 9.2 fL (8.0-11.0); Neutrophils % 89.5 %; Platelet Count 197 10^3/uL (130-400); RBC 3.56 10^6/uL (3.93-5.22); RDW 12.1 % (11.7-14.6)
[2024-08-12 05:32] LABS: ALT 60 U/L (14-59); AST 49 U/L (15-37); Albumin 3.2 g/dL (3.4-5.0); Alkaline Phosphatase 129 U/L (46-116); BUN 9 mg/dL (7-18); Bilirubin, Total 0.63 mg/dL (0.2-1.0); Calcium 8.3 mg/dL (8.5-10.1); Chloride 104 mmol/L (98-107); Estimated GFR 58.02 (mL/min/1.73m2); Glucose 176 mg/dL (74-106); Potassium 4.3 mmol/L (3.5-5.1); Sodium 138 mmol/L (136-145)
[2024-08-12] MEDS: metroNIDAZOLE 500 MG/100 ML BAG 100 MG IVPB ×3 (05:50→22:51)
[2024-08-12] MEDS: DEXTROSE 5%-0.45% SALINE 1,000 ML 75 ML IV (05:57)
[2024-08-12] MEDS: traMADol 50 MG TAB PO ×2 (06:03→13:47)
[2024-08-12] MEDS: Normal Saline Flush 10 ML SYR IV (06:57)
--- NOTE | 2024-08-12 07:15 | W.PM.PROGNOT ---
Date of Service Date of service: 08/12/24 Time of Service: 07:16 Assessment and Plan Assessment and plan (1) S/P cholecystectomy: Assessment and plan: POD #1 s/p open cholecystectomy with Dr. Collins. Pain fairly well controlled. Will increase activity today and see how this goes. Ramsey in place with great urine output. Will d/c later this morning. KARLOS drain with old sanginous drainage. No signs to suggest a bile leak. ELISEO dressing in place functioning normally. Normotensive this morning. Two soft BPs in the very early AM. Will continue to monitor. Pulmonary toilet Encouraged activity OOB, sitting in the chair and up for meals. Low Fat Diet. P// Monitor BP, increase physical activity today, ensure pain control and will d/c ramsey later this morning. (2) Cholelithiasis with acute on chronic cholecystitis: Status: Acute (3) Gallstone pancreatitis: Status: Acute (4) Nonfunctioning kidney: Status: Acute (5) Pelvic floor dysfunction: Status: Acute (6) CVA (cerebral vascular accident): Status: Chronic Qualifiers: CVA mechanism: thrombosis Precerebral and cerebral artery: middle cerebral artery Laterality of affected vessel: left Qualified Code(s): I63.312 - Cerebral infarction due to thrombosis of left middle cerebral artery (7) Vertebral compression fracture: Status: Acute (8) Hypertension: Status: Chronic Qualifiers: Hypertension type: primary hypertension Qualified Code(s): I10 - Essential (primary) hypertension (9) Depression with anxiety: Status: Acute (10) Osteoporosis: Subjective Subjective Interval history since last seen: Arrive with Pat resting comfortably in bed. She states she had increased discomfort this morning, 5/10PL which has started to improve since having tramadol. She denies any chest pain, SOB, fevers or chills. Exam Const General: cooperative, healthy appearing and comfortable Orientation: alert and oriented x3 Resp Effort & Inspection: normal respiratory effort, no audible wheezes and no cough GI Other: Soft. tender to palpation. KARLOS drain in place with dark colored blood. ELISEO dressing over the RUQ incision. Other: Ramsey in place with yellow colored urine noted. Objective Last Vital Signs Temp 36.1 C L 08/11/24 19:58 Pulse 57 L 08/12/24 06:01 Resp 18 08/12/24 06:01 BP 103/51 L 08/12/24 06:01 Pulse Ox 97 08/12/24 06:01 Laboratory Results - last 24 hr 08/12/24 05:00 WBC 10.30 RBC 3.56 L Hgb 11.5 Hct 33.4 L MCV 94 MCH 32.3 MCHC 34.4 RDW 12.1 Plt Count 197 MPV 9.2 Immature Gran % 0.3 Neutrophils % 89.5 Lymphocytes % 3.1 Monocytes % 7.0 Eosinophils % 0.0 Basophils % 0.1 Nucleated RBC % 0.0 Absolute Neutrophils 9.22 H Absolute Lymphocytes 0.32 L Absolute Monocytes 0.72 Absolute Eosinophils 0.00 Absolute Basophils 0.01 Sodium 138 Potassium 4.3 Chloride 104 Carbon Dioxide 27.0 Anion Gap 7.0 BUN 9 Creatinine 1.0 Est GFR (CKD-EPI 2020) 58.02 Glucose 176 H Calcium 8.3 L Total Bilirubin 0.63 AST 49 H ALT 60 H Alkaline Phosphatase 129 H Total Protein 6.0 L Albumin 3.2 L Time Spent with Patient Time Spent with Patient: <25 minutes Time was spent: preparing to see the patient(eg.review tests), indepentently interpreting results and counseling the patient
--- NOTE | 2024-08-12 08:22 | W.PM.PROGNOT ---
Date of Service Date of service: 08/12/24 Time of Service: 08:22 Assessment and Plan Assessment and plan (1) Gallstone pancreatitis: Status: Acute Assessment and plan: 78-year-old woman postop day 1 from open cholecystectomy. Hemodynamically stable and doing well. No clinical concerns. Overall plan: # Out of ICU # adv diet as tolerated # Heplock IVF # non-narcotic analgesia if possible # DVT ppx # OOB # De-escalate ABx in next 24 hours. Subjective Subjective Interval history since last seen: No complaints. Reports pain is manageable. Tolerating clear liquids. No nausea. No fevers. Has been out of bed to the chair. Exam Narrative Exam Narrative: General: Nontoxic, comfortable and interactive. Neuro: Alert and oriented x 3 Psych: Excellent mood and affect, good insight and understanding into her condition Chest: Nonlabored breathing, no shortness of breath Heart: Regular Abdomen: Soft, nondistended, appropriate tenderness. Incisions are stained but otherwise dry and intact. The KARLOS drain has scant serosanguineous output - No bile. Objective Last Vital Signs Temp 97.0 F L 08/11/24 19:58 Pulse 57 L 08/12/24 06:01 Resp 15 08/12/24 07:00 BP 103/51 L 08/12/24 06:01 Pulse Ox 96 08/12/24 07:00 Laboratory Results - last 24 hr 08/12/24 05:00 WBC 10.30 RBC 3.56 L Hgb 11.5 Hct 33.4 L MCV 94 MCH 32.3 MCHC 34.4 RDW 12.1 Plt Count 197 MPV 9.2 Immature Gran % 0.3 Neutrophils % 89.5 Lymphocytes % 3.1 Monocytes % 7.0 Eosinophils % 0.0 Basophils % 0.1 Nucleated RBC % 0.0 Absolute Neutrophils 9.22 H Absolute Lymphocytes 0.32 L Absolute Monocytes 0.72 Absolute Eosinophils 0.00 Absolute Basophils 0.01 Sodium 138 Potassium 4.3 Chloride 104 Carbon Dioxide 27.0 Anion Gap 7.0 BUN 9 Creatinine 1.0 Est GFR (CKD-EPI 2020) 58.02 Glucose 176 H Calcium 8.3 L Total Bilirubin 0.63 AST 49 H ALT 60 H Alkaline Phosphatase 129 H Total Protein 6.0 L Albumin 3.2 L Time Spent with Patient Time Spent with Patient: <25 minutes Time was spent: preparing to see the patient(eg.review tests), obtaining and/or reviewing separately otained hiistory, ordering medications,tests, procedures, referring, communicating with other health director of healthcare systems, indepentently interpreting results, counseling the patient and care coordination
--- NOTE | 2024-08-12 08:24 | INITIAL_ITS ---
Date of service: 08/12/24 Time of Service: 08:24 Care Management Initial Assmt Initial Assessment Reason for Hospitalization: Cholecystectomy Functional Status/Living Situation Patient Presentation: Pat was sitting up in bed visiting with her when CM met with her. She was pleasant in manner and engaged easily with CM, well known to her from previous hospitalizations. Pat had an open cholecystectomy yesterday.She shared that her pain is fairly well controlled on oral medication and she has been able to tolerate a regular diet. Pat worked with PT today and they are recommending home health PT to which Marisa is agreeable. Pat reported that she may be discharged home tomorrow if she continues to do well. Town of Residence: [place] Resides with: Spouse (Yahir) Significant Other/Family: Local Employment Status: Retired Instrumental Activities of Daily Living (ADLs): Independent Medications Medication Management: No Issues/Barriers identified Advance Directives Advance Directives: Do you have an Advance Directive: Y 03/21/24 19:19 AD On File at [facility]: Y 03/21/24 19:19 Date Asked 01/29/24 06/21/24 19:39 AD Date Reviewed 08/11/24 08/07/24 15:22 COLST On File at [facility] COLST Date Scanned Code Status Resuscitation Status Full Code Insurance Coverage/Financial Issues Insurance: [employer] Medicare replacement Care Team Visit Care Team Role Provider Type MYCHAL BEE NP Primary Care Provider NON-[facility] STAFF PHYSICIAN InPatient [facility] Other Providers OTHER Linda Collins DO Admit Provider OSTEOPATHIC DOCTOR Attending Provider Discharge Potential Discharge Needs: PCP F/U Appt and Surgical F/U Appt Anticipated Barriers to Discharge: None Identified Patient/Family Education Needs: Review discharge instructions, discuss Ask Me Three Transportation: Private vehicle Plan: Anticipate Pat will be discharged home with new home health services for nursing and PT when medically cleared. She will follow up with her PCP, surgeon and plan of care and transport with family. CM will continue to follow and assess for discharge needs. PFSH All Active Problems (Updated 08/11/24 @ 13:09 by Linda Collins DO) Nonfunctioning kidney (Acute) left Vertebral compression fracture (Acute) T11, T12, L1 Gallstone pancreatitis (Acute) Cholelithiasis with acute on chronic cholecystitis (Acute) Depression with anxiety (Acute) Urinary incontinence (Acute) CVA (cerebral vascular accident) (Chronic) Hypertension (Chronic) Sinusitis (Acute) Anterior epistaxis (Acute) Impacted cerumen, bilateral (Acute) Impacted cerumen, right ear (Acute) Eczema (Acute) 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 (Acute) Neck mass (Acute) Pelvic floor dysfunction (Acute 04/29/18) Conductive hearing loss, external ear (Acute 09/08/15) Chronic otitis externa (Acute 03/11/14) Chronic eczematous otitis externa (Acute 09/08/15) Bilateral ureteral calculi (Acute 12/24/17) Bilateral kidney stones (Acute 12/24/17) Hydronephrosis, left (Acute) Bladder stone (Acute) Medical History (Updated 08/11/24 @ 13:09 by Linda Collins DO) Biliary colic Biliary obstruction Elevated liver enzymes Elevated bilirubin Osteoporosis NIURKA (acute kidney injury) Conductive hearing loss Hydronephrosis, left with stricture Gallstones Bilateral ureteral calculi Bladder stone Chronic otitis externa of both ears Pelvic floor dysfunction Surgical History (Updated 08/11/24 @ 14:07 by Sheryl Melvin) S/P cholecystectomy (~08/2024) Ureteroscopy, EHL, or Laser Lithotripsy Lithotripsy Hysterectomy, Total Abdominal BSO w/ George Family History Mother Stroke Social History Smoking/Tobacco Use Status: Never Smoking risk assessment performed?: Yes Alcohol Intake: never Drug use: Never Substance use type: does not use Housing: house Additional Social history: [facility] SDOH(Care Management) Screening Will the Patient Participate in the Screening?: Unable to obtain Social Determinants of Health Comments(SDOH Details): Pt arrived from PACU s/p cholecystectomy and responsive to verbal stimuli although lethargic.
[2024-08-12] MEDS: ACETAMINOPHEN 1,000 MG/100 ML BTL 400 MG IVPB ×2 (09:44→17:19)
[2024-08-12] MEDS: Metoprolol CR 25 MG TABCR PO ×2 (09:45→20:14)
[2024-08-12] MEDS: cefTRIAXone 1 GM/50 ML BAG IVPB (09:46)
[2024-08-12] MEDS: amLODIPine 10 MG TAB PO (09:46)
[2024-08-12] MEDS: Heparin 5,000 UNITS/ML VIAL 5000 UNITS SC ×2 (10:01→22:49)
--- NOTE | 2024-08-12 13:00 | PT.INTREAT ---
PT Notes Visit Reasons: S/P Open [facility] Treatment Note [facility] Date: 08/12/2024 PRECAUTIONS: IV, KARLOS drain to right abdomen Crane catheter SUBJECTIVE: Patient reports feeling much better getting a good night sleep OBJECTIVE: Patient alert on side in bed with IV infusing. Patient agreeable to participate in out of bed activities ? PAIN: Patient reports her incision hurts a little . VITALS: ?monitored by Nursing via telemetry Therapeutic Activities (16238): Direct one-on-one instruction in dynamic activities to improve functional performance. ? BED MOBILITY/TRANSFERS? Rolling L/R: supervision Supine-sit:CGA ? Sit-supine: CGA with increased time d/t abdominal discomfort? Sit-stand: min A slightly retropulsive initially on stand? Stand-sit: CGA? Bed-Chair: CGA with FWW? Chair-bed: CGA with FWW Provided skilled cues and instruction on performance and technique throughout. ? Assistive Device: FWW ? Weight bearing: Full Assist: Min assist? Distance: 20 feet ? Deviation: Decreased step length, increased forward flexion of trunk , ? ASSESSMENT: Patient demonstrates increased tolerance to out of bed tasks on this date. Patient continues to require use of FWW versus her cane due to decreased balance during functional mobility PLAN: Continue strengthening, bed mobility, transfer, balance, gait and stair training until medically appropriate for discharge TREATMENT CODE/TIME: 14445/ [id number]; DISCHARGE RECOMMENDATION: Home with HHPT
--- NOTE | 2024-08-12 16:19 | W.PC.ACHO ---
Registration Status: Primary Language: Preferred Language: Medical / Surgical History (Last Updated 08/11/24 @ 13:09 by Linda Collins DO) Biliary colic Biliary obstruction Elevated liver enzymes Elevated bilirubin Osteoporosis NIURKA (acute kidney injury) Conductive hearing loss Hydronephrosis, left Gallstones Bilateral ureteral calculi Bladder stone Chronic otitis externa of both ears Pelvic floor dysfunction (Last Updated 08/11/24 @ 14:07 by Sheryl Melvin) S/P cholecystectomy (~08/2024) Ureteroscopy, EHL, or Laser Lithotripsy Lithotripsy Hysterectomy, Total Abdominal BSO w/ George Most Recent Vital Signs Temperature 36.1 C L 08/11/24 19:58 Temperature Source Temporal Artery Scan 08/11/24 19:58 Pulse 56 L 08/12/24 12:01 Pulse Rhythm Regular 08/11/24 06:20 Pulse 49 L 08/12/24 14:00 Respiratory Rate 18 08/12/24 14:00 Respiratory Effort Non-Labored 08/11/24 13:07 Respiratory Depth Normal 08/11/24 06:20 Respiratory Pattern Bradypnea 08/11/24 13:07 Blood Pressure 115/53 L 08/12/24 12:01 Blood Pressure Mean 72 08/12/24 12:01 Blood Pressure Position Supine 08/11/24 13:07 Pulse Oximetry 98 08/12/24 09:00 Respiratory End-tidal CO2 31 08/11/24 12:15 Oxygen Delivery Method Room Air 08/11/24 14:30 Oxygen Flow Rate 0 08/11/24 14:30 Pain Level 5 08/12/24 13:47 Allergies Sulfa (Sulfonamide Antibiotics) Allergy (Unknown, Verified 08/11/24 06:31) unknown lisinopril Allergy (Verified 08/11/24 06:31) skin reactions amoxicillin (From Augmentin) Adverse Reaction (Intermediate, Verified 08/11/24 06:31) diarrhea/severe muscle spasms clavulanic acid (From Augmentin) Adverse Reaction (Intermediate, Verified 08/11/24 06:31) diarrhea/severe muscle spasms alendronate sodium (From Fosamax) Adverse Reaction (Mild, Verified 08/11/24 06:31) muscle spasms hydrochlorothiazide Adverse Reaction (Mild, Verified 08/11/24 06:31) nausea mirabegron (From Myrbetriq) Adverse Reaction (Verified 08/11/24 06:31) blurred vision Active Medications Generic Name Dose Route Start Last Admin Trade Name Freq PRN Reason Stop Dose Admin Amlodipine Besylate 10 mg 08/12/24 08:30 08/12/24 09:46 Amlodipine 10 Mg Tab PO 10 mg DAILY LIANA Administration Metronidazole 500 mg in 100 mls @ 100 mls/hr 08/11/24 14:00 08/12/24 13:56 Flagyl IVPB 100 mls/hr Q8H LIANA Administration Ceftriaxone Sodium/Dextrose 1 gm in 50 mls @ 100 mls/hr 08/12/24 08:00 08/12/24 10:15 Rocephin IVPB Infused Q24H LIANA Infusion Acetaminophen 1,000 mg in 100 mls @ 400 mls/hr 08/12/24 10:00 08/12/24 10:00 Ofirmev IVPB Infused Q8H LIANA Infusion Losartan Potassium 50 mg 08/11/24 20:00 08/11/24 19:24 Losartan 25 Mg Tab PO Not Given HS LIANA Metoprolol Succinate 25 mg 08/11/24 20:00 08/12/24 09:45 Metoprolol Cr 25 Mg Tabcr PO 25 mg BID LIANA Administration Sodium Chloride 0 ml 08/11/24 06:00 08/12/24 06:57 Normal Saline Flush 10 Ml Syr IV 09/09/24 23:59 30 ml PRN PRN Administration Tramadol HCl 50 mg 08/11/24 10:53 08/12/24 13:47 Tramadol 50 Mg Tab PO 50 mg Q4H PRN PRN Administration IV IV Catheter Type [Right Upper Peripheral IV arm] IV Catheter Type [Right Hand] Saline Lock IV Catheter Gauge [Right Upper 20 arm] IV Catheter Gauge [Right Hand] 20 Diet Orders Category Date Time Status Fat Restricted [DIET] Nutrition 08/12/24 Lunch Active Diagnostics 08/12/24 Range/Units 05:00 WBC 10.30 (4.4-10.8) 10^3/uL RBC 3.56 L (3.93-5.22) 10^6/uL Hgb 11.5 (11.2-15.7) g/dL Hct 33.4 L (36.0-46.0) % MCV 94 (80-95) fL MCH 32.3 (27.0-33.0) pg MCHC 34.4 (32.0-36.0) % RDW 12.1 (11.7-14.6) % Plt Count 197 (130-400) 10^3/uL MPV 9.2 (8.0-11.0) fL Immature Gran % 0.3 % Neutrophils % 89.5 % Lymphocytes % 3.1 % Monocytes % 7.0 % Eosinophils % 0.0 % Basophils % 0.1 % Nucleated RBC % 0.0 (0.0-0.3) % Absolute Neutrophils 9.22 H (1.2-6.7) 10^3/uL Absolute Lymphocytes 0.32 L (1.2-3.4) 10^3/uL Absolute Monocytes 0.72 (0.1-0.8) 10^3/uL Absolute Eosinophils 0.00 (0.0-0.7) 10^3/uL Absolute Basophils 0.01 (0.0-0.2) 10^3/uL Sodium 138 (136-145) mmol/L Potassium 4.3 (3.5-5.1) mmol/L Chloride 104 (98-107) mmol/L Carbon Dioxide 27.0 (21.0-32.0) mmol/L Anion Gap 7.0 (3-11) mmol/L BUN 9 (7-18) mg/dL Creatinine 1.0 (0.55-1.02) mg/dL Est GFR (CKD-EPI 2020) 58.02 (mL/min/1.73m2) Glucose 176 H (74-106) mg/dL Calcium 8.3 L (8.5-10.1) mg/dL Total Bilirubin 0.63 (0.2-1.0) mg/dL AST 49 H (15-37) U/L ALT 60 H (14-59) U/L Alkaline Phosphatase 129 H (46-116) U/L Total Protein 6.0 L (6.4-8.2) g/dL Albumin 3.2 L (3.4-5.0) g/dL 08/11/24 08:40 Surgical Culture - Preliminary Gallbladder - Bile Gram Stain - Final Intake and Output - 24 Hour Total 08/06/24 13:57 thru 08/12/24 11:16 Intake Total 2697.666 Output Total 1435 Balance 1262.666 Weight 42.5 kg Intake: IV 2559.666 Oral 80 Injectate 58 Right Upper Abdomen 58 Output: Drainage 135 Right Upper Abdomen 135 Urine 1175 Emesis 75 Estimated Blood Loss 50 Other: Urine Color Light Paige Urine Appearance Clear Comment History of S/P hysterectomy. Emesis Description None Urinary Catheter Urinary Catheter Date of 08/11/24 Insertion [Urethral (Crane)] Time of insertion [Urethral ( 08:00 Crane)] Problems (Last Updated 08/11/24 @ 13:09 by Linda Collins, DO) Nonfunctioning kidney (Acute) Vertebral compression fracture (Acute) Gallstone pancreatitis (Acute) Cholelithiasis with acute on chronic cholecystitis (Acute) Depression with anxiety (Acute) CVA (cerebral vascular accident) (Chronic) Hypertension (Chronic) Pelvic floor dysfunction (Acute 04/29/18) v v v v v v v v v Sending and/or Receiving Nurses: Please use comment section below to note any information pertinent to the patient hand-off not included above. Information / Comments: pt arrives to rm 206 via WC from ICU room 219. is in room w/ pt. Report received from: KATHYA Dorsey
--- NOTE | 2024-08-12 16:43 | CHAPLAIN ---
I had a brief visit with Pat when she was in the ICU. I explained my role and offered support.
[2024-08-12] MEDS: Losartan 25 MG TAB 50 MG PO (20:14)
[2024-08-13] MEDS: ACETAMINOPHEN 1,000 MG/100 ML BTL 400 MG IVPB ×2 (01:07→09:37)
[2024-08-13] MEDS: metroNIDAZOLE 500 MG/100 ML BAG 100 MG IVPB (06:31)
[2024-08-13 09:29] VITALS: BP 145/50; PULSE 56; RESP 16; TEMP 37.4; O2SAT 98
[2024-08-13] MEDS: Heparin 5,000 UNITS/ML VIAL 5000 UNITS SC (09:32)
[2024-08-13] MEDS: cefTRIAXone 1 GM/50 ML BAG IVPB (09:33)
[2024-08-13] MEDS: amLODIPine 10 MG TAB PO (09:33)
[2024-08-13] MEDS: Metoprolol CR 25 MG TABCR PO (09:33)
--- NOTE | 2024-08-13 09:48 | PDOC.CMPRO ---
Date of service: 08/13/24 Time of Service: 09:48 Care Management Progress Note Discharge Potential Discharge Needs: PCP F/U Appt and Surgical F/U Appt Anticipated Barriers to Discharge: Medical Status Patient/Family Education Needs: Review discharge instructions, discuss Ask Me Three Transportation: Private vehicle Plan: Anticipate Pat will be discharged home with new home health services for nursing and PT when medically cleared. She will follow up with her PCP, surgeon and plan of care and transport with family. CM will continue to follow and assess for discharge needs. SDOH(Care Management) Screening Will the Patient Participate in the Screening?: Unable to obtain Social Determinants of Health Comments(SDOH Details): Pt arrived from PACU s/p cholecystectomy and responsive to verbal stimuli although lethargic.
--- NOTE | 2024-08-13 10:05 | DSE_ITS ---
Date of service: 08/13/24 Time of Service: 10:05 DS: Diagnosis Discharge Diagnosis (1) Gallstone pancreatitis: Status: Acute Discharge Plan Disposition Patient Disposition: Home Condition: Good Discharge Details Reason For Visit: S/P Open Rosa Admit Date/Time: 08/11/24 10:44 Admit Provider: Linda Collins Attending Provider: Linda Collins Primary Care Provider: MYCHAL BEE Hospital Course Hospital Course: pleasant 78 yo female presented for elective lap cholecystectomy on 08/11. The patient had a laparoscopic cholecystectomy converted to open procedure. Postoperatively she was sent to the ICU for high level of care. The patient remained stable and had an uneventful postoperative course. Today, the patient meets criteria for discharge home with [facility] for Physical therapy. Home Meds and New Rx's Prescriptions: New ondansetron 4 mg tablet,disintegrating 4 mg PO Q8H PRN4 Days Qty: 10 0RF tramadol 50 mg tablet 50 mg PO Q6H PRNQty: 14 0RF Continued losartan 25 mg tablet 50 mg PO HS mirtazapine 7.5 mg tablet 7.5 mg PO QHS Qty: 90 3RF Patient Comments: pt reports not taking anymore clopidogrel 75 mg tablet 75 mg PO DAILY Qty: 90 3RF metoprolol succinate 25 mg tablet extended release 24 hr 25 mg PO BID lorazepam [Ativan] 0.5 mg tablet 0.5 mg PO .pre MRI PRN (Reason: anxiety) Qty: 1 0RF Rx Instructions: take 60 mins prior to MRI. 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 Prolia 60 mg/mL syringe 60 mg subcut [id number] Patient Comments: Not exactly sure; beginning of July Caltrate 600 plus D 1 EACH tablet,chewable 1 ea PO DIRECTED mometasone 0.1 % cream 1 applic topical DAILY 10 Days Qty: 15 2RF cholecalciferol (vitamin D3) [Vitamin D3] 1,000 UNIT capsule 1,000 unit PO DAILY amlodipine 10 mg tablet 10 mg PO DAILY Patient Comments: TAKE ONE TABLET BY MOUTH EVERY DAY atorvastatin 40 mg Tablet 40 mg PO QPM Qty: 30 0RF ondansetron 4 mg tablet,disintegrating 4 mg PO Q6H PRNQty: 10 0RF triamcinolone acetonide 15 GM cream 15 gm Topical BID Discharge Instructions Additional Instructions: Care after Gallbladder Surgery -Pain control: ?For the first 72 hours after surgery, take you pain meds continuously and not just when you have pain.?? Alternate Tylenol 1000mg by mouth every 8 hours, and Ibuprofen 600mg every 6 hours.? Make sure you take ibuprofen with food and not on an empty stomach.? ??Use the tramadol for breakthrough pain- pain that is greater than a 7. ?- Use ICE! Ice really helps to keep the swelling down, and swelling causes pain. ??Twenty minutes on, and then off, continuously for the first 72hours.? After the first 72hrs, you can just use the Tylenol, ibuprofen, and ice, when you have pain.?? If you are taking narcotic pain medication, follow the instructions on the label and do not drive. Pain medications can make you very constipated. Make sure you are moving your bowels daily. If not, take Miralax, - Anesthesia makes you very constipated.? Take a dose of milk of magnesia the morning after surgery. ? Use an ice bag for the first 72 hours. This helps to decrease swelling, which causes pain. It is normal to be more sore/painful and swollen towards the end of the day and first thing in the morning. ? Gallbladder surgery can make you very nauseated; use Zofran for nausea, for the first 24 hours. The nausea generally stops after 24 hours. ? Use Miralax ?to prevent constipation (this is a particular side effect of pain medication and anesthesia). Do not allow yourself to become constipated. ? Avoid fatty or greasy foods; introduce these slowly, with care, after about 1 month. High-fat foods include: ? Foods that are fried, like Qatari fries and potato chips ? High-fat meats, such as stevenson, bologna, sausage, ground beef, and ribs, pork products ? High-fat dairy products, such as cheese, ice cream, cream, whole milk, and sour cream ? Pizza ? Foods made with lard or butter ? Creamy soups or sauces ? Meat gravies ? Chocolate ? Oils, such as palm and coconut oil ? Skin of chicken or turkey ? Nuts and nut butters ? Avocadoes ? Start out eating very small, bland amounts of food. Do not take pain pills on an empty stomach. - You will notice purple discoloration around the incisions.? This is the ?skin glue?.? This will wear off on its own.? It is OK to shower after 24hrs.? You do not need to cover the incisions. -You should walk frequently, gradually, increasing the distance. You may climb stairs, just go slowly. ? Do not go swimming or sit in a hot tub for two weeks. ? There are no stitches to remove. ? Do not drive your car x72hrs and then only if you have no pain and can move freely. Do not drive if you are taking pain narcotic pain medications. ? You may resume sexual activity whenever pain and soreness subside, usually in 2 weeks. ? Do no lift anything over 5 lbs. for two weeks. ? You may return to work in one week, or when you feel able, provided you do not have to do any heavy lifting or prolonged standing. ? You should return to Dr. Collins?s office for a post-op appointment about two weeks after surgery. A follow-up should have been scheduled for you already.? If there is not, please call the [facility] at: [phone] to schedule an appointment. My Medications for pain and nausea are: Tylenol/ibuprofen ?and ultram- for severe pain ?and Zofran-nausea May restart plavix on Saturday08/15/2024 When to Call the Office: ? If the incision becomes red or swollen, or there is more than a little drainage from it. ? If you develop a temperature higher than 100.5 F. ? If your eyes turn yellow ? Vomiting and can?t keep fluids down Referrals: Linda Collins, DO [OSTEOPATHIC DOCTOR] - Activity:: See above Equipment/Supplies:: No Equipment Needed Diet:: See above Discharge Orders Discharge Orders: Discharge Order (Routine); Ordered 08/10/24 Ordered By: Linda Collins DS: Summary Summary Time spent discussing smoking cessation with patient: 3 to 10 minutes Time Spent with Patient providing and/or coordinating discharge services: Greater than 30 minutes Status at Discharge Functional status at discharge: independent ambulation Overall status at discharge: patient is back to baseline Mental Status: mental status grossly normal Speech and Movement: speech and movement normal Mood: congruent mood Affect: normal affect Quality:SDOH Health Related Social Needs: No Data to Display Exam Const General: cooperative, healthy appearing, comfortable and no acute distress Eyes General: appearance normal, both eyes and all related structures Alignment and Position: alignment normal Sclera: sclerae normal Chest Chest: normal inspection of the chest Cardio Jugular venous pressure: no JVD Rate: regular rate Rhythm: regular rhythm Heart Sounds: S1 normal and S2 normal GI Inspection: normal to inspection Palpation: soft Other: incision is clean/dry/intact. KARLOS drain with serosanginous drainage. 40cc/24 hrs. KARLOS drained removed on exam. 20cc present active bowel sounds Extrem General: normal to inspection, full ROM and clubbing, cyanosis or edema noted Psych Mental Status: mental status grossly normal Speech and Movement: speech and movement normal Mood: congruent mood Affect: normal affect DS: Data Vitals/I&O Vitals and I&O: Vital Signs Temperature 99.3 F 08/13/24 09:29 Temperature Source Temporal Artery Scan 08/13/24 09:29 Pulse 56 L 08/13/24 09:29 Pulse Rhythm Regular 08/11/24 06:20 Pulse 49 L 08/12/24 14:00 Respiratory Rate 16 08/13/24 09:29 Respiratory Effort Non-Labored 08/11/24 13:07 Respiratory Depth Normal 08/11/24 06:20 Respiratory Pattern Bradypnea 08/11/24 13:07 Blood Pressure 145/50 H 08/13/24 09:29 Blood Pressure Mean 72 08/12/24 12:01 Blood Pressure Position Supine 08/11/24 13:07 Pulse Oximetry 98 08/13/24 09:29 Respiratory End-tidal CO2 31 08/11/24 12:15 Oxygen Delivery Method Room Air 08/13/24 09:29 Oxygen Flow Rate 0 08/13/24 09:29 Pain Level 0 08/13/24 09:29 Intake & Output 08/12/24 08/12/24 08/13/24 11:59 23:59 11:59 Intake Total 1378.333 / 2580.833 1202.5 / 2580.833 100 / 100 Output Total 2014 Balance 403.333 / 565.833 162.5 / 565.833 100 / 100 Weight 42.5 kg Intake: IV 1348.333 / 2430.833 1082.5 / 2430.833 100 / 100 Oral 120 / 120 Injectate 30 / 30 Right Upper Abdomen 30 / 30 Output: Drainage 40 / 40 Right Upper Abdomen 40 / 40 Urine 1974 / 1974 Other: Urine Color Light Paige Yellow Urine Appearance Clear Clear Comment See d/c completion order. Data Completed and Pending Labs on day of discharge: 08/11/24 08:40 Gallbladder - Bile Anaerobic Culture - Pending Preliminary micro results at discharge 08/11/24 08:40 Surgical Culture - Preliminary Gallbladder - Bile 08/11/24 08:40 Anaerobic Culture - Pending Gallbladder - Bile PFSH All Active Problems (Updated 08/11/24 @ 13:09 by Linda Collins DO) Nonfunctioning kidney (Acute) left Vertebral compression fracture (Acute) T11, T12, L1 Gallstone pancreatitis (Acute) Cholelithiasis with acute on chronic cholecystitis (Acute) Depression with anxiety (Acute) Urinary incontinence (Acute) CVA (cerebral vascular accident) (Chronic) Hypertension (Chronic) Sinusitis (Acute) Anterior epistaxis (Acute) Impacted cerumen, bilateral (Acute) Impacted cerumen, right ear (Acute) Eczema (Acute) 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 (Acute) Neck mass (Acute) Pelvic floor dysfunction (Acute 04/29/18) Conductive hearing loss, external ear (Acute 09/08/15) Chronic otitis externa (Acute 03/11/14) Chronic eczematous otitis externa (Acute 09/08/15) Bilateral ureteral calculi (Acute 12/24/17) Bilateral kidney stones (Acute 12/24/17) Hydronephrosis, left (Acute) Bladder stone (Acute) Medical History (Updated 08/11/24 @ 13:09 by Linda Collins DO) Biliary colic Biliary obstruction Elevated liver enzymes Elevated bilirubin Osteoporosis NIURKA (acute kidney injury) Conductive hearing loss Hydronephrosis, left with stricture Gallstones Bilateral ureteral calculi Bladder stone Chronic otitis externa of both ears Pelvic floor dysfunction Surgical History (Updated 08/11/24 @ 14:07 by Sheryl Melvin) S/P cholecystectomy (~08/2024) Ureteroscopy, EHL, or Laser Lithotripsy Lithotripsy Hysterectomy, Total Abdominal BSO w/ George Family History Mother Stroke Social History Smoking/Tobacco Use Status: Never Smoking risk assessment performed?: Yes Alcohol Intake: never Drug use: Never Substance use type: does not use Housing: house Additional Social history: [facility] Time Spent with Patient Time Spent with Patient: <45 minutes Time was spent: preparing to see the patient(eg.review tests), obtaining and/or reviewing separately otained hiistory, ordering medications,tests, procedures, referring, communicating with other health intensive care ambulance paramedic, indepentently interpreting results, counseling the patient and care coordination
--- NOTE | 2024-08-13 17:34 | PDOC.CMDIS ---
Date of service: 08/13/24 Time of Service: 17:34 LACE Index Scoring Tool Questions: Length of Stay (in days): 2 Was the patient admitted via the E.D.?: Yes Comorbidities: Cerebrovascular Disease E.D. Visits: 3 Answers: Total Score: 9 Risk of Readmission: Low Risk Care Management Discharge Plan Reason for Hospitalization: cholecystectomy Discharge Plan: Marisa will be discharged home with new home health services for nursing and PT. She will follow up with her PCP, surgeon and plan of care and transport with family. Patient/Family Education Needs: Review discharge instructions, activity, limitations, follow up plan and discuss Ask Me Three Services Needed at Discharge: Home Health Care Services SDOH Health Related Social Needs: No Data to Display
== END 2024-08-13 11:54 | disposition home or self-care (01) | DRG 414 ==
LOC: ICU 14:48 → MS 08-12 16:05
PROVIDERS: Admitting Provider Surgery; PCP Nurse Practitioner Family; Visit Provider Surgery
PROC: 0FT44ZZ Resection of Gallbladder, Percutaneous Endoscopic Approach (ICD-10-PCS; CPT 47562; principal; 2024-08-11 07:30)
DX: K80.12 Calculus of gallbladder with acute and chronic cholecystitis without obstruction (principal); K85.10 Biliary acute pancreatitis without necrosis or infection; N13.30 Unspecified hydronephrosis; Z53.31 Laparoscopic surgical procedure converted to open procedure; I10 Essential (primary) hypertension; M81.0 Age-related osteoporosis without current pathological fracture; F41.8 Other specified anxiety disorders; N28.9 Disorder of kidney and ureter, unspecified; R32 Unspecified urinary incontinence; L30.9 Dermatitis, unspecified; M62.89 Other specified disorders of muscle; Z86.73 Personal history of transient ischemic attack (TIA), and cerebral infarction without residual deficits; Z79.01 Long term (current) use of anticoagulants; R20.0 Anesthesia of skin
CPT/HCPCS: 47600; 00123; 36415; 80053; 97162; 97530; 85025; 87070; 87075; 87205; 88304; J0131; J0696; J1100; J1171; J1644; J1836; J2001; J2371; J2405; J2704

== ENCOUNTER 2024-08-19 12:31 | Outpatient (CLI) | payer MEDICARE, SELFPAY ==
[2024-08-19 11:28] LABS: Abs Immature Grans 0.02 10^3/uL (0.0-0.06); Absolute Basophil Count 0.05 10^3/uL (0.0-0.2); Absolute Lymphocyte Count 0.77 10^3/uL (1.2-3.4); Absolute Neutrophil Count 5.15 10^3/uL (1.2-6.7); Basophils % 0.7 %; Eosinophils % 1.5 %; HCT 36.4 % (36.0-46.0); HGB 12.1 g/dL (11.2-15.7); Immature Grans % 0.3 %; Lymphocytes % 11.5 %; MCH 32.2 pg (27.0-33.0); MCHC 33.2 % (32.0-36.0); MCV 97 fL (80-95); MPV 8.5 fL (8.0-11.0); Platelet Count 311 10^3/uL (130-400); RBC 3.76 10^6/uL (3.93-5.22); RDW 12.7 % (11.7-14.6); RDW-SD 44.4 fL; WBC 6.69 10^3/uL (4.4-10.8)
[2024-08-19 12:02] LABS: ALT 31 U/L (14-59); AST 18 U/L (15-37); Albumin 3.8 g/dL (3.4-5.0); Alkaline Phosphatase 118 U/L (46-116); Anion Gap 3.3 mmol/L (3-11); BUN 25 mg/dL (7-18); Bilirubin, Total 0.84 mg/dL (0.2-1.0); CO2 33.7 mmol/L (21.0-32.0); CREATININE 1.2 mg/dL (0.55-1.02); Calcium 10.9 mg/dL (8.5-10.1); Chloride 105 mmol/L (98-107); Estimated GFR 46.62 (mL/min/1.73m2); Glucose 170 mg/dL (74-106); Lipase 50 U/L (16-77); Potassium 3.9 mmol/L (3.5-5.1); Sodium 142 mmol/L (136-145); Total Protein 6.9 g/dL (6.4-8.2)
[2024-08-19 12:26] LABS: Ferritin 100 ng/mL (8-252)
== END 2024-08-19 12:32 | disposition home or self-care (01) ==
LOC: LBO 12:31
PROVIDERS: Surgery; PCP Nurse Practitioner Family; Visit Provider Surgery
DX: R74.8 Abnormal levels of other serum enzymes (principal); N13.30 Unspecified hydronephrosis; R17 Unspecified jaundice; K80.50 Calculus of bile duct without cholangitis or cholecystitis without obstruction; N17.9 Acute kidney failure, unspecified; I10 Essential (primary) hypertension
CPT/HCPCS: 36415; 80053; 83690; 82728; 85025

== ENCOUNTER → 2024-08-31 12:53 | Outpatient (BNVA) | payer MEDICARE, SELFPAY | PROVIDERS: PCP Nurse Practitioner Family; Referring Provider Nurse Practitioner Family; Visit Provider Surgery | DX: Z48.815 Encounter for surgical aftercare following surgery on the digestive system (principal); Z90.49 Acquired absence of other specified parts of digestive tract ==

== ENCOUNTER → 2024-09-07 12:45 | Outpatient (BNVA) | payer MEDICARE, SELFPAY | PROVIDERS: PCP Nurse Practitioner Family; Referring Provider Nurse Practitioner Family; Visit Provider Physical Therapy Assistant | DX: Z48.817 Encounter for surgical aftercare following surgery on the skin and subcutaneous tissue (principal); Z48.02 Encounter for removal of sutures ==

== ENCOUNTER → 2024-10-01 12:57 | Outpatient (BNVA) | payer MEDICARE, SELFPAY | PROVIDERS: PCP Nurse Practitioner Family; Referring Provider Nurse Practitioner Family; Visit Provider Surgery | DX: Z48.815 Encounter for surgical aftercare following surgery on the digestive system (principal) ==

== ENCOUNTER 2024-10-06 01:13 | Outpatient (CLI) | payer MEDICARE, SELFPAY ==
--- NOTE | 2024-10-06 10:30 | DI.US_ITS ---
Exam(s) US RENAL EXAM: US RENAL CLINICAL HISTORY: ? right hydronephrosis,bilat kidney stones,n20.0,n13.30, lt hydronephrosis. TECHNIQUE: Brandon scale, color and spectral Doppler were used. COMPARISON: US US RENAL from 04/09/[address] ABDOMEN PELVIS W from 08/03/2024 MR MR ABDOMEN WO from 08/07/2024 FINDINGS: Renal size in cm: Right: 9.3. Left: 8.4. Echogenicity: There is marked left renal cortical atrophy and severe dilatation of the left renal pel vis. Hydronephrosis: Severe dilatation is again seen of the left renal pelvis. Cyst or mass: No. Nephrolithiasis: There are few echogenic foci seen within the right kidney consistent with nonobstruc ting calculi. Other findings: None. Bladder:The bladder was not adequately prepped. It is insufficiently distended for evaluation. Ureteral jets: Right: Not visualized on this examination. Left: Not visualized on this examination. Prevoid vol:34 cc Renal color flow: Symmetric and within normal limits. IMPRESSION: 1. Unchanged marked left renal cortical atrophy and dilatation of the left renal pelvis. 2. Right nephrolithiasis. No hydronephrosis. 3. The urinary bladder cannot be adequately evaluated on this examination due to inadequate preparati on. DATA REPOSITORY:
== END 2024-10-06 01:33 ==
LOC: DI 01:14
PROVIDERS: PCP Nurse Practitioner Family; Visit Provider Urology
DX: N20.0 Calculus of kidney (principal)
CPT/HCPCS: 76770

== ENCOUNTER 2024-10-06 16:21 | Outpatient (CLI) | payer MEDICARE, SELFPAY ==
[2024-10-06 17:04] LABS: Abs Immature Grans 0.03 10^3/uL (0.0-0.06); Absolute Basophil Count 0.06 10^3/uL (0.0-0.2); Absolute Eosinophil Count 0.11 10^3/uL (0.0-0.7); Absolute Lymphocyte Count 0.69 10^3/uL (1.2-3.4); Absolute Monocyte Count 0.73 10^3/uL (0.1-0.8); Absolute Neutrophil Count 6.08 10^3/uL (1.2-6.7); Basophils % 0.8 %; Eosinophils % 1.4 %; HCT 39.2 % (36.0-46.0); HGB 12.6 g/dL (11.2-15.7); Immature Grans % 0.4 %; MCH 31.8 pg (27.0-33.0); MCHC 32.1 % (32.0-36.0); MCV 99 fL (80-95); MPV 8.9 fL (8.0-11.0); Monocytes % 9.5 %; Neutrophils % 78.9 %; Platelet Count 267 10^3/uL (130-400); RBC 3.96 10^6/uL (3.93-5.22); RDW 12.5 % (11.7-14.6); RDW-SD 45.4 fL
[2024-10-06 17:49] LABS: Lipase 28 U/L (16-77); Magnesium 2.1 mg/dL (1.8-2.4); PHOSPHORUS 3.2 mg/dL (2.6-4.7)
[2024-10-06 18:04] LABS: ALT 31 U/L (14-59); AST 32 U/L (15-37); Albumin 3.7 g/dL (3.4-5.0); Alkaline Phosphatase 181 U/L (46-116); Anion Gap 7.5 mmol/L (3-11); BUN 25 mg/dL (7-18); Bilirubin, Total 0.77 mg/dL (0.2-1.0); CO2 31.5 mmol/L (21.0-32.0); CREATININE 1.1 mg/dL (0.55-1.02); Calcium 9.5 mg/dL (8.5-10.1); Chloride 105 mmol/L (98-107); Estimated GFR 51.75 (mL/min/1.73m2); Glucose 117 mg/dL (74-106); Potassium 3.8 mmol/L (3.5-5.1); Sodium 144 mmol/L (136-145); Total Protein 7.5 g/dL (6.4-8.2)
== END 2024-10-06 16:22 | disposition home or self-care (01) ==
LOC: LBO 16:22
PROVIDERS: Surgery; PCP Nurse Practitioner Family; Visit Provider Urology
DX: N20.0 Calculus of kidney (principal); N13.30 Unspecified hydronephrosis; R74.8 Abnormal levels of other serum enzymes; Z90.49 Acquired absence of other specified parts of digestive tract; R17 Unspecified jaundice
CPT/HCPCS: 36415; 80053; 83690; 83735; 84100; 85025

== ENCOUNTER → 2024-10-09 14:00 | Outpatient (BNVA) | payer MEDICARE, SELFPAY | PROVIDERS: PCP Nurse Practitioner Family; Visit Provider Urology | DX: N20.0 Calculus of kidney (principal); N13.30 Unspecified hydronephrosis | CPT/HCPCS: 99213 ==

== ENCOUNTER 2024-11-10 13:53 | Outpatient (CLI) | payer MEDICARE, SELFPAY ==
[2024-11-10 11:20] LABS: ALT 74 U/L (14-59); AST 49 U/L (15-37); Albumin 4.2 g/dL (3.4-5.0); Alkaline Phosphatase 165 U/L (46-116); Anion Gap 7.6 mmol/L (3-11); BUN 27 mg/dL (7-18); Bilirubin, Total 1.33 mg/dL (0.2-1.0); CO2 29.4 mmol/L (21.0-32.0); CREATININE 1.1 mg/dL (0.55-1.02); Calcium 9.2 mg/dL (8.5-10.1); Chloride 106 mmol/L (98-107); Estimated GFR 51.75 (mL/min/1.73m2); Glucose 93 mg/dL (74-106); Potassium 4.3 mmol/L (3.5-5.1); Sodium 143 mmol/L (136-145); Total Protein 7.4 g/dL (6.4-8.2)
== END 2024-11-10 13:54 | disposition home or self-care (01) ==
LOC: LBO 13:53
PROVIDERS: PCP Nurse Practitioner Family; Visit Provider Urology
DX: R32 Unspecified urinary incontinence (principal); N20.0 Calculus of kidney; N13.30 Unspecified hydronephrosis
CPT/HCPCS: 36415; 80053

== ENCOUNTER → 2025-02-25 10:29 | Outpatient (BNVA) | payer MEDICARE, SELFPAY | PROVIDERS: PCP Nurse Practitioner Family; Referring Provider Nurse Practitioner Family | DX: M17.12 Unilateral primary osteoarthritis, left knee (principal) | CPT/HCPCS: 20610; J1010 ==

== ENCOUNTER 2025-04-02 01:27 | Outpatient (CLI) | payer MEDICARE, SELFPAY ==
--- NOTE | 2025-04-02 07:15 | DI.US_ITS ---
Exam(s) US RENAL EXAM: US RENAL CLINICAL HISTORY: ? right hydronephrosis,lt hydronephrosis,bilat kidney stones,n20.0,n13.30. TECHNIQUE: Brandon scale, color and spectral Doppler were used. COMPARISON: CT CT ABDOMEN PELVIS W from 08/03/2024 MR MR ABDOMEN WO from 08/07/2024 US US RENAL from 10/06/2024 FINDINGS: Renal size in cm: Right: 9.3. Left: 9.9. Echogenicity: Unremarkable cortical echogenicity of the right kidney. There is marked renal cortical atrophy of the left kidney again seen. Hydronephrosis: There is marked dilatation of the left renal collecting system again seen. Cyst or mass: No. Nephrolithiasis: There is a 3 mm echogenic focus in the lower pole of the right kidney which may repr esent a nonobstructing stone. Other findings: None. Bladder:Normal. Ureteral jets: Right: Not visualized on this examination. Left: Not visualized on this examination. Prevoid vol:74 cc Postvoid vol:17 cc Renal color flow: There is blood flow seen to the right kidney. IMPRESSION: 1. There is again seen marked renal cortical atrophy of the left kidney and marked left hydronephrosi s. It is similar compared to the prior examination. 2. Right nephrolithiasis without evidence of hydronephrosis. DATA REPOSITORY:
== END 2025-04-02 01:47 ==
LOC: DI 01:27
PROVIDERS: PCP Nurse Practitioner Family; Visit Provider Urology
DX: N13.30 Unspecified hydronephrosis (principal); N20.0 Calculus of kidney
CPT/HCPCS: 76770

== ENCOUNTER 2025-04-07 11:57 | Outpatient (CLI) | payer MEDICARE, SELFPAY ==
[2025-04-07 12:15] LABS: CREATININE 1.2 mg/dL (0.55-1.02); Estimated GFR 46.33 (mL/min/1.73m2)
== END 2025-04-07 11:58 | disposition home or self-care (01) ==
LOC: LBO 11:57
PROVIDERS: PCP Nurse Practitioner Family; Visit Provider Urology
DX: N28.9 Disorder of kidney and ureter, unspecified (principal); N13.30 Unspecified hydronephrosis; N20.0 Calculus of kidney; N20.1 Calculus of ureter
CPT/HCPCS: 36415; 82565

== ENCOUNTER 2025-04-13 09:46 | Outpatient (CLI) | payer MEDICARE, SELFPAY ==
[2025-04-13 11:18] LABS: Anion Gap 5.7 mmol/L (3-11); BUN 28 mg/dL (7-18); CO2 32.3 mmol/L (21.0-32.0); CREATININE 1.3 mg/dL (0.55-1.02); Calcium 11.2 mg/dL (8.5-10.1); Chloride 102 mmol/L (98-107); Estimated GFR 42.09 (mL/min/1.73m2); Glucose 92 mg/dL (74-106); Potassium 3.9 mmol/L (3.5-5.1); Sodium 140 mmol/L (136-145)
[2025-04-15 18:40] LABS: Beta-CrossLaps (B-CTx) 1228 pg/mL
== END 2025-04-13 09:47 | disposition home or self-care (01) ==
LOC: LBO 09:46
PROVIDERS: PCP Nurse Practitioner Family; Visit Provider Internal Medicine Endocrinology, Diabetes & Metabolism
DX: M81.0 Age-related osteoporosis without current pathological fracture (principal)
CPT/HCPCS: 36415; 80048; 82523

== ENCOUNTER 2025-04-30 09:53 | Outpatient (CLI) | payer MEDICARE, SELFPAY ==
--- NOTE | 2025-04-30 09:45 | DI.RAD_ITS ---
Exam(s) XR KNEE RT 4V AP,LAT,MANAN,PAT EXAM: XR KNEE RT 4V AP,LAT,MANAN,PAT CLINICAL HISTORY: right knee pain. TECHNIQUE: 2D digital imaging was performed. COMPARISON: CR XR KNEE LT 3V AP,LAT,MANAN from 02/26/2024 FINDINGS: Four views No evidence of fracture or prominent joint effusion. There is [id number] degenerative narrowing of the medial compartment as well as marginal osteophyte s off the medial compartment. Lateral compartment appears unremarkable. Patellofemoral compartment exhibits mild-moderate degenerative change. There are no osseous lesions. Bone density is age-appro priate. IMPRESSION: Main finding is [id number] degenerative narrowing of the medial compartment. There is no obvious j oint effusion. DATA REPOSITORY: RADIATION DOSE DELIVERED:
== END 2025-04-30 09:54 | disposition home or self-care (01) ==
LOC: DIORS 09:54
PROVIDERS: PCP Nurse Practitioner Family; Referring Provider Nurse Practitioner Family; Visit Provider Physician Assistant
DX: M17.11 Unilateral primary osteoarthritis, right knee
CPT/HCPCS: 20610; J1010; 73564

== ENCOUNTER 2025-05-05 02:02 | Outpatient (RCR) | payer MEDICARE, SELFPAY ==
[2025-05-05] MEDS: Denosumab 60 MG/ML SYR SC (13:00)
== END 2025-05-31 23:59 | disposition home or self-care (01) ==
LOC: INF 02:02
PROVIDERS: PCP Nurse Practitioner Family; Visit Provider Family Medicine
DX: M81.0 Age-related osteoporosis without current pathological fracture (principal)
CPT/HCPCS: 96372; J0897

== ENCOUNTER 2025-08-03 14:59 | Outpatient (REF) | payer MEDICARE, SELFPAY ==
[2025-08-03 15:44] LABS: ALT 71 U/L (14-59); AST 51 U/L (15-37); Albumin 4.3 g/dL (3.4-5.0); Alkaline Phosphatase 270 U/L (46-116); Anion Gap 9.5 mmol/L (3-11); BUN 26 mg/dL (7-18); Bilirubin, Total 1.4 mg/dL (0.2-1.0); CO2 27.5 mmol/L (21.0-32.0); Calcium 9.5 mg/dL (8.5-10.1); Calculated LDL 68 mg/dL (<100); Chloride 103 mmol/L (98-107); Cholesterol 153 mg/dL (<200); Estimated GFR 51.43 (mL/min/1.73m2); Glucose 89 mg/dL (74-106); HDL Cholesterol 77 mg/dL (>or=50); Potassium 4.7 mmol/L (3.5-5.1); Sodium 140 mmol/L (136-145); Total Protein 7.0 g/dL (6.4-8.2); Triglyceride 41 mg/dL (<150)
== END 2025-08-03 15:00 | disposition home or self-care (01) ==
LOC: NCHCN 14:59
PROVIDERS: PCP Nurse Practitioner Family; Visit Provider Nurse Practitioner Family
DX: I63.9 Cerebral infarction, unspecified (principal)
CPT/HCPCS: 80053; 80061

== ENCOUNTER → 2025-10-06 02:23 | Outpatient (CLI) | payer MEDICARE, SELFPAY ==
--- NOTE | 2025-10-06 07:00 | DI.US_ITS ---
Exam(s) US RENAL EXAM: US RENAL CLINICAL HISTORY: ? right hydronephrosis,BILAT KIDNEY STONES,N13.30,N20.0 TECHNIQUE: Ultrasound of both kidneys performed using standard protocol. COMPARISON: CT CT ABDOMEN PELVIS W from 06/21/[address] ABDOMEN PELVIS W from 08/03/2024 US US RENAL from 04/02/2025 FINDINGS: RIGHT KIDNEY: Measures 10.1 cm in length. No cysts evident. Normal cortical thickness and corticomedullary differentiation .No solid masses No intrarenal calculi nor hydronephrosis. LEFT KIDNEY: Measures 8.9 cm in length. There is severe left-sided hydronephrosis again noted with significantly thin cortical mantle again evident. URINARY BLADDER: Prevoid volume is 76 cc Postvoid volume is 24 cc No evidence of bladder mass nor diverticuli. Ureterovesical jets: Both not identified IMPRESSION: 1. There is severe advanced unilateral left hydronephrosis with advanced cortical thinning the left kidney, similar to prior ultrasound and CT scan of 06/21/2024 and 08/03/2024. . 2. The right kidney again appears unremarkable. DATA REPOSITORY:
== END ==
LOC: DI 02:23
PROVIDERS: PCP Nurse Practitioner Family; Visit Provider Urology
DX: N13.30 Unspecified hydronephrosis (principal); N20.0 Calculus of kidney
CPT/HCPCS: 76770

== ENCOUNTER → 2025-10-12 10:11 | Outpatient (BNVA) | payer MEDICARE, SELFPAY | PROVIDERS: PCP Nurse Practitioner Family; Visit Provider Urology | DX: N20.0 Calculus of kidney (principal); N28.9 Disorder of kidney and ureter, unspecified | CPT/HCPCS: 99213 ==

== ENCOUNTER 2025-11-10 13:26 | Outpatient (RCR) | payer MEDICARE, SELFPAY ==
[2025-11-10] MEDS: Denosumab 60 MG/ML SYR SC (13:30)
== END 2025-12-01 23:59 | disposition home or self-care (01) ==
LOC: INF 13:26
PROVIDERS: PCP Nurse Practitioner Family; Visit Provider Family Medicine
DX: M81.0 Age-related osteoporosis without current pathological fracture (principal)
CPT/HCPCS: 96372; J0897